=== PATIENT | male | born 1970 | race Caucasian/White ===

== ENCOUNTER 2016-09-09 16:53 | Emergency (ER) | payer MEDICARE, OTHER ==
[~2016-09-09] VITALS: Ht 162.6 cm; Wt 73.2 kg
[~2016-09-09 16:53] MED LIST: AMLO-147 PO; CIPR500T4 PO; CYCL-319 PO; GEMF600T PO; IBUP-1542 PO; INSU100C SC; MTF1000T PO; PANT40TA3 PO; ZOLP10TA PO
[2016-09-09 17:15] VITALS: Ht 162.6 cm; Wt 73.2 kg
[2016-09-09] MEDS ORDERED: SOD CHLORIDE 0.9% 500 ML IV STA (21:52)
[2016-09-09 22:17] LABS: ADD SCAN DIFF NO
[2016-09-09 22:25] LABS: ABNORMAL IP MESSAGE 1; HEMATOCRIT 32.9 % (42.0-52.0); HEMOGLOBIN 11.8 g/dl (14.0-18.0); MEAN CORPUSCULAR HEMOGLOBIN 35.1 pg (29.0-33.0); MEAN CORPUSCULAR HGB CONC 35.9 g/dl (32.0-37.0); MEAN CORPUSCULAR VOLUME 97.9 fl (82.0-101.0); MEAN PLATELET VOLUME 9.9 fl (7.4-10.4); PLATELET COUNT 88 10^3/UL (140-415); RED BLOOD COUNT 3.36 10^6/ul (4.70-6.10); RED CELL DISTRIBUTION WIDTH 13.8 % (11.5-14.5); RETICULOCYTE COUNT % 3.7 % (0.5-1.5)
[2016-09-09] MEDS ORDERED: IBUP800T25 PO (22:25)
[2016-09-09] MEDS ORDERED: INSU200I SQ (22:25)
[2016-09-09] MEDS ORDERED: GLYB5TAB3 PO (22:26)
[2016-09-09] MEDS ORDERED: MIRT30TA5 PO (22:29)
[2016-09-09] MEDS ORDERED: ONDANSETRON 4 MG INJ IV STA (22:33)
[2016-09-09] MEDS ORDERED: morphine 4 MG/ML VIAL IV STA (22:33)
[2016-09-09 22:47] LABS: ALBUMIN 4.4 g/dl (3.3-4.9); CHLORIDE 105 mmol/L (97-110)
[2016-09-09 22:48] LABS: POTASSIUM 3.8 mmol/L (3.5-5.1); SODIUM 143 mmol/L (135-144)
[2016-09-09 22:49] LABS: IRON 41 ug/dl (35-150)
[2016-09-09 22:50] LABS: ALBUMIN/GLOBULIN RATIO 1.33; ALKALINE PHOSPHATASE 146 IU/L (42-121); ANION GAP 17 (8-16); ASPARTATE AMINO TRANSFERASE 111 IU/L (15-46); BILIRUBIN,INDIRECT 0.9 mg/dl (0-1.1); BILIRUBIN,TOTAL 0.9 mg/dl (0.2-1.3); BLOOD UREA NITROGEN 14 mg/dl (7-20); CARBON DIOXIDE 25 mmol/L (21-31); CREATININE 0.74 mg/dl (0.61-1.24); TOTAL PROTEIN 7.7 g/dl (6.1-8.1)
[2016-09-09 22:51] LABS: ALANINE AMINOTRANSFERASE 93 IU/L (13-69); CALCIUM 9.3 mg/dl (8.4-10.2); GLUCOSE 199 mg/dl (70-220); LACTATE DEHYDROGENASE 738 IU/L (313-618)
[2016-09-09 22:58] LABS: TOTAL IRON BINDING CAPACITY 266 ug/dl (241-421)
[2016-09-09 23:06] LABS: TROPONIN-I < 0.012 ng/ml (0.00-0.12)
--- NOTE | 2016-09-09 23:14 | RADRPT ---
PROCEDURE: Left upper extremity venous ultrasound CLINICAL INDICATION: Left arm pain and swelling. Deep venous thrombosis. TECHNIQUE: Miller scale, color doppler, spectral doppler ultrasound imaging of the venous system of the left upper extremity. Augmentation maneuvers were utilized. COMPARISON: No prior studies are available for comparison. FINDINGS: LEFT: Internal jugular vein: Patent. Subclavian vein: Patent. Axillary vein: Patent. Brachial vein: Patent. Basilic vein: Patent. Cephalic vein: Patent. Radial vein: Patent. Ulnar vein: Patent. IMPRESSION: No evidence of a deep vein thrombosis involving the left upper extremity. RPTAT: AADD .Nick Ashby MD, MD Date Time Electronically viewed and signed by .Nick Ashby MD, MD on 09/09/2016 23:14 .B/
[2016-09-09 23:17] LABS: LYMPHOCYTES # 0.7 10^3/ul (0.8-2.9); MONOCYTE # 0.5 10^3/ul (0.3-0.9); NEUTROPHIL # 0.8 10^3/ul (1.6-7.5)
[2016-09-10] MEDS ORDERED: KETOROLAC 30 MG INJ IV ONE (00:04)
--- NOTE | 2016-09-10 01:05 | RADRPT ---
PROCEDURE: XR Shoulder. CLINICAL INDICATION: Left shoulder pain. TECHNIQUE: Two views of the left shoulder. COMPARISON: None available. FINDINGS: There is no fracture or dislocation. The coracoclavicular interval is normal. The joint spaces are preserved. There are no periarticular calcifications. The visualized lung is clear. IMPRESSION: 1. No osseous or articular abnormality of the left shoulder. RPTAT: HTAR .Dustin Chen MD, MD Date Time Electronically viewed and signed by .Dustin Chen MD, MD on 09/10/2016 01:05 .R/
[2016-09-10] MEDS ORDERED: morphine 4 MG/ML VIAL IV ONE (01:31)
--- NOTE | 2016-09-10 02:05 | ERD ---
ER Documentation Chief Complaint Date/Time DATE: 09/10/16 TIME: 02:00 Chief Complaint left arm pain ; low hgb level - pt has leukemia HPI This is a 45-year-old male comes in with complaints of left arm pain of 3 months duration. Patient has a history of leukemia and was told that it is "bone pain. Denies any fevers or chills. Denies any trauma. Denies any other current issues. ROS All systems reviewed and are negative except as per history of present illness. Medications Home Meds Active Scripts Amlodipine Besylate* (Amlodipine Besylate*) 10 Mg Tablet, 10 MG PO DAILY for 30 Days, TAB Prov:ARASH ARRIAGA 02/07/16 Reported Medications Mirtazapine* (Mirtazapine*) 30 Mg Tablet, 30 MG PO HS, TAB 09/09/16 Glyburide* (Glyburide*) 5 Mg Tablet, 5 MG PO BID, #60 TAB 09/09/16 Insulin Lispro (Humalog Kwikpen) 200 Unit/1 Ml Insuln.pen, 3 UNIT SQ TID, EA 09/09/16 Ibuprofen* (Ibuprofen*) 800 Mg Tab, 800 MG PO Q6H Y for PAIN, TAB 09/09/16 Gemfibrozil* (Lopid*) 600 Mg Tablet, 600 MG PO BID, TAB 02/02/16 Metformin* (Glucophage*) 1,000 Mg Tablet, 1000 MG PO BID, #60 TAB 02/02/16 Discontinued Reported Medications Zolpidem Tartrate* (Ambien*) 10 Mg Tablet, 10 MG PO QHS Y for INSOMNIA, TAB 02/02/16 Cyclobenzaprine Hcl* (Cyclobenzaprine Hcl*) 10 Mg Tablet, 10 MG PO Q8 Y for PAIN LEVEL 6-10, #60 TAB 02/02/16 Ibuprofen* (Motrin*) 600 Mg Tab, 600 MG PO Q6H Y for PAIN, TAB 02/02/16 Insulin Lispro (Humalog) 100 U/Ml Cartridge, 10 UNITS SC WITH MEALS BEDTIME, EA 02/02/16 Discontinued Scripts Pantoprazole* (Protonix*) 40 Mg Tablet.dr, 40 MG PO DAILY for 30 Days, TAB Prov:ARASH ARRIAGA 02/07/16 Ciprofloxacin Hcl* (Ciprofloxacin Hcl*) 500 Mg Tablet, 500 MG PO BID@,18 for 7 Days, TAB Prov:ARASH ARRIAGA 02/07/16 Allergies Allergies: Coded Allergies: No Known Allergy (Unverified , 09/09/16) PMhx/Soc History of Surgery: Yes (UMBILICAL HERNIA) Anesthesia Reaction: No Hx Neurological Disorder: No Hx Respiratory Disorders: No Hx Cardiac Disorders: Yes (HTN) Hx Psychiatric Problems: No Hx Miscellaneous Medical Probl: Yes (PANCYTOPENIA, MYELODYSPLASIA, leukemia , dm) Hx Alcohol Use: No Hx Substance Use: No Hx Tobacco Use: No Smoking Status: Never smoker Physical Exam Vitals Vital Signs Date Time Temp Pulse Resp B/P Pulse Ox O2 Delivery O2 Flow Rate FiO2 09/10/16 00:24 125 17 125/85 100 Room Air 09/09/16 22:19 119 17 153/97 100 Room Air 09/09/16 17:15 99.1 128 26 153/85 100 Physical Exam Const: [] Head: Atraumatic Eyes: Normal Conjunctiva ENT: Normal External Ears, Nose and Mouth. Neck: Full range of motion..~ No meningismus. Resp: Clear to auscultation bilaterally Cardio: Regular rate and rhythm, no murmurs Abd: Soft, non tender, non distended. Normal bowel sounds Skin: No petechiae or rashes Back: No midline or flank tenderness Ext: No cyanosis, or edema Neur: Awake and alert Psych: Normal Mood and Affect Result Diagram: 09/09/16220409/09/162204 Results 24 hrs Laboratory Tests Test 09/09/16 22:05 Absolute Reticulocyte Count 0.125X10^6 Alanine Aminotransferase (ALT/SGPT) 93IU/L Albumin 4.4g/dl Albumin/Globulin Ratio 1.33 Alkaline Phosphatase 146IU/L Anion Gap 17 Aspartate Amino Transf (AST/SGOT) 111IU/L Blood Urea Nitrogen 14mg/dl Calcium Level 9.3mg/dl Carbon Dioxide Level 25mmol/L Chloride Level 105mmol/L Creatinine 0.74mg/dl Direct Bilirubin 0.00mg/dl Eosinophils # 0.010^3/ul Eosinophils % 1.0% Ferritin Pending Globulin 3.30g/dl Glucose Level 199mg/dl Hematocrit 32.9% Hemoglobin 11.8g/dl Indirect Bilirubin 0.9mg/dl Iron Level 41ug/dl Lactate Dehydrogenase 738IU/L Lymphocytes # 0.710^3/ul Lymphocytes % 33.0% Mean Corpuscular Hemoglobin 35.1pg Mean Corpuscular Hemoglobin Concent 35.9g/dl Mean Corpuscular Volume 97.9fl Mean Platelet Volume 9.9fl Monocytes # 0.510^3/ul Monocytes % 24.0% Neutrophils # 0.810^3/ul Neutrophils % 42.0% Nucleated Red Blood Cells % 1.0/100WBC Percent Iron Saturation 15% SAT Percent Reticulocyte Count 3.7% Platelet Count 8810^3/UL Potassium Level 3.8mmol/L Red Blood Count 3.3610^6/ul Red Cell Distribution Width 13.8% Sodium Level 143mmol/L Total Bilirubin 0.9mg/dl Total Iron Binding Capacity 266ug/dl Total Protein 7.7g/dl Troponin I < 0.012ng/ml White Blood Count 2.010^3/ul Current Medications Medications (Trade) Dose Ordered Sig/[place] Route PRN Reason Start Time Stop Time Status Last Admin Dose Admin Sodium Chloride (NS) 500 ml @ 500 mls/hr Q1H STAT IV 09/09/16 21:52 09/09/16 22:51 DC 09/09/16 22:40 Morphine Sulfate (morphine) 4 mg ONCE STAT IV 09/09/16 22:33 09/09/16 22:35 DC 09/09/16 22:39 Ondansetron HCl (Zofran Inj) 4 mg ONCE STAT IV 09/09/16 22:33 09/09/16 22:35 DC 09/09/16 22:39 Ketorolac Tromethamine (Toradol) 30 mg ONCE ONCE IV 09/10/16 00:04 09/10/16 00:10 DC 09/10/16 00:23 Morphine Sulfate (morphine) 4 mg ONCE ONCE IV 09/10/16 01:31 09/10/16 01:32 DC 09/10/16 01:39 Procedures/MDM DVT study negative X-ray Shoulder 3V Interpreted by me: Bones: No fracture Joints: No dislocation Foreign body: None Medical decision-makin-year-old male has shoulder pain of uncertain etiology. He reports that shoulder sling. Patient will follow-up as an outpatient with orthopedics. Discharged home with pain medication. Departure Diagnosis: Primary Impression: Shoulder pain Laterality: left Chronicity: chronic Qualified Code: M25.512 - Chronic left shoulder pain Condition: Stable ELIEL CHEATHAM Sep 10, 2016 02:05
[2016-09-10] MEDS ORDERED: HYDR-902 PO (02:06)
[2016-09-10 02:51] VITALS: BP 127/86; PULSE 104; RESP 16; TEMP 97.9
== END 2016-09-10 02:52 | disposition home or self-care (01) ==
LOC: E/R 16:53
DX: M25.512 Pain in left shoulder (principal); I10 Essential (primary) hypertension; E11.9 Type 2 diabetes mellitus without complications; Z79.4 Long term (current) use of insulin; Z79.84 Long term (current) use of oral hypoglycemic drugs
CPT/HCPCS: 73030; 80053; 82728; 83540; 83615; 84484; 85025; 85045; 86850; 86870; 86900; 86901; 93005; 93971; 96361; 96374; 96375; 96376; 99285; J1885; J2270; J2405; J7040

== ENCOUNTER 2016-10-21 19:57 | Inpatient (IN) | payer MEDICARE, OTHER ==
[~2016-10-21] VITALS: Ht 157.5 cm; Wt 76.5 kg
[~2016-10-21 19:57] MED LIST changes: -CIPR500T4 PO; -CYCL-319 PO; +GLYB5TAB3 PO; +HYDR-902 PO; -IBUP-1542 PO; +IBUP800T25 PO; -INSU100C SC; +INSU200I SQ; +MIRT30TA5 PO; -PANT40TA3 PO; -ZOLP10TA PO
[2016-10-21 20:08] VITALS: Ht 157.5 cm; Wt 76.5 kg
[2016-10-21] MEDS ORDERED: CEFEPIME 2GM/50 ML (PMX) 50 ML IVPB STA (22:43)
[2016-10-21] MEDS ORDERED: ACETAMINOPHEN 325 MG TAB PO STA (22:43)
[2016-10-21] MEDS ORDERED: SODIUM CHLORIDE 0.9% 1L BAG IV* STA (22:43)
[2016-10-21] MEDS ORDERED: INSU200I SQ (22:58)
[2016-10-21] MEDS ORDERED: TRAM-40 PO (22:59)
[2016-10-21] MEDS ORDERED: METO10TA92 PO (22:59)
[2016-10-21] MEDS ORDERED: VANCOMYCIN 1 GM (PMX) 250 ML IVPB ONE (23:00)
[2016-10-21] MEDS ORDERED: HYDROmorphONE 1 MG/ML SYG IV STA (23:12)
[2016-10-21 23:14] LABS: ADD SCAN DIFF NO
[2016-10-21 23:16] LABS: ABNORMAL IP MESSAGE 1; HEMOGLOBIN 9.6 g/dl (14.0-18.0); MEAN CORPUSCULAR HEMOGLOBIN 32.3 pg (29.0-33.0); MEAN CORPUSCULAR HGB CONC 33.1 g/dl (32.0-37.0); MEAN CORPUSCULAR VOLUME 97.6 fl (82.0-101.0); MEAN PLATELET VOLUME 10.2 fl (7.4-10.4); PLATELET COUNT 101 10^3/UL (140-415); RED BLOOD COUNT 2.97 10^6/ul (4.70-6.10); RED CELL DISTRIBUTION WIDTH 15.9 % (11.5-14.5); WHITE BLOOD COUNT 2.1 10^3/ul (4.8-10.8)
[2016-10-21 23:32] LABS: INR 1.11; PROTIME 14.3 Sec (12.2-14.2); PT RATIO 1.1
[2016-10-21 23:33] LABS: PARTIAL THROMBOPLASTIN TIME 36.5 Sec (25.0-35.0)
[2016-10-21 23:39] LABS: ALANINE AMINOTRANSFERASE 161 IU/L (13-69); ALBUMIN 4.4 g/dl (3.3-4.9); ALBUMIN/GLOBULIN RATIO 1.46; ALKALINE PHOSPHATASE 153 IU/L (42-121); ANION GAP 14 (8-16); ASPARTATE AMINO TRANSFERASE 150 IU/L (15-46); BILIRUBIN,INDIRECT 1.2 mg/dl (0-1.1); BILIRUBIN,TOTAL 1.2 mg/dl (0.2-1.3); BLOOD UREA NITROGEN 17 mg/dl (7-20); CARBON DIOXIDE 24 mmol/L (21-31); CHLORIDE 101 mmol/L (97-110); CREATININE 0.84 mg/dl (0.61-1.24); GLUCOSE 242 mg/dl (70-220); POTASSIUM 4.1 mmol/L (3.5-5.1); SODIUM 135 mmol/L (135-144); TOTAL PROTEIN 7.4 g/dl (6.1-8.1)
[2016-10-21 23:51] LABS: TROPONIN-I < 0.012 ng/ml (0.00-0.12)
[2016-10-22 00:23] LABS: LYMPHOCYTES # 0.2 10^3/ul (0.8-2.9); MONOCYTE # 0.8 10^3/ul (0.3-0.9); NEUTROPHIL # 1.1 10^3/ul (1.6-7.5)
[2016-10-22 00:25] LABS: PLATELET ESTIMATE PLT APPEAR DECREASED
[2016-10-22] MEDS ORDERED: HYDROmorphONE 1 MG/ML SYG IV ONE ×4 (00:25→05:41)
--- NOTE | 2016-10-22 00:39 | RADRPT ---
PROCEDURE: XR Chest. CLINICAL INDICATION: Sepsis TECHNIQUE: Single AP portable chest COMPARISON: 02/02/2016 Chest x-ray FINDINGS: The cardiomediastinal silhouette is within normal limits of size. Blunting left costophrenic angle c ompatible small pleural effusion or pleuroparenchymal scarring unchanged compared to previous study. No pneumothorax. The osseous structures and soft tissues are unremarkable. IMPRESSION: 1. Left pleural parenchymal scarring versus small pleural effusion without interval change. No othe r acute intrathoracic abnormality. . RPTAT:AAJJ Josh Beavers Physician Date Time Electronically viewed and signed by Physician Rohini on 10/22/2016 00:38 AUBREY/
--- NOTE | 2016-10-22 00:54 | ERA ---
ER Documentation Chief Complaint Date/Time DATE: 10/22/16 TIME: 00:53 Chief Complaint sent by oncologist, hx-leukemia taking chemo. c/ o fever since yesterday HPI This is a 45-year-old male sent by oncologist secondary to have a fever since yesterday. Patient has a history of leukemia and is currently on chemotherapy. Denies any complaints other than fever. ROS All systems reviewed and are negative except as per history of present illness. Medications Home Meds Active Scripts Hydrocodone/Acetaminophen ([place] 10-325 Tablet) 1 Each Tablet, 1 TAB PO Q6H Y for PAIN, #20 TAB Prov:ELIEL CHEATHAM 09/10/16 Amlodipine Besylate* (Amlodipine Besylate*) 10 Mg Tablet, 10 MG PO DAILY for 30 Days, TAB Prov:ARASH ARRIAGA 02/07/16 Reported Medications Tramadol Hcl* (Ultram*) 50 Mg Tablet, 50 MG PO Q6H Y for PAIN, TAB 10/21/16 Metoclopramide* (Reglan*) 10 Mg Tablet, 10 MG PO AC MEALS, TAB 10/21/16 Insulin Lispro (Humalog Kwikpen) 200 Unit/1 Ml Insuln.pen, 5 UNIT SQ TID, EA 10/21/16 Mirtazapine* (Mirtazapine*) 30 Mg Tablet, 30 MG PO HS, TAB 09/09/16 Glyburide* (Glyburide*) 5 Mg Tablet, 5 MG PO BID, #60 TAB 09/09/16 Ibuprofen* (Ibuprofen*) 800 Mg Tab, 800 MG PO Q6H Y for PAIN, TAB 09/09/16 Gemfibrozil* (Lopid*) 600 Mg Tablet, 600 MG PO BID, TAB 02/02/16 Metformin* (Glucophage*) 1,000 Mg Tablet, 1000 MG PO BID, #60 TAB 02/02/16 Discontinued Reported Medications Insulin Lispro (Humalog Kwikpen) 200 Unit/1 Ml Insuln.pen, 3 UNIT SQ TID, EA 09/09/16 Allergies Allergies: Coded Allergies: No Known Allergy (Unverified , 09/09/16) PMhx/Soc History of Surgery: Yes (UMBILICAL HERNIA) Anesthesia Reaction: No Hx Neurological Disorder: No Hx Respiratory Disorders: No Hx Cardiac Disorders: Yes (HTN) Hx Psychiatric Problems: No Hx Miscellaneous Medical Probl: Yes (PANCYTOPENIA, MYELODYSPLASIA, leukemia , dm) Hx Alcohol Use: No Hx Substance Use: No Hx Tobacco Use: No Smoking Status: Never smoker Physical Exam Vitals Vital Signs Date Time Temp Pulse Resp B/P Pulse Ox O2 Delivery O2 Flow Rate FiO2 10/21/16 23:56 99.6 126 22 122/75 97 Room Air 10/21/16 20:08 101.2 147 20 170/78 97 Physical Exam Const: [] Head: Atraumatic Eyes: Normal Conjunctiva ENT: Normal External Ears, Nose and Mouth. Neck: Full range of motion..~ No meningismus. Resp: Clear to auscultation bilaterally Cardio: Regular rate and rhythm, no murmurs Abd: Soft, non tender, non distended. Normal bowel sounds Skin: No petechiae or rashes Back: No midline or flank tenderness Ext: No cyanosis, or edema Neur: Awake and alert Psych: Normal Mood and Affect Result Diagram: 10/21/16225410/21/162254 Results 24 hrs Laboratory Tests Test 10/21/16 22:55 White Blood Count 2.110^3/ul Red Blood Count 2.9710^6/ul Hemoglobin 9.6g/dl Hematocrit 29.0% Mean Corpuscular Volume 97.6fl Mean Corpuscular Hemoglobin 32.3pg Mean Corpuscular Hemoglobin Concent 33.1g/dl Red Cell Distribution Width 15.9% Platelet Count 41734^3/UL Mean Platelet Volume 10.2fl Neutrophils % 53.0% Lymphocytes % 11.0% Monocytes % 36.0% Nucleated Red Blood Cells % 3.0/100WBC Neutrophils # 1.110^3/ul Lymphocytes # 0.210^3/ul Monocytes # 0.810^3/ul Platelet Estimate PLT APPEAR DECREASED Prothrombin Time 14.3Sec Prothrombin Time Ratio 1.1 INR International Normalized Ratio 1.11 Activated Partial Thromboplast Time 36.5Sec Sodium Level 135mmol/L Potassium Level 4.1mmol/L Chloride Level 101mmol/L Carbon Dioxide Level 24mmol/L Anion Gap 14 Blood Urea Nitrogen 17mg/dl Creatinine 0.84mg/dl Glucose Level 242mg/dl Lactic Acid Level 1.0mmol/L Calcium Level 9.0mg/dl Total Bilirubin 1.2mg/dl Direct Bilirubin 0.00mg/dl Indirect Bilirubin 1.2mg/dl Aspartate Amino Transf (AST/SGOT) 150IU/L Alanine Aminotransferase (ALT/SGPT) 161IU/L Alkaline Phosphatase 153IU/L Troponin I < 0.012ng/ml Total Protein 7.4g/dl Albumin 4.4g/dl Globulin 3.00g/dl Albumin/Globulin Ratio 1.46 Current Medications Medications (Trade) Dose Ordered Sig/[place] Route PRN Reason Start Time Stop Time Status Last Admin Dose Admin Sodium Chloride (NS) 2,370 ml BOLUS OVER 2 HOURS STAT IV* 10/21/16 22:43 10/21/16 22:44 DC 10/21/16 23:07 Acetaminophen 650 mg 650 mg ONCE STAT PO 10/21/16 22:43 10/21/16 22:44 DC 10/21/16 23:09 Cefepime HCl 50 ml @ 100 mls/hr ONCE STAT IVPB 10/21/16 22:43 10/21/16 23:12 DC 10/21/16 23:07 Vancomycin HCl (Vancocin) 250 ml @ 125 mls/hr ONCE ONCE IVPB 10/21/16 23:00 10/22/16 00:59 10/21/16 23:54 Hydromorphone HCl (Dilaudid) 1 mg ONCE STAT IV 10/21/16 23:12 10/21/16 23:13 DC 10/21/16 23:33 Hydromorphone HCl (Dilaudid) 1 mg ONCE ONCE IV 10/22/16 00:25 10/22/16 00:26 DC 10/22/16 00:30 Procedures/MDM EKG: Rate/Rhythm: [Normal Sinus Rhythm] QRS, ST, T-waves: [No changes consistent w/ acute ischemia] Impression: [No evidence of ischemia or arrhythmia] Chest X-ray 1V Interpreted by me: Soft Tissue: No acute abnormalities Bones: No acute abnormalities Mediastinum/Cardiac Silhouette/Lungs: [No acute abnormalities] Medical decision-makin-year-old gentleman with chronic chemotherapy with fever. Started on broad-spectrum antibiotics post fernandez culture. Patient will be admitted to hospitalist. Departure Diagnosis: Primary Impression: Fever Qualified Code: R50.9 - Fever, unspecified fever cause Condition: Serious ELIEL CHEATHAM October 22, 2016 00:54
[2016-10-22 01:49] VITALS: BP 131/76; PULSE 111; RESP 20
[2016-10-22] MEDS ORDERED: SOD CHLORIDE 0.9% 100 ML ONE (03:30)
[2016-10-22] MEDS ORDERED: IOHEXOL 300MG/ML 150 ML BTL ONE (03:30)
[2016-10-22] MEDS ORDERED: DOCUSATE SODIUM 100 MG CAP PO PRN (04:00)
[2016-10-22] MEDS ORDERED: ONDANSETRON 4 MG INJ IV PRN (04:00)
[2016-10-22] MEDS ORDERED: BISACODYL (EC) 5 MG TAB PO PRN (04:00)
[2016-10-22] MEDS ORDERED: ZOLPIDEM 5 MG TAB PO PRN (04:00)
[2016-10-22 04:30] LABS: CREATINE KINASE 49 IU/L (23-200)
[2016-10-22] MEDS ORDERED: VANCOMYCIN IV PER PHARMACY XX SCH (04:30)
--- NOTE | 2016-10-22 04:40 | HP ---
Date/Time of Note Date/Time of Note DATE: 10/22/16 TIME: 04:06 Assessment/Plan VTE Prophylaxis VTE Prophylaxis Intervention: heparin Lines/Catheters IV C[facility]ter Type (from [facility]): Peripheral IV Urinary Cath still in place: No Assessment/Plan Chief Complaint/Hosp Course This is a 45-year-old male being admitted to telemetry for #1 fever: Infectious versus reactive versus unknown etiology at this time. Patient's white blood cell count is 2 in the setting of his current cancer treatment. Will order a CRP though this may be elevated as well secondary to cancer status. He did receive antibiotics in the ED. At this time we will continue him on antibiotics broad-spectrum .Proceed with fernandez-culturing the patient. Will add a urine culture to the already ordered blood cultures in the ED. Tylenol for fevers. Await culture results. Consider infectious disease consult. Lactic acid is within normal values. #2 Chest discomfort. Patient denies any sort of trauma. This chest discomfort is of concern as there appears to be no inciting cause of this as patient does not have a cough nor report any sort of trauma to the chest. In the setting of the patient having leukemia and a higher anticoagulative state I would like to order a CTA of the chest to evaluate for any PE versus other underlying chest abnormality. Also will trend troponins. Will order echocardiogram. #3 Hematuria: We will order urinalysis/urine culture, consider urology consult as indicated #4: Diabetes: Continue insulin sliding scale, hold oral home medications, check A1c #5 hypertension, stable continue to monitor and restart amlodipine #6 elevated LFTs: His previous LFTs elevated as well. We will get a right upper quadrant ultrasound to further evaluate this also may be secondary to the patient's cancer status. #7 DVT and GI prophylaxis: Heparin subq, H2 darcie Problems: HPI/ROS Admit Date/Time Admit Date/Time 10/21/2016 Hx of Present Illness This is a 45-year-old male with a history of leukemia coming into the ER for fever. Patient states that on Thursday he noticed that he had a temperature of 100 and his fever persisted with him taking Tylenol every 4-6 hours to help bring down the fever. Patient did go go to get chemotherapy for his leukemia. The next day after that he developed body aches. His white blood cell count has been decreased nonetheless he did still receive chemotherapy. Patient also states that for the past week or so he has been experiencing a tightness in his chest that is also pleuritic in nature at times. He states that the pain is relatively constant. He denies any recent prolonged travel or recent sick contacts. Denies a cough. Allergies: None Medications: See MAR ROS Const: Generalized body aches Eyes : No pain discharge or redness or change in visual acuity ENT: No pain, sore throat, congestion, congestion, dysphagia or discharge Respiratory: No shortness of breath, cough, sputum, wheezing, or pleuritic pain Cardiovascular: As stated above in the HPI otherwise negative GI : no change in appetite, abdominal pain, nausea, vomiting, diarrhea, constipation, or change in the color his stool Genitourinary: No dysuria, hematuria, flank pain , discharge or CVA tenderness Musculoskeletal: Generalized body aches Skin: No rash, bruising or hives Neuro: No headache, dizziness, syncope, seizure, focal weakness Endocrine: No polyuria, polydipsia, temperature intolerance Psych: No hallucination, depression, anxiety or suicidal ideation PMH/Family/Social Past Medical History Leukemia, abdominal hernia Past Surgical History Abdominal hernia repair Past Surgical Hx: other Family History Significant Family History: cancer (Brother: Stomach cancer) Social History Alcohol Use: none Smoking Status: Never smoker Drug Use: none Exam/Review of Systems Vital Signs Vitals Vital Signs Date Time Temp Pulse Resp B/P Pulse Ox O2 Delivery O2 Flow Rate FiO2 10/22/16 01:49 98.6 111 20 131/76 99 Room Air Intake and Output 10/21/16 10/21/16 10/22/16 15:00 23:00 07:00 Intake Total 2420 ml Balance 2420 ml Exam Exam General: The patient is well-developed, mild distress from pain diffuse body aches. The patient is alert oriented -3 HEENT: Atraumatic, normocephalic. The pupils are equal, round and reactive. Extraocular motor are intact Neck: Supple with full range of motion. No rigidity or meningismus Chest: Nontender Lungs: Clear to auscultation bilaterally no crackles rales or wheezing Heart: Sinus tachycardia, no murmurs appreciated Abdomen: Soft , nontender, nondistended , bowel sounds are present. No guarding no rebound tenderness , No masses or organomegaly. No costovertebral temporal angle mass Extremities: Normal to inspection, no edema no cyanosis Neurologic: Normal mental status, speech normal, cranial nerves II through XII are intact, motor and sensory are intact, no focal weakness Labs Result Diagram: 10/21/16 10/21/163 Medications Medications Current Medications Ondansetron HCl (Zofran Inj) 4 mg Q6H PRN IV NAUSEA AND/OR VOMITING; Start 10/22 at 04:00 Zolpidem Tartrate (Ambien) 5 mg QHS PRN PO INSOMNIA; Start 10/22/16 at 04:00 Docusate Sodium (Colace) 100 mg Q12H PRN PO CONSTIPATION; Start 10/22/16 at 04: 00; Status UNV Bisacodyl (Dulcolax) 5 mg DAILY PRN PO CONSTIPATION; Start 10/22/16 at 04:00; Status UNV Famotidine (Pepcid) 20 mg Q12 PO ; Start 10/22/16 at 09:00; Status UNV Heparin Sodium (Porcine) (Heparin (5000 Units/0.5 ml)) 5,000 unit Q8 SC ; Start 10/22/16 at 06:00; Status UNV DASIA CHAKRABORTY October 22, 2016 04:18
[2016-10-22 04:43] LABS: CK-MB 0.25 ng/ml (0.0-2.4)
[2016-10-22 04:44] LABS: TROPONIN-I < 0.012 ng/ml (0.00-0.12)
[2016-10-22 04:58] VITALS: BP 133/83; PULSE 96; RESP 22
[2016-10-22] MEDS ORDERED: GLUCAGON 1 MG INJ IM PRN (05:00)
[2016-10-22] MEDS ORDERED: GLUCOSE GEL 15 GRAM TUBE BUCCAL PRN (05:00)
[2016-10-22] MEDS ORDERED: DEXTROSE 50% 50 ML SYRINGE IV PRN ×2 (05:00)
[2016-10-22] MEDS ORDERED: GLUCOSE GEL 15 GRAM TUBE PO PRN ×2 (05:00)
--- NOTE | 2016-10-22 05:11 | RADRPT ---
PROCEDURE: CT angiogram of the chest with contrast. CLINICAL INDICATION: Chest pain. TECHNIQUE: CT angiogram of the chest was obtained using a multi-detector high-resolution CT. Con tiguous axial images were obtained during the dynamic injection of 100 cc of Omnipaque 300 intraveno us contrast. Coronal and sagittal reformatted images were obtained. 3-D reformatted images were al so obtained. Images were reviewed on a PACS workstation. One or more of the following dose reduction techniques were used: - Automated exposure control. - Adjustment of the mA and/or kV according to patient size. - Use of iterative reconstruction technique. Exam CTD/vol = 15.66 mGy. Total exam DLP = 588.75 mGy-cm. COMPARISON: None. FINDINGS: The main pulmonary artery followed to the segmental divisions are well opacified. There is no filli ng defect or evidence of pulmonary embolism. The heart is enlarged. There is no pericardial thicke maddy or effusion. The aorta is of normal course and caliber without evidence of aneurysm or dissect ion. There is no evidence of chest wall mass. The visualized thyroid is unremarkable. There are small a xillary lymph nodes bilaterally. There are small periaortic, prevascular and subcarinal lymph nodes with the largest in the subcarinal space measuring 1.5 x 1.0 cm. There are no enlarged hilar lymph nodes by CT criteria. There is mild right upper lobe atelectasis/scarring. There is mild left basi lar atelectasis/scarring. There is no parenchymal nodule or consolidation. There is no pleural eff usion. The central tracheobronchial tree is within normal limits. There is a moderate anterior wedge-shaped compression deformity of the T6 vertebral body with up to 80% loss in vertebral body height. There is no bony retropulsion. Limited evaluation of the upper abdomen demonstrates moderate splenomegaly. IMPRESSION: No evidence of pulmonary embolism or aortic dissection. Mild to moderate cardiomegaly. Mild scarring/atelectasis within the right upper lobe and left lung base. Shotty mediastinal and bilateral axillary lymph nodes. Moderate anterior wedge compression deformity of T6, likely old. Moderate splenomegaly. .Librado Bardales MD, MD Date Time Electronically viewed and signed by .Librado Bardales MD, MD on 10/22/2016 05:11 .T/
[2016-10-22 05:18] LABS: ADD UMIC YES; URINE BILIRUBIN (Dip) NEGATIVE (NEGATIVE); URINE BLOOD (Dip) NEGATIVE (NEGATIVE); URINE COLOR YELLOW (YELLOW); URINE KETONES (Dip) NEGATIVE (NEGATIVE); URINE LEUKOCYTE ESTERASE (Dip) NEGATIVE (NEGATIVE); URINE NITRITE (Dip) NEGATIVE (NEGATIVE); URINE TOTAL PROTEIN (Dip) TRACE (NEGATIVE); URINE UROBILINOGEN (Dip) 1.0 E.U./dL (0.1-1.0)
[2016-10-22] MEDS: HEPARIN 5,000 UNIT/0.5 ML VIAL SC SCH ×3 (05:35→21:50)
[2016-10-22 05:44] LABS: MUCUS,URINE FEW; URINE RBCS 0-2 /HPF (0)
[2016-10-22 05:55] LABS: ADD SCAN DIFF NO
[2016-10-22 06:04] LABS: ABNORMAL IP MESSAGE 1; HEMATOCRIT 26.4 % (42.0-52.0); HEMOGLOBIN 8.9 g/dl (14.0-18.0); MEAN CORPUSCULAR HEMOGLOBIN 33.3 pg (29.0-33.0); MEAN CORPUSCULAR HGB CONC 33.7 g/dl (32.0-37.0); MEAN CORPUSCULAR VOLUME 98.9 fl (82.0-101.0); MEAN PLATELET VOLUME 10.4 fl (7.4-10.4); PLATELET COUNT 83 10^3/UL (140-415); RED BLOOD COUNT 2.67 10^6/ul (4.70-6.10); WHITE BLOOD COUNT 1.5 10^3/ul (4.8-10.8)
[2016-10-22 06:16] LABS: ALBUMIN 3.8 g/dl (3.3-4.9)
[2016-10-22 06:17] LABS: POTASSIUM 4.1 mmol/L (3.5-5.1)
[2016-10-22 06:19] LABS: ALBUMIN/GLOBULIN RATIO 1.35; BILIRUBIN,INDIRECT 1.2 mg/dl (0-1.1); BILIRUBIN,TOTAL 1.2 mg/dl (0.2-1.3); CREATININE 0.7 mg/dl (0.61-1.24); TOTAL PROTEIN 6.6 g/dl (6.1-8.1)
[2016-10-22 06:20] LABS: CALCIUM 8.4 mg/dl (8.4-10.2)
[2016-10-22] MEDS: INSULIN ASPART [NOVOLOG] 3 ML PEN SC SCH ×4 (07:54→20:36)
--- NOTE | 2016-10-22 07:59 | RADRPT ---
PROCEDURE: US Abdomen complete. CLINICAL INDICATION: CVA tenderness TECHNIQUE: Multiple real-time longitudinal and transverse images were acquired of the patient's ab domen and retroperitoneum utilizing a curved array transducer. COMPARISON: None FINDINGS: The liver is normal in size and demonstrates increased echogenicity. No focal intrahepatic mass is identified. The gallbladder is normal in appearance. There is no pericholecystic fluid or gallblad asntana wall thickening. No intra or extrahepatic biliary dilatation is seen. The common bile duct measu res 4.6 mm in maximal dimension. The visualized portions of the pancreas are unremarkable with obsc uration of the tail of the pancreas. The spleen is mildly enlarged. No free fluid is identified. The right kidney measures 11.5 cm in length. The left kidney measures 12.2 cm in length. There is normal echogenicity within the kidneys. There are no perinephric fluid collections. No hydronephro sis, mass, or calculus is seen. The aorta and IVC are unremarkable. IMPRESSION: 1. Mild hepatosplenomegaly. 2. Hepatic steatosis. RPTAT: HH .Maite Delacruz MD, MD Date Time Electronically viewed and signed by .Maite Delacruz MD, on 10/22/2016 07:59 .G/
[2016-10-22] MEDS: HYDROmorphONE 1 MG/ML SYG IV PRN ×4 (08:44→20:37)
[2016-10-22] MEDS: AMLODIPINE 10 MG TAB PO SCH (08:49)
[2016-10-22] MEDS: FAMOTIDINE 20 MG TAB PO SCH ×2 (08:49→20:32)
[2016-10-22] MEDS: CEFEPIME 1GM/50 ML (PMX) 50 ML IVPB SCH ×2 (08:49→20:49)
[2016-10-22] MEDS: VANCOMYCIN 1.25 GM in SOD CHLORIDE 0.9% 250 ML IVPB SCH ×2 (10:08→21:47)
[2016-10-22 10:33] LABS: LYMPHOCYTES # 0.3 10^3/ul (0.8-2.9); MONOCYTE # 0.4 10^3/ul (0.3-0.9); NEUTROPHIL # 0.7 10^3/ul (1.6-7.5)
[2016-10-22 10:48] LABS: CREATINE KINASE 44 IU/L (23-200)
[2016-10-22 11:03] LABS: CK-MB 0.36 ng/ml (0.0-2.4); TROPONIN-I < 0.012 ng/ml (0.00-0.12)
--- NOTE | 2016-10-22 11:27 | CONS ---
DATE OF ADMISSION: 10/21/2016 DATE OF CONSULTATION: 10/22/2016 TYPE OF CONSULTATION: Infectious disease. REASON FOR CONSULTATION: Antibiotic management. HISTORY OF PRESENT ILLNESS: Ender Aparicio is a 45-year-old male with a history of leukemia who comes in with fever. He noted that on Thursday, 1 day prior to admission he had a temperature of 100 . His fever persisted with him taking Tylenol every 4 to 6 hours to help bring down the fever. The patient did not go to the chemotherapy for his leukemia. The next day after that, he developed bod y aches, his white blood cell count has been decreased nonetheless, he still received chemotherapy. For the past week or so he has been experiencing a tightness in his chest and is also pleuritic in n ature at times. The pain is relatively constant. He denies any recent prolonged travel or recent si ck contacts and he denies cough. On admission, his white count was 2.1, H and H of 9.6 and 29, plat elet count 101,000. BUN and creatinine is 17/0.84. His glucose was 242. He had 53% polys, so he i s not absolutely neutropenic. His influenza A and B are negative. He had a chest x-ray which showe d left pleural parenchymal scarring versus small pleural effusion without interval change. No other acute intrathoracic abnormality. He had a CT scan of the thorax and chest, no evidence of pulmonary emboli, mild scarring, atelectasi s, shotty mediastinal and bilateral axillary lymph nodes, moderate anterior wedge compression deform ity of T6, likely old and moderate splenomegaly. Abdominal ultrasound, mild hepatosplenomegaly, hepatic steatosis. PAST MEDICAL HISTORY: Operations as outlined. FAMILY HISTORY: Noncontributory. PAST SURGICAL HISTORY: He had abdominal hernia repair. FAMILY HISTORY: His brother had stomach cancer. SOCIAL HISTORY: Does not smoke, drink or abuse drugs. ALLERGIES: NONE TO PENICILLIN, SULFA OR FOODS. MEDICATIONS: Per chart. REVIEW OF SYSTEMS: As per HPI. PHYSICAL EXAMINATION: GENERAL: The patient is a well-developed, well-nourished male, alert, responsive, in no acute distr ess. VITAL SIGNS: Stable. He is afebrile. SKIN: Without generalized rash. HEENT: Within normal limits. NECK: Supple. LYMPH NODES: None palpable. LUNGS: Clear to P and A. HEART: Without murmur or gallop. ABDOMEN: Soft, nontender, without organosplenomegaly or masses. EXTREMITIES: Without cyanosis, clubbing, or edema. RECTAL AND GENITAL: Deferred. NEUROLOGIC: No focal neurological abnormalities. IMPRESSION AND PLAN: The patient comes in with a fever. His white count is 2000. A CRP was ordere d. He had urine and blood cultures done. He is on vancomycin and cefepime. We will continue him o n this regimen and await his culture reports. I want to thank the hospitalist for asking me to see this zulma gentleman in consultation. Dictated By: RODOLFO TEAGUE MD, JD/ISRRAEL Conf#: [id number] DID#: [id number]
--- NOTE | 2016-10-22 14:18 | EN ---
Date/Time of Note Date/Time of Note DATE: 10/22/16 TIME: 14:13 Event Note Medicine Medicine Event Note Patient remains stable in the emergency room no new events since seen by Primary hospitalist Continues intravenous antibiotics pending a bed for admission Vital signs stable GENERAL: Well-nourished well-developed gentleman comfortable at rest VITAL SIGNS: per chart NECK: Supple. No JVD or lymphadenopathy. CARDIAC EXAM: S1, S2. No added sounds or murmurs. CHEST: clear bilaterally, No added sounds, rales or wheezes ABDOMEN: Soft, nontender. No guarding or rebound. EXTREMITIES: No cyanosis, clubbing or edema. NEUROLOGIC: Generalized weakness. No focal deficits. CT pulmonary angiogram IMPRESSION: No evidence of pulmonary embolism or aortic dissection. Mild to moderate cardiomegaly. Mild scarring/atelectasis within the right upper lobe and left lung base. Shotty mediastinal and bilateral axillary lymph nodes. Moderate anterior wedge compression deformity of T6, likely old. Moderate splenomegaly. Ultrasound abdomen 1. Mild hepatosplenomegaly. 2. Hepatic steatosis. Impression 1. 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 2. History of diabetes 3. History of hypertension Plan 1. Continue antibiotics per infectious diseases 2. Check HbA1c and improved glycemic management 3. DVT GI prophylaxis TAMAR GAO MD, [facility] October 22, 2016 14:18
--- NOTE | 2016-10-22 14:52 | RADRPT ---
Echocardiogram Report Patient Name: CINDI JONES Gender: Male Date: 1970 Study Date: 22-Oct-2016 Senior Compensation Analyst: MEENA Location: [facility] Ref. Physician: DASIA CHAKRABORTY Quality: Good Procedures: Transthoracic echocardiogram with complete 2D, M-Mode, and doppler examination. Indications: Tachycardia. 2D/M Mode Doppler Measurement Value Normal Ranges Measurement Value Normal Ranges LVIDd 2D 4.5 3.5 - 5.6 cm NEENA Vmax 2.3 cm2 LVIDs 2D 2.9 2.1 - 4.1 cm AV Peak Luis 1.5 m/sec LVPWd 2D 1.0 0.6 - 1.1 cm AV Peak PG 10.0 mmHg IVSd 2D 1.0 0.6 - 1.1 cm LVOT Peak Luis 1.2 m/sec AoR Diam 2D 2.8 2.0 - 3.7 cm LVOT Peak PG 5.0 mmHg LA/Ao 2D 1 0 - 1 MV E Peak Luis 1.2 m/sec LA Dimen 2D 3.3 2.3 - 4.0 cm MV A Peak Luis 1.0 m/sec LVOT Diam 2.0 cm MV E/A 1.3 LVOT Area 3.1 cm2 MV Decel Time 106 msec MV E/A 1.3 TR Peak Luis 2.3 m/sec TR Peak PG 22.0 mmHg RVSP 25.0 mmHg Findings Left Ventricle: Normal left ventricular systolic function. Normal left ventricular cavity size. Normal left ventricular wall thickness. Ejection fraction is visually estimated at 65 %. Right Ventricle: Normal right ventricular size. Normal right ventricular systolic function. Left Atrium: The left atrium is normal in size. LA Dimension2.00 cm. Right Atrium: The right atrium is normal in size. Mitral Valve: Normal appearance of the mitral valve. Mild mitral annular calcification. Trace mitral regurgitation. Aortic Valve: Normal appearance of the aortic valve. No significant aortic stenosis or insufficiency. Tricuspid Valve: Tricuspid valve not well visualized. Estimated peak PA systolic pressure 25 mmHg. There is trace tricuspid regurgitation. Pulmonic Valve: Normal pulmonic valve appearance. Pericardium: Normal pericardium with no significant pericardial effusion. Aorta: Normal aortic root. IVC: Normal size and normal respiratory collapse consistent with normal right atrial pressure. Conclusions 1.Normal left ventricular systolic function. Normal left ventricular cavity size. Normal left ventricular wall thickness. Ejection fraction is visually estimated at 65 %. 2.Normal right ventricular size. Normal right ventricular systolic function. 3.The left atrium is normal in size. LA Dimension2.00 cm. 4.The right atrium is normal in size. 5.No significant valvular stenosis or regurgitation seen. 6.Normal pericardium with no significant pericardial effusion. Electronically Signed By: Robinson Godinez 22-Oct-2016 14:52:08 -0700 Patient Name: CINDI JONES Study Date: 22-Oct-2016 [id number]
[2016-10-22 15:02] VITALS: TEMP 97.8
[2016-10-22 15:26] VITALS: BP 130/77; PULSE 100; RESP 16
[2016-10-22 19:23] VITALS: BP 121/67; RESP 18
[2016-10-22] MEDS: MIRTAZAPINE 15 MG TAB PO SCH (20:32)
[2016-10-23] MEDS: HYDROmorphONE 1 MG/ML SYG IV PRN ×3 (00:46→09:56)
[2016-10-23] MEDS: ACCUCHECK AT 2AM (Patients on SS coverage) XX SCH (02:00)
[2016-10-23] MEDS: HEPARIN 5,000 UNIT/0.5 ML VIAL SC SCH ×3 (05:39→23:57)
[2016-10-23 05:45] LABS: ABNORMAL IP MESSAGE 1; HEMATOCRIT 24.7 % (42.0-52.0); HEMOGLOBIN 8.2 g/dl (14.0-18.0); MEAN CORPUSCULAR HEMOGLOBIN 32.4 pg (29.0-33.0); MEAN CORPUSCULAR HGB CONC 33.2 g/dl (32.0-37.0); MEAN CORPUSCULAR VOLUME 97.6 fl (82.0-101.0); MEAN PLATELET VOLUME 10.8 fl (7.4-10.4); PLATELET COUNT 75 10^3/UL (140-415); RED BLOOD COUNT 2.53 10^6/ul (4.70-6.10); RED CELL DISTRIBUTION WIDTH 15.9 % (11.5-14.5); WHITE BLOOD COUNT 0.8 10^3/ul (4.8-10.8)
[2016-10-23 06:07] LABS: CALCIUM 8.9 mg/dl (8.4-10.2); CREATININE 0.74 mg/dl (0.61-1.24); MAGNESIUM 2.3 mg/dl (1.7-2.5); PHOSPHORUS 3.7 mg/dl (2.5-4.9); POTASSIUM 4.5 mmol/L (3.5-5.1)
[2016-10-23 06:28] LABS: ADD SCAN DIFF YES
[2016-10-23 07:35] VITALS: BP 152/83; RESP 20
[2016-10-23] MEDS: INSULIN ASPART [NOVOLOG] 3 ML PEN SC SCH ×4 (08:25→20:46)
[2016-10-23] MEDS: CEFEPIME 1GM/50 ML (PMX) 50 ML IVPB SCH ×2 (08:32→20:46)
[2016-10-23] MEDS: FAMOTIDINE 20 MG TAB PO SCH ×2 (08:32→20:46)
[2016-10-23] MEDS: AMLODIPINE 10 MG TAB PO SCH (08:32)
[2016-10-23] MEDS: VANCOMYCIN 1.25 GM in SOD CHLORIDE 0.9% 250 ML IVPB SCH ×2 (11:09→23:23)
--- NOTE | 2016-10-23 12:21 | PN ---
DATE: 10/23/2016 SUBJECTIVE: No acute changes. The patient is awake, looks comfortable, complaining of body pain. He is in no distress and afebrile. WBC 0.8, H and H 8.2 and 24.7, platelets 75, BUN 11, creatinine 0.74. MICROBIOLOGY: All cultures are negative. DIAGNOSTICS: CT of the chest revealed no evidence of PE or aortic dissection. ANTIMICROBIALS: He is on: 1. IV vancomycin. 2. Cefepime. PHYSICAL EXAMINATION: GENERAL: Well-nourished, well-developed, middle-aged man who is alert , in no distress. HEENT: Head atraumatic, normocephalic. Sclerae anicteric. Buccal mucosa pink. NECK: Supple. CHEST: Rise symmetrical. Breath sounds clear. HEART: S1, S2. ABDOMEN: Soft, bowel tones present. EXTREMITIES: Without cyanosis. ASSESSMENT: 1. Neutropenic fevers. 2. History of leukemia, s/p chemotherapy==> details unknown. 3. Diabetes. 4. Hypertension. PLAN: The patient remains stable, pending oncology evaluation. Continue antibiotics for now. Neutropenic precautions. Dictated By: JOHN ROMAN CHIEF PETROLEUM ENGINEER for RODOLFO STEPHENS/ISRRAEL Conf#: [id number] DID#: [id number] MTDD
[2016-10-23 13:17] LABS: LYMPHOCYTES # 0.4 10^3/ul (0.8-2.9); MONOCYTE # 0.2 10^3/ul (0.3-0.9); NEUTROPHIL # 0.1 10^3/ul (1.6-7.5)
[2016-10-23 13:18] LABS: PLATELET ESTIMATE PLT APPEAR DECREASED
[2016-10-23] MEDS: HYDROmorphONE 2 MG/ML SYG IV PRN ×3 (13:45→22:08)
[2016-10-23] MEDS: INSULIN GLARGINE [LANtus] 3 ML PEN SC SCH (13:56)
--- NOTE | 2016-10-23 16:34 | CONS ---
Date/Time of Note Date/Time of Note DATE: 10/23/16 TIME: 16:31 Assessment/Plan Assessment/Plan Chief Complaint/Hosp Course The patient is a patient of Dr. Oneal with MDS and is on Vidaza, admitted for neutropenic fever and sepsis. - Cultures thus far negative, f/u cultures, patient on vancomycin and cefepime. CT chest showed no evidence of pulmonary embolism or aortic dissection, mild scarring/atelectasis within the right upper lobe and left lung base, shotty mediastinal and bilateral axillary lymph nodes, moderate splenomegaly. - In the setting of neutropenic fever and sepsis, will start neupogen given severe neutropenia with ANC 100 - Will give procrit given hemoglobin < 10, transfuse < 8 - Will discuss case with Dr. Lee Problems: Consultation Date/Type/Reason Admit Date/Time 10/21/2016 Date of Consultation: October 23, 2016 Type of Consultation: Hematology/Oncology Hx of Present Illness The patient is a patient of Dr. Oneal with MDS and is on Vidaza, admitted for neutropenic fever and sepsis. Cultures thus far negative, patient on vancomycin and cefepime. Per Dr. Lee's notes, patient has a diagnosis of MDS with 3-4% myeloblasts, no excess blasts, on Vidaza Cycle 8 Day 2 on 10/21/16, overall was doing better requiring fewer lood transfusions with plan for growth factor support for neutropenia after completion of this cycle. The patient states that he started feeling hot with muscle aches on Thursday. His last Vidaza was on Thursday. He states that he was supposed to receive Procrit next week but has not yet received. Past Medical History Diabetes, HTN, MDS as above Past Surgical History ventral hernia repair x 4 Past Surgical Hx: other Family History Significant Family History: cancer (brother with stomach cancer, grandmother with breast cancer) Social History Alcohol Use: none Smoking Status: Never smoker Drug Use: none Exam/Review of Systems Vital Signs Vitals Vital Signs Date Time Temp Pulse Resp B/P Pulse Ox O2 Delivery O2 Flow Rate FiO2 10/23/16 07:35 98.5 103 20 152/83 98 10/22/16 15:26 Room Air 10/22/16 05:43 21 Intake and Output 10/22/16 10/22/16 10/23/16 14:59 22:59 06:59 Intake Total 650 ml 930 ml Balance 650 ml 930 ml Exam Constitutional: alert, oriented Head: normocephalic Eyes: nl conjunctiva Neck: supple Respiratory: clear to auscultation Cardiovascular: other (tachycardic) Gastrointestinal: non-tender, soft Musculoskeletal: nl extremities to inspection Neurological: RADIO SPORTSCASTER II-XII intact Results Result Diagram: 10/23/16 0525 10/23/16 0525 Results 24 hrs Laboratory Tests Test 10/22/16 17:26 10/22/16 20:30 10/23/16 01:50 10/23/16 05:25 Bedside Glucose 209 232 H 182 White Blood Count 0.8 #L Red Blood Count 2.53 L Hemoglobin 8.2 L Hematocrit 24.7 L Mean Corpuscular Volume 97.6 Mean Corpuscular Hemoglobin 32.4 Mean Corpuscular Hemoglobin Concent 33.2 Red Cell Distribution Width 15.9 H Platelet Count 75 L Mean Platelet Volume 10.8 H Neutrophils % 10.0 L Band Neutrophils % 5.0 Lymphocytes % 56.0 H Reactive Lymphocytes % 2.0 Monocytes % Eosinophils % 3.0 Basophils % 3.0 H Nucleated Red Blood Cells % Neutrophils # 0.1 L Lymphocytes # 0.4 L Monocytes # 0.2 L Eosinophils # 0.0 Basophils # 0.0 Nucleated Red Blood Cells # Differential Comment MANUAL DIFF Platelet Estimate PLT APPEAR DECREASED Sodium Level 137 Potassium Level 4.5 Chloride Level 108 Carbon Dioxide Level 26 Anion Gap 8 Blood Urea Nitrogen 11 Creatinine 0.74 Glucose Level 178 Calcium Level 8.9 Phosphorus Level 3.7 Magnesium Level 2.3 Test 10/23/16 08:01 10/23/16 11:53 10/23/16 13:42 Bedside Glucose 182 244 H 242 H Medications Medications Current Medications Ondansetron HCl (Zofran Inj) 4 mg Q6H PRN IV NAUSEA AND/OR VOMITING; Start 10/22 at 04:00 Zolpidem Tartrate (Ambien) 5 mg QHS PRN PO INSOMNIA; Start 10/22/16 at 04:00 Docusate Sodium (Colace) 100 mg Q12H PRN PO CONSTIPATION; Start 10/22/16 at 04: 00 Bisacodyl (Dulcolax) 5 mg DAILY PRN PO CONSTIPATION; Start 10/22/16 at 04:00 Famotidine (Pepcid) 20 mg Q12 PO Last administered on 10/23/16 08:32; Admin Dose 20 MG; Start 10/22/16 at 09:00 Heparin Sodium (Porcine) (Heparin (5000 Units/0.5 ml)) 5,000 unit Q8 SC Last administered on 10/23/16 13:56; Admin Dose 5,000 UNIT; Start 10/22/16 at 06:00 Amlodipine Besylate (Norvasc) 10 mg DAILY PO Last administered on 10/23/16 08: 32; Admin Dose 10 MG; Start 10/22/16 at 09:00 Mirtazapine 30 mg 30 mg HS PO Last administered on 10/22/16 20:32; Admin Dose 30 MG; Start 10/22/16 at 21:00 Cefepime HCl 50 ml @ 100 mls/hr Q12 IVPB Last administered on 10/23/16 08:32; Admin Dose 100 MLS/HR; Start 10/22/16 at 09:00 Vancomycin HCl/ Sodium Chloride (Vancocin/NS) 250 ml @ 83.333 mls/ hr Q12H IVPB Last administered on 10/23/16 11:09; Admin Dose 83.333 MLS/HR; Start at 10:00 Diagnostic Test (Pha) (Accu-Chek) 1 ea 02 XX Last administered on 10/23/16 02: 00; Admin Dose 1 EA; Start 10/23/16 at 02:00 Miscellaneous Information 1 ea NOTE XX ; Start 10/22/16 at 05:00 Glucose (Glutose) 15 gm Q15M PRN PO DECREASED GLUCOSE; Start 10/22/16 at 05:00 Glucose (Glutose) 22.5 gm Q15M PRN PO DECREASED GLUCOSE; Start 10/22/16 at 05:00 Dextrose (D50w Syringe) 25 ml Q15M PRN IV DECREASED GLUCOSE; Start 10/22/16 at 05:00 Dextrose (D50w Syringe) 50 ml Q15M PRN IV DECREASED GLUCOSE; Start 10/22/16 at 05:00 Glucagon (Glucagen) 1 mg Q15M PRN IM DECREASED GLUCOSE; Start 10/22/16 at 05:00 Glucose (Glutose) 15 gm Q15M PRN BUCCAL DECREASED GLUCOSE; Start 10/22/16 at 05: 00 Miscellaneous Information (*Rx Drug Level Order Reminder*) VANCOMYCIN TROUGH 10/23 AT 2100 ONCE ONCE XX ; Start 10/23/16 at 21:00; Stop 10/23/16 at 21:01 Hydromorphone HCl (Dilaudid) 2 mg Q4H PRN IV PAIN Last administered on 13:45; Admin Dose 2 MG; Start 10/23/16 at 12:00 Insulin Glargine (Lantus) 10 unit DAILY SC Last administered on 10/23/16 13:56 ; Admin Dose 10 UNIT; Start 10/23/16 at 12:30 TOLINDSEY MD October 23, 2016 16:34
[2016-10-23] MEDS ORDERED: FILGRASTIM 480 MCG INJ SC SCH (17:00)
--- NOTE | 2016-10-23 18:05 | PN ---
Date/Time of Note Date/Time of Note DATE: 10/23/16 TIME: 18:03 Assessment/Plan VTE Prophylaxis VTE Prophylaxis Intervention: SCD's Lines/Catheters IV Catheter Type (from [facility], [place]): Saline Lock Urinary Cath still in place: No Assessment/Plan Assessment/Plan 1. Neutropenic fevers. 2. History of leukemia, details unknown. 3. Diabetes. 4. Hypertension. PLAN: IV abx Broad specturm , Cu;ltures pending, ID following S/p Hematology oncology consult BP stable afebrile SCD for DVT prophylaxis Subjective 24 Hr Interval Summary Free Text/Dictation no fever, but tachycardic, BP stable, On IV pain meds Exam/Review of Systems Vital Signs Vitals Vital Signs Date Time Temp Pulse Resp B/P Pulse Ox O2 Delivery O2 Flow Rate FiO2 10/23/16 07:35 98.5 103 20 152/83 98 10/22/16 15:26 Room Air 10/22/16 05:43 21 Intake and Output 10/22/16 10/22/16 10/23/16 15:00 23:00 07:00 Intake Total 650 ml 930 ml Balance 650 ml 930 ml Exam GENERAL: Well-nourished, well-developed, middle-aged man who is alert , in no distress. HEENT: Head atraumatic, normocephalic. Sclerae anicteric. Buccal mucosa pink. NECK: Supple. CHEST: Rise symmetrical. Breath sounds clear. HEART: S1, S2. ABDOMEN: Soft, bowel tones present. EXTREMITIES: Without cyanosis. Results Result Diagram: 10/23/16 0525 10/23/16 0525 Results 24 hrs Laboratory Tests Test 10/22/16 20:30 10/23/16 01:50 10/23/16 05:25 10/23/16 08:01 Bedside Glucose 232 H 182 182 White Blood Count 0.8 #L Red Blood Count 2.53 L Hemoglobin 8.2 L Hematocrit 24.7 L Mean Corpuscular Volume 97.6 Mean Corpuscular Hemoglobin 32.4 Mean Corpuscular Hemoglobin Concent 33.2 Red Cell Distribution Width 15.9 H Platelet Count 75 L Mean Platelet Volume 10.8 H Neutrophils % 10.0 L Band Neutrophils % 5.0 Lymphocytes % 56.0 H Reactive Lymphocytes % 2.0 Monocytes % Eosinophils % 3.0 Basophils % 3.0 H Nucleated Red Blood Cells % Neutrophils # 0.1 L Lymphocytes # 0.4 L Monocytes # 0.2 L Eosinophils # 0.0 Basophils # 0.0 Nucleated Red Blood Cells # Differential Comment MANUAL DIFF Platelet Estimate PLT APPEAR DECREASED Sodium Level 137 Potassium Level 4.5 Chloride Level 108 Carbon Dioxide Level 26 Anion Gap 8 Blood Urea Nitrogen 11 Creatinine 0.74 Glucose Level 178 Calcium Level 8.9 Phosphorus Level 3.7 Magnesium Level 2.3 Test 10/23/16 11:53 10/23/16 13:42 10/23/16 17:15 Bedside Glucose 244 H 242 H 205 Medications Medications Current Medications Ondansetron HCl (Zofran Inj) 4 mg Q6H PRN IV NAUSEA AND/OR VOMITING; Start 10/22 at 04:00 Zolpidem Tartrate (Ambien) 5 mg QHS PRN PO INSOMNIA; Start 10/22/16 at 04:00 Docusate Sodium (Colace) 100 mg Q12H PRN PO CONSTIPATION; Start 10/22/16 at 04: 00 Bisacodyl (Dulcolax) 5 mg DAILY PRN PO CONSTIPATION; Start 10/22/16 at 04:00 Famotidine (Pepcid) 20 mg Q12 PO Last administered on 10/23/16 08:32; Admin Dose 20 MG; Start 10/22/16 at 09:00 Heparin Sodium (Porcine) (Heparin (5000 Units/0.5 ml)) 5,000 unit Q8 SC Last administered on 10/23/16 13:56; Admin Dose 5,000 UNIT; Start 10/22/16 at 06:00 Amlodipine Besylate (Norvasc) 10 mg DAILY PO Last administered on 10/23/16 08: 32; Admin Dose 10 MG; Start 10/22/16 at 09:00 Mirtazapine 30 mg 30 mg HS PO Last administered on 10/22/16 20:32; Admin Dose 30 MG; Start 10/22/16 at 21:00 Cefepime HCl 50 ml @ 100 mls/hr Q12 IVPB Last administered on 10/23/16 08:32; Admin Dose 100 MLS/HR; Start 10/22/16 at 09:00 Vancomycin HCl/ Sodium Chloride (Vancocin/NS) 250 ml @ 83.333 mls/ hr Q12H IVPB Last administered on 10/23/16 11:09; Admin Dose 83.333 MLS/HR; Start at 10:00 Diagnostic Test (Pha) (Accu-Chek) 1 ea 02 XX Last administered on 10/23/16 02: 00; Admin Dose 1 EA; Start 10/23/16 at 02:00 Miscellaneous Information 1 ea NOTE XX ; Start 10/22/16 at 05:00 Glucose (Glutose) 15 gm Q15M PRN PO DECREASED GLUCOSE; Start 10/22/16 at 05:00 Glucose (Glutose) 22.5 gm Q15M PRN PO DECREASED GLUCOSE; Start 10/22/16 at 05:00 Dextrose (D50w Syringe) 25 ml Q15M PRN IV DECREASED GLUCOSE; Start 10/22/16 at 05:00 Dextrose (D50w Syringe) 50 ml Q15M PRN IV DECREASED GLUCOSE; Start 10/22/16 at 05:00 Glucagon (Glucagen) 1 mg Q15M PRN IM DECREASED GLUCOSE; Start 10/22/16 at 05:00 Glucose (Glutose) 15 gm Q15M PRN BUCCAL DECREASED GLUCOSE; Start 10/22/16 at 05: 00 Miscellaneous Information (*Rx Drug Level Order Reminder*) VANCOMYCIN TROUGH 10/23 AT 2100 ONCE ONCE XX ; Start 10/23/16 at 21:00; Stop 10/23/16 at 21:01 Hydromorphone HCl (Dilaudid) 2 mg Q4H PRN IV PAIN Last administered on 13:45; Admin Dose 2 MG; Start 10/23/16 at 12:00 Insulin Glargine (Lantus) 10 unit DAILY SC Last administered on 10/23/16 13:56 ; Admin Dose 10 UNIT; Start 10/23/16 at 12:30 Filgrastim (Neupogen) 480 mcg DAILY@17 SC Last administered on 10/23/16 17:32; Admin Dose 480 MCG; Start 10/23/16 at 17:00 JADEN TRACEY MD October 23, 2016 18:05
[2016-10-23 19:27] VITALS: BP 131/64; RESP 18
[2016-10-23] MEDS ORDERED: EPOETIN 10000 UNITS/ML VIAL (ONCOLOGY) SC ONE (20:30)
[2016-10-23] MEDS: MIRTAZAPINE 15 MG TAB PO SCH (20:46)
[2016-10-23] MEDS: ACETAMINOPHEN 325 MG TAB PO PRN (21:44)
[2016-10-24] MEDS: HYDROmorphONE 2 MG/ML SYG IV PRN ×6 (01:56→21:56)
[2016-10-24] MEDS: ACCUCHECK AT 2AM (Patients on SS coverage) XX SCH (02:03)
[2016-10-24 05:53] LABS: ADD SCAN DIFF NO
[2016-10-24] MEDS: HEPARIN 5,000 UNIT/0.5 ML VIAL SC SCH ×3 (06:05→22:02)
[2016-10-24 06:30] LABS: ABNORMAL IP MESSAGE 1; HEMATOCRIT 25.8 % (42.0-52.0); HEMOGLOBIN 8.7 g/dl (14.0-18.0); MEAN CORPUSCULAR HEMOGLOBIN 32.8 pg (29.0-33.0); MEAN CORPUSCULAR HGB CONC 33.7 g/dl (32.0-37.0); MEAN CORPUSCULAR VOLUME 97.4 fl (82.0-101.0); PLATELET COUNT 81 10^3/UL (140-415); RED BLOOD COUNT 2.65 10^6/ul (4.70-6.10); RED CELL DISTRIBUTION WIDTH 15.5 % (11.5-14.5); WHITE BLOOD COUNT 9.5 10^3/ul (4.8-10.8)
[2016-10-24 06:47] LABS: INR 1.04; PROTIME 13.6 Sec (12.2-14.2); PT RATIO 1.1
[2016-10-24 06:48] LABS: PARTIAL THROMBOPLASTIN TIME 36.8 Sec (25.0-35.0)
[2016-10-24 06:49] LABS: ALBUMIN 3.9 g/dl (3.3-4.9)
[2016-10-24 06:50] LABS: POTASSIUM 3.9 mmol/L (3.5-5.1)
[2016-10-24 06:52] LABS: ALBUMIN/GLOBULIN RATIO 1.25; BILIRUBIN,INDIRECT 0.9 mg/dl (0-1.1); BILIRUBIN,TOTAL 0.9 mg/dl (0.2-1.3); CREATININE 0.87 mg/dl (0.61-1.24)
[2016-10-24 07:35] VITALS: BP 154/84; RESP 22
[2016-10-24] MEDS: CEFEPIME 1GM/50 ML (PMX) 50 ML IVPB SCH ×2 (08:37→21:16)
[2016-10-24] MEDS: AMLODIPINE 10 MG TAB PO SCH (08:38)
[2016-10-24] MEDS: FAMOTIDINE 20 MG TAB PO SCH ×2 (08:38→21:17)
[2016-10-24] MEDS: INSULIN ASPART [NOVOLOG] 3 ML PEN SC SCH ×4 (08:41→21:24)
[2016-10-24] MEDS: INSULIN GLARGINE [LANtus] 3 ML PEN SC SCH (08:42)
[2016-10-24] MEDS: VANCOMYCIN 1.25 GM in SOD CHLORIDE 0.9% 250 ML IVPB SCH ×2 (10:14→21:58)
[2016-10-24 11:49] LABS: LYMPHOCYTES # 2.4 10^3/ul (0.8-2.9); MONOCYTE # 0.8 10^3/ul (0.3-0.9)
--- NOTE | 2016-10-24 13:46 | PN ---
DATE: 10/24/2016 SUBJECTIVE: No events overnight. The patient is awake, feels good, looks comfortable, no fevers. Vital signs stable. WBC today is 9.5. The patient is status post Neupogen. MICROBIOLOGY: Cultures negative. ANTIMICROBIALS: 1. Vancomycin. 2. Cefepime. PHYSICAL EXAMINATION: GENERAL: Well-developed, middle-aged man who is awake, in no distress. HEENT: Head atraumatic, normocephalic. Sclerae anicteric. Buccal mucosa pink. NECK: Supple. CHEST: Rise symmetrical. Breath sounds clear. HEART: S1, S2. ABDOMEN: Soft, bowel sounds present. EXTREMITIES: Without cyanosis. ASSESSMENT: 1. Status post neutropenic fevers. 2. MDS, status post chemotherapy. 3. Diabetes. 4. Hypertension. PLAN: The patient remains stable. He is being followed by oncology, received a dose of Neupogen. White blood cell count normalized. We will keep on antibiotics until tomorrow and if no fevers disc ontinue them. Dictated By: JOHN ROMAN BLOCK TRADER for RODOLFO STEPHENS/ISRRAEL Conf#: [id number] DID#: [id number]
--- NOTE | 2016-10-24 17:31 | PN ---
Date/Time of Note Date/Time of Note DATE: 10/24/16 TIME: 17:30 Assessment/Plan VTE Prophylaxis VTE Prophylaxis Intervention: SCD's Lines/Catheters IV [facility] Type (from [facility] Saline Lock Urinary Cath still in place: No Assessment/Plan Assessment/Plan 1. Neutropenic fevers. 2. History of leukemia, details unknown. 3. Diabetes. 4. Hypertension. PLAN: IV abx Broad specturm , Cu;ltures pending, ID following S/p Hematology oncology consult< WBC improved but Hb and platelets are still low BP stable afebrile SCD for DVT prophylaxis Subjective 24 Hr Interval Summary Free Text/Dictation WBC improved, Platelets and Hb still low,afebrile, BP stable Exam/Review of Systems Vital Signs Vitals Vital Signs Date Time Temp Pulse Resp B/P Pulse Ox O2 Delivery O2 Flow Rate FiO2 10/24/16 07:35 98.9 116 22 154/84 96 10/22/16 15:26 Room Air 10/22/16 05:43 21 Intake and Output 10/23/16 10/23/16 10/24/16 15:00 23:00 07:00 Intake Total 1070 ml 1050 ml Balance 1070 ml 1050 ml Exam GENERAL: Well-nourished, well-developed, middle-aged man who is alert , in no distress. HEENT: Head atraumatic, normocephalic. Sclerae anicteric. Buccal mucosa pink. NECK: Supple. CHEST: Rise symmetrical. Breath sounds clear. HEART: S1, S2. ABDOMEN: Soft, bowel tones present. EXTREMITIES: Without cyanosis. Results Result Diagram: 10/24/16 0527 10/24/16 0527 Results 24 hrs Laboratory Tests Test 10/23/16 20:45 10/23/16 21:38 10/24/16 01:58 10/24/16 05:27 Bedside Glucose 257 H 188 Vancomycin Level Trough 11.9 White Blood Count 9.5 # Red Blood Count 2.65 L Hemoglobin 8.7 L Hematocrit 25.8 L Mean Corpuscular Volume 97.4 Mean Corpuscular Hemoglobin 32.8 Mean Corpuscular Hemoglobin Concent 33.7 Red Cell Distribution Width 15.5 H Platelet Count 81 L Mean Platelet Volume 10.0 Neutrophils % 63.0 Band Neutrophils % 4.0 Lymphocytes % 25.0 Monocytes % 8.0 Eosinophils % Nucleated Red Blood Cells % 4.0 H Neutrophils # 6.0 Lymphocytes # 2.4 Monocytes # 0.8 Eosinophils # Prothrombin Time 13.6 Prothrombin Time Ratio 1.1 INR International Normalized Ratio 1.04 Activated Partial Thromboplast Time 36.8 H Sodium Level 138 Potassium Level 3.9 Chloride Level 102 Carbon Dioxide Level 26 Anion Gap 14 Blood Urea Nitrogen 14 Creatinine 0.87 Glucose Level 183 Calcium Level 9.0 Total Bilirubin 0.9 Direct Bilirubin 0.00 Indirect Bilirubin 0.9 Aspartate Amino Transf (AST/SGOT) 48 H Alanine Aminotransferase (ALT/SGPT) 127 H Alkaline Phosphatase 134 H Total Protein 7.0 Albumin 3.9 Globulin 3.10 Albumin/Globulin Ratio 1.25 Test 10/24/16 08:19 10/24/16 12:06 Bedside Glucose 203 275 H Medications Medications Current Medications Ondansetron HCl (Zofran Inj) 4 mg Q6H PRN IV NAUSEA AND/OR VOMITING; Start 10/22 at 04:00 Zolpidem Tartrate (Ambien) 5 mg QHS PRN PO INSOMNIA; Start 10/22/16 at 04:00 Docusate Sodium (Colace) 100 mg Q12H PRN PO CONSTIPATION; Start 10/22/16 at 04: 00 Bisacodyl (Dulcolax) 5 mg DAILY PRN PO CONSTIPATION; Start 10/22/16 at 04:00 Famotidine (Pepcid) 20 mg Q12 PO Last administered on 10/24/16 08:38; Admin Dose 20 MG; Start 10/22/16 at 09:00 Heparin Sodium (Porcine) (Heparin (5000 Units/0.5 ml)) 5,000 unit Q8 SC Last administered on 10/24/16 14:19; Admin Dose 5,000 UNIT; Start 10/22/16 at 06:00 Amlodipine Besylate (Norvasc) 10 mg DAILY PO Last administered on 10/24/16 08: 38; Admin Dose 10 MG; Start 10/22/16 at 09:00 Mirtazapine 30 mg 30 mg HS PO Last administered on 10/23/16 20:46; Admin Dose 30 MG; Start 10/22/16 at 21:00 Cefepime HCl 50 ml @ 100 mls/hr Q12 IVPB Last administered on 10/24/16 08:37; Admin Dose 100 MLS/HR; Start 10/22/16 at 09:00 Vancomycin HCl/ Sodium Chloride (Vancocin/NS) 250 ml @ 83.333 mls/ hr Q12H IVPB Last administered on 10/24/16 10:14; Admin Dose 83.333 MLS/HR; Start at 10:00 Diagnostic Test (Pha) (Accu-Chek) 1 ea 02 XX Last administered on 10/24/16 02: 03; Admin Dose 1 EA; Start 10/23/16 at 02:00 Miscellaneous Information 1 ea NOTE XX ; Start 10/22/16 at 05:00 Glucose (Glutose) 15 gm Q15M PRN PO DECREASED GLUCOSE; Start 10/22/16 at 05:00 Glucose (Glutose) 22.5 gm Q15M PRN PO DECREASED GLUCOSE; Start 10/22/16 at 05:00 Dextrose (D50w Syringe) 25 ml Q15M PRN IV DECREASED GLUCOSE; Start 10/22/16 at 05:00 Dextrose (D50w Syringe) 50 ml Q15M PRN IV DECREASED GLUCOSE; Start 10/22/16 at 05:00 Glucagon (Glucagen) 1 mg Q15M PRN IM DECREASED GLUCOSE; Start 10/22/16 at 05:00 Glucose (Glutose) 15 gm Q15M PRN BUCCAL DECREASED GLUCOSE; Start 10/22/16 at 05: 00 Hydromorphone HCl (Dilaudid) 2 mg Q4H PRN IV PAIN Last administered on 14:04; Admin Dose 2 MG; Start 10/23/16 at 12:00 Insulin Glargine (Lantus) 10 unit DAILY SC Last administered on 10/24/16 08:42 ; Admin Dose 10 UNIT; Start 10/23/16 at 12:30 Acetaminophen (Tylenol Tab) 650 mg Q4H PRN PO PAIN AND OR ELEVATED TEMP Last administered on 10/23/16 21:44; Admin Dose 650 MG; Start 10/23/16 at 21:30 JADEN TRACEY MD October 24, 2016 17:31
--- NOTE | 2016-10-24 17:48 | CONS ---
Date/Time of Note Date/Time of Note DATE: 10/24/16 TIME: 17:46 Assessment/Plan Assessment/Plan Chief Complaint/Hosp Course The patient is a patient of Dr. Lee's with MDS and is on Vidaza, admitted for neutropenic fever and sepsis. - Cultures thus far negative, f/u cultures, patient on vancomycin and cefepime. Appreciate ID recs. - CT chest showed no evidence of pulmonary embolism or aortic dissection, mild scarring/atelectasis within the right upper lobe and left lung base, shotty mediastinal and bilateral axillary lymph nodes, moderate splenomegaly. - In the setting of neutropenic fever and sepsis, patient was given one dose of neupogen given severe neutropenia with ANC 100, now ANC 6000 with WBC normalized - s/p epogen 10/23/16 given hemoglobin < 10; transfuse if Hgb < 8, Plt < 10 ( or < 20 if febrile, < 50 if bleeding) - Will discuss case with Dr. Lee, awaiting call from Dr. Lee, patient's primary oncologist Problems: Consultation Date/Type/Reason Admit Date/Time October 22, 2016 at 01:04 Initial Consult Date 10/23/16 Type of Consultation: Hematology/Oncology 24 HR Interval Summary Free Text/Dictation The patient stated that he felt hot last night, but currently felt improved. 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 Results Result Diagram: 10/24/16 0527 10/24/16 0527 Results 24 hrs Laboratory Tests Test 10/23/16 20:45 10/23/16 21:38 10/24/16 01:58 10/24/16 05:27 Bedside Glucose 257 H 188 Vancomycin Level Trough 11.9 White Blood Count 9.5 # Red Blood Count 2.65 L Hemoglobin 8.7 L Hematocrit 25.8 L Mean Corpuscular Volume 97.4 Mean Corpuscular Hemoglobin 32.8 Mean Corpuscular Hemoglobin Concent 33.7 Red Cell Distribution Width 15.5 H Platelet Count 81 L Mean Platelet Volume 10.0 Neutrophils % 63.0 Band Neutrophils % 4.0 Lymphocytes % 25.0 Monocytes % 8.0 Eosinophils % Nucleated Red Blood Cells % 4.0 H Neutrophils # 6.0 Lymphocytes # 2.4 Monocytes # 0.8 Eosinophils # Prothrombin Time 13.6 Prothrombin Time Ratio 1.1 INR International Normalized Ratio 1.04 Activated Partial Thromboplast Time 36.8 H Sodium Level 138 Potassium Level 3.9 Chloride Level 102 Carbon Dioxide Level 26 Anion Gap 14 Blood Urea Nitrogen 14 Creatinine 0.87 Glucose Level 183 Calcium Level 9.0 Total Bilirubin 0.9 Direct Bilirubin 0.00 Indirect Bilirubin 0.9 Aspartate Amino Transf (AST/SGOT) 48 H Alanine Aminotransferase (ALT/SGPT) 127 H Alkaline Phosphatase 134 H Total Protein 7.0 Albumin 3.9 Globulin 3.10 Albumin/Globulin Ratio 1.25 Test 10/24/16 08:19 10/24/16 12:06 Bedside Glucose 203 275 H Medications Medications Current Medications Ondansetron HCl (Zofran Inj) 4 mg Q6H PRN IV NAUSEA AND/OR VOMITING; Start 10/22 at 04:00 Zolpidem Tartrate (Ambien) 5 mg QHS PRN PO INSOMNIA; Start 10/22/16 at 04:00 Docusate Sodium (Colace) 100 mg Q12H PRN PO CONSTIPATION; Start 10/22/16 at 04: 00 Bisacodyl (Dulcolax) 5 mg DAILY PRN PO CONSTIPATION; Start 10/22/16 at 04:00 Famotidine (Pepcid) 20 mg Q12 PO Last administered on 10/24/16 08:38; Admin Dose 20 MG; Start 10/22/16 at 09:00 Heparin Sodium (Porcine) (Heparin (5000 Units/0.5 ml)) 5,000 unit Q8 SC Last administered on 10/24/16 14:19; Admin Dose 5,000 UNIT; Start 10/22/16 at 06:00 Amlodipine Besylate (Norvasc) 10 mg DAILY PO Last administered on 10/24/16 08: 38; Admin Dose 10 MG; Start 10/22/16 at 09:00 Mirtazapine 30 mg 30 mg HS PO Last administered on 10/23/16 20:46; Admin Dose 30 MG; Start 10/22/16 at 21:00 Cefepime HCl 50 ml @ 100 mls/hr Q12 IVPB Last administered on 10/24/16 08:37; Admin Dose 100 MLS/HR; Start 10/22/16 at 09:00 Vancomycin HCl/ Sodium Chloride (Vancocin/NS) 250 ml @ 83.333 mls/ hr Q12H IVPB Last administered on 10/24/16 10:14; Admin Dose 83.333 MLS/HR; Start at 10:00 Diagnostic Test (Pha) (Accu-Chek) 1 ea 02 XX Last administered on 10/24/16 02: 03; Admin Dose 1 EA; Start 10/23/16 at 02:00 Miscellaneous Information 1 ea NOTE XX ; Start 10/22/16 at 05:00 Glucose (Glutose) 15 gm Q15M PRN PO DECREASED GLUCOSE; Start 10/22/16 at 05:00 Glucose (Glutose) 22.5 gm Q15M PRN PO DECREASED GLUCOSE; Start 10/22/16 at 05:00 Dextrose (D50w Syringe) 25 ml Q15M PRN IV DECREASED GLUCOSE; Start 10/22/16 at 05:00 Dextrose (D50w Syringe) 50 ml Q15M PRN IV DECREASED GLUCOSE; Start 10/22/16 at 05:00 Glucagon (Glucagen) 1 mg Q15M PRN IM DECREASED GLUCOSE; Start 10/22/16 at 05:00 Glucose (Glutose) 15 gm Q15M PRN BUCCAL DECREASED GLUCOSE; Start 10/22/16 at 05: 00 Hydromorphone HCl (Dilaudid) 2 mg Q4H PRN IV PAIN Last administered on 14:04; Admin Dose 2 MG; Start 10/23/16 at 12:00 Insulin Glargine (Lantus) 10 unit DAILY SC Last administered on 10/24/16 08:42 ; Admin Dose 10 UNIT; Start 10/23/16 at 12:30 Acetaminophen (Tylenol Tab) 650 mg Q4H PRN PO PAIN AND OR ELEVATED TEMP Last administered on 10/23/16t 21:44; Admin Dose 650 MG; Start 10/23/16 at 21:30 TOLINDSEY MD October 24, 2016 17:48
[2016-10-24] MEDS: NACL 0.9% 3 ML SYG IV SCH (18:05)
[2016-10-24 19:31] VITALS: BP 130/77; RESP 18
[2016-10-24] MEDS: MIRTAZAPINE 15 MG TAB PO SCH (21:16)
[2016-10-25] MEDS: HYDROmorphONE 2 MG/ML SYG IV PRN ×6 (02:04→22:26)
[2016-10-25] MEDS: ACCUCHECK AT 2AM (Patients on SS coverage) XX SCH (02:08)
[2016-10-25 05:42] LABS: ADD SCAN DIFF NO
[2016-10-25 05:49] LABS: ABNORMAL IP MESSAGE 1; BASOPHILS % 0.4 % (0.0-2.0); EOSINOPHILS % 0.7 % (0.0-7.0); HEMATOCRIT 24.5 % (42.0-52.0); HEMOGLOBIN 8.3 g/dl (14.0-18.0); LYMPHOCYTES % 19.3 % (15.0-51.0); MEAN CORPUSCULAR HEMOGLOBIN 33.2 pg (29.0-33.0); MEAN CORPUSCULAR HGB CONC 33.9 g/dl (32.0-37.0); MEAN PLATELET VOLUME 11.9 fl (7.4-10.4); MONOCYTE # 0.6 10^3/ul (0.3-0.9); MONOCYTES % 11.1 % (0.0-11.0); NEUTROPHIL # 3.5 10^3/ul (1.6-7.5); NEUTROPHILS % 64.1 % (39.0-77.0); NUCLEATED RED BLOOD CELLS # 0.1 10^3/ul (0.0-0.0); NUCLEATED RED BLOOD CELLS% 2.6 /100WBC (0.0-0.0); PLATELET COUNT 99 10^3/UL (140-415); RED CELL DISTRIBUTION WIDTH 15.8 % (11.5-14.5); WHITE BLOOD COUNT 5.4 10^3/ul (4.8-10.8)
[2016-10-25 06:10] LABS: ALBUMIN 3.9 g/dl (3.3-4.9); ALBUMIN/GLOBULIN RATIO 1.3; BILIRUBIN,INDIRECT 0.8 mg/dl (0-1.1); BILIRUBIN,TOTAL 0.8 mg/dl (0.2-1.3); CREATININE 0.81 mg/dl (0.61-1.24); POTASSIUM 4.2 mmol/L (3.5-5.1); TOTAL PROTEIN 6.9 g/dl (6.1-8.1)
[2016-10-25] MEDS: HEPARIN 5,000 UNIT/0.5 ML VIAL SC SCH ×3 (06:12→22:32)
[2016-10-25 08:26] VITALS: BP 135/88; RESP 18
[2016-10-25] MEDS: FAMOTIDINE 20 MG TAB PO SCH ×2 (08:34→20:27)
[2016-10-25] MEDS: AMLODIPINE 10 MG TAB PO SCH (08:35)
[2016-10-25] MEDS: CEFEPIME 1GM/50 ML (PMX) 50 ML IVPB SCH (08:41)
[2016-10-25] MEDS: INSULIN ASPART [NOVOLOG] 3 ML PEN SC SCH ×4 (08:41→20:31)
[2016-10-25] MEDS: INSULIN GLARGINE [LANtus] 3 ML PEN SC SCH (10:57)
[2016-10-25] MEDS: VANCOMYCIN 1.25 GM in SOD CHLORIDE 0.9% 250 ML IVPB SCH (10:58)
--- NOTE | 2016-10-25 14:22 | PN ---
Date/Time of Note Date/Time of Note DATE: 10/25/16 TIME: 14:19 Assessment/Plan VTE Prophylaxis VTE Prophylaxis Intervention: SCD's Lines/Catheters [facility] Saline Lock Urinary Cath still in place: No Assessment/Plan Assessment/Plan 1. Neutropenic fever,work up negative so far, on IV abx, ID following 2. History of leukemia, details unknown. 3. Diabetes. 4. Hypertension. PLAN: IV abx Broad specturm , Cu;ltures negative so far, ID following S/p Hematology oncology consult< WBC improved with one dose of Neupogen but Hb and platelets are still low - Oncology following awaitign call from primary oncologist BP stable afebrile SCD for DVT prophylaxis Exam/Review of Systems Vital Signs Vitals Vital Signs Date Time Temp Pulse Resp B/P Pulse Ox O2 Delivery O2 Flow Rate FiO2 10/25/16 08:26 98.3 110 18 135/88 95 10/22/16 15:26 Room Air 10/22/16 05:43 21 Intake and Output 10/24/16 10/24/16 10/25/16 15:00 23:00 07:00 Intake Total 300 ml 1010 ml 650 ml Balance 300 ml 1010 ml 650 ml Exam GENERAL: Well-nourished, well-developed, middle-aged man who is alert , in no distress. HEENT: Head atraumatic, normocephalic. Sclerae anicteric. Buccal mucosa pink. NECK: Supple. CHEST: Rise symmetrical. Breath sounds clear. HEART: S1, S2. ABDOMEN: Soft, bowel tones present. EXTREMITIES: Without cyanosis. Results Result Diagram: 10/25/16 0504 10/25/16 0504 Results 24 hrs Laboratory Tests Test 10/24/16 17:01 10/24/16 21:15 10/25/16 02:07 10/25/16 05:04 Bedside Glucose 167 217 172 White Blood Count 5.4 # Red Blood Count 2.50 L Hemoglobin 8.3 L Hematocrit 24.5 L Mean Corpuscular Volume 98.0 Mean Corpuscular Hemoglobin 33.2 H Mean Corpuscular Hemoglobin Concent 33.9 Red Cell Distribution Width 15.8 H Platelet Count 99 #L Mean Platelet Volume 11.9 H Neutrophils % 64.1 Lymphocytes % 19.3 Monocytes % 11.1 H Eosinophils % 0.7 Basophils % 0.4 Nucleated Red Blood Cells % 2.6 H Neutrophils # 3.5 Lymphocytes # 1.0 Monocytes # 0.6 Eosinophils # 0.0 Basophils # 0.0 Nucleated Red Blood Cells # 0.1 H Sodium Level 136 Potassium Level 4.2 Chloride Level 103 Carbon Dioxide Level 26 Anion Gap 11 Blood Urea Nitrogen 13 Creatinine 0.81 Glucose Level 174 Calcium Level 9.0 Total Bilirubin 0.8 Direct Bilirubin 0.00 Indirect Bilirubin 0.8 Aspartate Amino Transf (AST/SGOT) 56 H Alanine Aminotransferase (ALT/SGPT) 127 H Alkaline Phosphatase 147 H Total Protein 6.9 Albumin 3.9 Globulin 3.00 Albumin/Globulin Ratio 1.30 Test 10/25/16 07:58 Bedside Glucose 189 Medications Medications Current Medications Ondansetron HCl (Zofran Inj) 4 mg Q6H PRN IV NAUSEA AND/OR VOMITING; Start 10/22 at 04:00 Zolpidem Tartrate (Ambien) 5 mg QHS PRN PO INSOMNIA; Start 10/22/16 at 04:00 Docusate Sodium (Colace) 100 mg Q12H PRN PO CONSTIPATION; Start 10/22/16 at 04: 00 Bisacodyl (Dulcolax) 5 mg DAILY PRN PO CONSTIPATION; Start 10/22/16 at 04:00 Famotidine (Pepcid) 20 mg Q12 PO Last administered on 10/25/16 08:34; Admin Dose 20 MG; Start 10/22/16 at 09:00 Heparin Sodium (Porcine) (Heparin (5000 Units/0.5 ml)) 5,000 unit Q8 SC Last administered on 10/25/16 14:00; Admin Dose 5,000 UNIT; Start 10/22/16 at 06:00 Amlodipine Besylate (Norvasc) 10 mg DAILY PO Last administered on 10/25/16 08: 35; Admin Dose 10 MG; Start 10/22/16 at 09:00 Mirtazapine 30 mg 30 mg HS PO Last administered on 10/24/16 21:16; Admin Dose 30 MG; Start 10/22/16 at 21:00 Cefepime HCl 50 ml @ 100 mls/hr Q12 IVPB Last administered on 10/25/16 08:41; Admin Dose 100 MLS/HR; Start 10/22/16 at 09:00 Vancomycin HCl/ Sodium Chloride (Vancocin/NS) 250 ml @ 83.333 mls/ hr Q12H IVPB Last administered on 10/25/16 10:58; Admin Dose 83.333 MLS/HR; Start at 10:00 Diagnostic Test (Pha) (Accu-Chek) 1 ea 02 XX Last administered on 10/25/16 02: 08; Admin Dose 1 EA; Start 10/23/16 at 02:00 Miscellaneous Information 1 ea NOTE XX ; Start 10/22/16 at 05:00 Glucose (Glutose) 15 gm Q15M PRN PO DECREASED GLUCOSE; Start 10/22/16 at 05:00 Glucose (Glutose) 22.5 gm Q15M PRN PO DECREASED GLUCOSE; Start 10/22/16 at 05:00 Dextrose (D50w Syringe) 25 ml Q15M PRN IV DECREASED GLUCOSE; Start 10/22/16 at 05:00 Dextrose (D50w Syringe) 50 ml Q15M PRN IV DECREASED GLUCOSE; Start 10/22/16 at 05:00 Glucagon (Glucagen) 1 mg Q15M PRN IM DECREASED GLUCOSE; Start 10/22/16 at 05:00 Glucose (Glutose) 15 gm Q15M PRN BUCCAL DECREASED GLUCOSE; Start 10/22/16 at 05: 00 Hydromorphone HCl (Dilaudid) 2 mg Q4H PRN IV PAIN Last administered on 14:01; Admin Dose 2 MG; Start 10/23/16 at 12:00 Insulin Glargine (Lantus) 10 unit DAILY SC Last administered on 10/25/16 10:57 ; Admin Dose 10 UNIT; Start 10/23/16 at 12:30 Acetaminophen (Tylenol Tab) 650 mg Q4H PRN PO PAIN AND OR ELEVATED TEMP Last administered on 10/23/16 21:44; Admin Dose 650 MG; Start 10/23/16 at 21:30 AJDEN TRACEY MD October 25, 2016 14:21
--- NOTE | 2016-10-25 16:17 | PN ---
DATE: 10/25/2016 SUBJECTIVE: Mr. Aparicio is a 46-year-old gentleman with a history of MDS in the past and has been on Vidaza. He was admitted for neutropenic fever and sepsis. He is on multiple antibiotics pl us Neupogen and also getting heparin q.8 hours. He is improving. PAST MEDICAL HISTORY AND REVIEW OF SYSTEMS: Please see the H and P. PHYSICAL EXAMINATION: GENERAL: Shows a slightly obese male in no distress. VITAL SIGNS: He is afebrile. ENT: Unremarkable. HEART: Unremarkable. LUNGS: Unremarkable. ABDOMEN: Soft. There is no hepatosplenomegaly. EXTERNAL GENITALIA: Normal. EXTREMITIES: Showed no edema, clubbing or cyanosis. CENTRAL NERVOUS SYSTEM: No focal deficits. LABORATORY DATA: CBC now shows WBC 5400 with ANC 2600, hemoglobin 8.3, and platelets 99,000. His C MP is unremarkable. IMPRESSION: 1. History of myelodysplastic syndrome with severe anemia. 2. Neutropenic fever, improving on antibiotics. PLAN: The patient's hemoglobin 8.3. If it goes below 8, he might need transfusion. His ANC is now 2600. We could stop the Neupogen. We should increase his ambulation, . Dictated By: TOMA PRABHAKAR MD [facility] Conf#: [id number] DID#: [id number]
[2016-10-25 19:24] VITALS: BP 134/80; RESP 20
--- NOTE | 2016-10-25 19:29 | CONS ---
Date/Time of Note Date/Time of Note DATE: 10/25/16 TIME: 19:28 Assessment/Plan Assessment/Plan Chief Complaint/Hosp Course SUBJECTIVE: No events overnight. The patient is awake, feels good, looks comfortable, no fevers. MICROBIOLOGY: Cultures negative. ANTIMICROBIALS: 1. Vancomycin. 2. Cefepime. PHYSICAL EXAMINATION: GENERAL: Well-developed, middle-aged man who is awake, in no distress. HEENT: Head atraumatic, normocephalic. Sclerae anicteric. Buccal mucosa pink. NECK: Supple. CHEST: Rise symmetrical. Breath sounds clear. HEART: S1, S2. ABDOMEN: Soft, bowel sounds present. EXTREMITIES: Without cyanosis. ASSESSMENT: 1. Status post neutropenic fevers. 2. MDS, status post chemotherapy. 3. Diabetes. 4. Hypertension. PLAN: The patient remains stable. No fevers, will dc abx and observe. DW staff Problems: Consultation Date/Type/Reason Admit Date/Time October 22, 2016 at 01:04 Initial Consult Date 10/23/16 Type of Consultation: ID Exam/Review of Systems Vital Signs Vitals Vital Signs Date Time Temp Pulse Resp B/P Pulse Ox O2 Delivery O2 Flow Rate FiO2 10/25/16 19:24 98.8 120 20 134/80 97 10/22/16 15:26 Room Air 10/22/16 05:43 21 Intake and Output 10/24/16 10/24/16 10/25/16 15:00 23:00 07:00 Intake Total 300 ml 1010 ml 650 ml Balance 300 ml 1010 ml 650 ml Results Result Diagram: 10/25/16 0504 10/25/16 0504 Results 24 hrs Laboratory Tests Test 10/24/16 21:15 10/25/16 02:07 10/25/16 05:04 10/25/16 07:58 Bedside Glucose 217 172 189 White Blood Count 5.4 # Red Blood Count 2.50 L Hemoglobin 8.3 L Hematocrit 24.5 L Mean Corpuscular Volume 98.0 Mean Corpuscular Hemoglobin 33.2 H Mean Corpuscular Hemoglobin Concent 33.9 Red Cell Distribution Width 15.8 H Platelet Count 99 #L Mean Platelet Volume 11.9 H Neutrophils % 64.1 Lymphocytes % 19.3 Monocytes % 11.1 H Eosinophils % 0.7 Basophils % 0.4 Nucleated Red Blood Cells % 2.6 H Neutrophils # 3.5 Lymphocytes # 1.0 Monocytes # 0.6 Eosinophils # 0.0 Basophils # 0.0 Nucleated Red Blood Cells # 0.1 H Sodium Level 136 Potassium Level 4.2 Chloride Level 103 Carbon Dioxide Level 26 Anion Gap 11 Blood Urea Nitrogen 13 Creatinine 0.81 Glucose Level 174 Calcium Level 9.0 Total Bilirubin 0.8 Direct Bilirubin 0.00 Indirect Bilirubin 0.8 Aspartate Amino Transf (AST/SGOT) 56 H Alanine Aminotransferase (ALT/SGPT) 127 H Alkaline Phosphatase 147 H Total Protein 6.9 Albumin 3.9 Globulin 3.00 Albumin/Globulin Ratio 1.30 Medications Medications Current Medications Ondansetron HCl (Zofran Inj) 4 mg Q6H PRN IV NAUSEA AND/OR VOMITING; Start 10/22 at 04:00 Zolpidem Tartrate (Ambien) 5 mg QHS PRN PO INSOMNIA; Start 10/22/16 at 04:00 Docusate Sodium (Colace) 100 mg Q12H PRN PO CONSTIPATION Last administered on 17:58; Admin Dose 100 MG; Start 10/22/16 at 04:00 Bisacodyl (Dulcolax) 5 mg DAILY PRN PO CONSTIPATION Last administered on 17:58; Admin Dose 5 MG; Start 10/22/16 at 04:00 Famotidine (Pepcid) 20 mg Q12 PO Last administered on 10/25/16 08:34; Admin Dose 20 MG; Start 10/22/16 at 09:00 Heparin Sodium (Porcine) (Heparin (5000 Units/0.5 ml)) 5,000 unit Q8 SC Last administered on 10/25/16 14:00; Admin Dose 5,000 UNIT; Start 10/22/16 at 06:00 Amlodipine Besylate (Norvasc) 10 mg DAILY PO Last administered on 10/25/16 08: 35; Admin Dose 10 MG; Start 10/22/16 at 09:00 Mirtazapine 30 mg 30 mg HS PO Last administered on 10/24/16 21:16; Admin Dose 30 MG; Start 10/22/16 at 21:00 Cefepime HCl 50 ml @ 100 mls/hr Q12 IVPB Last administered on 10/25/16 08:41; Admin Dose 100 MLS/HR; Start 10/22/16 at 09:00 Vancomycin HCl/ Sodium Chloride (Vancocin/NS) 250 ml @ 83.333 mls/ hr Q12H IVPB Last administered on 10/25/16 10:58; Admin Dose 83.333 MLS/HR; Start at 10:00 Diagnostic Test (Pha) (Accu-Chek) 1 ea 02 XX Last administered on 10/25/16 02: 08; Admin Dose 1 EA; Start 10/23/16 at 02:00 Miscellaneous Information 1 ea NOTE XX ; Start 10/22/16 at 05:00 Glucose (Glutose) 15 gm Q15M PRN PO DECREASED GLUCOSE; Start 10/22/16 at 05:00 Glucose (Glutose) 22.5 gm Q15M PRN PO DECREASED GLUCOSE; Start 10/22/16 at 05:00 Dextrose (D50w Syringe) 25 ml Q15M PRN IV DECREASED GLUCOSE; Start 10/22/16 at 05:00 Dextrose (D50w Syringe) 50 ml Q15M PRN IV DECREASED GLUCOSE; Start 10/22/16 at 05:00 Glucagon (Glucagen) 1 mg Q15M PRN IM DECREASED GLUCOSE; Start 10/22/16 at 05:00 Glucose (Glutose) 15 gm Q15M PRN BUCCAL DECREASED GLUCOSE; Start 10/22/16 at 05: 00 Hydromorphone HCl (Dilaudid) 2 mg Q4H PRN IV PAIN Last administered on 18:22; Admin Dose 2 MG; Start 10/23/16 at 12:00 Insulin Glargine (Lantus) 10 unit DAILY SC Last administered on 10/25/16 10:57 ; Admin Dose 10 UNIT; Start 10/23/16 at 12:30 Acetaminophen (Tylenol Tab) 650 mg Q4H PRN PO PAIN AND OR ELEVATED TEMP Last administered on 10/23/16 21:44; Admin Dose 650 MG; Start 10/23/16 at 21:30 JOHN ROMAN NP October 25, 2016 19:29
[2016-10-25] MEDS: MIRTAZAPINE 15 MG TAB PO SCH (20:27)
[2016-10-26] MEDS: HYDROmorphONE 2 MG/ML SYG IV PRN ×6 (02:16→21:56)
[2016-10-26] MEDS: ACCUCHECK AT 2AM (Patients on SS coverage) XX SCH (02:40)
[2016-10-26 06:11] LABS: ADD SCAN DIFF NO
[2016-10-26 06:15] LABS: BASOPHILS % 0.3 % (0.0-2.0); EOSINOPHILS % 0.9 % (0.0-7.0); HEMATOCRIT 25.4 % (42.0-52.0); HEMOGLOBIN 8.4 g/dl (14.0-18.0); LYMPHOCYTES # 1.1 10^3/ul (0.8-2.9); LYMPHOCYTES % 32.9 % (15.0-51.0); MEAN CORPUSCULAR HEMOGLOBIN 33.1 pg (29.0-33.0); MEAN CORPUSCULAR HGB CONC 33.1 g/dl (32.0-37.0); MEAN PLATELET VOLUME 11.5 fl (7.4-10.4); MONOCYTE # 0.6 10^3/ul (0.3-0.9); MONOCYTES % 18.2 % (0.0-11.0); NEUTROPHIL # 1.5 10^3/ul (1.6-7.5); NEUTROPHILS % 46.1 % (39.0-77.0); NUCLEATED RED BLOOD CELLS # 0.2 10^3/ul (0.0-0.0); PLATELET COUNT 100 10^3/UL (140-415); RED BLOOD COUNT 2.54 10^6/ul (4.70-6.10); RED CELL DISTRIBUTION WIDTH 15.9 % (11.5-14.5); WHITE BLOOD COUNT 3.2 10^3/ul (4.8-10.8)
[2016-10-26] MEDS: HEPARIN 5,000 UNIT/0.5 ML VIAL SC SCH ×2 (06:26→13:10)
[2016-10-26 07:39] VITALS: BP 124/77; RESP 18
[2016-10-26] MEDS: INSULIN ASPART [NOVOLOG] 3 ML PEN SC SCH ×4 (08:13→20:56)
[2016-10-26] MEDS: INSULIN GLARGINE [LANtus] 3 ML PEN SC SCH (08:35)
[2016-10-26] MEDS: AMLODIPINE 10 MG TAB PO SCH (08:37)
[2016-10-26] MEDS: FAMOTIDINE 20 MG TAB PO SCH ×2 (08:37→20:54)
--- NOTE | 2016-10-26 11:46 | PN ---
Date/Time of Note Date/Time of Note DATE: 10/26/16 TIME: 11:44 Assessment/Plan VTE Prophylaxis VTE Prophylaxis Intervention: SCD's Lines/Catheters IV C[facility]ter Type (from [facility]): Saline Lock Urinary Cath still in place: No Assessment/Plan Assessment/Plan 1. Neutropenic fever,work up negative so far, on IV abx, ID following 2. History of leukemia, details unknown. 3. Diabetes. 4. Hypertension. PLAN: IV abx Broad specturm , Cu;ltures negative so far, ID following- discussed with them yesterday,plan is to d/c all abx and observe S/p Hematology oncology consult< WBC improved with one dose of Neupogen but Hb and platelets are still low - Oncology following awaitingcall from primary oncologist to decide about further plan BP stable afebrile SCD for DVT prophylaxis Subjective 24 Hr Interval Summary Free Text/Dictation no acute events, afebrile, WBC 3.2. Exam/Review of Systems Vital Signs Vitals Vital Signs Date Time Temp Pulse Resp B/P Pulse Ox O2 Delivery O2 Flow Rate FiO2 10/26/16 07:39 98.2 110 18 124/77 95 10/22/16 15:26 Room Air Intake and Output 10/25/16 10/25/16 10/26/16 15:00 23:00 07:00 Intake Total 300 ml 1420 ml 920 ml Balance 300 ml 1420 ml 920 ml Exam GENERAL: Well-nourished, well-developed, middle-aged man who is alert , in no distress. HEENT: Head atraumatic, normocephalic. Sclerae anicteric. Buccal mucosa pink. NECK: Supple. CHEST: Rise symmetrical. Breath sounds clear. HEART: S1, S2. ABDOMEN: Soft, bowel tones present. EXTREMITIES: Without cyanosis. Results Result Diagram: 10/26/16 0542 10/25/16 0504 Results 24 hrs Laboratory Tests Test 10/25/16 20:26 10/26/16 02:21 10/26/16 05:42 10/26/16 08:09 Bedside Glucose 305 H 209 207 White Blood Count 3.2 #L Red Blood Count 2.54 L Hemoglobin 8.4 L Hematocrit 25.4 L Mean Corpuscular Volume 100.0 Mean Corpuscular Hemoglobin 33.1 H Mean Corpuscular Hemoglobin Concent 33.1 Red Cell Distribution Width 15.9 H Platelet Count 100 L Mean Platelet Volume 11.5 H Neutrophils % 46.1 Lymphocytes % 32.9 Monocytes % 18.2 H Eosinophils % 0.9 Basophils % 0.3 Nucleated Red Blood Cells % 5.0 H Neutrophils # 1.5 L Lymphocytes # 1.1 Monocytes # 0.6 Eosinophils # 0.0 Basophils # 0.0 Nucleated Red Blood Cells # 0.2 H Medications Medications Current Medications Ondansetron HCl (Zofran Inj) 4 mg Q6H PRN IV NAUSEA AND/OR VOMITING; Start 10/22 at 04:00 Zolpidem Tartrate (Ambien) 5 mg QHS PRN PO INSOMNIA; Start 10/22/16 at 04:00 Docusate Sodium (Colace) 100 mg Q12H PRN PO CONSTIPATION Last administered on 17:58; Admin Dose 100 MG; Start 10/22/16 at 04:00 Bisacodyl (Dulcolax) 5 mg DAILY PRN PO CONSTIPATION Last administered on 17:58; Admin Dose 5 MG; Start 10/22/16 at 04:00 Famotidine (Pepcid) 20 mg Q12 PO Last administered on 10/26/16 08:37; Admin Dose 20 MG; Start 10/22/16 at 09:00 Heparin Sodium (Porcine) (Heparin (5000 Units/0.5 ml)) 5,000 unit Q8 SC Last administered on 10/26/16 06:26; Admin Dose 5,000 UNIT; Start 10/22/16 at 06:00 Amlodipine Besylate (Norvasc) 10 mg DAILY PO Last administered on 10/26/16 08: 37; Admin Dose 10 MG; Start 10/22/16 at 09:00 Mirtazapine (Remeron) 30 mg HS PO Last administered on 10/25/16 20:27; Admin Dose 30 MG; Start 10/22/16 at 21:00 Diagnostic Test (Pha) (Accu-Chek) 1 ea 02 XX Last administered on 10/26/16 02: 40; Admin Dose 1 EA; Start 10/23/16 at 02:00 Miscellaneous Information 1 ea NOTE XX ; Start 10/22/16 at 05:00 Glucose (Glutose) 15 gm Q15M PRN PO DECREASED GLUCOSE; Start 10/22/16 at 05:00 Glucose (Glutose) 22.5 gm Q15M PRN PO DECREASED GLUCOSE; Start 10/22/16 at 05:00 Dextrose (D50w Syringe) 25 ml Q15M PRN IV DECREASED GLUCOSE; Start 10/22/16 at 05:00 Dextrose (D50w Syringe) 50 ml Q15M PRN IV DECREASED GLUCOSE; Start 10/22/16 at 05:00 Glucagon (Glucagen) 1 mg Q15M PRN IM DECREASED GLUCOSE; Start 10/22/16 at 05:00 Glucose (Glutose) 15 gm Q15M PRN BUCCAL DECREASED GLUCOSE; Start 10/22/16 at 05: 00 Hydromorphone HCl (Dilaudid) 2 mg Q4H PRN IV PAIN Last administered on 10:15; Admin Dose 2 MG; Start 10/23/16 at 12:00 Insulin Glargine (Lantus) 10 unit DAILY SC Last administered on 10/26/16 08:35 ; Admin Dose 10 UNIT; Start 10/23/16 at 12:30 Acetaminophen (Tylenol Tab) 650 mg Q4H PRN PO PAIN AND OR ELEVATED TEMP Last administered on 10/23/16 21:44; Admin Dose 650 MG; Start 10/23/16 at 21:30 JADEN TRACEY MD October 26, 2016 11:46
[2016-10-26] MEDS ORDERED: INSULIN GLARGINE [LANtus] 3 ML PEN SC ONE (12:00)
--- NOTE | 2016-10-26 15:25 | CONS ---
Date/Time of Note Date/Time of Note DATE: 10/26/16 TIME: 15:25 Assessment/Plan Assessment/Plan Chief Complaint/Hosp Course SUBJECTIVE: No events overnight. The patient is awake, feels good, looks comfortable, no fevers. MICROBIOLOGY: Cultures negative. PHYSICAL EXAMINATION: GENERAL: Well-developed, middle-aged man who is awake, in no distress. HEENT: Head atraumatic, normocephalic. Sclerae anicteric. Buccal mucosa pink. NECK: Supple. CHEST: Rise symmetrical. Breath sounds clear. HEART: S1, S2. ABDOMEN: Soft, bowel sounds present. EXTREMITIES: Without cyanosis. ASSESSMENT: 1. Status post neutropenic fevers. 2. MDS, status post chemotherapy. 3. Diabetes. 4. Hypertension. PLAN: The patient remains stable. No fevers, will observe off abx. DW staff Problems: Consultation Date/Type/Reason Admit Date/Time October 22, 2016 at 01:04 Initial Consult Date 10/23/16 Type of Consultation: ID Exam/Review of Systems Vital Signs Vitals Vital Signs Date Time Temp Pulse Resp B/P Pulse Ox O2 Delivery O2 Flow Rate FiO2 10/26/16 07:39 98.2 110 18 124/77 95 10/22/16 15:26 Room Air Intake and Output 10/25/16 10/25/16 10/26/16 15:00 23:00 07:00 Intake Total 300 ml 1420 ml 920 ml Balance 300 ml 1420 ml 920 ml Results Result Diagram: 10/26/16 0542 10/25/16 0504 Results 24 hrs Laboratory Tests Test 10/25/16 20:26 10/26/16 02:21 10/26/16 05:42 10/26/16 08:09 Bedside Glucose 305 H 209 207 White Blood Count 3.2 #L Red Blood Count 2.54 L Hemoglobin 8.4 L Hematocrit 25.4 L Mean Corpuscular Volume 100.0 Mean Corpuscular Hemoglobin 33.1 H Mean Corpuscular Hemoglobin Concent 33.1 Red Cell Distribution Width 15.9 H Platelet Count 100 L Mean Platelet Volume 11.5 H Neutrophils % 46.1 Lymphocytes % 32.9 Monocytes % 18.2 H Eosinophils % 0.9 Basophils % 0.3 Nucleated Red Blood Cells % 5.0 H Neutrophils # 1.5 L Lymphocytes # 1.1 Monocytes # 0.6 Eosinophils # 0.0 Basophils # 0.0 Nucleated Red Blood Cells # 0.2 H Test 10/26/16 12:24 Bedside Glucose 255 H Medications Medications Current Medications Ondansetron HCl (Zofran Inj) 4 mg Q6H PRN IV NAUSEA AND/OR VOMITING; Start 10/22 at 04:00 Zolpidem Tartrate (Ambien) 5 mg QHS PRN PO INSOMNIA; Start 10/22/16 at 04:00 Docusate Sodium (Colace) 100 mg Q12H PRN PO CONSTIPATION Last administered on 17:58; Admin Dose 100 MG; Start 10/22/16 at 04:00 Bisacodyl (Dulcolax) 5 mg DAILY PRN PO CONSTIPATION Last administered on 17:58; Admin Dose 5 MG; Start 10/22/16 at 04:00 Famotidine (Pepcid) 20 mg Q12 PO Last administered on 10/26/16 08:37; Admin Dose 20 MG; Start 10/22/16 at 09:00 Heparin Sodium (Porcine) (Heparin (5000 Units/0.5 ml)) 5,000 unit Q8 SC Last administered on 10/26/16 13:10; Admin Dose 5,000 UNIT; Start 10/22/16 at 06:00 Amlodipine Besylate (Norvasc) 10 mg DAILY PO Last administered on 10/26/16 08: 37; Admin Dose 10 MG; Start 10/22/16 at 09:00 Mirtazapine (Remeron) 30 mg HS PO Last administered on 10/25/16 20:27; Admin Dose 30 MG; Start 10/22/16 at 21:00 Diagnostic Test (Pha) (Accu-Chek) 1 ea 02 XX Last administered on 10/26/16 02: 40; Admin Dose 1 EA; Start 10/23/16 at 02:00 Miscellaneous Information 1 ea NOTE XX ; Start 10/22/16 at 05:00 Glucose (Glutose) 15 gm Q15M PRN PO DECREASED GLUCOSE; Start 10/22/16 at 05:00 Glucose (Glutose) 22.5 gm Q15M PRN PO DECREASED GLUCOSE; Start 10/22/16 at 05:00 Dextrose (D50w Syringe) 25 ml Q15M PRN IV DECREASED GLUCOSE; Start 10/22/16 at 05:00 Dextrose (D50w Syringe) 50 ml Q15M PRN IV DECREASED GLUCOSE; Start 10/22/16 at 05:00 Glucagon (Glucagen) 1 mg Q15M PRN IM DECREASED GLUCOSE; Start 10/22/16 at 05:00 Glucose (Glutose) 15 gm Q15M PRN BUCCAL DECREASED GLUCOSE; Start 10/22/16 at 05: 00 Hydromorphone HCl (Dilaudid) 2 mg Q4H PRN IV PAIN Last administered on 14:15; Admin Dose 2 MG; Start 10/23/16 at 12:00 Acetaminophen (Tylenol Tab) 650 mg Q4H PRN PO PAIN AND OR ELEVATED TEMP Last administered on 10/23/16 21:44; Admin Dose 650 MG; Start 10/23/16 at 21:30 Insulin Glargine (Lantus) 15 unit DAILY SC ; Start 10/27/16 at 09:00 JOHN ROMAN NP October 26, 2016 15:25
[2016-10-26] MEDS: NACL 0.9% 3 ML SYG IV SCH (18:20)
--- NOTE | 2016-10-26 19:22 | PN ---
DATE: HISTORY OF PRESENT ILLNESS: Mr. Aparicio is a 46-year-old gentleman with a history of MDS in the past a nd has been on Pradaxa. The patient was admitted for neutropenic fever and sepsis. He is on multip le antibiotics since 10/21/2016 and also on Neupogen. He still continues to be neutropenic. We nee d to continue his Neupogen since he is neutropenic. PAST HISTORY AND REVIEW OF SYSTEMS: Please see the H and P. LABORATORY DATA: His WBC is still 3200 with 46 46% neutrophils, hemoglobin 8.9 with MCV 100, his p latelet count is 100,000. IMPRESSION: 1. History of myelodysplastic syndrome with severe anemia. 2. History of neutropenia with fevers, on antibiotics, improving. It should be noted that his Neup ogen has been stopped. His absolute neutrophil count today is about 1500, down from 2600 yesterday. PLAN: We should repeat the CBC tomorrow and we may have to restart his Neupogen and sometimes this could be done as an outpatient. Thanks again very much. Dictated By: TOMA PRABHAKAR MD [facility] Conf#: [id number] DID#: [id number]
[2016-10-26 19:23] VITALS: BP 135/81; RESP 20
[2016-10-26] MEDS: MIRTAZAPINE 15 MG TAB PO SCH (20:54)
[2016-10-27] MEDS: HYDROmorphONE 2 MG/ML SYG IV PRN ×6 (01:57→22:31)
[2016-10-27] MEDS: ACCUCHECK AT 2AM (Patients on SS coverage) XX SCH (02:04)
[2016-10-27 05:29] LABS: ADD SCAN DIFF NO
[2016-10-27 05:59] LABS: ALBUMIN/GLOBULIN RATIO 1.25; BILIRUBIN,INDIRECT 0.8 mg/dl (0-1.1); BILIRUBIN,TOTAL 0.8 mg/dl (0.2-1.3); CALCIUM 9.1 mg/dl (8.4-10.2); CREATININE 0.84 mg/dl (0.61-1.24); POTASSIUM 4.6 mmol/L (3.5-5.1); TOTAL PROTEIN 7.2 g/dl (6.1-8.1)
[2016-10-27 06:04] LABS: ABNORMAL IP MESSAGE 1; HEMATOCRIT 26.8 % (42.0-52.0); HEMOGLOBIN 8.6 g/dl (14.0-18.0); MEAN CORPUSCULAR HEMOGLOBIN 32.2 pg (29.0-33.0); MEAN CORPUSCULAR HGB CONC 32.1 g/dl (32.0-37.0); MEAN CORPUSCULAR VOLUME 100.4 fl (82.0-101.0); MEAN PLATELET VOLUME 10.8 fl (7.4-10.4); PLATELET COUNT 111 10^3/UL (140-415); RED BLOOD COUNT 2.67 10^6/ul (4.70-6.10); RED CELL DISTRIBUTION WIDTH 15.9 % (11.5-14.5)
[2016-10-27 06:07] LABS: INR 1.03; PROTIME 13.5 Sec (12.2-14.2); PT RATIO 1.1
[2016-10-27 06:08] LABS: PARTIAL THROMBOPLASTIN TIME 36.9 Sec (25.0-35.0)
[2016-10-27 07:20] VITALS: BP 134/83; RESP 18
[2016-10-27] MEDS: FAMOTIDINE 20 MG TAB PO SCH ×2 (08:17→21:05)
[2016-10-27] MEDS: AMLODIPINE 10 MG TAB PO SCH (08:17)
[2016-10-27] MEDS: INSULIN ASPART [NOVOLOG] 3 ML PEN SC SCH ×4 (08:25→21:10)
[2016-10-27] MEDS ORDERED: INSULIN GLARGINE [LANtus] 3 ML PEN SC SCH (09:00)
[2016-10-27 09:52] LABS: MONOCYTE # 0.2 10^3/ul (0.3-0.9); NEUTROPHIL # 0.7 10^3/ul (1.6-7.5); POLYCHROMASIA 1+
[2016-10-27] MEDS ORDERED: FILGRASTIM 480 MCG INJ SC SCH (10:30)
--- NOTE | 2016-10-27 13:12 | CONS ---
Date/Time of Note Date/Time of Note DATE: 10/27/16 TIME: 13:11 Assessment/Plan Assessment/Plan Chief Complaint/Hosp Course SUBJECTIVE: No events overnight. The patient is awake, feels good, looks comfortable, no fevers. MICROBIOLOGY: Cultures negative. PHYSICAL EXAMINATION: GENERAL: Well-developed, middle-aged man who is awake, in no distress. HEENT: Head atraumatic, normocephalic. Sclerae anicteric. Buccal mucosa pink. NECK: Supple. CHEST: Rise symmetrical. Breath sounds clear. HEART: S1, S2. ABDOMEN: Soft, bowel sounds present. EXTREMITIES: Without cyanosis. ASSESSMENT: 1. Status post neutropenic fevers. 2. MDS, status post chemotherapy. 3. Diabetes. 4. Hypertension. PLAN: The patient remains stable. No fevers, observe off abx, f/u oncology rec -s DW staff Problems: Consultation Date/Type/Reason Admit Date/Time October 22, 2016 at 01:04 Initial Consult Date 10/23/16 Type of Consultation: ID Exam/Review of Systems Vital Signs Vitals Vital Signs Date Time Temp Pulse Resp B/P Pulse Ox O2 Delivery O2 Flow Rate FiO2 10/27/16 07:20 98.9 90 18 134/83 96 Intake and Output 10/26/16 10/26/16 10/27/16 15:00 23:00 07:00 Intake Total 1360 ml 920 ml Balance 1360 ml 920 ml Results Result Diagram: 10/27/16 0500 10/27/16 0500 Results 24 hrs Laboratory Tests Test 10/26/16 17:03 10/26/16 20:54 10/27/16 02:02 10/27/16 05:00 Bedside Glucose 284 H 243 H 215 White Blood Count 2.0 #L Red Blood Count 2.67 L Hemoglobin 8.6 L Hematocrit 26.8 L Mean Corpuscular Volume 100.4 Mean Corpuscular Hemoglobin 32.2 Mean Corpuscular Hemoglobin Concent 32.1 Red Cell Distribution Width 15.9 H Platelet Count 111 L Mean Platelet Volume 10.8 H Neutrophils % 36.0 L Lymphocytes % 50.0 Monocytes % 12.0 H Eosinophils % 2.0 Neutrophils # 0.7 L Lymphocytes # 1.0 Monocytes # 0.2 L Eosinophils # 0.0 Polychromasia 1+ Prothrombin Time 13.5 Prothrombin Time Ratio 1.1 INR International Normalized Ratio 1.03 Activated Partial Thromboplast Time 36.9 H Sodium Level 139 Potassium Level 4.6 Chloride Level 104 Carbon Dioxide Level 28 Anion Gap 12 Blood Urea Nitrogen 21 H Creatinine 0.84 Glucose Level 205 Calcium Level 9.1 Total Bilirubin 0.8 Direct Bilirubin 0.00 Indirect Bilirubin 0.8 Aspartate Amino Transf (AST/SGOT) 48 H Alanine Aminotransferase (ALT/SGPT) 114 H Alkaline Phosphatase 123 H Total Protein 7.2 Albumin 4.0 Globulin 3.20 Albumin/Globulin Ratio 1.25 Test 10/27/16 08:02 10/27/16 12:00 Bedside Glucose 208 266 H Medications Medications Current Medications Ondansetron HCl (Zofran Inj) 4 mg Q6H PRN IV NAUSEA AND/OR VOMITING; Start 10/22 at 04:00 Zolpidem Tartrate (Ambien) 5 mg QHS PRN PO INSOMNIA; Start 10/22/16 at 04:00 Docusate Sodium (Colace) 100 mg Q12H PRN PO CONSTIPATION Last administered on 17:58; Admin Dose 100 MG; Start 10/22/16 at 04:00 Bisacodyl (Dulcolax) 5 mg DAILY PRN PO CONSTIPATION Last administered on 17:58; Admin Dose 5 MG; Start 10/22/16 at 04:00 Famotidine (Pepcid) 20 mg Q12 PO Last administered on 10/27/16 08:17; Admin Dose 20 MG; Start 10/22/16 at 09:00 Heparin Sodium (Porcine) (Heparin (5000 Units/0.5 ml)) 5,000 unit Q8 SC Last administered on 10/26/16 13:10; Admin Dose 5,000 UNIT; Start 10/22/16 at 06:00; Status Future hold Amlodipine Besylate (Norvasc) 10 mg DAILY PO Last administered on 10/27/16 08: 17; Admin Dose 10 MG; Start 10/22/16 at 09:00 Mirtazapine (Remeron) 30 mg HS PO Last administered on 10/26/16 20:54; Admin Dose 30 MG; Start 10/22/16 at 21:00 Diagnostic Test (Pha) (Accu-Chek) 1 ea 02 XX Last administered on 10/27/16 02: 04; Admin Dose 1 EA; Start 10/23/16 at 02:00 Miscellaneous Information 1 ea NOTE XX ; Start 10/22/16 at 05:00 Glucose (Glutose) 15 gm Q15M PRN PO DECREASED GLUCOSE; Start 10/22/16 at 05:00 Glucose (Glutose) 22.5 gm Q15M PRN PO DECREASED GLUCOSE; Start 10/22/16 at 05:00 Dextrose (D50w Syringe) 25 ml Q15M PRN IV DECREASED GLUCOSE; Start 10/22/16 at 05:00 Dextrose (D50w Syringe) 50 ml Q15M PRN IV DECREASED GLUCOSE; Start 10/22/16 at 05:00 Glucagon (Glucagen) 1 mg Q15M PRN IM DECREASED GLUCOSE; Start 10/22/16 at 05:00 Glucose (Glutose) 15 gm Q15M PRN BUCCAL DECREASED GLUCOSE; Start 10/22/16 at 05: 00 Hydromorphone HCl (Dilaudid) 2 mg Q4H PRN IV PAIN Last administered on 10:31; Admin Dose 2 MG; Start 10/23/16 at 12:00 Acetaminophen (Tylenol Tab) 650 mg Q4H PRN PO PAIN AND OR ELEVATED TEMP Last administered on 10/23/16 21:44; Admin Dose 650 MG; Start 10/23/16 at 21:30 Insulin Glargine (Lantus) 15 unit DAILY SC Last administered on 10/27/16 08:25 ; Admin Dose 15 UNIT; Start 10/27/16 at 09:00 Filgrastim (Neupogen) 480 mcg ONCE SC Last administered on 10/27/16 12:17; Admin Dose 480 MCG; Start 10/27/16 at 10:30; Stop 10/27/16 at 23:00 JOHN ROMAN NP October 27, 2016 13:12
--- NOTE | 2016-10-27 13:16 | PN ---
Date/Time of Note Date/Time of Note DATE: 10/27/16 TIME: 13:14 Assessment/Plan VTE Prophylaxis VTE Prophylaxis Intervention: SCD's Lines/Catheters [facility] Type [facility] Saline Lock Urinary Cath still in place: No Assessment/Plan Chief Complaint/Hosp Course Assessment/Plan 1. 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 History of leukemia, oncology following 3. Diabetes. Continue Lantus, insulin sliding scale 4. Hypertension. Well-controlled on medical management PLAN: IV abx Broad specturm , Cultures negative so far, ID following- discussed with them yesterday,plan is to d/c all abx and observe S/p Hematology oncology consult< WBC improved with one dose of Neupogen but Hb and platelets are still low - Oncology following awaiting call from primary oncologist to decide about further plan BP stable afebrile SCD for DVT prophylaxis Plan to discharge home tomorrow if cleared by auto mechanic supervisor oncologist Problems: Subjective 24 Hr Interval Summary Free Text/Dictation Patient denies of any chest pain or shortness of breath Status post Neupogen today No nausea vomiting or diarrhea Ambulating without any discomfort Exam/Review of Systems Vital Signs Vitals Vital Signs Date Time Temp Pulse Resp B/P Pulse Ox O2 Delivery O2 Flow Rate FiO2 10/27/16 07:20 98.9 90 18 134/83 96 Intake and Output 10/26/16 10/26/16 10/27/16 15:00 23:00 07:00 Intake Total 1360 ml 920 ml Balance 1360 ml 920 ml Exam General: The patient is well-developed, Not in acute distress. HEENT: Atraumatic, normocephalic. The pupils are equal and round . Neck: Supple with full range of motion. Chest: Normal expansion of the thorax during inspiration Lungs: Clear to auscultation bilaterally Heart: Normal S1-S2, Regular rhythm and rate. Abdomen: Soft , nontender, nondistended , bowel sounds are present. Extremities: Normal to inspection, no edema no cyanosis Neurologic: Normal mental status,The patient is awake, alert and oriented . Results Result Diagram: 10/27/16 0500 10/27/16 0500 Results 24 hrs Laboratory Tests Test 10/26/16 17:03 10/26/16 20:54 10/27/16 02:02 10/27/16 05:00 Bedside Glucose 284 H 243 H 215 White Blood Count 2.0 #L Red Blood Count 2.67 L Hemoglobin 8.6 L Hematocrit 26.8 L Mean Corpuscular Volume 100.4 Mean Corpuscular Hemoglobin 32.2 Mean Corpuscular Hemoglobin Concent 32.1 Red Cell Distribution Width 15.9 H Platelet Count 111 L Mean Platelet Volume 10.8 H Neutrophils % 36.0 L Lymphocytes % 50.0 Monocytes % 12.0 H Eosinophils % 2.0 Neutrophils # 0.7 L Lymphocytes # 1.0 Monocytes # 0.2 L Eosinophils # 0.0 Polychromasia 1+ Prothrombin Time 13.5 Prothrombin Time Ratio 1.1 INR International Normalized Ratio 1.03 Activated Partial Thromboplast Time 36.9 H Sodium Level 139 Potassium Level 4.6 Chloride Level 104 Carbon Dioxide Level 28 Anion Gap 12 Blood Urea Nitrogen 21 H Creatinine 0.84 Glucose Level 205 Calcium Level 9.1 Total Bilirubin 0.8 Direct Bilirubin 0.00 Indirect Bilirubin 0.8 Aspartate Amino Transf (AST/SGOT) 48 H Alanine Aminotransferase (ALT/SGPT) 114 H Alkaline Phosphatase 123 H Total Protein 7.2 Albumin 4.0 Globulin 3.20 Albumin/Globulin Ratio 1.25 Test 10/27/16 08:02 10/27/16 12:00 Bedside Glucose 208 266 H Medications Medications Current Medications Ondansetron HCl (Zofran Inj) 4 mg Q6H PRN IV NAUSEA AND/OR VOMITING; Start 10/22 at 04:00 Zolpidem Tartrate (Ambien) 5 mg QHS PRN PO INSOMNIA; Start 10/22/16 at 04:00 Docusate Sodium (Colace) 100 mg Q12H PRN PO CONSTIPATION Last administered on 17:58; Admin Dose 100 MG; Start 10/22/16 at 04:00 Bisacodyl (Dulcolax) 5 mg DAILY PRN PO CONSTIPATION Last administered on 17:58; Admin Dose 5 MG; Start 10/22/16 at 04:00 Famotidine (Pepcid) 20 mg Q12 PO Last administered on 10/27/16 08:17; Admin Dose 20 MG; Start 10/22/16 at 09:00 Heparin Sodium (Porcine) (Heparin (5000 Units/0.5 ml)) 5,000 unit Q8 SC Last administered on 10/26/16 13:10; Admin Dose 5,000 UNIT; Start 10/22/16 at 06:00; Status Future hold Amlodipine Besylate (Norvasc) 10 mg DAILY PO Last administered on 10/27/16 08: 17; Admin Dose 10 MG; Start 10/22/16 at 09:00 Mirtazapine (Remeron) 30 mg HS PO Last administered on 10/26/16 20:54; Admin Dose 30 MG; Start 10/22/16 at 21:00 Diagnostic Test (Pha) (Accu-Chek) 1 ea 02 XX Last administered on 10/27/16 02: 04; Admin Dose 1 EA; Start 10/23/16 at 02:00 Miscellaneous Information 1 ea NOTE XX ; Start 10/22/16 at 05:00 Glucose (Glutose) 15 gm Q15M PRN PO DECREASED GLUCOSE; Start 10/22/16 at 05:00 Glucose (Glutose) 22.5 gm Q15M PRN PO DECREASED GLUCOSE; Start 10/22/16 at 05:00 Dextrose (D50w Syringe) 25 ml Q15M PRN IV DECREASED GLUCOSE; Start 10/22/16 at 05:00 Dextrose (D50w Syringe) 50 ml Q15M PRN IV DECREASED GLUCOSE; Start 10/22/16 at 05:00 Glucagon (Glucagen) 1 mg Q15M PRN IM DECREASED GLUCOSE; Start 10/22/16 at 05:00 Glucose (Glutose) 15 gm Q15M PRN BUCCAL DECREASED GLUCOSE; Start 10/22/16 at 05: 00 Hydromorphone HCl (Dilaudid) 2 mg Q4H PRN IV PAIN Last administered on 10:31; Admin Dose 2 MG; Start 10/23/16 at 12:00 Acetaminophen (Tylenol Tab) 650 mg Q4H PRN PO PAIN AND OR ELEVATED TEMP Last administered on 10/23/16 21:44; Admin Dose 650 MG; Start 10/23/16 at 21:30 Insulin Glargine (Lantus) 15 unit DAILY SC Last administered on 10/27/16 08:25 ; Admin Dose 15 UNIT; Start 10/27/16 at 09:00 Filgrastim (Neupogen) 480 mcg ONCE SC Last administered on 10/27/16t 12:17; Admin Dose 480 MCG; Start 10/27/16 at 10:30; Stop 10/27/16 at 23:00 KEVIN BARNHART MD October 27, 2016 13:16
[2016-10-27] MEDS: HEPARIN 5,000 UNIT/0.5 ML VIAL SC SCH ×2 (15:29→22:35)
--- NOTE | 2016-10-27 17:04 | CONS ---
Date/Time of Note Date/Time of Note DATE: 10/27/16 TIME: 17:01 Assessment/Plan Assessment/Plan Chief Complaint/Hosp Course The patient is a patient of Dr. Lee's with MDS and is on Vidaza, admitted for neutropenic fever and sepsis. - Cultures thus far negative, f/u cultures, observe off antibiotics per ID. Afebrile since 10/21/16. Appreciate ID recs. - CT chest showed no evidence of pulmonary embolism or aortic dissection, mild scarring/atelectasis within the right upper lobe and left lung base, shotty mediastinal and bilateral axillary lymph nodes, moderate splenomegaly. - In the setting of neutropenic fever and sepsis, patient was given one dose of neupogen 10/23/16 with normalized WBC, now ANC 0.7 with WBC 2.0, will give another dose of neupogen today. Discussed with patient's primary oncologist Dr. Lee, ok to give 1 dose of neupogen then discharge and follow-up with Dr. Lee. Discussed with primary team, plan to discharge tomorrow pending labs. - s/p epogen 10/23/16 given hemoglobin < 10; transfuse if Hgb < 8, Plt < 10 ( or < 20 if febrile, < 50 if bleeding) Problems: Consultation Date/Type/Reason Admit Date/Time October 22, 2016 at 01:04 Initial Consult Date 10/23/16 Type of Consultation: Hematology 24 HR Interval Summary Free Text/Dictation Patient doing well, no complaints, no fevers. Exam/Review of Systems Vital Signs Vitals Vital Signs Date Time Temp Pulse Resp B/P Pulse Ox O2 Delivery O2 Flow Rate FiO2 10/27/16 07:20 98.9 90 18 134/83 96 Intake and Output 10/26/16 10/26/16 10/27/16 15:00 23:00 07:00 Intake Total 1360 ml 920 ml Balance 1360 ml 920 ml Exam Constitutional: alert, oriented Head: normocephalic Eyes: nl conjunctiva Neck: supple Respiratory: clear to auscultation Cardiovascular: other (tachycardic) Gastrointestinal: non-tender, soft Musculoskeletal: nl extremities to inspection Neurological: TRANSPORTATION DIRECTOR II-XII intact Results Result Diagram: 10/27/16 0500 10/27/16 0500 Results 24 hrs Laboratory Tests Test 10/26/16 17:03 10/26/16 20:54 10/27/16 02:02 10/27/16 05:00 Bedside Glucose 284 H 243 H 215 White Blood Count 2.0 #L Red Blood Count 2.67 L Hemoglobin 8.6 L Hematocrit 26.8 L Mean Corpuscular Volume 100.4 Mean Corpuscular Hemoglobin 32.2 Mean Corpuscular Hemoglobin Concent 32.1 Red Cell Distribution Width 15.9 H Platelet Count 111 L Mean Platelet Volume 10.8 H Neutrophils % 36.0 L Lymphocytes % 50.0 Monocytes % 12.0 H Eosinophils % 2.0 Neutrophils # 0.7 L Lymphocytes # 1.0 Monocytes # 0.2 L Eosinophils # 0.0 Polychromasia 1+ Prothrombin Time 13.5 Prothrombin Time Ratio 1.1 INR International Normalized Ratio 1.03 Activated Partial Thromboplast Time 36.9 H Sodium Level 139 Potassium Level 4.6 Chloride Level 104 Carbon Dioxide Level 28 Anion Gap 12 Blood Urea Nitrogen 21 H Creatinine 0.84 Glucose Level 205 Calcium Level 9.1 Total Bilirubin 0.8 Direct Bilirubin 0.00 Indirect Bilirubin 0.8 Aspartate Amino Transf (AST/SGOT) 48 H Alanine Aminotransferase (ALT/SGPT) 114 H Alkaline Phosphatase 123 H Total Protein 7.2 Albumin 4.0 Globulin 3.20 Albumin/Globulin Ratio 1.25 Test 10/27/16 08:02 10/27/16 12:00 Bedside Glucose 208 266 H Medications Medications Current Medications Ondansetron HCl (Zofran Inj) 4 mg Q6H PRN IV NAUSEA AND/OR VOMITING; Start 10/22 at 04:00 Zolpidem Tartrate (Ambien) 5 mg QHS PRN PO INSOMNIA; Start 10/22/16 at 04:00 Docusate Sodium (Colace) 100 mg Q12H PRN PO CONSTIPATION Last administered on 17:58; Admin Dose 100 MG; Start 10/22/16 at 04:00 Bisacodyl (Dulcolax) 5 mg DAILY PRN PO CONSTIPATION Last administered on 17:58; Admin Dose 5 MG; Start 10/22/16 at 04:00 Famotidine (Pepcid) 20 mg Q12 PO Last administered on 10/27/16 08:17; Admin Dose 20 MG; Start 10/22/16 at 09:00 Heparin Sodium (Porcine) (Heparin (5000 Units/0.5 ml)) 5,000 unit Q8 SC Last administered on 10/27/16 15:29; Admin Dose 5,000 UNIT; Start 10/22/16 at 06:00; Status Future hold Amlodipine Besylate (Norvasc) 10 mg DAILY PO Last administered on 10/27/16 08: 17; Admin Dose 10 MG; Start 10/22/16 at 09:00 Mirtazapine (Remeron) 30 mg HS PO Last administered on 10/26/16 20:54; Admin Dose 30 MG; Start 10/22/16 at 21:00 Diagnostic Test (Pha) (Accu-Chek) 1 ea 02 XX Last administered on 10/27/16 02: 04; Admin Dose 1 EA; Start 10/23/16 at 02:00 Miscellaneous Information 1 ea NOTE XX ; Start 10/22/16 at 05:00 Glucose (Glutose) 15 gm Q15M PRN PO DECREASED GLUCOSE; Start 10/22/16 at 05:00 Glucose (Glutose) 22.5 gm Q15M PRN PO DECREASED GLUCOSE; Start 10/22/16 at 05:00 Dextrose (D50w Syringe) 25 ml Q15M PRN IV DECREASED GLUCOSE; Start 10/22/16 at 05:00 Dextrose (D50w Syringe) 50 ml Q15M PRN IV DECREASED GLUCOSE; Start 10/22/16 at 05:00 Glucagon (Glucagen) 1 mg Q15M PRN IM DECREASED GLUCOSE; Start 10/22/16 at 05:00 Glucose (Glutose) 15 gm Q15M PRN BUCCAL DECREASED GLUCOSE; Start 10/22/16 at 05: 00 Hydromorphone HCl (Dilaudid) 2 mg Q4H PRN IV PAIN Last administered on 14:59; Admin Dose 2 MG; Start 10/23/16 at 12:00 Acetaminophen (Tylenol Tab) 650 mg Q4H PRN PO PAIN AND OR ELEVATED TEMP Last administered on 10/23/16 21:44; Admin Dose 650 MG; Start 10/23/16 at 21:30 Filgrastim (Neupogen) 480 mcg ONCE SC Last administered on 10/27/16 12:17; Admin Dose 480 MCG; Start 10/27/16 at 10:30; Stop 10/27/16 at 23:00 Insulin Glargine (Lantus) 18 unit DAILY SC ; Start 10/28/16 at 09:00 LINDSEY LESLIE MD October 27, 2016 17:04
[2016-10-27 20:00] VITALS: BP 137/81; PULSE 107; RESP 18
[2016-10-27] MEDS: MIRTAZAPINE 15 MG TAB PO SCH (21:05)
[2016-10-27] MEDS: ACETAMINOPHEN 325 MG TAB PO PRN (21:05)
[2016-10-28] MEDS: HYDROmorphONE 2 MG/ML SYG IV PRN ×3 (02:17→10:17)
[2016-10-28] MEDS: ACCUCHECK AT 2AM (Patients on SS coverage) XX SCH (02:17)
[2016-10-28 05:36] LABS: ADD SCAN DIFF NO
[2016-10-28 06:04] LABS: ALBUMIN 4.2 g/dl (3.3-4.9)
[2016-10-28 06:05] LABS: POTASSIUM 4.4 mmol/L (3.5-5.1)
[2016-10-28 06:07] LABS: BILIRUBIN,INDIRECT 0.9 mg/dl (0-1.1); BILIRUBIN,TOTAL 0.9 mg/dl (0.2-1.3); CREATININE 0.87 mg/dl (0.61-1.24)
[2016-10-28 06:08] LABS: ALBUMIN/GLOBULIN RATIO 1.31; CALCIUM 9.4 mg/dl (8.4-10.2); TOTAL PROTEIN 7.4 g/dl (6.1-8.1)
[2016-10-28 06:09] LABS: MAGNESIUM 2.1 mg/dl (1.7-2.5)
[2016-10-28] MEDS: HEPARIN 5,000 UNIT/0.5 ML VIAL SC SCH (06:21)
[2016-10-28 06:23] LABS: ABNORMAL IP MESSAGE 1; HEMATOCRIT 25.7 % (42.0-52.0); HEMOGLOBIN 8.7 g/dl (14.0-18.0); MEAN CORPUSCULAR HEMOGLOBIN 33.7 pg (29.0-33.0); MEAN CORPUSCULAR HGB CONC 33.9 g/dl (32.0-37.0); MEAN CORPUSCULAR VOLUME 99.6 fl (82.0-101.0); MEAN PLATELET VOLUME 11.6 fl (7.4-10.4); PLATELET COUNT 128 10^3/UL (140-415); RED BLOOD COUNT 2.58 10^6/ul (4.70-6.10); RED CELL DISTRIBUTION WIDTH 15.7 % (11.5-14.5); WHITE BLOOD COUNT 9.4 10^3/ul (4.8-10.8)
[2016-10-28 07:52] VITALS: BP 173/93; RESP 16
[2016-10-28] MEDS: INSULIN ASPART [NOVOLOG] 3 ML PEN SC SCH ×2 (07:57→12:09)
[2016-10-28] MEDS: AMLODIPINE 10 MG TAB PO SCH (08:07)
[2016-10-28] MEDS: FAMOTIDINE 20 MG TAB PO SCH (08:08)
[2016-10-28] MEDS ORDERED: INSULIN GLARGINE [LANtus] 3 ML PEN SC SCH (09:00)
[2016-10-28] MEDS: NACL 0.9% 3 ML SYG IV SCH (10:17)
[2016-10-28 10:30] VITALS: BP 142/85; PULSE 107; RESP 18
[2016-10-28 11:04] LABS: LYMPHOCYTES # 2.2 10^3/ul (0.8-2.9); MONOCYTE # 1.4 10^3/ul (0.3-0.9); NEUTROPHIL # 5.5 10^3/ul (1.6-7.5)
[2016-10-28 11:05] LABS: POLYCHROMASIA 1+
[2016-10-28] MEDS ORDERED: IVERMECTIN 3 MG TAB PO ONE (12:30)
--- NOTE | 2016-10-28 12:31 | PDOCDIS ---
Discharge Instructions CONDITION Patient Condition: Fair HOME CARE INSTRUCTIONS: Special Diet: 1800cal ACTIVITY: Activity Restrictions: Slowly Increase Activity Rest between Activity Avoid heavy lifting Avoid Heavy Housework FOLLOW UP/APPOINTMENTS Appointments Follow up with Oncology as out-pt Follow up with PCP as out-pt KEVIN BARNHART MD October 28, 2016 12:31
[2016-10-28] MEDS ORDERED: DOCU-216 PO (12:33)
[2016-10-28] MEDS ORDERED: FAMO20TA18 PO (12:33)
--- NOTE | 2016-10-28 13:00 | CONS ---
Date/Time of Note Date/Time of Note DATE: 10/28/16 TIME: 12:58 Assessment/Plan Assessment/Plan Chief Complaint/Hosp Course The patient is a patient of Dr. Lee's with MDS and is on Vidaza, admitted for neutropenic fever and sepsis. - Cultures thus far negative, f/u cultures, observe off antibiotics per ID. Afebrile since 10/21/16. Appreciate ID recs. - CT chest showed no evidence of pulmonary embolism or aortic dissection, mild scarring/atelectasis within the right upper lobe and left lung base, shotty mediastinal and bilateral axillary lymph nodes, moderate splenomegaly. - In the setting of neutropenic fever and sepsis, patient was given one dose of neupogen 10/23/16 and 10/27/16, now with normalized WBC with ANC 5500. Case discussed with patient's primary oncologist Dr. Lee. Pt will follow-up with Dr. Lee. - s/p epogen 10/23/16 given hemoglobin < 10; transfuse if Hgb < 8, Plt < 10 ( or < 20 if febrile, < 50 if bleeding) Problems: Consultation Date/Type/Reason Admit Date/Time October 22, 2016 at 01:04 Initial Consult Date 10/23/16 Type of Consultation: Hematology 24 HR Interval Summary Free Text/Dictation Patient discharged today prior to my evaluation. Exam/Review of Systems Vital Signs Vitals Vital Signs Date Time Temp Pulse Resp B/P Pulse Ox O2 Delivery O2 Flow Rate FiO2 10/28/16 10:30 107 18 142/85 Room Air 10/28/16 07:52 97.6 94 Intake and Output 10/27/16 10/27/16 10/28/16 15:00 23:00 07:00 Intake Total 820 ml 720 ml Balance 820 ml 720 ml Results Result Diagram: 10/28/16 0518 10/28/16 0518 Results 24 hrs Laboratory Tests Test 10/27/16 17:26 10/27/16 21:00 10/28/16 02:17 10/28/16 05:18 Bedside Glucose 207 203 165 White Blood Count 9.4 # Red Blood Count 2.58 L Hemoglobin 8.7 L Hematocrit 25.7 L Mean Corpuscular Volume 99.6 Mean Corpuscular Hemoglobin 33.7 H Mean Corpuscular Hemoglobin Concent 33.9 Red Cell Distribution Width 15.7 H Platelet Count 128 L Mean Platelet Volume 11.6 H Neutrophils % 59.0 Lymphocytes % 23.0 Monocytes % 15.0 H Eosinophils % Metamyelocytes % 3.0 H Nucleated Red Blood Cells % 3.0 H Neutrophils # 5.5 Lymphocytes # 2.2 Monocytes # 1.4 H Eosinophils # Metamyelocytes # 0.3 Polychromasia 1+ Sodium Level 139 Potassium Level 4.4 Chloride Level 100 Carbon Dioxide Level 28 Anion Gap 15 Blood Urea Nitrogen 20 Creatinine 0.87 Glucose Level 179 Calcium Level 9.4 Magnesium Level 2.1 Total Bilirubin 0.9 Direct Bilirubin 0.00 Indirect Bilirubin 0.9 Aspartate Amino Transf (AST/SGOT) 44 Alanine Aminotransferase (ALT/SGPT) 106 H Alkaline Phosphatase 126 H Total Protein 7.4 Albumin 4.2 Globulin 3.20 Albumin/Globulin Ratio 1.31 Test 10/28/16 07:36 10/28/16 12:02 Bedside Glucose 218 269 H Medications Medications Current Medications Ondansetron HCl (Zofran Inj) 4 mg Q6H PRN IV NAUSEA AND/OR VOMITING; Start 10/22 at 04:00 Zolpidem Tartrate (Ambien) 5 mg QHS PRN PO INSOMNIA; Start 10/22/16 at 04:00 Docusate Sodium (Colace) 100 mg Q12H PRN PO CONSTIPATION Last administered on 17:58; Admin Dose 100 MG; Start 10/22/16 at 04:00 Bisacodyl (Dulcolax) 5 mg DAILY PRN PO CONSTIPATION Last administered on 17:58; Admin Dose 5 MG; Start 10/22/16 at 04:00 Famotidine (Pepcid) 20 mg Q12 PO Last administered on 10/28/16 08:08; Admin Dose 20 MG; Start 10/22/16 at 09:00 Heparin Sodium (Porcine) (Heparin (5000 Units/0.5 ml)) 5,000 unit Q8 SC Last administered on 10/28/16 06:21; Admin Dose 5,000 UNIT; Start 10/22/16 at 06:00; Status Future hold Amlodipine Besylate (Norvasc) 10 mg DAILY PO Last administered on 10/28/16 08: 07; Admin Dose 10 MG; Start 10/22/16 at 09:00 Mirtazapine (Remeron) 30 mg HS PO Last administered on 10/27/16 21:05; Admin Dose 30 MG; Start 10/22/16 at 21:00 Diagnostic Test (Pha) (Accu-Chek) 1 ea 02 XX Last administered on 10/28/16 02: 17; Admin Dose 1 EA; Start 10/23/16 at 02:00 Miscellaneous Information 1 ea NOTE XX ; Start 10/22/16 at 05:00 Glucose (Glutose) 15 gm Q15M PRN PO DECREASED GLUCOSE; Start 10/22/16 at 05:00 Glucose (Glutose) 22.5 gm Q15M PRN PO DECREASED GLUCOSE; Start 10/22/16 at 05:00 Dextrose (D50w Syringe) 25 ml Q15M PRN IV DECREASED GLUCOSE; Start 10/22/16 at 05:00 Dextrose (D50w Syringe) 50 ml Q15M PRN IV DECREASED GLUCOSE; Start 10/22/16 at 05:00 Glucagon (Glucagen) 1 mg Q15M PRN IM DECREASED GLUCOSE; Start 10/22/16 at 05:00 Glucose (Glutose) 15 gm Q15M PRN BUCCAL DECREASED GLUCOSE; Start 10/22/16 at 05: 00 Hydromorphone HCl (Dilaudid) 2 mg Q4H PRN IV PAIN Last administered on 10:17; Admin Dose 2 MG; Start 10/23/16 at 12:00 Acetaminophen (Tylenol Tab) 650 mg Q4H PRN PO PAIN AND OR ELEVATED TEMP Last administered on 10/27/16 21:05; Admin Dose 650 MG; Start 10/23/16 at 21:30 Insulin Glargine (Lantus) 18 unit DAILY SC Last administered on 10/28/16 07:57 ; Admin Dose 18 UNIT; Start 10/28/16 at 09:00 TOLINDSEY MD October 28, 2016 13:00 administered on 10/27/16 21:05; Admin Dose 650 MG; Start 10/23/16 at 21:30 Insulin Glargine (Lantus) 18 unit DAILY SC Last administered on 10/28/16 07:57 ; Admin Dose 18 UNIT; Start 10/28/16 at 09:00 TOLINDSEY MD October 28, 2016 13:00
--- NOTE | 2016-10-28 13:33 | CONS ---
Date/Time of Note Date/Time of Note DATE: 10/28/16 TIME: 13:33 Assessment/Plan Assessment/Plan Chief Complaint/Hosp Course SUBJECTIVE: No events overnight. The patient is awake, feels good, looks comfortable, no fevers. MICROBIOLOGY: Cultures negative. PHYSICAL EXAMINATION: GENERAL: Well-developed, middle-aged man who is awake, in no distress. HEENT: Head atraumatic, normocephalic. Sclerae anicteric. Buccal mucosa pink. NECK: Supple. CHEST: Rise symmetrical. Breath sounds clear. HEART: S1, S2. ABDOMEN: Soft, bowel sounds present. EXTREMITIES: Without cyanosis. ASSESSMENT: 1. Status post neutropenic fevers. 2. MDS, status post chemotherapy. 3. Diabetes. 4. Hypertension. PLAN: The patient remains stable. No fevers, observe off abx, f/u oncology rec -s [facility] staff Problems: Consultation Date/Type/Reason Admit Date/Time October 22, 2016 at 01:04 Initial Consult Date 10/23/16 Type of Consultation: id Exam/Review of Systems Vital Signs Vitals Vital Signs Date Time Temp Pulse Resp B/P Pulse Ox O2 Delivery O2 Flow Rate FiO2 10/28/16 10:30 107 18 142/85 Room Air 10/28/16 07:52 97.6 94 Intake and Output 10/27/16 10/27/16 10/28/16 14:59 22:59 06:59 Intake Total 820 ml 720 ml Balance 820 ml 720 ml Results Result Diagram: 10/28/16 0518 10/28/16 0518 Results 24 hrs Laboratory Tests Test 10/27/16 17:26 10/27/16 21:00 10/28/16 02:17 10/28/16 05:18 Bedside Glucose 207 203 165 White Blood Count 9.4 # Red Blood Count 2.58 L Hemoglobin 8.7 L Hematocrit 25.7 L Mean Corpuscular Volume 99.6 Mean Corpuscular Hemoglobin 33.7 H Mean Corpuscular Hemoglobin Concent 33.9 Red Cell Distribution Width 15.7 H Platelet Count 128 L Mean Platelet Volume 11.6 H Neutrophils % 59.0 Lymphocytes % 23.0 Monocytes % 15.0 H Eosinophils % Metamyelocytes % 3.0 H Nucleated Red Blood Cells % 3.0 H Neutrophils # 5.5 Lymphocytes # 2.2 Monocytes # 1.4 H Eosinophils # Metamyelocytes # 0.3 Polychromasia 1+ Sodium Level 139 Potassium Level 4.4 Chloride Level 100 Carbon Dioxide Level 28 Anion Gap 15 Blood Urea Nitrogen 20 Creatinine 0.87 Glucose Level 179 Calcium Level 9.4 Magnesium Level 2.1 Total Bilirubin 0.9 Direct Bilirubin 0.00 Indirect Bilirubin 0.9 Aspartate Amino Transf (AST/SGOT) 44 Alanine Aminotransferase (ALT/SGPT) 106 H Alkaline Phosphatase 126 H Total Protein 7.4 Albumin 4.2 Globulin 3.20 Albumin/Globulin Ratio 1.31 Test 10/28/16 07:36 10/28/16 12:02 Bedside Glucose 218 269 H Medications Medications Current Medications Ondansetron HCl (Zofran Inj) 4 mg Q6H PRN IV NAUSEA AND/OR VOMITING; Start 10/22 at 04:00 Zolpidem Tartrate (Ambien) 5 mg QHS PRN PO INSOMNIA; Start 10/22/16 at 04:00 Docusate Sodium (Colace) 100 mg Q12H PRN PO CONSTIPATION Last administered on 17:58; Admin Dose 100 MG; Start 10/22/16 at 04:00 Bisacodyl (Dulcolax) 5 mg DAILY PRN PO CONSTIPATION Last administered on 17:58; Admin Dose 5 MG; Start 10/22/16 at 04:00 Famotidine (Pepcid) 20 mg Q12 PO Last administered on 10/28/16 08:08; Admin Dose 20 MG; Start 10/22/16 at 09:00 Heparin Sodium (Porcine) (Heparin (5000 Units/0.5 ml)) 5,000 unit Q8 SC Last administered on 10/28/16 06:21; Admin Dose 5,000 UNIT; Start 10/22/16 at 06:00; Status Future hold Amlodipine Besylate (Norvasc) 10 mg DAILY PO Last administered on 10/28/16 08: 07; Admin Dose 10 MG; Start 10/22/16 at 09:00 Mirtazapine (Remeron) 30 mg HS PO Last administered on 10/27/16 21:05; Admin Dose 30 MG; Start 10/22/16 at 21:00 Diagnostic Test (Pha) (Accu-Chek) 1 ea 02 XX Last administered on 10/28/16 02: 17; Admin Dose 1 EA; Start 10/23/16 at 02:00 Miscellaneous Information 1 ea NOTE XX ; Start 10/22/16 at 05:00 Glucose (Glutose) 15 gm Q15M PRN PO DECREASED GLUCOSE; Start 10/22/16 at 05:00 Glucose (Glutose) 22.5 gm Q15M PRN PO DECREASED GLUCOSE; Start 10/22/16 at 05:00 Dextrose (D50w Syringe) 25 ml Q15M PRN IV DECREASED GLUCOSE; Start 10/22/16 at 05:00 Dextrose (D50w Syringe) 50 ml Q15M PRN IV DECREASED GLUCOSE; Start 10/22/16 at 05:00 Glucagon (Glucagen) 1 mg Q15M PRN IM DECREASED GLUCOSE; Start 10/22/16 at 05:00 Glucose (Glutose) 15 gm Q15M PRN BUCCAL DECREASED GLUCOSE; Start 10/22/16 at 05: 00 Hydromorphone HCl (Dilaudid) 2 mg Q4H PRN IV PAIN Last administered on 10:17; Admin Dose 2 MG; Start 10/23/16 at 12:00 Acetaminophen (Tylenol Tab) 650 mg Q4H PRN PO PAIN AND OR ELEVATED TEMP Last administered on 10/27/16 21:05; Admin Dose 650 MG; Start 10/23/16 at 21:30 Insulin Glargine (Lantus) 18 unit DAILY SC Last administered on 10/28/16 07:57 ; Admin Dose 18 UNIT; Start 10/28/16 at 09:00 JOHN ROMAN NP October 28, 2016 13:33
--- NOTE | 2016-10-28 14:46 | DS ---
DATE OF ADMISSION: 10/22/2016 DATE OF DISCHARGE: 10/28/2016 CONSULTANTS: 1. Dr. Romo To 2. Dr. Doyle Funez 3. Dr. Sean Hunt 4. Dr. Zack Yang DISCHARGE DIAGNOSES: 1. Neutropenic fever. 2. Diabetes mellitus. 3. Hypertension. 4. History of MDS. MEDICATIONS: 1. Colace. 2. Pepcid. 3. Amlodipine. 4. Gemfibrozil. 5. Glyburide. 6. [place]. 7. Insulin lispro. 8. Metformin. 9. Reglan. 10. Mirtazapine. 11. Tramadol. ALLERGIES: NO KNOWN DRUG ALLERGIES. LABORATORIES: WBC 9.4, hemoglobin 8.7, hematocrit 25.7, platelets 128. Sodium 139, potassium 4.4, chloride 100, bicarbonate 28, BUN 20, creatinine 0.87, glucose 179, calcium 9.4, AST 44, ALT 106, al kaline phosphatase 126. HOSPITAL COURSE: This is a 45-year-old gentleman with past medical history of leukemia/MDS, hyperte nsion, diabetes mellitus who presented to [facility] secondary to having fever. T he patient stated that several days he has noted that his temperature is above 100 and has been pers istent. He has been taking Tylenol every 4 to 6 hours, and it has not helped or improved the fever. He has got chemotherapy for his leukemia. His assistant county attorney/oncologist, Dr. Lee, was [place]. The patient was placed on Neupogen secondary he was found to have WBC of 2.1 and 1.5 and 0.8. Status post Neupogen, his WBC is starting to improve significantly. He has been afebrile since 08/2016. He has also been seen and evaluated by infectious disease doctor and was placed on vancomy camelia upon admission and with cefepime which was then discontinued by infectious disease doctor second tanmay to sepsis. There was no evidence of infection. His blood culture was found to be negative. In fluenza A and B were negative. Sputum culture was negative. Regarding his hypertension, his blood pressure has been well controlled on medical management. Regarding his diabetes mellitus, he was pl aced on insulin sliding scale, low carbohydrate diet, Lantus. His hemoglobin A1c was planned to be 6.6. At this time, patient will restart his home medication. At this time, the patient is medicall y stable to be discharged home. He has been cleared as per hematology/oncology recommendations. Pl an for discharge and he will follow with hematology/oncology as an outpatient. Dictated By: KEVIN HUYNH/NTS Conf#: [id number] DID#: [id number]
== END 2016-10-28 13:25 | disposition home or self-care (01) | DRG 809 ==
LOC: E/R 19:57 → MS2 10-22 01:04
PROVIDERS: ADMIT Family Medicine; ATTEND Family Medicine
DX: D70.1 Agranulocytosis secondary to cancer chemotherapy (principal); C95.90 Leukemia, unspecified not having achieved remission; R50.81 Fever presenting with conditions classified elsewhere; D46.9 Myelodysplastic syndrome, unspecified; E11.9 Type 2 diabetes mellitus without complications; I10 Essential (primary) hypertension; Z79.4 Long term (current) use of insulin
CPT/HCPCS: 36415; 71010; 71275; 76700; 80048; 80053; 80202; 81001; 81003; 82550; 82553; 82962; 83036; 83605; 83735; 84100; 84484; 85025; 85610; 85730; 86140; 87040; 87086; 87400; 93005; 93306; 96365; 96366; 96372; 96375; 96376; J0885; J0692; J1170; J1644; J1815; J3370; J7030; J7050; Q9967

== ENCOUNTER 2016-11-11 20:17 | Inpatient (IN) | payer MEDICARE, OTHER ==
[~2016-11-11] VITALS: Ht 162.6 cm; Wt 75.0 kg
[~2016-11-11 20:17] MED LIST changes: +DOCU-216 PO; +FAMO20TA18 PO; -IBUP800T25 PO; +METO10TA92 PO; +TRAM-40 PO
[2016-11-11] MEDS ORDERED: ONDANSETRON 4 MG INJ IV STA (22:05)
[2016-11-11] MEDS ORDERED: SODIUM CHLORIDE 0.9% 1L BAG IV* STA (22:05)
[2016-11-11 22:36] LABS: ADD SCAN DIFF NO
[2016-11-11 22:41] LABS: ABNORMAL IP MESSAGE 1; HEMATOCRIT 26.6 % (42.0-52.0); HEMOGLOBIN 8.9 g/dl (14.0-18.0); MEAN CORPUSCULAR HEMOGLOBIN 33.6 pg (29.0-33.0); MEAN CORPUSCULAR HGB CONC 33.5 g/dl (32.0-37.0); MEAN CORPUSCULAR VOLUME 100.4 fl (82.0-101.0); MEAN PLATELET VOLUME 12.7 fl (7.4-10.4); PLATELET COUNT 96 10^3/UL (140-415); RED BLOOD COUNT 2.65 10^6/ul (4.70-6.10); RED CELL DISTRIBUTION WIDTH 17.9 % (11.5-14.5); WHITE BLOOD COUNT 8.8 10^3/ul (4.8-10.8)
[2016-11-11 22:57] LABS: ALBUMIN 5.1 g/dl (3.3-4.9); CHLORIDE 102 mmol/L (97-110); SODIUM 141 mmol/L (135-144)
[2016-11-11 22:58] LABS: POTASSIUM 4.2 mmol/L (3.5-5.1)
[2016-11-11 23:00] LABS: ALANINE AMINOTRANSFERASE 50 IU/L (13-69); ALBUMIN/GLOBULIN RATIO 1.82; ALKALINE PHOSPHATASE 92 IU/L (42-121); ANION GAP 17 (8-16); ASPARTATE AMINO TRANSFERASE 31 IU/L (15-46); BILIRUBIN,INDIRECT 1.1 mg/dl (0-1.1); BILIRUBIN,TOTAL 1.1 mg/dl (0.2-1.3); BLOOD UREA NITROGEN 11 mg/dl (7-20); CARBON DIOXIDE 26 mmol/L (21-31); CREATININE 0.87 mg/dl (0.61-1.24); GLUCOSE 195 mg/dl (70-220); TOTAL PROTEIN 7.9 g/dl (6.1-8.1)
[2016-11-11 23:01] LABS: CALCIUM 9.8 mg/dl (8.4-10.2)
[2016-11-11 23:08] LABS: LYMPHOCYTES # 2.6 10^3/ul (0.8-2.9); MONOCYTE # 1.9 10^3/ul (0.3-0.9); NEUTROPHIL # 4.2 10^3/ul (1.6-7.5)
[2016-11-11 23:13] LABS: TROPONIN-I < 0.012 ng/ml (0.00-0.12)
[2016-11-11 23:22] LABS: INR 1.03; PROTIME 13.5 Sec (12.2-14.2); PT RATIO 1.1
[2016-11-11 23:27] LABS: PARTIAL THROMBOPLASTIN TIME 30.9 Sec (25.0-35.0)
--- NOTE | 2016-11-11 23:40 | RADRPT ---
PROCEDURE: XR Chest. CLINICAL INDICATION: Chest pain. TECHNIQUE: Portable AP upright view of the chest was obtained. COMPARISON: CT chest 10/22/2016 FINDINGS: The cardiomediastinal silhouette is within upper normal limits. Small linear area of scarring in th e right upper lobe is again noted with left basilar scarring stable. There is no evidence of acute infiltrate. Blunting of the left costophrenic angle is again seen consistent with chronic pleural pa renchymal reaction There is no evidence for pleural effusion, pneumothorax or pulmonary vascular con gestion. The osseous structures are intact with no evidence for acute abnormality. RPTAT:HJJR IMPRESSION: 1.No evidence for acute intrathoracic pathology. 2. Stable left basilar scarring with pleural parenchymal reaction blunting the left costophrenic ang le and small amount of right upper lobe scarring. 3. Allowing for the different modalities, there has been no interval change from the CT of 10/23/19 17. Physician Kaci Date Time Electronically viewed and signed by Physician Kaci on 11/11/2016 23:39 /
[2016-11-11] MEDS ORDERED: morphine 4 MG/ML VIAL IV STA (23:57)
[2016-11-12] VITALS (12 sets, daily range): BP systolic 128–161; BP diastolic 76–92; PULSE 93–106; RESP 18–20; TEMP 98.2; Ht 162.6 cm; Wt 75.0 kg
[2016-11-12 00:32] LABS: ADD UMIC NO; URINE BILIRUBIN (Dip) NEGATIVE (NEGATIVE); URINE BLOOD (Dip) NEGATIVE (NEGATIVE); URINE COLOR LT. YELLOW (YELLOW); URINE KETONES (Dip) NEGATIVE (NEGATIVE); URINE LEUKOCYTE ESTERASE (Dip) NEGATIVE (NEGATIVE); URINE NITRITE (Dip) NEGATIVE (NEGATIVE); URINE TOTAL PROTEIN (Dip) NEGATIVE (NEGATIVE); URINE UROBILINOGEN (Dip) 0.2 E.U./dL (0.1-1.0)
[2016-11-12] MEDS ORDERED: ERGO500037 PO (01:12)
[2016-11-12] MEDS ORDERED: TRAZ50TA18 PO (01:12)
[2016-11-12] MEDS ORDERED: ALPR0.5T6 PO (01:12)
[2016-11-12] MEDS ORDERED: IBUP-1542 PO (01:12)
[2016-11-12] MEDS ORDERED: FER325 PO (01:12)
--- NOTE | 2016-11-12 02:35 | ERA ---
ER Documentation Chief Complaint Date/Time DATE: 11/12/16 TIME: 02:34 Chief Complaint weakness and dizziness 2 hours ago, hx- leukemia had chemo therapy today HPI There is a 47 mL weakness dizziness going on or off for the past 2-4 hours. Patient has history of leukemia and chemotherapy today. Denies any nausea vomiting. Denies any focal neurologic complaints. Complains of generalized weakness. Denies any other current issues. ROS All systems reviewed and are negative except as per history of present illness. Medications Home Meds Active Scripts Docusate Sodium (Dok) 100 Mg Capsule, 100 MG PO Q12H Y for CONSTIPATION, #30 CAP Prov:KEVIN BARNHART MD 10/28/16 Famotidine* (Famotidine*) 20 Mg Tablet, 20 MG PO DAILY, #30 TAB Prov:KEVIN BARNHART MD 10/28/16 Amlodipine Besylate* (Amlodipine Besylate*) 10 Mg Tablet, 10 MG PO DAILY for 30 Days, TAB Prov:ARASH ARRIAGA 02/07/16 Reported Medications Ibuprofen* (Ibuprofen*) 600 Mg Tablet, 600 MG PO Q8, TAB TAKE 1 TABLET PO THREE TIMES EVERYDAY WITH FOOD 11/12/16 Ferrous Sulfate* (Ferrous Sulfate*) 325 Mg Tabec, 325 MG PO BID, TAB 11/12/16 Alprazolam* (Alprazolam*) 0.5 Mg Tablet, 0.5 MG PO DAILY Y for ANXIETY, TAB 11/12/16 Trazodone Hcl* (Trazodone Hcl*) 50 Mg Tablet, 25 MG PO QHS for INSOMNIA, #30 TAB 11/12/16 Ergocalciferol (Vitamin D2) (VITAMIN D2) 50,000 Unit Capsule, 10422 UNIT PO QWEEK, CAP 11/12/16 Tramadol Hcl* (Ultram*) 50 Mg Tablet, 50 MG PO Q6H Y for PAIN, TAB 10/21/16 Insulin Lispro (Humalog Kwikpen) 200 Unit/1 Ml Insuln.pen, 5 UNIT SQ TID, EA INJECT 5-10units BY SUBCUTANEOUS ROUTE 3 TIMES EVERYDAY NEEDED FOR BG>120 10/21/16 Mirtazapine* (Mirtazapine*) 30 Mg Tablet, 30 MG PO HS, TAB 09/09/16 Gemfibrozil* (Lopid*) 600 Mg Tablet, 600 MG PO BID, TAB 02/02/16 Metformin* (Glucophage*) 1,000 Mg Tablet, 1000 MG PO BID, #60 TAB 02/02/16 Discontinued Reported Medications Metoclopramide* (Reglan*) 10 Mg Tablet, 10 MG PO AC MEALS, TAB 10/21/16 Glyburide* (Glyburide*) 5 Mg Tablet, 5 MG PO BID, #60 TAB 09/09/16 Discontinued Scripts Hydrocodone/Acetaminophen ([place] 10-325 Tablet) 1 Each Tablet, 1 TAB PO Q6H Y for PAIN, #20 TAB Prov:ELIEL CHEATHAM 09/10/16 Allergies Allergies: Coded Allergies: No Known Allergy (Unverified , 11/12/16) PMhx/Soc History of Surgery: No Anesthesia Reaction: No Hx Neurological Disorder: No Hx Respiratory Disorders: No Hx Cardiac Disorders: Yes (HTN) Hx Psychiatric Problems: No Hx Miscellaneous Medical Probl: Yes (leukemia) Hx Alcohol Use: No Hx Substance Use: No Hx Tobacco Use: No Smoking Status: Never smoker Physical Exam Vitals Vital Signs Date Time Temp Pulse Resp B/P Pulse Ox O2 Delivery O2 Flow Rate FiO2 11/12/16 01:24 102 20 138/92 100 Room Air 11/11/16 23:57 97.9 104 22 150/89 100 Room Air 11/11/16 22:20 115 20 151/98 96 Room Air 11/11/16 20:21 99.7 135 20 169/87 98 Physical Exam Const: [] Head: Atraumatic Eyes: Normal Conjunctiva ENT: Normal External Ears, Nose and Mouth. Neck: Full range of motion..~ No meningismus. Resp: Clear to auscultation bilaterally Cardio: Regular rate and rhythm, no murmurs Abd: Soft, non tender, non distended. Normal bowel sounds Skin: No petechiae or rashes Back: No midline or flank tenderness Ext: No cyanosis, or edema Neur: Awake and alert Psych: Normal Mood and Affect Result Diagram: 11/11/16222011/11/162220 Results 24 hrs Laboratory Tests Test 11/11/16 22:21 11/11/16 23:53 11/12/16 00:30 White Blood Count 8.810^3/ul Red Blood Count 2.6510^6/ul Hemoglobin 8.9g/dl Hematocrit 26.6% Mean Corpuscular Volume 100.4fl Mean Corpuscular Hemoglobin 33.6pg Mean Corpuscular Hemoglobin Concent 33.5g/dl Red Cell Distribution Width 17.9% Platelet Count 9610^3/UL Mean Platelet Volume 12.7fl Neutrophils % 48.0% Band Neutrophils % 1.0% Lymphocytes % 29.0% Monocytes % 22.0% Eosinophils % % Nucleated Red Blood Cells % 4.0/100WBC Neutrophils # 4.210^3/ul Lymphocytes # 2.610^3/ul Monocytes # 1.910^3/ul Eosinophils # 10^3/ul Prothrombin Time 13.5Sec Prothrombin Time Ratio 1.1 INR International Normalized Ratio 1.03 Activated Partial Thromboplast Time 30.9Sec Sodium Level 141mmol/L Potassium Level 4.2mmol/L Chloride Level 102mmol/L Carbon Dioxide Level 26mmol/L Anion Gap 17 Blood Urea Nitrogen 11mg/dl Creatinine 0.87mg/dl Glucose Level 195mg/dl Lactic Acid Level 2.0mmol/L 1.4mmol/L Calcium Level 9.8mg/dl Total Bilirubin 1.1mg/dl Direct Bilirubin 0.00mg/dl Indirect Bilirubin 1.1mg/dl Aspartate Amino Transf (AST/SGOT) 31IU/L Alanine Aminotransferase (ALT/SGPT) 50IU/L Alkaline Phosphatase 92IU/L Troponin I < 0.012ng/ml Total Protein 7.9g/dl Albumin 5.1g/dl Globulin 2.80g/dl Albumin/Globulin Ratio 1.82 Urine Color LT. YELLOW Urine Clarity CLEAR Urine pH 6.0 Urine Specific [place] 1.010 Urine Ketones NEGATIVE Urine Nitrite NEGATIVE Urine Bilirubin NEGATIVE Urine Urobilinogen 0.2 E.U./dL Urine Leukocyte Esterase NEGATIVE Urine Hemoglobin NEGATIVE Urine Glucose 0.25%% Urine Total Protein NEGATIVE Current Medications Medications (Trade) Dose Ordered Sig/[place] Route PRN Reason Start Time Stop Time Status Last Admin Dose Admin Sodium Chloride (NS) 2,340 ml BOLUS OVER 2 HOURS STAT IV* 11/11/16 22:05 11/11/16 22:08 DC 11/11/16 22:45 Ondansetron HCl (Zofran Inj) 4 mg ONCE STAT IV 11/11/16 22:05 11/11/16 22:08 DC 11/11/16 22:46 Morphine Sulfate (morphine) 4 mg ONCE STAT IV 11/11/16 23:57 11/11/16 23:58 DC 11/12/16 00:01 Procedures/MDM EKG: Rate/Rhythm: [Normal Sinus Rhythm] QRS, ST, T-waves: [No changes consistent w/ acute ischemia] Impression: [No evidence of ischemia or arrhythmia] Chest X-ray 1V Interpreted by me: Soft Tissue: No acute abnormalities Bones: No acute abnormalities Mediastinum/Cardiac Silhouette/Lungs: [No acute abnormalities] Medical decision-makin mL generalized weakness. Patient is on chemotherapy. Given his continued generalized weakness despite aggressive fluid hydration, I feel the patient is to be admitted for the evaluation and management. Patient will be admitted to hospitalist. Departure Diagnosis: Primary Impression: Acute weakness Condition: Stable ELIEL CHEATHAM November 12, 2016 02:35
[2016-11-12] MEDS ORDERED: morphine 4 MG/ML VIAL IV STA (02:43)
[2016-11-12] MEDS ORDERED: ONDANSETRON 4 MG INJ IV STA (02:43)
[2016-11-12] MEDS ORDERED: ONDANSETRON 4 MG INJ IV PRN (06:30)
[2016-11-12] MEDS ORDERED: ACETAMINOPHEN 325 MG TAB PO PRN (06:30)
[2016-11-12] MEDS ORDERED: DOCUSATE SODIUM 100 MG CAP PO PRN (06:30)
[2016-11-12] MEDS ORDERED: GLUCOSE GEL 15 GRAM TUBE BUCCAL PRN (06:45)
[2016-11-12] MEDS ORDERED: GLUCAGON 1 MG INJ IM PRN (06:45)
[2016-11-12] MEDS ORDERED: DEXTROSE 50% 50 ML SYRINGE IV PRN ×2 (06:45)
[2016-11-12] MEDS ORDERED: GLUCOSE GEL 15 GRAM TUBE PO PRN ×2 (06:45)
[2016-11-12] MEDS: morphine 4 MG/ML VIAL IV PRN ×5 (06:49→21:57)
[2016-11-12] MEDS: GEMFIBROZIL 600 MG TAB PO SCH ×2 (08:41→20:37)
[2016-11-12] MEDS: FAMOTIDINE 20 MG TAB PO SCH (08:42)
[2016-11-12] MEDS: AMLODIPINE 10 MG TAB PO SCH (08:42)
[2016-11-12] MEDS: FERROUS SULFATE (EC) 325 MG TAB PO SCH ×2 (08:42→20:37)
[2016-11-12] MEDS: traMADol 50 MG TAB PO PRN ×2 (08:49→15:43)
[2016-11-12] MEDS: INSULIN ASPART [NOVOLOG] 3 ML PEN SC SCH ×4 (09:01→20:45)
[2016-11-12] MEDS: ACCU-CHEK XX SCH ×3 (10:10→20:36)
--- NOTE | 2016-11-12 11:44 | HP ---
DATE OF ADMISSION: 11/12/2016 CHIEF COMPLAINT: Back pain, generalized weakness and dizziness. The patient is a 46-year-old male with a history of hypertension, diabetes and leukemia/MDS on chemo , who presented to the emergency department with the above stated chief complaint. He said he has b een feeling weak and having pain, mostly back pain, for a while, but his symptoms have acutely worse lisa recently and as such, he decided to come here for evaluation. He denied any recent trauma. He was recently admitted here for fever and at that time, he was found to be anemic with hemoglobin of 6.6. The patient denied any chest pain, shortness of breath, nausea, vomiting, fever, or chills. When the patient presented to the ER this time, he was tachycardic with a heart rate as high as 115. His hemoglobin at this time was 8.9. REVIEW OF SYSTEMS: A ____ was performed, negative except as mentioned in HPI. PAST MEDICAL HISTORY: As per HPI. SOCIAL HISTORY: Denied a history of tobacco, alcohol or illicit drug use. ALLERGIES: NO KNOWN DRUG ALLERGIES. HOME MEDICATIONS: 1. Ferrous sulfate. 2. Amlodipine. 3. Gemfibrozil. 4. Xanax 5. Ibuprofen. 6. Mirtazapine. 7. Tramadol. 8. Trazodone. 9. Colace. 10. Pepcid. 11. Insulin. 12. Metformin. 13. Vitamin D2. PHYSICAL EXAMINATION: VITAL SIGNS: Blood pressure 140/85, heart rate 103, respiratory rate 20, temperature 98, oxygen sat uration 98% on room air. GENERAL: The patient was walking in his room when I walked in. He does not look like he is in any acute distress. Actually, he was talking on the phone initially also and he looked comfortable, ans wering questions appropriately and is alert and oriented x4. HEENT: No obvious head deformity. Pupils are reactive. Extraocular muscles intact. CARDIOVASCUL AR: Tachycardic with regular rhythm. LUNGS: Clear. ABDOMEN: Soft, nontender, nondistended. Positive bowel sounds. EXTREMITIES: No edema. NEUROLOGIC: No focal deficits. LABORATORY DATA: Hemoglobin 8.9, platelet count 96. Otherwise, CBC and CMP are within acceptable r stacia. IMAGING: Chest x-ray shows stable left basilar scarring with pleural parenchymal reaction, blunting of the left costophrenic angle and small amount of right upper lobe scarring, otherwise no evidence for acute intrathoracic pathology. IMPRESSION: 1. Generalized weakness, likely from the chemo and his leukemia. 2. Lower back pain, likely secondary to above. 3. Leukemia/myelodysplastic syndrome, currently on chemotherapy. 4. Diabetes. 5. Hypertension. 6. Dyslipidemia. 7. Anxiety. 8. Anemia, likely chemotherapy induced from his myelodysplastic syndrome. 2. Thrombocytopenia, again, secondary to above. PLAN: The patient's generalized weakness and his presentation seems to be from his leukemia as well as chemo-induced and from anemia. On initial assessment, the patient actually looked very comforta ble to me. I will provide pain medication as needed. We will monitor his hemoglobin and platelets closely and transfuse as needed. The patient will have a physical therapy evaluation. Will continu e his home medications and adjust as needed. The patient as far as low back pain is concerned, he d enied any trauma and there were absolutely no alarming signs. We will obtain x-ray of his lower capo k. We will notify his oncologist ____. After x-ray of the back was done just now, ____and after ph ysical therapy evaluation, he probably can be discharged later on today. ____ Dictated By: ELIEL SANCHEZ/ISRRAEL Conf#: [id number] DID#: [id number]
[2016-11-12 11:55] LABS: ADD SCAN DIFF NO
[2016-11-12 12:03] LABS: ABNORMAL IP MESSAGE 1; BASOPHILS % 0.2 % (0.0-2.0); EOSINOPHILS % 0.2 % (0.0-7.0); HEMATOCRIT 24.4 % (42.0-52.0); LYMPHOCYTES # 1.2 10^3/ul (0.8-2.9); LYMPHOCYTES % 23.7 % (15.0-51.0); MEAN CORPUSCULAR HEMOGLOBIN 33.5 pg (29.0-33.0); MEAN CORPUSCULAR HGB CONC 32.8 g/dl (32.0-37.0); MEAN CORPUSCULAR VOLUME 102.1 fl (82.0-101.0); MEAN PLATELET VOLUME 10.8 fl (7.4-10.4); MONOCYTE # 1.1 10^3/ul (0.3-0.9); NEUTROPHIL # 2.5 10^3/ul (1.6-7.5); NEUTROPHILS % 50.2 % (39.0-77.0); NUCLEATED RED BLOOD CELLS # 0.3 10^3/ul (0.0-0.0); NUCLEATED RED BLOOD CELLS% 5.1 /100WBC (0.0-0.0); PLATELET COUNT 88 10^3/UL (140-415); RED BLOOD COUNT 2.39 10^6/ul (4.70-6.10); RED CELL DISTRIBUTION WIDTH 17.7 % (11.5-14.5); WHITE BLOOD COUNT 5.1 10^3/ul (4.8-10.8)
[2016-11-12 12:07] LABS: MONOCYTES % 22.5 % (0.0-11.0)
[2016-11-12 12:26] LABS: ALBUMIN 3.8 g/dl (3.3-4.9); ALBUMIN/GLOBULIN RATIO 1.46; CALCIUM 8.8 mg/dl (8.4-10.2); CREATININE 0.78 mg/dl (0.61-1.24); POTASSIUM 4.3 mmol/L (3.5-5.1); TOTAL PROTEIN 6.4 g/dl (6.1-8.1)
[2016-11-12] MEDS: traZODone 50 MG TAB PO SCH (20:39)
[2016-11-12] MEDS: MIRTAZAPINE 15 MG TAB PO SCH (20:40)
[2016-11-12] MEDS: INSULIN GLARGINE [LANtus] 3 ML PEN SC SCH (20:44)
[2016-11-13] VITALS (12 sets, daily range): BP systolic 124–140; BP diastolic 76–85; PULSE 86–103; RESP 16–20
[2016-11-13] MEDS: ACCU-CHEK XX SCH ×5 (01:37→23:26)
[2016-11-13] MEDS: morphine 4 MG/ML VIAL IV PRN ×2 (01:53→05:44)
[2016-11-13] MEDS ORDERED: ACCU-CHEK XX SCH (02:00)
--- NOTE | 2016-11-13 08:46 | CONS ---
DATE OF ADMISSION: 11/12/2016 DATE OF CONSULTATION: 11/13/2016 HISTORY OF PRESENT ILLNESS: This is a 46-year-old gentleman who has a history of MDS leukemia, who according to medical records last chemotherapy taken was approximately 2 weeks ago, who presented to [facility] with increasing weakness and dizziness. I am asked to evaluate the wisam milan for new onset of low back pain which he states began approximately 2 weeks ago, but accelerati ng in intensity approximately 2 weeks prior to this hospitalization. The patient describes the pain as excruciating, with radiations down his left lower extremity. He states that he has not had naus ea, vomiting, chest pain, shortness breath or pruritus. There are no warning signs. Denies pelvic anesthesia, incontinence of urine or feces. Denies any loss of sensation to the bilateral lower ext remities or any recent trauma. Denies falling. There are no other warning signs. The patient takes just 2 Vicodin twice a day as necessary at home. He states he does not get alleviation of his disc omfort when he takes those. He has been evaluated by his physicians and each one, both the oncologi st and the primary care physician, states they would like evaluation done more thoroughly, which is pending at this time. The patient has been told he has cancer in his spine, according to the adrian william, but he does not recall the name of his primary care physician or oncologist. There is no prior h istory of substance abuse. The patient, once again, is a very poor historian and there are no new m edical records available in his hospital charts. His physical function is impaired secondary to the pain. Family relationship, social relationships are not impaired. Mood is not impaired. Sleeping pattern is not impaired. Denies constipation, pruritus, mental cloudiness, weight loss. I do not t he impression there is drug-seeking type of behavior, nor is he requesting escalating doses of his c urrent medications, but states that the morphine he is taking only lasts for a couple of hours while here. He is not negotiating for a higher dose of pain medication. He does not abuse alcohol and rae rausch is a nonsmoker. Overall severity of his disease he describes as severe. We have no workup availa ble at this time and there were no back x-rays done upon admission. MEDICATIONS: Please refer to the reconciliation. ALLERGIES: NO KNOWN DRUG ALLERGIES. MAJOR MEDICAL PROBLEMS IN THE PAST: Entirely as per history of present illness. In looking over his medical records the patient is on antihypertensive medications, SSRIs, benzodiazepines, insulin and metformin. SOCIAL HISTORY: Nonsmoker, nondrinker. No history of illicit drug use. FAMILY HISTORY: Noncontributory towards this hospitalization. REVIEW OF SYSTEMS: A 12-point review of systems was otherwise unremarkable, except per history of p resent illness. PHYSICAL EXAMINATION: GENERAL: Shows a moderately obese male, who is in no major acute distress, sitting up, not moaning, groaning or grimacing. VITAL SIGNS: Blood pressure 140/85, pulse of 95 and regular, respirations of 18, temperature of 98. 9 degrees, 99% saturation on room air. HEENT: He is normocephalic and atraumatic. Anicteric, acyanotic. CHEST: On examination chest is clear. COR: S1, S2, without S3, S4, murmur, gallop, rub. Normal rate, normal rhythm. ABDOMEN: On examination abdomen is grossly benign. EXTREMITIES: Range of motion of bilateral lower extremities are grossly within normal limits. Lisa r and sensory findings are within normal limits. Negative straight leg sign on examination. Extens or hallucis tendons bilaterally are full and intact. Plantar flexion is intact completely. His ext remities bilaterally are warm to touch, with good capillary refill. LABORATORIES: [facility] for this evaluation, serum sodium 143, potassium 4.3, chloride 106, bicarbonat e of 25, BUN of 8, creatinine 0.78, blood sugar of 223. ASSESSMENT AND PLAN: I had an extensive conversation with the patient. It is unclear whether or not he has metastatic disease to the lumbosacral spine, so I will begin only with doing LS spine x-rays . I will withhold CT scan pending speaking to primary care oncologist and try and avoid any further radiation. Will discontinue his morphine. I explained to the patient that he did come to the [facility] with symptoms of fatigue and not acceleration of his pain, other than a couple of weeks, which i s being addressed by his primary care physicians I am reluctant. Will not increase escalating dose of IV pain control medications. I cannot find any clinical examination that he is in extremis . I have explained to him we will do a workup here and the rest of the evaluation and treatment opt ions will be explained to him by his primary care doctor as an outpatient. In the meantime I will d iscontinue tramadol and morphine and start him off on a very low dose of OxyIR and follow his course here. Dictated By: INDERJIT RANKIN MD, LP/ISRRAEL Conf#: [id number] DID#: [id number]
[2016-11-13] MEDS: INSULIN ASPART [NOVOLOG] 3 ML PEN SC SCH ×4 (09:27→21:00)
[2016-11-13] MEDS: oxyCODONE 5 MG TAB PO PRN ×3 (09:36→21:37)
[2016-11-13] MEDS: FAMOTIDINE 20 MG TAB PO SCH (09:36)
[2016-11-13] MEDS: AMLODIPINE 10 MG TAB PO SCH (09:36)
[2016-11-13] MEDS: GEMFIBROZIL 600 MG TAB PO SCH ×2 (09:36→20:51)
[2016-11-13] MEDS: ALPRAZOLAM 0.5 MG TAB PO PRN (09:36)
[2016-11-13] MEDS: FERROUS SULFATE (EC) 325 MG TAB PO SCH ×2 (09:36→20:51)
--- NOTE | 2016-11-13 10:39 | PN ---
Date/Time of Note Date/Time of Note DATE: 11/13/16 TIME: 10:32 Assessment/Plan VTE Prophylaxis VTE Prophylaxis Intervention: SCD's VTE Contraindication Reason: thrombocytopenia Lines/Catheters IV Catheter Type (from Nrsg): Saline Lock Urinary Cath still in place: No Assessment/Plan Assessment/Plan 1. Generalized weakness, likely from the chemo and his leukemia. * Patient reports lack of improvement, he continues to complain of dizziness. His hemoglobin did drop from 8.9-8.0. I will transfuse and see if this helps him. 2. Lower back pain, likely secondary to above. * Lumbar spine x-ray ordered to rule out bony metastases, follow-up findings. Pain management managing pain medications, I spoke with Dr. Stoner. 3. Leukemia/myelodysplastic syndrome, currently on chemotherapy. 4. Diabetes type II: Poor control so far /will get A1c, and resume home metformin as well 5. Hypertension: Patient has tachycardia and mildly elevated blood pressures. We will start low dose beta blockers 6. Dyslipidemia: Continue home meds 7. Anxiety: Continue as needed Xanax 8. Anemia, likely chemotherapy induced from his myelodysplastic syndrome: Transfusion today 9. Thrombocytopenia, again, secondary to above: Monitor, avoid anticoagulation. Subjective 24 Hr Interval Summary Free Text/Dictation Patient complaining of continued dizziness and lower back pain. I got a little bit more history from the patient. Patient has been on chemotherapy for the last 1 year. He also gets Neupogen shots twice a week. He had his last shots on Thursday and Thursday, and is due to return to his own oncologist on Thursday for another shot. He gets 5 days of chemo every 4 weeks. His last chemo session was about 3 weeks ago. He continues to complain of lower back pain, and at home he is given Bowden which she says does not control said pain. As far as he knows does not have metastasis to bone to liver or to lungs. He states that he is scheduled for a repeat bone marrow biopsy soon but he is not sure when. Exam/Review of Systems Vital Signs Vitals Vital Signs Date Time Temp Pulse Resp B/P Pulse Ox O2 Delivery O2 Flow Rate FiO2 11/13/16 08:00 103 11/13/16 07:47 98.1 19 131/83 97 11/12/16 03:34 Room Air Intake and Output 11/12/16 11/12/16 11/13/16 15:00 23:00 07:00 Intake Total 500 ml Balance 500 ml Exam Constitutional: alert, oriented, No distress Psych: nl mood/affect Head: atraumatic, normocephalic Eyes: PERRL ENMT: mucosa pink and moist Neck: non-tender, supple Respiratory: clear to auscultation Cardiovascular: other (Mildly tachycardic on telemetry), regular rate and rhythm Gastrointestinal: bowel sounds, non-tender, soft Musculoskeletal: other (Patient's pain is nonfocal) Neurological: lethargic, nl mental status, nl speech Skin: No rash or lesions Results Result Diagram: 11/12/16 1120 11/12/16 1120 Results 24 hrs Laboratory Tests Test 11/12/16 11:20 11/12/16 12:04 11/12/16 14:08 11/12/16 17:34 White Blood Count 5.1 # Red Blood Count 2.39 L Hemoglobin 8.0 L Hematocrit 24.4 L Mean Corpuscular Volume 102.1 H Mean Corpuscular Hemoglobin 33.5 H Mean Corpuscular Hemoglobin Concent 32.8 Red Cell Distribution Width 17.7 H Platelet Count 88 L Mean Platelet Volume 10.8 H Neutrophils % 50.2 Lymphocytes % 23.7 Monocytes % 22.5 H Eosinophils % 0.2 Basophils % 0.2 Nucleated Red Blood Cells % 5.1 H Neutrophils # 2.5 Lymphocytes # 1.2 Monocytes # 1.1 H Eosinophils # 0.0 Basophils # 0.0 Nucleated Red Blood Cells # 0.3 H Sodium Level 137 Potassium Level 4.3 Chloride Level 106 Carbon Dioxide Level 25 Anion Gap 10 # Blood Urea Nitrogen 8 Creatinine 0.78 Glucose Level 223 H Calcium Level 8.8 Phosphorus Level 4.0 Magnesium Level 2.0 Total Bilirubin 1.0 Direct Bilirubin 0.00 Indirect Bilirubin 1.0 Aspartate Amino Transf (AST/SGOT) 22 Alanine Aminotransferase (ALT/SGPT) 48 Alkaline Phosphatase 69 Total Protein 6.4 # Albumin 3.8 # Globulin 2.60 Albumin/Globulin Ratio 1.46 Bedside Glucose 247 H 200 171 Test 11/12/16 20:11 11/13/16 07:26 Bedside Glucose 166 200 Medications Medications Current Medications Alprazolam (Xanax) 0.5 mg DAILY PRN PO ANXIETY Last administered on 11/13/16 09:36; Admin Dose 0.5 MG; Start 11/12/16 at 06:30 Amlodipine Besylate (Norvasc) 10 mg DAILY PO Last administered on 11/13/16 09: 36; Admin Dose 10 MG; Start 11/12/16 at 09:00 Docusate Sodium (Colace) 100 mg Q12H PRN PO CONSTIPATION; Start 11/12/16 at 06: 30 Famotidine (Pepcid) 20 mg DAILY PO Last administered on 11/13/16 09:36; Admin Dose 20 MG; Start 11/12/16 at 09:00 Ferrous Sulfate (Ferrous Sulfate (Ec)) 325 mg BID PO Last administered on 09:36; Admin Dose 325 MG; Start 11/12/16 at 09:00 Gemfibrozil (Lopid) 600 mg BID PO Last administered on 11/13/16 09:36; Admin Dose 600 MG; Start 11/12/16 at 09:00 Mirtazapine (Remeron) 30 mg HS PO Last administered on 11/12/16 20:40; Admin Dose 30 MG; Start 11/12/16 at 21:00 Trazodone HCl (Desyrel) 25 mg QHS PO Last administered on 11/12/16 20:39; Admin Dose 25 MG; Start 11/12/16 at 21:00 Ondansetron HCl (Zofran Inj) 4 mg Q6H PRN IV NAUSEA AND/OR VOMITING; Start at 06:30 Acetaminophen (Tylenol Tab) 650 mg Q6H PRN PO PAIN AND OR ELEVATED TEMP; Start 11/12/16 at 06:30 Insulin Glargine (Lantus) 10 unit HS SC Last administered on 11/12/16 20:44; Admin Dose 10 UNIT; Start 11/12/16 at 21:00 Diagnostic Test (Pha) (Accu-Chek) 1 ea 02 XX ; Start 11/13/16 at 02:00 Miscellaneous Information 1 ea NOTE XX ; Start 11/12/16 at 06:45 Glucose (Glutose) 15 gm Q15M PRN PO DECREASED GLUCOSE; Start 11/12/16 at 06:45 Glucose (Glutose) 22.5 gm Q15M PRN PO DECREASED GLUCOSE; Start 11/12/16 at 06: 45 Dextrose (D50w Syringe) 25 ml Q15M PRN IV DECREASED GLUCOSE; Start 11/12/16 at 06:45 Dextrose (D50w Syringe) 50 ml Q15M PRN IV DECREASED GLUCOSE; Start 11/12/16 at 06:45 Glucagon (Glucagen) 1 mg Q15M PRN IM DECREASED GLUCOSE; Start 11/12/16 at 06:45 Glucose (Glutose) 15 gm Q15M PRN BUCCAL DECREASED GLUCOSE; Start 11/12/16 at 06 :45 Oxycodone HCl (Roxicodone) 10 mg Q6H PRN PO PAIN Last administered on t 09:36; Admin Dose 10 MG; Start 11/13/16 at 07:30 BILLY HOLBROOK November 13, 2016 10:38
--- NOTE | 2016-11-13 11:21 | RADRPT ---
PROCEDURE: XR Lumbar Spine. CLINICAL INDICATION: Pain. TECHNIQUE: Lumbar spine x-rays, 3 views. COMPARISON: CT abdomen/pelvis 02/02/2016. FINDINGS: Bone density appears normal. Vertebral body height and alignment are normal. Scattered few tiny ost eophytes project anteriorly from the lumbar spine. Intervertebral disk heights are within normal li mits. The posterior elements are well-aligned. Paravertebral soft tissues are unremarkable. IMPRESSION: Unremarkable lumbar spine x-rays. RPTAT: HLST .Angle Galeas MD, MD Date Time Electronically viewed and signed by .Angle Galeas MD, on 11/13/2016 11:20 .T/
--- NOTE | 2016-11-13 19:19 | RADRPT ---
PROCEDURE: XR Lumbar Spine. CLINICAL INDICATION: Low back pain. TECHNIQUE: Bilateral oblique views of the lumbar spine were obtained, two-view sent to the PACS. COMPARISON: 11/12/2016 FINDINGS: Mineralization is within normal limits. The facet joints and foramina appear within normal limits o f bilaterally. There is no evidence of lytic or blastic lesion. Minimal anterior spondylosis from L2-L4 is noted. Postoperative clips within the upper abdomen are noted RPTAT:HJJR IMPRESSION: Mild anterior spondylosis, otherwise unremarkable limited oblique views of the lumbar spine. Physician Kaci Date Time Electronically viewed and signed by Physician Kaci on 11/13/2016 19:19 JR/
[2016-11-13] MEDS: MIRTAZAPINE 15 MG TAB PO SCH (20:51)
[2016-11-13] MEDS: traZODone 50 MG TAB PO SCH (20:51)
[2016-11-13] MEDS: INSULIN GLARGINE [LANtus] 3 ML PEN SC SCH (21:02)
[2016-11-14] VITALS (10 sets, daily range): BP systolic 123–140; BP diastolic 71–84; PULSE 90–104; RESP 16–20
[2016-11-14] MEDS: oxyCODONE 5 MG TAB PO PRN ×3 (03:30→15:12)
[2016-11-14 06:36] LABS: ADD SCAN DIFF NO
[2016-11-14 06:40] LABS: ABNORMAL IP MESSAGE 1; HEMATOCRIT 27.5 % (42.0-52.0); HEMOGLOBIN 8.6 g/dl (14.0-18.0); MEAN CORPUSCULAR HEMOGLOBIN 31.2 pg (29.0-33.0); MEAN CORPUSCULAR HGB CONC 31.3 g/dl (32.0-37.0); MEAN CORPUSCULAR VOLUME 99.6 fl (82.0-101.0); MEAN PLATELET VOLUME 10.4 fl (7.4-10.4); PLATELET COUNT 83 10^3/UL (140-415); RED BLOOD COUNT 2.76 10^6/ul (4.70-6.10); RED CELL DISTRIBUTION WIDTH 19.2 % (11.5-14.5); WHITE BLOOD COUNT 1.7 10^3/ul (4.8-10.8)
[2016-11-14 07:03] LABS: CREATININE 0.85 mg/dl (0.61-1.24); MAGNESIUM 2.2 mg/dl (1.7-2.5); POTASSIUM 4.3 mmol/L (3.5-5.1)
[2016-11-14] MEDS: ACCU-CHEK XX SCH ×4 (08:25→20:05)
[2016-11-14] MEDS: INSULIN ASPART [NOVOLOG] 3 ML PEN SC SCH ×4 (08:25→20:06)
[2016-11-14 08:31] LABS: LYMPHOCYTES # 1.3 10^3/ul (0.8-2.9); MONOCYTE # 0.1 10^3/ul (0.3-0.9); NEUTROPHIL # 0.2 10^3/ul (1.6-7.5); PLATELET ESTIMATE PLT APPEAR DECREASED
[2016-11-14] MEDS: FAMOTIDINE 20 MG TAB PO SCH (09:53)
[2016-11-14] MEDS: FERROUS SULFATE (EC) 325 MG TAB PO SCH ×2 (09:53→20:07)
[2016-11-14] MEDS: GEMFIBROZIL 600 MG TAB PO SCH ×2 (09:53→20:09)
[2016-11-14] MEDS: AMLODIPINE 10 MG TAB PO SCH (09:54)
--- NOTE | 2016-11-14 12:50 | PN ---
Date/Time of Note Date/Time of Note DATE: 11/14/16 TIME: 12:48 Assessment/Plan VTE Prophylaxis VTE Prophylaxis Intervention: SCD's Lines/Catheters IV Catheter Type (from Nrsg): Saline Lock Urinary Cath still in place: No Assessment/Plan Assessment/Plan 1. Generalized weakness, likely from the chemo and his leukemia. 2. Lower back pain, likely secondary to above 3. Leukemia/myelodysplastic syndrome, currently on chemotherapy. 4. Diabetes type II: Poor control so far /will get A1c, and resume home metformin as well 5. Hypertension: Patient has tachycardia and mildly elevated blood pressures. We will start low dose beta blockers 6. Dyslipidemia: Continue home meds 7. Anxiety: Continue as needed Xanax 8. Anemia, likely chemotherapy induced from his myelodysplastic syndrome: Transfusion today 9. Thrombocytopenia, again, secondary to above: Monitor, avoid anticoagulation. WBC Dropped to1.7 today- need to have more stable wbc before d/c HR stable downgrade to telemetry floor pain management for lower back pain, has been following Subjective 24 Hr Interval Summary Free Text/Dictation doing ok, BP stable, c/o pain, wbc dropped to 1.7 Exam/Review of Systems Vital Signs Vitals Vital Signs Date Time Temp Pulse Resp B/P Pulse Ox O2 Delivery O2 Flow Rate FiO2 11/14/16 12:08 104 11/14/16 11:49 98.0 18 131/79 98 11/13/16 15:34 Room Air Intake and Output 11/13/16 11/13/16 11/14/16 15:00 23:00 07:00 Intake Total 1250 ml 360 ml Balance 1250 ml 360 ml Exam GENERAL: alert awake, no acute distress HEENT: No obvious head deformity. Pupils are reactive. Extraocular muscles intact. CARDIOVASCULAR: S1 S2 RRR no mumur LUNGS: Clear. ABDOMEN: Soft, nontender, nondistended. Positive bowel sounds. EXTREMITIES: No edema. NEUROLOGIC: No focal deficits. Results Result Diagram: 11/14/16 0555 11/14/16 0555 Results 24 hrs Laboratory Tests Test 11/13/16 17:17 11/13/16 20:50 11/14/16 05:55 11/14/16 08:20 Bedside Glucose 211 150 147 White Blood Count 1.7 #L Red Blood Count 2.76 L Hemoglobin 8.6 L Hematocrit 27.5 L Mean Corpuscular Volume 99.6 Mean Corpuscular Hemoglobin 31.2 Mean Corpuscular Hemoglobin Concent 31.3 L Red Cell Distribution Width 19.2 H Platelet Count 83 L Mean Platelet Volume 10.4 Neutrophils % 14.0 L Band Neutrophils % 3.0 Lymphocytes % 75.0 H Monocytes % 8.0 Nucleated Red Blood Cells % 27.0 H Neutrophils # 0.2 L Lymphocytes # 1.3 Monocytes # 0.1 L Platelet Estimate PLT APPEAR DECREASED Sodium Level 138 Potassium Level 4.3 Chloride Level 105 Carbon Dioxide Level 25 Anion Gap 12 Blood Urea Nitrogen 17 # Creatinine 0.85 Glucose Level 134 # Calcium Level 9.0 Magnesium Level 2.2 Test 11/14/16 12:11 Bedside Glucose 290 H Medications Medications Current Medications Alprazolam (Xanax) 0.5 mg DAILY PRN PO ANXIETY Last administered on 11/13/16 09:36; Admin Dose 0.5 MG; Start 11/12/16 at 06:30 Amlodipine Besylate (Norvasc) 10 mg DAILY PO Last administered on 11/14/16 09: 54; Admin Dose 10 MG; Start 11/12/16 at 09:00 Docusate Sodium (Colace) 100 mg Q12H PRN PO CONSTIPATION; Start 11/12/16 at 06: 30 Famotidine (Pepcid) 20 mg DAILY PO Last administered on 11/14/16 09:53; Admin Dose 20 MG; Start 11/12/16 at 09:00 Ferrous Sulfate (Ferrous Sulfate (Ec)) 325 mg BID PO Last administered on 09:53; Admin Dose 325 MG; Start 11/12/16 at 09:00 Gemfibrozil (Lopid) 600 mg BID PO Last administered on 11/14/16 09:53; Admin Dose 600 MG; Start 11/12/16 at 09:00 Mirtazapine (Remeron) 30 mg HS PO Last administered on 11/13/16 20:51; Admin Dose 30 MG; Start 11/12/16 at 21:00 Trazodone HCl (Desyrel) 25 mg QHS PO Last administered on 11/13/16 20:51; Admin Dose 25 MG; Start 11/12/16 at 21:00 Ondansetron HCl (Zofran Inj) 4 mg Q6H PRN IV NAUSEA AND/OR VOMITING; Start at 06:30 Acetaminophen (Tylenol Tab) 650 mg Q6H PRN PO PAIN AND OR ELEVATED TEMP; Start 11/12/16 at 06:30 Insulin Glargine (Lantus) 10 unit HS SC Last administered on 11/13/16 21:02; Admin Dose 10 UNIT; Start 11/12/16 at 21:00 Diagnostic Test (Pha) (Accu-Chek) 1 ea 02 XX ; Start 11/13/16 at 02:00 Miscellaneous Information 1 ea NOTE XX ; Start 11/12/16 at 06:45 Glucose (Glutose) 15 gm Q15M PRN PO DECREASED GLUCOSE; Start 11/12/16 at 06:45 Glucose (Glutose) 22.5 gm Q15M PRN PO DECREASED GLUCOSE; Start 11/12/16 at 06: 45 Dextrose (D50w Syringe) 25 ml Q15M PRN IV DECREASED GLUCOSE; Start 11/12/16 at 06:45 Dextrose (D50w Syringe) 50 ml Q15M PRN IV DECREASED GLUCOSE; Start 11/12/16 at 06:45 Glucagon (Glucagen) 1 mg Q15M PRN IM DECREASED GLUCOSE; Start 11/12/16 at 06:45 Glucose (Glutose) 15 gm Q15M PRN BUCCAL DECREASED GLUCOSE; Start 11/12/16 at 06 :45 Oxycodone HCl (Roxicodone) 10 mg Q6H PRN PO PAIN Last administered on 09:53; Admin Dose 10 MG; Start 11/13/16 at 07:30 JADEN TRACEY MD November 14, 2016 12:50
[2016-11-14] MEDS: MIRTAZAPINE 15 MG TAB PO SCH (20:07)
[2016-11-14] MEDS: traZODone 50 MG TAB PO SCH (20:07)
[2016-11-14] MEDS: INSULIN GLARGINE [LANtus] 3 ML PEN SC SCH (20:41)
[2016-11-14] MEDS: morphine 2 MG INJ IV PRN (21:31)
[2016-11-14] MEDS: ALPRAZOLAM 0.5 MG TAB PO PRN (22:24)
[2016-11-15] MEDS: ACCU-CHEK XX SCH ×4 (02:00→20:05)
[2016-11-15] MEDS: morphine 2 MG INJ IV PRN ×2 (05:56→14:01)
[2016-11-15 06:02] LABS: ADD SCAN DIFF NO
[2016-11-15 06:14] LABS: ABNORMAL IP MESSAGE 1; HEMATOCRIT 28.1 % (42.0-52.0); HEMOGLOBIN 9.2 g/dl (14.0-18.0); MEAN CORPUSCULAR HEMOGLOBIN 31.9 pg (29.0-33.0); MEAN CORPUSCULAR HGB CONC 32.7 g/dl (32.0-37.0); MEAN CORPUSCULAR VOLUME 97.6 fl (82.0-101.0); MEAN PLATELET VOLUME 11.6 fl (7.4-10.4); PLATELET COUNT 99 10^3/UL (140-415); RED BLOOD COUNT 2.88 10^6/ul (4.70-6.10); RED CELL DISTRIBUTION WIDTH 18.7 % (11.5-14.5); WHITE BLOOD COUNT 1.3 10^3/ul (4.8-10.8)
[2016-11-15 06:39] LABS: POTASSIUM 4.3 mmol/L (3.5-5.1)
[2016-11-15 06:41] LABS: CREATININE 0.84 mg/dl (0.61-1.24)
[2016-11-15 06:42] LABS: CALCIUM 9.2 mg/dl (8.4-10.2)
[2016-11-15 08:30] VITALS: BP 131/80; PULSE 96; RESP 16
[2016-11-15] MEDS: FERROUS SULFATE (EC) 325 MG TAB PO SCH ×2 (08:37→21:07)
[2016-11-15] MEDS: AMLODIPINE 10 MG TAB PO SCH (08:38)
[2016-11-15] MEDS: FAMOTIDINE 20 MG TAB PO SCH (08:38)
[2016-11-15] MEDS: GEMFIBROZIL 600 MG TAB PO SCH ×2 (08:38→21:07)
[2016-11-15] MEDS: INSULIN ASPART [NOVOLOG] 3 ML PEN SC SCH ×4 (08:51→21:00)
[2016-11-15 10:54] LABS: LYMPHOCYTES # 0.9 10^3/ul (0.8-2.9); MONOCYTE # 0.2 10^3/ul (0.3-0.9); NEUTROPHIL # 0.2 10^3/ul (1.6-7.5)
--- NOTE | 2016-11-15 15:54 | PN ---
Date/Time of Note Date/Time of Note DATE: 11/15/16 TIME: 15:51 Assessment/Plan VTE Prophylaxis VTE Prophylaxis Intervention: SCD's Lines/Catheters IV Catheter Type (from Nrsg): Saline Lock Urinary Cath still in place: No Assessment/Plan Chief Complaint/Hosp Course Assessment/Plan: 46 M with: 1. Generalized weakness, likely from the chemo and his leukemia. - continue to monitor 2. Lower back pain, likely secondary to above - pain mngt per pain physician (roxicodone prn) 3. Leukemia/myelodysplastic syndrome, currently on chemotherapy. - monitor, consider Heme/Onc consult 4. Diabetes type II: Poor control so far; last A1c = 6.6 (10/22/16) - increase lantus, ISS 5. Hypertension - improved - continue CCB 6. Dyslipidemia: Continue home meds 7. Anxiety: Continue as needed Xanax 8. Anemia, likely chemotherapy induced from his myelodysplastic syndrome - monitor. For low WBC, monitor as well. 9. Thrombocytopenia, again, secondary to above: Monitor, avoid anticoagulation. WBC Dropped to1.4 today- need to have more stable wbc before d/c HR stable downgrade to telemetry floor pain management for lower back pain, has been following Problems: Subjective 24 Hr Interval Summary Free Text/Dictation No acute events overnight. Exam/Review of Systems Vital Signs Vitals Vital Signs Date Time Temp Pulse Resp B/P Pulse Ox O2 Delivery O2 Flow Rate FiO2 11/15/16 08:30 98.0 96 16 131/80 100 Room Air Intake and Output 11/14/16 11/14/16 11/15/16 15:00 23:00 07:00 Intake Total 900 ml 240 ml Balance 900 ml 240 ml Exam GENERAL: alert awake, no acute distress HEENT: No obvious head deformity. Pupils are reactive. Extraocular muscles intact. CARDIOVASCULAR: S1 S2 RRR no mumur LUNGS: Clear. ABDOMEN: Soft, nontender, nondistended. Positive bowel sounds. EXTREMITIES: No edema. NEUROLOGIC: No focal deficits. Results Result Diagram: 11/15/16 0540 11/15/16 0540 Results 24 hrs Laboratory Tests Test 11/14/16 16:51 11/14/16 20:05 11/15/16 05:40 11/15/16 08:29 Bedside Glucose 164 153 157 White Blood Count 1.3 #L Red Blood Count 2.88 L Hemoglobin 9.2 L Hematocrit 28.1 L Mean Corpuscular Volume 97.6 Mean Corpuscular Hemoglobin 31.9 Mean Corpuscular Hemoglobin Concent 32.7 Red Cell Distribution Width 18.7 H Platelet Count 99 L Mean Platelet Volume 11.6 H Neutrophils % 16.0 L Lymphocytes % 70.0 H Monocytes % 12.0 H Eosinophils % 1.0 Promyelocytes % 1.0 H Nucleated Red Blood Cells % 8.0 H Neutrophils # 0.2 L Lymphocytes # 0.9 Monocytes # 0.2 L Eosinophils # 0.0 Promyelocytes # 0.0 Differential Comment MANUAL DIFF Sodium Level 140 Potassium Level 4.3 Chloride Level 101 Carbon Dioxide Level 27 Anion Gap 16 Blood Urea Nitrogen 15 Creatinine 0.84 Glucose Level 154 Calcium Level 9.2 Test 11/15/16 10:15 11/15/16 11:59 11/15/16 14:00 Bedside Glucose 316 H 326 H 245 H Medications Medications Current Medications Alprazolam (Xanax) 0.5 mg DAILY PRN PO ANXIETY Last administered on 11/14/16 22:24; Admin Dose 0.5 MG; Start 11/12/16 at 06:30 Amlodipine Besylate (Norvasc) 10 mg DAILY PO Last administered on 11/15/16 08: 38; Admin Dose 10 MG; Start 11/12/16 at 09:00 Docusate Sodium (Colace) 100 mg Q12H PRN PO CONSTIPATION; Start 11/12/16 at 06: 30 Famotidine (Pepcid) 20 mg DAILY PO Last administered on 11/15/16 08:38; Admin Dose 20 MG; Start 11/12/16 at 09:00 Ferrous Sulfate (Ferrous Sulfate (Ec)) 325 mg BID PO Last administered on 08:37; Admin Dose 325 MG; Start 11/12/16 at 09:00 Gemfibrozil (Lopid) 600 mg BID PO Last administered on 11/15/16 08:38; Admin Dose 600 MG; Start 11/12/16 at 09:00 Mirtazapine (Remeron) 30 mg HS PO Last administered on 11/14/16 20:07; Admin Dose 30 MG; Start 11/12/16 at 21:00 Trazodone HCl (Desyrel) 25 mg QHS PO Last administered on 11/14/16 20:07; Admin Dose 25 MG; Start 11/12/16 at 21:00 Ondansetron HCl (Zofran Inj) 4 mg Q6H PRN IV NAUSEA AND/OR VOMITING; Start at 06:30 Acetaminophen (Tylenol Tab) 650 mg Q6H PRN PO PAIN AND OR ELEVATED TEMP; Start 11/12/16 at 06:30 Diagnostic Test (Pha) (Accu-Chek) 1 ea 02 XX ; Start 11/13/16 at 02:00 Miscellaneous Information 1 ea NOTE XX ; Start 11/12/16 at 06:45 Glucose (Glutose) 15 gm Q15M PRN PO DECREASED GLUCOSE; Start 11/12/16 at 06:45 Glucose (Glutose) 22.5 gm Q15M PRN PO DECREASED GLUCOSE; Start 11/12/16 at 06: 45 Dextrose (D50w Syringe) 25 ml Q15M PRN IV DECREASED GLUCOSE; Start 11/12/16 at 06:45 Dextrose (D50w Syringe) 50 ml Q15M PRN IV DECREASED GLUCOSE; Start 11/12/16 at 06:45 Glucagon (Glucagen) 1 mg Q15M PRN IM DECREASED GLUCOSE; Start 11/12/16 at 06:45 Glucose (Glutose) 15 gm Q15M PRN BUCCAL DECREASED GLUCOSE; Start 11/12/16 at 06 :45 Oxycodone HCl (Roxicodone) 10 mg Q6H PRN PO PAIN Last administered on 15:12; Admin Dose 10 MG; Start 11/13/16 at 07:30 Morphine Sulfate (morphine) 2 mg Q4H PRN IV PAIN LEVEL 6-10 Last administered on 11/15/16 14:01; Admin Dose 2 MG; Start 11/14/16 at 21:00 Insulin Glargine (Lantus) 15 unit HS SC ; Start 11/15/16 at 21:00; Status LEORA WICK November 15, 2016 15:54
[2016-11-15] MEDS: oxyCODONE 5 MG TAB PO PRN ×2 (17:15→23:26)
[2016-11-15] MEDS: INSULIN GLARGINE [LANtus] 3 ML PEN SC SCH (21:07)
[2016-11-15] MEDS: traZODone 50 MG TAB PO SCH (21:08)
[2016-11-15] MEDS: MIRTAZAPINE 15 MG TAB PO SCH (21:08)
[2016-11-16] MEDS: ACCU-CHEK XX SCH ×4 (02:00→20:05)
[2016-11-16] MEDS: oxyCODONE 5 MG TAB PO PRN ×2 (05:33→12:53)
[2016-11-16 06:23] LABS: ADD SCAN DIFF NO
[2016-11-16 06:43] LABS: ABNORMAL IP MESSAGE 1; HEMATOCRIT 27.5 % (42.0-52.0); LYMPHOCYTES # 1.1 10^3/ul (0.8-2.9); LYMPHOCYTES % 78.7 % (15.0-51.0); MEAN CORPUSCULAR HEMOGLOBIN 31.7 pg (29.0-33.0); MEAN CORPUSCULAR HGB CONC 32.7 g/dl (32.0-37.0); MEAN CORPUSCULAR VOLUME 96.8 fl (82.0-101.0); MEAN PLATELET VOLUME 12.1 fl (7.4-10.4); MONOCYTE # 0.1 10^3/ul (0.3-0.9); MONOCYTES % 9.9 % (0.0-11.0); NEUTROPHIL # 0.2 10^3/ul (1.6-7.5); NEUTROPHILS % 10.7 % (39.0-77.0); NUCLEATED RED BLOOD CELLS # 0.1 10^3/ul (0.0-0.0); NUCLEATED RED BLOOD CELLS% 7.1 /100WBC (0.0-0.0); PLATELET COUNT 125 10^3/UL (140-415); RED BLOOD COUNT 2.84 10^6/ul (4.70-6.10); RED CELL DISTRIBUTION WIDTH 17.7 % (11.5-14.5); WHITE BLOOD COUNT 1.4 10^3/ul (4.8-10.8)
[2016-11-16 06:51] LABS: POTASSIUM 4.4 mmol/L (3.5-5.1)
[2016-11-16 06:55] LABS: CALCIUM 9.2 mg/dl (8.4-10.2)
[2016-11-16 07:48] VITALS: BP 117/72; RESP 18
[2016-11-16] MEDS: FAMOTIDINE 20 MG TAB PO SCH (08:51)
[2016-11-16] MEDS: FERROUS SULFATE (EC) 325 MG TAB PO SCH ×2 (08:51→20:29)
[2016-11-16] MEDS: GEMFIBROZIL 600 MG TAB PO SCH ×2 (08:51→20:28)
[2016-11-16] MEDS: AMLODIPINE 10 MG TAB PO SCH (08:52)
[2016-11-16] MEDS: INSULIN ASPART [NOVOLOG] 3 ML PEN SC SCH ×4 (08:55→20:29)
--- NOTE | 2016-11-16 12:44 | PN ---
Date/Time of Note Date/Time of Note DATE: 11/16/16 TIME: 12:42 Assessment/Plan VTE Prophylaxis VTE Prophylaxis Intervention: SCD's Lines/Catheters IV Catheter Type (from Nrsg): Saline Lock Urinary Cath still in place: No Assessment/Plan Chief Complaint/Hosp Course Assessment/Plan: 46 M with: 1. Generalized weakness, likely from the chemo and his leukemia. - continue to monitor 2. Lower back pain, likely secondary to above - pain mngt per pain physician (roxicodone prn) 3. Leukemia/myelodysplastic syndrome, currently on chemotherapy. - monitor, consider Heme/Onc consult if WBC doesn't improve 4. Diabetes type II: Poor control so far; last A1c = 6.6 (10/22/16) - increase lantus, ISS 5. Hypertension - improved - continue CCB 6. Dyslipidemia: Continue home meds 7. Anxiety: Continue as needed Xanax 8. Anemia, likely chemotherapy induced from his myelodysplastic syndrome - monitor. For low WBC, monitor as well. 9. Thrombocytopenia, again, secondary to above: Monitor, avoid anticoagulation. WBC still low today (1.3) - need to have more stable wbc before d/c pain management for lower back pain, has been following Problems: Subjective 24 Hr Interval Summary Free Text/Dictation Pt has some LBP. No acute events overnight. Exam/Review of Systems Vital Signs Vitals Vital Signs Date Time Temp Pulse Resp B/P Pulse Ox O2 Delivery O2 Flow Rate FiO2 11/16/16 07:48 98.0 94 18 117/72 97 11/15/16 08:30 Room Air Intake and Output 11/15/16 11/15/16 11/16/16 15:00 23:00 07:00 Intake Total 840 ml 460 ml Balance 840 ml 460 ml Exam GENERAL: alert awake HEENT: No obvious head deformity. Pupils are reactive. Extraocular muscles intact. CARDIOVASCULAR: S1 S2 RRR no mumur LUNGS: Clear. ABDOMEN: Soft, nontender, nondistended. Positive bowel sounds. EXTREMITIES: No edema. NEUROLOGIC: No focal deficits. Results Result Diagram: 11/16/16 0551 11/16/16 0551 Results 24 hrs Laboratory Tests Test 11/15/16 14:00 11/15/16 17:09 11/15/16 21:01 11/16/16 05:51 Bedside Glucose 245 H 197 163 White Blood Count 1.4 L Red Blood Count 2.84 L Hemoglobin 9.0 L Hematocrit 27.5 L Mean Corpuscular Volume 96.8 Mean Corpuscular Hemoglobin 31.7 Mean Corpuscular Hemoglobin Concent 32.7 Red Cell Distribution Width 17.7 H Platelet Count 125 #L Mean Platelet Volume 12.1 H Neutrophils % 10.7 L Lymphocytes % 78.7 H Monocytes % 9.9 Eosinophils % 0.0 Basophils % 0.0 Nucleated Red Blood Cells % 7.1 H Neutrophils # 0.2 L Lymphocytes # 1.1 Monocytes # 0.1 L Eosinophils # 0.0 Basophils # 0.0 Nucleated Red Blood Cells # 0.1 H Sodium Level 139 Potassium Level 4.4 Chloride Level 109 Carbon Dioxide Level 26 Anion Gap 8 # Blood Urea Nitrogen 20 Creatinine 1.00 Glucose Level 171 Calcium Level 9.2 Test 11/16/16 08:23 11/16/16 10:44 Bedside Glucose 169 223 H Medications Medications Current Medications Alprazolam (Xanax) 0.5 mg DAILY PRN PO ANXIETY Last administered on 11/14/16 22:24; Admin Dose 0.5 MG; Start 11/12/16 at 06:30 Amlodipine Besylate (Norvasc) 10 mg DAILY PO Last administered on 11/16/16 08: 52; Admin Dose 10 MG; Start 11/12/16 at 09:00 Docusate Sodium (Colace) 100 mg Q12H PRN PO CONSTIPATION; Start 11/12/16 at 06: 30 Famotidine (Pepcid) 20 mg DAILY PO Last administered on 11/16/16 08:51; Admin Dose 20 MG; Start 11/12/16 at 09:00 Ferrous Sulfate (Ferrous Sulfate (Ec)) 325 mg BID PO Last administered on 08:51; Admin Dose 325 MG; Start 11/12/16 at 09:00 Gemfibrozil (Lopid) 600 mg BID PO Last administered on 11/16/16 08:51; Admin Dose 600 MG; Start 11/12/16 at 09:00 Mirtazapine (Remeron) 30 mg HS PO Last administered on 11/15/16 21:08; Admin Dose 30 MG; Start 11/12/16 at 21:00 Trazodone HCl (Desyrel) 25 mg QHS PO Last administered on 11/15/16 21:08; Admin Dose 25 MG; Start 11/12/16 at 21:00 Ondansetron HCl (Zofran Inj) 4 mg Q6H PRN IV NAUSEA AND/OR VOMITING; Start at 06:30 Acetaminophen (Tylenol Tab) 650 mg Q6H PRN PO PAIN AND OR ELEVATED TEMP; Start 11/12/16 at 06:30 Diagnostic Test (Pha) (Accu-Chek) 1 ea 02 XX ; Start 11/13/16 at 02:00 Miscellaneous Information 1 ea NOTE XX ; Start 11/12/16 at 06:45 Glucose (Glutose) 15 gm Q15M PRN PO DECREASED GLUCOSE; Start 11/12/16 at 06:45 Glucose (Glutose) 22.5 gm Q15M PRN PO DECREASED GLUCOSE; Start 11/12/16 at 06: 45 Dextrose (D50w Syringe) 25 ml Q15M PRN IV DECREASED GLUCOSE; Start 11/12/16 at 06:45 Dextrose (D50w Syringe) 50 ml Q15M PRN IV DECREASED GLUCOSE; Start 11/12/16 at 06:45 Glucagon (Glucagen) 1 mg Q15M PRN IM DECREASED GLUCOSE; Start 11/12/16 at 06:45 Glucose (Glutose) 15 gm Q15M PRN BUCCAL DECREASED GLUCOSE; Start 11/12/16 at 06 :45 Oxycodone HCl (Roxicodone) 10 mg Q6H PRN PO PAIN Last administered on 05:33; Admin Dose 10 MG; Start 11/13/16 at 07:30 Insulin Glargine (Lantus) 15 unit HS SC Last administered on 11/15/16 21:07; Admin Dose 15 UNIT; Start 11/15/16 at 21:00 LEORA SALVADOR November 16, 2016 12:44
[2016-11-16 20:06] VITALS: BP 133/84; RESP 17
[2016-11-16] MEDS: MIRTAZAPINE 15 MG TAB PO SCH (20:27)
[2016-11-16] MEDS: traZODone 50 MG TAB PO SCH (20:28)
[2016-11-16] MEDS: INSULIN GLARGINE [LANtus] 3 ML PEN SC SCH (20:31)
[2016-11-16] MEDS: ALPRAZOLAM 0.5 MG TAB PO PRN (21:05)
[2016-11-17] MEDS: ACCU-CHEK XX SCH ×4 (02:00→20:05)
[2016-11-17 07:31] VITALS: BP 112/62; RESP 16
[2016-11-17] MEDS: GEMFIBROZIL 600 MG TAB PO SCH ×2 (08:08→20:31)
[2016-11-17] MEDS: AMLODIPINE 10 MG TAB PO SCH (08:08)
[2016-11-17] MEDS: FERROUS SULFATE (EC) 325 MG TAB PO SCH ×2 (08:09→20:31)
[2016-11-17] MEDS: FAMOTIDINE 20 MG TAB PO SCH (08:09)
[2016-11-17] MEDS: INSULIN ASPART [NOVOLOG] 3 ML PEN SC SCH ×4 (08:11→20:34)
[2016-11-17] MEDS: oxyCODONE 5 MG TAB PO PRN (15:58)
--- NOTE | 2016-11-17 17:27 | PN ---
Date/Time of Note Date/Time of Note DATE: 11/17/16 TIME: 17:07 Assessment/Plan VTE Prophylaxis VTE Prophylaxis Intervention: SCD's Lines/Catheters IV Catheter Type (from Nrs): Saline Lock Urinary Cath still in place: No Assessment/Plan Assessment/Plan 1. Pancytopenia, from leukemia/MDS adn chemotherapy, neupogen twice a week, follow up with CBC 2. Leukemia/myelodysplastic syndrome, currently on chemotherapy.follow up with oncology 3. Diabetes type II: increase lantus, may need premeal insulin 4. Hypertension, controlled 5. Dyslipidemia: on lopid 6. Anxiety: Continue as needed Xanax 7. Low back pain radiates to lower extremities, MRI of L-spine Subjective 24 Hr Interval Summary Free Text/Dictation afebrile. stronger lower back pain radiates to both legs Exam/Review of Systems Vital Signs Vitals Vital Signs Date Time Temp Pulse Resp B/P Pulse Ox O2 Delivery O2 Flow Rate FiO2 11/17/16 07:31 98.8 93 16 112/62 99 11/15/16 08:30 Room Air Intake and Output 11/16/16 11/16/16 11/17/16 15:00 23:00 07:00 Intake Total 1300 ml 240 ml Balance 1300 ml 240 ml Exam Constitutional: alert, oriented, well developed Head: atraumatic, normocephalic Eyes: EOMI, PERRL, nl conjunctiva, nl lids ENMT: nl external ears & nose, nl lips & teeth, nl nasal mucosa & septum Neck: non-tender, supple Respiratory: clear to auscultation, normal air movement, No congested cough, No crackles/rales, No diminished breath sounds, No intercostal retraction, No labored breathing, No other, No respirations, No tactile fremitus, No wheezing Cardiovascular: nl pulses, regular rate and rhythm, No S3, No S4, No bruits, No diastolic murmur, No edema, No gallop, No irregular rhythm, No jugular venous distention (JVD), No murmurs/extra sounds, No other, No rub, No systolic murmur Gastrointestinal: nl liver, spleen, non-tender, soft, No ascites, No bowel sounds, No distended, No firm, No hepatomegaly, No mass , No other, No rebound or guarding, No splenomegaly, No surgical scars, No tender Musculoskeletal: nl extremities to inspection Extremities: normal pulses, No calf tenderness, No clubbing, No cyanosis, No edema, No other, No palpable cord, No pitting pedal edema, No tenderness Neurological: ACIDIZER II-XII intact, nl mental status, nl speech, nl strength Skin: nl turgor Lymph: nl lymph nodes Results Result Diagram: 11/16/16 0551 11/16/16 0551 Results 24 hrs Laboratory Tests Test 11/16/16 17:22 11/16/16 20:26 11/17/16 08:04 11/17/16 10:22 Bedside Glucose 193 163 175 306 H Test 11/17/16 12:07 11/17/16 14:21 Bedside Glucose 288 H 162 Medications Medications Current Medications Alprazolam (Xanax) 0.5 mg DAILY PRN PO ANXIETY Last administered on 11/16/16 21:05; Admin Dose 0.5 MG; Start 11/12/16 at 06:30 Amlodipine Besylate (Norvasc) 10 mg DAILY PO Last administered on 11/17/16 08: 08; Admin Dose 10 MG; Start 11/12/16 at 09:00 Docusate Sodium (Colace) 100 mg Q12H PRN PO CONSTIPATION; Start 11/12/16 at 06: 30 Famotidine (Pepcid) 20 mg DAILY PO Last administered on 11/17/16 08:09; Admin Dose 20 MG; Start 11/12/16 at 09:00 Ferrous Sulfate (Ferrous Sulfate (Ec)) 325 mg BID PO Last administered on 08:09; Admin Dose 325 MG; Start 11/12/16 at 09:00 Gemfibrozil (Lopid) 600 mg BID PO Last administered on 11/17/16 08:08; Admin Dose 600 MG; Start 11/12/16 at 09:00 Mirtazapine (Remeron) 30 mg HS PO Last administered on 11/16/16 20:27; Admin Dose 30 MG; Start 11/12/16 at 21:00 Trazodone HCl (Desyrel) 25 mg QHS PO Last administered on 11/16/16 20:28; Admin Dose 25 MG; Start 11/12/16 at 21:00 Ondansetron HCl (Zofran Inj) 4 mg Q6H PRN IV NAUSEA AND/OR VOMITING; Start at 06:30 Acetaminophen (Tylenol Tab) 650 mg Q6H PRN PO PAIN AND OR ELEVATED TEMP; Start 11/12/16 at 06:30 Diagnostic Test (Pha) (Accu-Chek) 1 ea 02 XX ; Start 11/13/16 at 02:00 Miscellaneous Information 1 ea NOTE XX ; Start 11/12/16 at 06:45 Glucose (Glutose) 15 gm Q15M PRN PO DECREASED GLUCOSE; Start 11/12/16 at 06:45 Glucose (Glutose) 22.5 gm Q15M PRN PO DECREASED GLUCOSE; Start 11/12/16 at 06: 45 Dextrose (D50w Syringe) 25 ml Q15M PRN IV DECREASED GLUCOSE; Start 11/12/16 at 06:45 Dextrose (D50w Syringe) 50 ml Q15M PRN IV DECREASED GLUCOSE; Start 11/12/16 at 06:45 Glucagon (Glucagen) 1 mg Q15M PRN IM DECREASED GLUCOSE; Start 11/12/16 at 06:45 Glucose (Glutose) 15 gm Q15M PRN BUCCAL DECREASED GLUCOSE; Start 11/12/16 at 06 :45 Oxycodone HCl (Roxicodone) 10 mg Q6H PRN PO PAIN Last administered on 15:58; Admin Dose 10 MG; Start 11/13/16 at 07:30 Insulin Glargine (Lantus) 15 unit HS SC Last administered on 11/16/16 20:31; Admin Dose 15 UNIT; Start 11/15/16 at 21:00 MAX LOPEZ MD November 17, 2016 17:18
[2016-11-17] MEDS ORDERED: FILGRASTIM 300 MCG INJ SC ONE (18:30)
[2016-11-17 20:17] VITALS: BP 118/77; RESP 19
[2016-11-17] MEDS: morphine 2 MG INJ IV PRN (20:31)
[2016-11-17] MEDS: MIRTAZAPINE 15 MG TAB PO SCH (20:31)
[2016-11-17] MEDS: traZODone 50 MG TAB PO SCH (20:32)
[2016-11-17] MEDS: INSULIN GLARGINE [LANtus] 3 ML PEN SC SCH (20:33)
[2016-11-17] MEDS: ALPRAZOLAM 0.5 MG TAB PO PRN (22:02)
[2016-11-18] MEDS: morphine 2 MG INJ IV PRN ×7 (00:40→22:15)
[2016-11-18] MEDS: ACCU-CHEK XX SCH ×4 (02:00→20:05)
[2016-11-18 06:09] LABS: ADD SCAN DIFF NO
[2016-11-18 06:24] LABS: ABNORMAL IP MESSAGE 1; BASOPHILS % 0.2 % (0.0-2.0); EOSINOPHILS % 0.2 % (0.0-7.0); HEMATOCRIT 27.6 % (42.0-52.0); HEMOGLOBIN 9.1 g/dl (14.0-18.0); LYMPHOCYTES # 1.4 10^3/ul (0.8-2.9); LYMPHOCYTES % 20.4 % (15.0-51.0); MEAN CORPUSCULAR VOLUME 97.2 fl (82.0-101.0); MEAN PLATELET VOLUME 10.3 fl (7.4-10.4); MONOCYTE # 2.5 10^3/ul (0.3-0.9); NEUTROPHIL # 2.5 10^3/ul (1.6-7.5); NEUTROPHILS % 38.3 % (39.0-77.0); NUCLEATED RED BLOOD CELLS # 0.2 10^3/ul (0.0-0.0); PLATELET COUNT 109 10^3/UL (140-415); RED BLOOD COUNT 2.84 10^6/ul (4.70-6.10); RED CELL DISTRIBUTION WIDTH 17.5 % (11.5-14.5); WHITE BLOOD COUNT 6.6 10^3/ul (4.8-10.8)
[2016-11-18 06:37] LABS: POTASSIUM 4.1 mmol/L (3.5-5.1)
[2016-11-18 06:40] LABS: CREATININE 0.87 mg/dl (0.61-1.24)
[2016-11-18 06:41] LABS: CALCIUM 9.4 mg/dl (8.4-10.2)
[2016-11-18 08:05] VITALS: BP 108/61; RESP 18
[2016-11-18] MEDS: FERROUS SULFATE (EC) 325 MG TAB PO SCH ×2 (08:26→20:16)
[2016-11-18] MEDS: GEMFIBROZIL 600 MG TAB PO SCH ×2 (08:26→20:16)
[2016-11-18] MEDS: FAMOTIDINE 20 MG TAB PO SCH (08:26)
[2016-11-18] MEDS: AMLODIPINE 10 MG TAB PO SCH (08:27)
[2016-11-18] MEDS: INSULIN ASPART [NOVOLOG] 3 ML PEN SC SCH ×5 (08:29→20:19)
--- NOTE | 2016-11-18 15:32 | PN ---
Date/Time of Note Date/Time of Note DATE: 11/18/16 TIME: 15:28 Assessment/Plan VTE Prophylaxis VTE Prophylaxis Intervention: SCD's Lines/Catheters IV Catheter Type (from Nrs): Saline Lock Urinary Cath still in place: No Assessment/Plan Assessment/Plan 1. Pancytopenia, from leukemia/MDS and chemotherapy, neupogen twice a week, s/ p Neupogen yesterday, 2. Leukemia/myelodysplastic syndrome, currently on chemotherapy.follow up with oncology 3. Diabetes type II: increase lantus, may need premeal insulin 4. Hypertension, controlled 5. Dyslipidemia: on lopid 6. Anxiety: Continue as needed Xanax 7. Low back pain radiates to lower extremities WBC improving, MRI LS spine today add novolog 5 units TID with each meal Metformin 500mg pO BID SCD for DVT prophylaxis Subjective 24 Hr Interval Summary Free Text/Dictation doing ok, BP stable,afebrile, WBC improving, C/o low back pain Exam/Review of Systems Vital Signs Vitals Vital Signs Date Time Temp Pulse Resp B/P Pulse Ox O2 Delivery O2 Flow Rate FiO2 11/18/16 08:05 98.5 100 18 108/61 96 11/15/16 08:30 Room Air Intake and Output 11/17/16 11/17/16 11/18/16 15:00 23:00 07:00 Intake Total 640 ml 400 ml Balance 640 ml 400 ml Exam GENERAL: alert awake, no acute distress HEENT: No obvious head deformity. Pupils are reactive. Extraocular muscles intact. CARDIOVASCULAR: S1 S2 RRR no mumur LUNGS: Clear. ABDOMEN: Soft, nontender, nondistended. Positive bowel sounds. EXTREMITIES: No edema. NEUROLOGIC: No focal deficits. Results Result Diagram: 11/18/16 0535 11/18/16 0535 Results 24 hrs Laboratory Tests Test 11/17/16 17:37 11/17/16 20:06 11/18/16 02:12 11/18/16 05:35 Bedside Glucose 177 202 185 White Blood Count 6.6 # Red Blood Count 2.84 L Hemoglobin 9.1 L Hematocrit 27.6 L Mean Corpuscular Volume 97.2 Mean Corpuscular Hemoglobin 32.0 Mean Corpuscular Hemoglobin Concent 33.0 Red Cell Distribution Width 17.5 H Platelet Count 109 L Mean Platelet Volume 10.3 Neutrophils % 38.3 L Lymphocytes % 20.4 Monocytes % 38.0 H Eosinophils % 0.2 Basophils % 0.2 Nucleated Red Blood Cells % 3.0 H Neutrophils # 2.5 Lymphocytes # 1.4 Monocytes # 2.5 H Eosinophils # 0.0 Basophils # 0.0 Nucleated Red Blood Cells # 0.2 H Sodium Level 141 Potassium Level 4.1 Chloride Level 110 Carbon Dioxide Level 25 Anion Gap 10 Blood Urea Nitrogen 20 Creatinine 0.87 Glucose Level 157 Calcium Level 9.4 Test 11/18/16 06:18 11/18/16 08:07 11/18/16 10:11 11/18/16 12:16 Lab Scanned Report BLOOD TRANSFUSION Bedside Glucose 160 259 H 208 Test 11/18/16 14:03 Bedside Glucose 272 H Medications Medications Current Medications Alprazolam (Xanax) 0.5 mg DAILY PRN PO ANXIETY Last administered on 11/17/16 22:02; Admin Dose 0.5 MG; Start 11/12/16 at 06:30 Amlodipine Besylate (Norvasc) 10 mg DAILY PO Last administered on 11/18/16 08: 27; Admin Dose 10 MG; Start 11/12/16 at 09:00 Docusate Sodium (Colace) 100 mg Q12H PRN PO CONSTIPATION; Start 11/12/16 at 06: 30 Famotidine (Pepcid) 20 mg DAILY PO Last administered on 11/18/16 08:26; Admin Dose 20 MG; Start 11/12/16 at 09:00 Ferrous Sulfate (Ferrous Sulfate (Ec)) 325 mg BID PO Last administered on 08:26; Admin Dose 325 MG; Start 11/12/16 at 09:00 Gemfibrozil (Lopid) 600 mg BID PO Last administered on 11/18/16 08:26; Admin Dose 600 MG; Start 11/12/16 at 09:00 Mirtazapine (Remeron) 30 mg HS PO Last administered on 11/17/16 20:31; Admin Dose 30 MG; Start 11/12/16 at 21:00 Trazodone HCl (Desyrel) 25 mg QHS PO Last administered on 11/17/16 20:32; Admin Dose 25 MG; Start 11/12/16 at 21:00 Ondansetron HCl (Zofran Inj) 4 mg Q6H PRN IV NAUSEA AND/OR VOMITING; Start at 06:30 Acetaminophen (Tylenol Tab) 650 mg Q6H PRN PO PAIN AND OR ELEVATED TEMP; Start 11/12/16 at 06:30 Diagnostic Test (Pha) (Accu-Chek) 1 ea 02 XX ; Start 11/13/16 at 02:00 Miscellaneous Information 1 ea NOTE XX ; Start 11/12/16 at 06:45 Glucose (Glutose) 15 gm Q15M PRN PO DECREASED GLUCOSE; Start 11/12/16 at 06:45 Glucose (Glutose) 22.5 gm Q15M PRN PO DECREASED GLUCOSE; Start 11/12/16 at 06: 45 Dextrose (D50w Syringe) 25 ml Q15M PRN IV DECREASED GLUCOSE; Start 11/12/16 at 06:45 Dextrose (D50w Syringe) 50 ml Q15M PRN IV DECREASED GLUCOSE; Start 11/12/16 at 06:45 Glucagon (Glucagen) 1 mg Q15M PRN IM DECREASED GLUCOSE; Start 11/12/16 at 06:45 Glucose (Glutose) 15 gm Q15M PRN BUCCAL DECREASED GLUCOSE; Start 11/12/16 at 06 :45 Oxycodone HCl (Roxicodone) 10 mg Q6H PRN PO PAIN Last administered on 15:58; Admin Dose 10 MG; Start 11/13/16 at 07:30 Insulin Glargine (Lantus) 17 unit HS SC Last administered on 11/17/16 20:33; Admin Dose 17 UNIT; Start 11/17/16 at 21:00 Morphine Sulfate (morphine) 2 mg Q4H PRN IV PAIN Last administered on 13:27; Admin Dose 2 MG; Start 11/17/16 at 20:30 JADEN TRACEY MD November 18, 2016 15:32
--- NOTE | 2016-11-18 17:47 | RADRPT ---
PROCEDURE: MRI lumbar spine without contrast CLINICAL INDICATION: Back pain TECHNIQUE: An high-resolution MRI of the lumbar spine was performed utilizing the following sequen kenn: Sagittal and axial T1 weighted, sagittal and axial T2 weighted, and sagittal STIR. COMPARISON: None FINDINGS: No acute vertebral compression fracture. Diffuse T1 hypointense marrow signal. The conus medullaris terminates at L1. T12 - L1: The disk is preserved in height. There is no significant disk protrusion, spinal canal or foraminal stenosis. L1 - L2: The disk is preserved in height. There is no significant disk protrusion, spinal canal or foraminal stenosis. L2 - L3: The disk is preserved in height. There is no significant disk protrusion, spinal canal or foraminal stenosis. L3 - L4: Disk height loss and disk desiccation. There is no significant disk protrusion, spinal ca nal or foraminal stenosis. L4 - L5: Disk desiccation. There is no significant disk protrusion, spinal canal or foraminal kayla nosis. L5 - S1: The disk is preserved in height. There is no significant disk protrusion, spinal canal or foraminal stenosis. Partially imaged marked T2 hypointense signal the spleen. IMPRESSION: Diffuse T1 hypointense marrow signal suspicious for a marrow proliferative or marrow replacement pro cess. 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 Recommend correlation with patient history. Mild discogenic disease L3-4 and L4-5. No acute compression fracture or spinal canal stenosis. RPTAT: AA .Evan Ledesma MD, Date Time Electronically viewed and signed by .Evan Ledesma MD, on 11/18/2016 17:47 .T/
[2016-11-18] MEDS: metFORMIN 500 MG TAB PO SCH (18:11)
[2016-11-18 20:00] VITALS: BP 130/74; RESP 18
[2016-11-18] MEDS: traZODone 50 MG TAB PO SCH (20:15)
[2016-11-18] MEDS: MIRTAZAPINE 15 MG TAB PO SCH (20:16)
[2016-11-18] MEDS: INSULIN GLARGINE [LANtus] 3 ML PEN SC SCH (20:18)
[2016-11-19] MEDS: ACCU-CHEK XX SCH ×5 (02:03→20:21)
[2016-11-19] MEDS: morphine 2 MG INJ IV PRN ×6 (02:04→21:53)
[2016-11-19 04:51] LABS: ADD SCAN DIFF NO
[2016-11-19 04:55] LABS: BASOPHILS % 0.3 % (0.0-2.0); EOSINOPHILS % 0.3 % (0.0-7.0); HEMATOCRIT 26.8 % (42.0-52.0); HEMOGLOBIN 8.9 g/dl (14.0-18.0); LYMPHOCYTES # 1.5 10^3/ul (0.8-2.9); LYMPHOCYTES % 44.6 % (15.0-51.0); MEAN CORPUSCULAR HEMOGLOBIN 31.9 pg (29.0-33.0); MEAN CORPUSCULAR HGB CONC 33.2 g/dl (32.0-37.0); MEAN CORPUSCULAR VOLUME 96.1 fl (82.0-101.0); MEAN PLATELET VOLUME 11.4 fl (7.4-10.4); MONOCYTE # 0.6 10^3/ul (0.3-0.9); NEUTROPHIL # 1.1 10^3/ul (1.6-7.5); NEUTROPHILS % 34.1 % (39.0-77.0); NUCLEATED RED BLOOD CELLS # 0.2 10^3/ul (0.0-0.0); NUCLEATED RED BLOOD CELLS% 6.3 /100WBC (0.0-0.0); PLATELET COUNT 123 10^3/UL (140-415); RED BLOOD COUNT 2.79 10^6/ul (4.70-6.10); RED CELL DISTRIBUTION WIDTH 17.9 % (11.5-14.5); WHITE BLOOD COUNT 3.3 10^3/ul (4.8-10.8)
[2016-11-19 05:17] LABS: MONOCYTES % 19.2 % (0.0-11.0)
[2016-11-19 07:43] VITALS: BP 104/64; RESP 16
[2016-11-19] MEDS: INSULIN ASPART [NOVOLOG] 3 ML PEN SC SCH ×7 (07:58→20:15)
[2016-11-19] MEDS: AMLODIPINE 10 MG TAB PO SCH (07:59)
[2016-11-19] MEDS: metFORMIN 500 MG TAB PO SCH ×2 (07:59→17:38)
[2016-11-19] MEDS: FAMOTIDINE 20 MG TAB PO SCH (08:00)
[2016-11-19] MEDS: FERROUS SULFATE (EC) 325 MG TAB PO SCH ×2 (08:00→20:16)
[2016-11-19] MEDS: GEMFIBROZIL 600 MG TAB PO SCH ×2 (08:00→20:16)
--- NOTE | 2016-11-19 13:09 | PN ---
Date/Time of Note Date/Time of Note DATE: 11/19/16 TIME: 13:06 Assessment/Plan VTE Prophylaxis VTE Prophylaxis Intervention: SCD's Lines/Catheters IV [facility]from [facility] Saline Lock Urinary Cath still in place: No Assessment/Plan Assessment/Plan 1. Pancytopenia, from leukemia/MDS and chemotherapy, neupogen twice a week, s/ p Neupogen yesterday, 2. Leukemia/myelodysplastic syndrome, currently on chemotherapy.follow up with oncology 3. Diabetes type II: increase lantus, may need premeal insulin 4. Hypertension, controlled 5. Dyslipidemia: on lopid 6. Anxiety: Continue as needed Xanax 7. Low back pain radiates to lower extremities WBC dropped to 3.3, MRI LS Spine showed severe DJD, no acute findings we will wait for WBC count to be more stable before d/c add novolog 5 units TID with each meal Metformin 500mg pO BID SCD for DVT prophylaxis D/c plan tomorrow if WBC stable Exam/Review of Systems Vital Signs Vitals Vital Signs Date Time Temp Pulse Resp B/P Pulse Ox O2 Delivery O2 Flow Rate FiO2 11/19/16 07:43 98.5 91 16 104/64 97 11/15/16 08:30 Room Air Intake and Output 11/18/16 11/18/16 11/19/16 15:00 23:00 07:00 Intake Total 1120 ml 500 ml Balance 1120 ml 500 ml Exam GENERAL: alert awake, no acute distress HEENT: No obvious head deformity. Pupils are reactive. Extraocular muscles intact. CARDIOVASCULAR: S1 S2 RRR no mumur LUNGS: Clear. ABDOMEN: Soft, nontender, nondistended. Positive bowel sounds. EXTREMITIES: No edema. NEUROLOGIC: No focal deficits. Results Result Diagram: 11/19/16 0440 11/18/16 0535 Results 24 hrs Laboratory Tests Test 11/18/16 14:03 11/18/16 17:46 11/18/16 20:13 11/19/16 02:03 Bedside Glucose 272 H 155 246 H 190 Test 11/19/16 04:40 11/19/16 07:56 11/19/16 09:58 11/19/16 11:51 White Blood Count 3.3 #L Red Blood Count 2.79 L Hemoglobin 8.9 L Hematocrit 26.8 L Mean Corpuscular Volume 96.1 Mean Corpuscular Hemoglobin 31.9 Mean Corpuscular Hemoglobin Concent 33.2 Red Cell Distribution Width 17.9 H Platelet Count 123 L Mean Platelet Volume 11.4 H Neutrophils % 34.1 L Lymphocytes % 44.6 Monocytes % 19.2 H Eosinophils % 0.3 Basophils % 0.3 Nucleated Red Blood Cells % 6.3 H Neutrophils # 1.1 L Lymphocytes # 1.5 Monocytes # 0.6 Eosinophils # 0.0 Basophils # 0.0 Nucleated Red Blood Cells # 0.2 H Bedside Glucose 159 222 H 159 Medications Medications Current Medications Alprazolam (Xanax) 0.5 mg DAILY PRN PO ANXIETY Last administered on 11/17/16 22:02; Admin Dose 0.5 MG; Start 11/12/16 at 06:30 Amlodipine Besylate (Norvasc) 10 mg DAILY PO Last administered on 11/18/16 08: 27; Admin Dose 10 MG; Start 11/12/16 at 09:00 Docusate Sodium (Colace) 100 mg Q12H PRN PO CONSTIPATION; Start 11/12/16 at 06: 30 Famotidine (Pepcid) 20 mg DAILY PO Last administered on 11/19/16 08:00; Admin Dose 20 MG; Start 11/12/16 at 09:00 Ferrous Sulfate (Ferrous Sulfate (Ec)) 325 mg BID PO Last administered on 08:00; Admin Dose 325 MG; Start 11/12/16 at 09:00 Gemfibrozil (Lopid) 600 mg BID PO Last administered on 11/19/16 08:00; Admin Dose 600 MG; Start 11/12/16 at 09:00 Mirtazapine (Remeron) 30 mg HS PO Last administered on 11/18/16 20:16; Admin Dose 30 MG; Start 11/12/16 at 21:00 Trazodone HCl (Desyrel) 25 mg QHS PO Last administered on 11/18/16 20:15; Admin Dose 25 MG; Start 11/12/16 at 21:00 Ondansetron HCl (Zofran Inj) 4 mg Q6H PRN IV NAUSEA AND/OR VOMITING; Start at 06:30 Acetaminophen (Tylenol Tab) 650 mg Q6H PRN PO PAIN AND OR ELEVATED TEMP; Start 11/12/16 at 06:30 Diagnostic Test (Pha) (Accu-Chek) 1 ea 02 XX Last administered on 11/19/16 02: 03; Admin Dose 1 EA; Start 11/13/16 at 02:00 Miscellaneous Information 1 ea NOTE XX ; Start 11/12/16 at 06:45 Glucose (Glutose) 15 gm Q15M PRN PO DECREASED GLUCOSE; Start 11/12/16 at 06:45 Glucose (Glutose) 22.5 gm Q15M PRN PO DECREASED GLUCOSE; Start 11/12/16 at 06: 45 Dextrose (D50w Syringe) 25 ml Q15M PRN IV DECREASED GLUCOSE; Start 11/12/16 at 06:45 Dextrose (D50w Syringe) 50 ml Q15M PRN IV DECREASED GLUCOSE; Start 11/12/16 at 06:45 Glucagon (Glucagen) 1 mg Q15M PRN IM DECREASED GLUCOSE; Start 11/12/16 at 06:45 Glucose (Glutose) 15 gm Q15M PRN BUCCAL DECREASED GLUCOSE; Start 11/12/16 at 06 :45 Oxycodone HCl (Roxicodone) 10 mg Q6H PRN PO PAIN Last administered on 15:58; Admin Dose 10 MG; Start 11/13/16 at 07:30 Insulin Glargine (Lantus) 17 unit HS SC Last administered on 11/18/16 20:18; Admin Dose 17 UNIT; Start 11/17/16 at 21:00 Morphine Sulfate (morphine) 2 mg Q4H PRN IV PAIN Last administered on 10:00; Admin Dose 2 MG; Start 11/17/16 at 20:30 JADEN TRACEY MD November 19, 2016 13:09
[2016-11-19 20:15] VITALS: BP 142/88; RESP 18
[2016-11-19] MEDS: traZODone 50 MG TAB PO SCH (20:16)
[2016-11-19] MEDS: MIRTAZAPINE 15 MG TAB PO SCH (20:16)
[2016-11-19] MEDS: INSULIN GLARGINE [LANtus] 3 ML PEN SC SCH (20:18)
[2016-11-19 21:00] VITALS: PULSE 100
[2016-11-20] MEDS: morphine 2 MG INJ IV PRN ×3 (02:12→20:44)
[2016-11-20 06:21] LABS: ADD SCAN DIFF NO
[2016-11-20 06:22] LABS: ABNORMAL IP MESSAGE 1; HEMATOCRIT 26.2 % (42.0-52.0); HEMOGLOBIN 8.5 g/dl (14.0-18.0); MEAN CORPUSCULAR HEMOGLOBIN 31.5 pg (29.0-33.0); MEAN CORPUSCULAR HGB CONC 32.4 g/dl (32.0-37.0); MEAN PLATELET VOLUME 10.8 fl (7.4-10.4); PLATELET COUNT 123 10^3/UL (140-415); RED CELL DISTRIBUTION WIDTH 17.8 % (11.5-14.5); WHITE BLOOD COUNT 1.8 10^3/ul (4.8-10.8)
[2016-11-20 07:53] VITALS: BP 116/70; RESP 18
[2016-11-20 07:55] VITALS: BP 116/70; RESP 18
[2016-11-20] MEDS: metFORMIN 500 MG TAB PO SCH ×2 (08:00→17:33)
[2016-11-20] MEDS: FERROUS SULFATE (EC) 325 MG TAB PO SCH ×2 (08:00→20:08)
[2016-11-20] MEDS: FAMOTIDINE 20 MG TAB PO SCH (08:00)
[2016-11-20] MEDS: GEMFIBROZIL 600 MG TAB PO SCH ×2 (08:00→20:08)
[2016-11-20] MEDS: AMLODIPINE 10 MG TAB PO SCH (08:00)
[2016-11-20] MEDS: INSULIN ASPART [NOVOLOG] 3 ML PEN SC SCH ×7 (08:01→20:07)
[2016-11-20 08:03] LABS: LYMPHOCYTES # 1.1 10^3/ul (0.8-2.9); MONOCYTE # 0.2 10^3/ul (0.3-0.9); NEUTROPHIL # 0.5 10^3/ul (1.6-7.5); PLATELET ESTIMATE PLT APPEAR DECREASED
[2016-11-20] MEDS: ACCU-CHEK XX SCH ×3 (10:00→20:05)
[2016-11-20] MEDS ORDERED: FILGRASTIM 300 MCG INJ SC ONE (12:00)
[2016-11-20] MEDS: oxyCODONE 5 MG TAB PO PRN (12:03)
--- NOTE | 2016-11-20 16:37 | PN ---
Date/Time of Note Date/Time of Note DATE: 11/20/16 TIME: 16:35 Assessment/Plan VTE Prophylaxis VTE Prophylaxis Intervention: SCD's Lines/Catheters [facility] Saline [facility] Urinary Cath still in place: No Assessment/Plan Assessment/Plan 1. Pancytopenia, from leukemia/MDS and chemotherapy, neupogen twice a week,, plan for neupogen today 2. Leukemia/myelodysplastic syndrome, currently on chemotherapy.follow up with oncology 3. Diabetes type II: increase lantus, may need premeal insulin 4. Hypertension, controlled 5. Dyslipidemia: on lopid 6. Anxiety: Continue as needed Xanax 7. Low back pain radiates to lower extremities WBC dropped to 1.8, MRI LS Spine showed severe DJD, no acute findings add novolog 5 units TID with each meal Metformin 500mg pO BID SCD for DVT prophylaxis WBC dropped to 1.8- will give neupogen one dose today and monitor CBC in AM we will wait for WBC count to be more stable before d/c Subjective 24 Hr Interval Summary Free Text/Dictation WBC dropped to 1.8, BP stable, afebrile, no fever, no chills Exam/Review of Systems Vital Signs Vitals Vital Signs Date Time Temp Pulse Resp B/P Pulse Ox O2 Delivery O2 Flow Rate FiO2 11/20/16 07:55 98.1 96 18 116/70 98 Intake and Output 11/19/16 11/19/16 11/20/16 15:00 23:00 07:00 Intake Total 1500 ml 550 ml Balance 1500 ml 550 ml Exam GENERAL: alert awake, no acute distress HEENT: No obvious head deformity. Pupils are reactive. Extraocular muscles intact. CARDIOVASCULAR: S1 S2 RRR no mumur LUNGS: Clear. ABDOMEN: Soft, nontender, nondistended. Positive bowel sounds. EXTREMITIES: No edema. NEUROLOGIC: No focal deficits. Results Result Diagram: 11/20/16 0519 11/18/16 0535 Results 24 hrs Laboratory Tests Test 11/19/16 17:27 11/19/16 20:14 11/20/16 05:19 11/20/16 07:58 Bedside Glucose 165 171 182 White Blood Count 1.8 #L Red Blood Count 2.70 L Hemoglobin 8.5 L Hematocrit 26.2 L Mean Corpuscular Volume 97.0 Mean Corpuscular Hemoglobin 31.5 Mean Corpuscular Hemoglobin Concent 32.4 Red Cell Distribution Width 17.8 H Platelet Count 123 L Mean Platelet Volume 10.8 H Neutrophils % 27.0 L Lymphocytes % 63.0 H Monocytes % 9.0 Eosinophils % 1.0 Neutrophils # 0.5 L Lymphocytes # 1.1 Monocytes # 0.2 L Eosinophils # 0.0 Platelet Estimate PLT APPEAR DECREASED Test 11/20/16 10:22 11/20/16 11:57 11/20/16 14:16 Bedside Glucose 208 238 H 172 Medications Medications Current Medications Alprazolam (Xanax) 0.5 mg DAILY PRN PO ANXIETY Last administered on 11/17/16 22:02; Admin Dose 0.5 MG; Start 11/12/16 at 06:30 Amlodipine Besylate (Norvasc) 10 mg DAILY PO Last administered on 11/20/16 08: 00; Admin Dose 10 MG; Start 11/12/16 at 09:00 Docusate Sodium (Colace) 100 mg Q12H PRN PO CONSTIPATION; Start 11/12/16 at 06: 30 Famotidine (Pepcid) 20 mg DAILY PO Last administered on 11/20/16 08:00; Admin Dose 20 MG; Start 11/12/16 at 09:00 Ferrous Sulfate (Ferrous Sulfate (Ec)) 325 mg BID PO Last administered on 08:00; Admin Dose 325 MG; Start 11/12/16 at 09:00 Gemfibrozil (Lopid) 600 mg BID PO Last administered on 11/20/16 08:00; Admin Dose 600 MG; Start 11/12/16 at 09:00 Mirtazapine (Remeron) 30 mg HS PO Last administered on 11/19/16 20:16; Admin Dose 30 MG; Start 11/12/16 at 21:00 Trazodone HCl (Desyrel) 25 mg QHS PO Last administered on 11/19/16 20:16; Admin Dose 25 MG; Start 11/12/16 at 21:00 Ondansetron HCl (Zofran Inj) 4 mg Q6H PRN IV NAUSEA AND/OR VOMITING; Start at 06:30 Acetaminophen (Tylenol Tab) 650 mg Q6H PRN PO PAIN AND OR ELEVATED TEMP; Start 11/12/16 at 06:30 Diagnostic Test (Pha) (Accu-Chek) 1 ea 02 XX Last administered on 11/19/16 02: 03; Admin Dose 1 EA; Start 11/13/16 at 02:00 Miscellaneous Information 1 ea NOTE XX ; Start 11/12/16 at 06:45 Glucose (Glutose) 15 gm Q15M PRN PO DECREASED GLUCOSE; Start 11/12/16 at 06:45 Glucose (Glutose) 22.5 gm Q15M PRN PO DECREASED GLUCOSE; Start 11/12/16 at 06: 45 Dextrose (D50w Syringe) 25 ml Q15M PRN IV DECREASED GLUCOSE; Start 11/12/16 at 06:45 Dextrose (D50w Syringe) 50 ml Q15M PRN IV DECREASED GLUCOSE; Start 11/12/16 at 06:45 Glucagon (Glucagen) 1 mg Q15M PRN IM DECREASED GLUCOSE; Start 11/12/16 at 06:45 Glucose (Glutose) 15 gm Q15M PRN BUCCAL DECREASED GLUCOSE; Start 11/12/16 at 06 :45 Oxycodone HCl (Roxicodone) 10 mg Q6H PRN PO PAIN Last administered on 11/20/16 12:03; Admin Dose 10 MG; Start 11/13/16 at 07:30 Insulin Glargine (Lantus) 17 unit HS SC Last administered on 11/19/16 20:18; Admin Dose 17 UNIT; Start 11/17/16 at 21:00 Morphine Sulfate (morphine) 2 mg Q4H PRN IV PAIN Last administered on 11/20/16 06:09; Admin Dose 2 MG; Start 11/17/16 at 20:30 JADEN TRACEY MD Nov 20, 2016 16:37
[2016-11-20] MEDS: INSULIN GLARGINE [LANtus] 3 ML PEN SC SCH (20:06)
[2016-11-20] MEDS: MIRTAZAPINE 15 MG TAB PO SCH (20:08)
[2016-11-20] MEDS: traZODone 50 MG TAB PO SCH (20:08)
[2016-11-20 20:19] VITALS: BP 150/81; RESP 20
[2016-11-20 22:00] VITALS: PULSE 105
[2016-11-21] MEDS: ACCU-CHEK XX SCH ×2 (02:00→10:00)
[2016-11-21] MEDS: morphine 2 MG INJ IV PRN (04:58)
[2016-11-21 05:37] LABS: ADD SCAN DIFF NO
[2016-11-21 05:55] LABS: ABNORMAL IP MESSAGE 1; HEMATOCRIT 26.4 % (42.0-52.0); HEMOGLOBIN 8.5 g/dl (14.0-18.0); MEAN CORPUSCULAR HEMOGLOBIN 31.4 pg (29.0-33.0); MEAN CORPUSCULAR HGB CONC 32.2 g/dl (32.0-37.0); MEAN CORPUSCULAR VOLUME 97.4 fl (82.0-101.0); PLATELET COUNT 103 10^3/UL (140-415); RED BLOOD COUNT 2.71 10^6/ul (4.70-6.10); RED CELL DISTRIBUTION WIDTH 18.5 % (11.5-14.5); WHITE BLOOD COUNT 10.1 10^3/ul (4.8-10.8)
[2016-11-21 07:15] VITALS: BP 96/55; RESP 16
[2016-11-21] MEDS: FAMOTIDINE 20 MG TAB PO SCH (08:51)
[2016-11-21] MEDS: GEMFIBROZIL 600 MG TAB PO SCH (08:51)
[2016-11-21] MEDS: FERROUS SULFATE (EC) 325 MG TAB PO SCH (08:51)
[2016-11-21] MEDS: metFORMIN 500 MG TAB PO SCH (08:51)
[2016-11-21] MEDS: INSULIN ASPART [NOVOLOG] 3 ML PEN SC SCH ×4 (08:53→11:40)
[2016-11-21] MEDS: AMLODIPINE 10 MG TAB PO SCH (08:55)
[2016-11-21 08:56] VITALS: BP 148/66; PULSE 112
[2016-11-21 10:04] LABS: EOSINOPHILS # 0.2 10^3/ul (0.0-0.5); NEUTROPHIL # 4.7 10^3/ul (1.6-7.5)
--- NOTE | 2016-11-21 11:45 | PDOCDIS ---
Discharge Instructions CONDITION Patient Condition: Good HOME CARE INSTRUCTIONS: Special Diet: low fat low cholesterol ACTIVITY: Activity Restrictions: Slowly Increase Activity Rest between Activity Avoid heavy lifting Avoid Heavy Housework FOLLOW UP/APPOINTMENTS Appointments follow up with his own PMD through HMO insurance in 1-2 week after discharge. JADEN TRACEY MD Nov 21, 2016 11:45
[2016-11-21] MEDS ORDERED: CEPH500C PO (11:46)
--- NOTE | 2016-11-23 23:40 | DS ---
DATE OF ADMISSION: 11/12/2016 DATE OF DISCHARGE: 11/21/2016 FINAL DISCHARGE DIAGNOSES: 1. Pancytopenia secondary to leukemia/myelodysplastic syndrome, chemotherapy, and Neupogen twice we ekly. 2. History of leukemia myelodysplastic syndrome. Follows with oncology. 3. Type 2 diabetes mellitus. 4. Hypertension. 5. Dyslipidemia. 6. Anxiety. 7. Acute on chronic low back pain secondary to severe degenerative joint disease. CONSULTATIONS DONE DURING THIS HOSPITALIZATION: Palliative care consult, Dr. Kemi Garcia. HOSPITAL COURSE: This is a 46-year-old male with a past medical history of hypertension, diabetes m ellitus, history of anxiety, depression, history of leukemia/myelodysplastic syndrome diagnosed who follows with oncologist. The patient presented with a complaint of shortness of breath, back pain, and also concerned about low WBC count. He was admitted for neutropenia and pancytopenia. The justice ent was kept on isolation for neutropenia. He slowly gradually improved. He was given Neupogen dur ing this hospitalization, which improved his WBC count. The patient was complaining of acute on chr onic back pain for which he had an MRI of his lumbar spine done, which revealed severe degenerative joint disease. His pain was controlled with Tylenol, [place], IV morphine. He slowly had physical th erapy evaluations and he was able to ambulate without having any difficulty. After getting stable p ain control and stable WBC count, he is being discharged home. DISPOSITION: To home. DISCHARGE CONDITION: Stable and improved compared to admission. DISCHARGE ACTIVITIES: As tolerated, slowly resume to the normal baseline activity. DISCHARGE DIET: Low fat, low sodium diet. DISCHARGE MEDICATIONS: As per medical reconciliation. He is given new prescriptions of Keflex 500 mg p.o. b.i.d. upon discharge. DISCHARGE FOLLOWUP AND INSTRUCTIONS: The patient is to follow up with his own primary care doctor t [facility] his O insurance and his own oncologist as outpatient in 1 to 2 weeks after discharge. He h as been explained about the discharge plan and followup instructions. He understood and verbalized understanding. Total time spent in this patient's discharge plan, communicating with the patient and the nursing st aff took more than 60 minutes. Dictated By: JADEN TRACEY MD, KP/ISRRAEL Conf#: [id number] DID#: [id number] CC: ELIEL ROMANO MD;*[facility]*
== END 2016-11-21 12:41 | disposition home or self-care (01) | DRG 840 ==
LOC: E/R 20:17 → TEL 11-12 02:28 → PP2 11-14 19:45
PROVIDERS: ADMIT Internal Medicine; ATTEND Internal Medicine
DX: C95.90 Leukemia, unspecified not having achieved remission (principal); D61.810 Antineoplastic chemotherapy induced pancytopenia; D61.818 Other pancytopenia; E11.8 Type 2 diabetes mellitus with unspecified complications; I10 Essential (primary) hypertension; E11.9 Type 2 diabetes mellitus without complications; E78.5 Hyperlipidemia, unspecified; F41.9 Anxiety disorder, unspecified; M47.9 Spondylosis, unspecified
CPT/HCPCS: 36415; 36430; 71010; 72100; 72148; 80048; 80053; 81003; 82962; 83605; 83735; 84100; 84484; 85025; 85610; 85730; 86644; 86850; 86870; 86900; 86901; 86920; 86945; 87040; 87086; 93005; 96374; 96375; 96376; 97162; A4310; J1815; J2270; J2405; J7030; P9016

== ENCOUNTER 2017-01-19 15:13 | Inpatient (IN) | payer MEDICARE, OTHER ==
[~2017-01-19] VITALS: Ht 162.6 cm; Wt 75.8 kg
[~2017-01-19 15:13] MED LIST changes: +ALPR0.5T6 PO; +CEPH500C PO; +ERGO500037 PO; +FER325 PO; -GLYB5TAB3 PO; -HYDR-902 PO; +IBUP-1542 PO; -METO10TA92 PO; +TRAZ50TA18 PO
[2017-01-19] MEDS ORDERED: SODIUM CHLORIDE 0.9% 1L BAG IV* STA (20:02)
[2017-01-19] MEDS ORDERED: morphine 4 MG/ML VIAL IV STA (20:43)
[2017-01-19] MEDS ORDERED: ONDANSETRON 4 MG INJ IV STA ×2 (20:43→23:12)
[2017-01-19 20:54] LABS: HEMATOCRIT 25.2 % (42.0-52.0); HEMOGLOBIN 8.4 g/dl (14.0-18.0); MEAN CORPUSCULAR HEMOGLOBIN 33.1 pg (29.0-33.0); MEAN CORPUSCULAR HGB CONC 33.3 g/dl (32.0-37.0); MEAN CORPUSCULAR VOLUME 99.2 fl (82.0-101.0); MEAN PLATELET VOLUME 10.2 fl (7.4-10.4); NUCLEATED RED BLOOD CELLS% 6.3 /100WBC (0.0-0.0); PLATELET COUNT 110 10^3/UL (140-415); RED BLOOD COUNT 2.54 10^6/ul (4.70-6.10); RED CELL DISTRIBUTION WIDTH 20.5 % (11.5-14.5); WHITE BLOOD COUNT 3.5 10^3/ul (4.8-10.8)
[2017-01-19] MEDS ORDERED: GLYB5TAB3 PO (21:31)
[2017-01-19 21:32] LABS: ALANINE AMINOTRANSFERASE 42 IU/L (13-69); ALBUMIN 4.9 g/dl (3.3-4.9); ALBUMIN/GLOBULIN RATIO 1.58; ALKALINE PHOSPHATASE 80 IU/L (42-121); AMYLASE 68 U/L (11-123); ANION GAP 21 (8-16); ASPARTATE AMINO TRANSFERASE 26 IU/L (15-46); BLOOD UREA NITROGEN 13 mg/dl (7-20); CALCIUM 9.5 mg/dl (8.4-10.2); CARBON DIOXIDE 24 mmol/L (21-31); CHLORIDE 102 mmol/L (97-110); GLUCOSE 180 mg/dl (70-220); POTASSIUM 3.9 mmol/L (3.5-5.1); SODIUM 143 mmol/L (135-144)
--- NOTE | 2017-01-19 21:42 | RADRPT ---
PROCEDURE: XR Chest AP portable CLINICAL INDICATION: Possible sepsis TECHNIQUE: An AP portable radiograph of the chest was submitted. COMPARISON: 02/02/2016 FINDINGS: Support Hardware: None Cardiovascular: The heart remains upper normal in size with the pulmonary vasculature unremarkable. Lung [place]: There is again blunting of the left costophrenic angle which likely represents pleural parenchymal scarring and again particular scarring is seen within the right upper lobe. No alveolar infiltrate is evident. Pleural Spaces: No pneumothorax or pleural effusion is identified. Osseous Structures: The osseous structures appear intact. Soft Tissues: The soft tissues appear generous. The left hemidiaphragm is no longer significantly el evated. IMPRESSION: 1. Persistent pleural parenchymal scarring at the left lung base resulting in blunting of the left costophrenic angle and persistent reticular scarring seen within the right upper lobe with no alveol ar infiltrate identified. 2. The heart remains upper normal in size with the pulmonary vasculature unremarkable. 3. The left hemidiaphragm is no longer significantly elevated. Physician Jasvir Date Time Electronically viewed and signed by Physician Jasvir on 01/19/2017 21:42 /
[2017-01-19] MEDS ORDERED: IOHEXOL 100 ML ONE (21:45)
[2017-01-19] MEDS ORDERED: SOD CHLORIDE 0.9% 100 ML ONE (21:45)
[2017-01-19 21:46] LABS: TROPONIN-I < 0.012 ng/ml (0.00-0.12)
[2017-01-19 22:01] LABS: ERYTHROBLAST% (NRBC) (M) 12 % (0-0); LYMPHOCYTES # 0.9 10^3/ul (0.8-2.9); NEUTROPHIL # 1.6 10^3/ul (1.6-7.5)
[2017-01-19 22:02] LABS: POLYCHROMASIA FEW (0-0)
[2017-01-19 23:12] LABS: URINE BLOOD (Dip) POC Negative (NEGATIVE)
[2017-01-19] MEDS ORDERED: HYDROmorphONE 1 MG/ML SYG IV STA (23:12)
[2017-01-19] MEDS ORDERED: ONDANSETRON 4 MG INJ IV PRN (23:30)
[2017-01-19] MEDS ORDERED: ACETAMINOPHEN 325 MG TAB PO PRN (23:30)
[2017-01-19 23:32] LABS: ADD UMIC NO; UR ASCORBIC ACID NEGATIVE (NEGATIVE); UR BILIRUBIN (Dip) NEGATIVE (NEGATIVE); UR BLOOD (Dip) NEGATIVE (NEGATIVE); UR CLARITY CLEAR (CLEAR); UR COLOR YELLOW (YELLOW); UR GLUCOSE (Dip) 1+ mg/dL (NEGATIVE); UR KETONES (Dip) NEGATIVE (NEGATIVE); UR LEUKOCYTE ESTERASE (Dip) NEGATIVE Leu/ul (NEGATIVE); UR NITRITE (Dip) NEGATIVE (NEGATIVE); UR TOTAL PROTEIN (Dip) NEGATIVE (NEGATIVE); UR UROBILINOGEN (Dip) NEGATIVE (NEGATIVE)
--- NOTE | 2017-01-19 23:34 | RADRPT ---
PROCEDURE: CTA Chest. CLINICAL INDICATION: Shortness of breath, rule out pulmonary embolism. TECHNIQUE: Direct spiral axial sections were obtained from the thoracic inlet to the upper abdomen with the use of 100 cc of Isovue 370 nonionic intravenous contrast material. Axial MIP, coronal, an d sagittal reformations were obtained. The images were reviewed on a PACS workstation. CTDIvol: 16.9 4 mGy. DLP: 647.59 mGy-cm. One or more of the following dose reduction techniques were used: - Automated exposure control. - Adjustment of the mA and/or kV according to patient size. - Use of iterative reconstruction technique. COMPARISON: 10/22/2016 FINDINGS: No central pulmonary embolism is identified. Evaluation for lobar, segmental, and subsegmental embol i is limited by poor contrast opacification of the pulmonary arteries and respiratory motion. The ma in pulmonary artery is normal in caliber. There is no aortic aneurysm. The heart is mildly enlarged . There is no pericardial effusion. There is mild scarring in the right upper lobe. No pulmonary edema or consolidation is identified. No pleural effusion or pneumothorax is identified. No suspicious thyroid lesion is seen. There is no thoracic lymphadenopathy. The trachea and mainste m bronchi are patent. There are surgical clips adjacent to the stomach, nonspecific. The spleen is enlarged (17.2 cm). No suspicious osseous lesion is identified. There is a moderate chronic-appearing T6 compression fra cture. IMPRESSION: 1. No central pulmonary embolism is identified. Evaluation for lobar, segmental, and subsegmental e mboli is limited by poor contrast opacification of the pulmonary arteries and respiratory motion. 2. No pulmonary edema or consolidation. 3. Mildly enlarged cardiac silhouette. 4. Splenomegaly. 5. Moderate chronic-appearing T6 compression fracture. RPTAT: HTAR .Dustin Chen MD, Date Time Electronically viewed and signed by .Dustin Chen MD, on 01/19/2017 23:34 .R/
[2017-01-20] VITALS (13 sets, daily range): BP systolic 105–121; BP diastolic 59–76; PULSE 107–140; RESP 18; TEMP 98.7; Ht 162.6 cm; Wt 75.8 kg
--- NOTE | 2017-01-20 00:09 | ERA ---
ER Documentation Chief Complaint Date/Time DATE: 01/19/17 TIME: 23:58 Chief Complaint PT with Dizziness, blood in urine . Hx of Leukemia. HPI This is a very pleasant 46-year-old male with a known history of leukemia diagnosed in August 2015. The patient had received chemotherapy today. He stated his blood work indicated that his white blood cell count was 4 and his hemoglobin was 8.6. He states that over the past 24 hours he has felt very lightheaded and dizzy. He also indicates that just prior to arrival he noticed that there was blood in his urine. He denied any frequency urgency or dysuria. He stated he had phoned his oncologist, Dr. Nolan Lee, who indicated he needed to come to the emergency department to be further evaluated. The patient also indicates that he had been in [place] a week ago. He indicates since that time he has been having intermittent shortness of breath at rest. He denies a productive or nonproductive cough. He has had no fevers or shaking or chills. He denies any swelling of his lower extremities. He denies any chest pain or pressure that radiates to the neck arm back or jaw. He denies any hemoptysis hematemesis or melanotic stools. He does also state he is having diffuse myalgias which she is experiencing multiple times before due to his leukemia. ROS All systems reviewed and are negative except as per history of present illness. Medications Home Meds Active Scripts Amlodipine Besylate* (Amlodipine Besylate*) 10 Mg Tablet, 10 MG PO DAILY for 30 Days, TAB Prov:ARASH ARRIAGA 02/07/16 Reported Medications Glyburide* (Glyburide*) 5 Mg Tablet, 5 MG PO WITH BREAKFAST DINNE, #60 TAB 01/19/17 Trazodone Hcl* (Trazodone Hcl*) 50 Mg Tablet, 25 MG PO QHS for INSOMNIA, #30 TAB 11/12/16 Insulin Lispro (Humalog Kwikpen) 200 Unit/1 Ml Insuln.pen, 3 UNIT SQ TID, EA INJECT 3units BY SUBCUTANEOUS ROUTE 3 TIMES EVERYDAY NEEDED FOR BG>120 10/21/16 Mirtazapine* (Mirtazapine*) 30 Mg Tablet, 30 MG PO HS, TAB 09/09/16 Metformin* (Glucophage*) 1,000 Mg Tablet, 1000 MG PO BID, #60 TAB 8/13/16 Discontinued Reported Medications Ibuprofen* (Ibuprofen*) 600 Mg Tablet, 600 MG PO Q8, TAB TAKE 1 TABLET PO THREE TIMES EVERYDAY WITH FOOD 11/12/16 Ferrous Sulfate* (Ferrous Sulfate*) 325 Mg Tabec, 325 MG PO BID, TAB 11/12/16 Alprazolam* (Alprazolam*) 0.5 Mg Tablet, 0.5 MG PO DAILY Y for ANXIETY, TAB 11/12/16 Ergocalciferol (Vitamin D2) (VITAMIN D2) 50,000 Unit Capsule, 60489 UNIT PO QWEEK, CAP 11/12/16 Tramadol Hcl* (Ultram*) 50 Mg Tablet, 50 MG PO Q6H Y for PAIN, TAB 10/21/16 Gemfibrozil* (Lopid*) 600 Mg Tablet, 600 MG PO BID, TAB 02/02/16 Discontinued Scripts Cephalexin* (Cephalexin*) 500 Mg Capsule, 500 MG PO TID, #15 CAP Prov:JADEN TRACEY MD 11/21/16 Docusate Sodium (Dok) 100 Mg Capsule, 100 MG PO Q12H Y for CONSTIPATION, #30 CAP Prov:KEVIN BARNHART MD 10/28/16 Famotidine* (Famotidine*) 20 Mg Tablet, 20 MG PO DAILY, #30 TAB Prov:KEVIN BARNHART MD 10/28/16 Allergies Allergies: Coded Allergies: No Known Allergy (Unverified , 01/19/17) PMhx/Soc History of Surgery: Yes (abdhernia repair x4 last 2001) Anesthesia Reaction: Yes (surgery complication first hernia repair ) Hx Neurological Disorder: No Hx Respiratory Disorders: Yes (asthma) Hx Cardiac Disorders: No (HTN) Hx Psychiatric Problems: Yes (anxiety, depression) Hx Miscellaneous Medical Probl: Yes (DM, leukemia on chemo) Hx Alcohol Use: No Hx Substance Use: No Hx Tobacco Use: No Smoking Status: Never smoker Physical Exam Vitals Vital Signs Date Time Temp Pulse Resp B/P Pulse Ox O2 Delivery O2 Flow Rate FiO2 01/19/17 21:32 98.0 120 20 136/77 98 Room Air 01/19/17 19:43 106 20 143/90 99 Room Air 01/19/17 15:19 98.6 126 20 183/96 100 Physical Exam Constitutional:Well-developed. Well-nourished. HEENT:Normocephalic. Atraumatic.Pupils were equal round reactive to light. Moist mucous membranes.No tonsillar exudates. No conjunctival pallor Neck: No nuchal rigidity. No lymphadenopathy. No posterior cervical spine tenderness or step-offs. Respiratory: Not using accessory muscles of respiration.Lungs were clear to auscultation bilaterally. No rhonchi. No rales. No wheezing. Cardiovascular: Regular rate regular rhythm.No murmurs. No rubs were appreciated.S1, S2 normal. Distal pulses are palpable 2+ bilaterally. GI: Abdomen was soft. Nontender. Non Distended. No pulsatile abdominal masses or bruits. No rebound. No guarding. Bowel sounds were present and normal. Muscle skeletal: Full range of motion of both the upper and lower extremities bilaterally.Normal muscle tone.No assymetrical calf tenderness or swelling. Skin: No petechia, no purpura. No lesions on the palms or the soles of the feet. No maculopapular rash. NEURO: Patient was alert, awake, orientated x3.No facial droop. Gait observed and normal with no ataxia.Speech had regular rate and rhythm. No focal neurological deficits. Result Diagram: 01/19/17203401/19/172034 Results 24 hrs Laboratory Tests Test 01/19/17 20:35 01/19/17 23:10 01/19/17 23:17 White Blood Count 3.510^3/ul Red Blood Count 2.5410^6/ul Hemoglobin 8.4g/dl Hematocrit 25.2% Mean Corpuscular Volume 99.2fl Mean Corpuscular Hemoglobin 33.1pg Mean Corpuscular Hemoglobin Concent 33.3g/dl Red Cell Distribution Width 20.5% Platelet Count 04890^3/UL Mean Platelet Volume 10.2fl Neutrophils % 46.0% Lymphocytes % 26.0% Monocytes % 28.0% Nucleated Red Blood Cells % 12% Neutrophils # 1.610^3/ul Lymphocytes # 0.910^3/ul Monocytes # 1.010^3/ul Polychromasia FEW Macrocytosis 1+ Sodium Level 143mmol/L Potassium Level 3.9mmol/L Chloride Level 102mmol/L Carbon Dioxide Level 24mmol/L Anion Gap 21 Blood Urea Nitrogen 13mg/dl Creatinine 0.80mg/dl Glucose Level 180mg/dl Lactic Acid Level 1.7mmol/L Calcium Level 9.5mg/dl Total Bilirubin 1.0mg/dl Direct Bilirubin 0.00mg/dl Indirect Bilirubin 1.0mg/dl Aspartate Amino Transf (AST/SGOT) 26IU/L Alanine Aminotransferase (ALT/SGPT) 42IU/L Alkaline Phosphatase 80IU/L Troponin I < 0.012ng/ml Total Protein 8.0g/dl Albumin 4.9g/dl Globulin 3.10g/dl Albumin/Globulin Ratio 1.58 Amylase Level 68U/L Lipase 285U/L Urine Color YELLOW Urine Clarity CLEAR Urine pH 5.0 Urine Specific [place] 1.030 Urine Ketones NEGATIVEmg/dL Urine Nitrite NEGATIVEmg/dL Urine Bilirubin NEGATIVEmg/dL Urine Urobilinogen NEGATIVEmg/dL Urine Leukocyte Esterase NEGATIVELeu/ul Urine Hemoglobin NEGATIVEmg/dL Urine Glucose 1+mg/dL Urine Total Protein NEGATIVEmg/dl Bedside Urine pH (LAB) 5.5 Bedside Urine Protein (LAB) Trace Bedside Urine Glucose (UA) 0.1% Bedside Urine Ketones (LAB) Negative Bedside Urine Blood Negative Bedside Urine Nitrite (LAB) Negative Bedside Urine Leukocyte Esterase (L Negative Current Medications Medications (Trade) Dose Ordered Sig/[place] Route PRN Reason Start Time Stop Time Status Last Admin Dose Admin Sodium Chloride (NS) 2,280 ml BOLUS OVER 2 HOURS STAT IV* 01/19/17 20:02 01/19/17 20:04 DC 01/19/17 20:43 Morphine Sulfate (morphine) 4 mg ONCE STAT IV 01/19/17 20:43 01/19/17 20:44 DC 01/19/17 20:50 Ondansetron HCl (Zofran Inj) 4 mg ONCE STAT IV 01/19/17 20:43 01/19/17 20:44 DC 01/19/17 20:50 IV Flush 10 ml 10 ml STK-MED ONCE .ROUTE 01/19/17 21:45 01/19/17 21:46 DC 01/19/17 21:45 Sodium Chloride 100 ml @ ud STK-MED ONCE .ROUTE 01/19/17 21:45 01/19/17 21:46 DC 01/19/17 21:45 Iohexol (Omnipaque) 100 ml @ ud STK-MED ONCE .ROUTE 01/19/17 21:45 01/19/17 21:46 DC 01/19/17 21:45 Hydromorphone HCl (Dilaudid) 1 mg ONCE STAT IV 01/19/17 23:12 01/19/17 23:13 DC 01/19/17 23:23 Ondansetron HCl (Zofran Inj) 4 mg ONCE STAT IV 01/19/17 23:12 01/19/17 23:13 DC 01/19/17 23:23 Ondansetron HCl (Zofran Inj) 4 mg BRIDGE ORDER PRN IV NAUSEA AND/OR VOMITING 01/19/17 23:30 01/20/17 01:00 Acetaminophen (Tylenol Tab) 650 mg ER BRIDGE PRN PO MILD PAIN/FEVER 01/19/17 23:30 01/20/17 01:00 Procedures/MDM The patient presented to the emergency department with shortness of breath. My differential diagnosis included but was not limited to upper airway obstruction , CHF, pulmonary embolism, cardiac ischemia, pneumonia, pneumothorax, anemia, drug overdose, pulmonary edema, COPD or asthma. The patient IV access was established by nursing. The patient was requesting analgesic medication and was given intravenous morphine and Zofran. However he stated he was still experiencing pain and received further doses of analgesic medication. He did state this was pain, to his leukemia. I did feel is necessary to obtain a CT scan of the chest to rule out a pulmonary embolism as the patient had a high pretest probability according to the well's criteria for PE. This is reviewed by myself and the radiologist and indicated the followin. No central pulmonary embolism is identified. Evaluation for lobar, segmental , and subsegmental emboli is limited by poor contrast opacification of the pulmonary arteries and respiratory motion. 2. No pulmonary edema or consolidation. 3. Mildly enlarged cardiac silhouette. 4. Splenomegaly. 5. Moderate chronic-appearing T6 compression fracture. 12 Lead EKG tracing ordered and reviewed by myself showed: Sinus tachycardia 107 bpm and no arrhythmia. AL interval normal. QRS duration normal. No ST segment elevation No ST segment depression. No changes consistent with acute ischemia. The patient will be admitted to the hospitalist for pain control and IV fluids to the medical floor in serious condition. Blood cultures and urine cultures have been obtained but the patient did not receive antibiotics at this time as he was afebrile but given that he is immunocompromised will be continued to be monitored in the blood cultures will be followed up on. Departure Diagnosis: Primary Impression: Intractable pain Additional Impression: Anemia Qualified Code: D64.9 - Anemia, unspecified type Condition: Serious OLESYA DIEGO Jan 20, 2017 00:09
[2017-01-20] MEDS ORDERED: HYDROmorphONE 1 MG/ML SYG IV STA (01:13)
[2017-01-20] MEDS ORDERED: DEXTROSE 50% 50 ML SYRINGE IV PRN ×2 (04:30)
[2017-01-20] MEDS ORDERED: GLUCOSE GEL 15 GRAM TUBE BUCCAL PRN (04:30)
[2017-01-20] MEDS ORDERED: GLUCAGON 1 MG INJ IM PRN (04:30)
[2017-01-20] MEDS ORDERED: ONDANSETRON 4 MG INJ IV PRN (04:30)
[2017-01-20] MEDS ORDERED: GLUCOSE GEL 15 GRAM TUBE PO PRN ×2 (04:30)
[2017-01-20] MEDS: morphine 4 MG/ML VIAL IV PRN ×3 (04:38→17:54)
[2017-01-20] MEDS: ACETAMINOPHEN 325 MG TAB PO PRN ×2 (04:38→17:05)
--- NOTE | 2017-01-20 05:59 | HP ---
Date/Time of Note Date/Time of Note DATE: 01/20/17 TIME: 05:33 Assessment/Plan VTE Prophylaxis VTE Prophylaxis Intervention: SCD's Lines/Catheters IV Catheter Type (from [facility]): [place] [facility] Urinary Cath still in place: No Assessment/Plan Assessment/Plan IMPRESSION: 1. Generalized weakness and pain - The patient's generalized weakness and his presentation seems to be from his leukemia as well as chemo-induced and from anemia. We will monitor for now. He will have a physical therapy evaluation. -Pain medications as needed 2. Reported Gross hematuria: -Urinalysis actually shows no blood. - Monitor for now. Platelet count is above 100. We will monitor closely and transfuse as needed 3. Leukemia/myelodysplastic syndrome, currently on chemotherapy. -We will notify his oncologist 4. Diabetes. - Insulin while in-house 5. Hypertensive urgency: Blood pressure better controlled -Adjust antihypertensives as needed 6. Dyslipidemia: Continue meds 7. Shortness of breath -Chest x-ray showed persistent pleural parenchymal scarring at the left lung base resulting in blunting of the left costophrenic angle and persistent reticular scarring seen within the right upper lobe with no alveolar infiltrate. CTPA was negative for PE. -Results of the x-ray is probably chemo-induced and probably explains his intermittent symptoms -We will provide breathing treatments and oxygen as needed. -Note that the patient was never hypoxic and in fact when presented presented to ER oxygen saturation was 100% on room air 8. Pancytopenia: chemotherapy induced - monitor and transfuse hemoglobin and platelet as needed. Neupogen as needed. 9. chronic low back pain -Recent lumbar x-ray and MRI without alarming findings -Pain medications as needed HPI/ROS Admit Date/Time Admit Date/Time Jan 19, 2017 at 23:18 Hx of Present Illness This is a 46-year-old male with a history of Leukemia/myelodysplastic syndrome, hypertension, diabetes, dyslipidemia, anxiety, chronic back pain secondary to degenerative disease who presented to the emergency department complaining of generalized weakness, dizziness/lightheadedness. He said he had his chemo today and afterwords he felt more weaker than usual and was experiencing dizziness. He said he was in [place] about a week ago and ever since he came back he has been experiencing intermittent shortness of breath. He denied fever /chills, cough, chest pain. Patient was admitted by myself about a couple months ago after he initially presented with a generalized weakness and acute on chronic back pain. At that time, he was pancytopenic and Lumbar MRI Mild discogenic disease L3-4 and L4-5 with no no fracture or stenosis. When he presented to the ER this time his WBC is 3.5, hemoglobin 8.4 and a platelet count 110. Blood pressure 183/96 with a heart rate of 126, oxygen saturation 100% on room air. Urinalysis shows no blood. Chest x-ray showed Persistent pleural parenchymal scarring at the left lung base resulting in blunting of the left costophrenic angle and persistent reticular scarring seen within the right upper lobe with no alveolar infiltrate identified. The heart remains upper normal in size with the pulmonary vasculature unremarkable. CT pulmonary angiogram showed Mildly enlarged cardiac silhouette, Splenomegaly and Moderate chronic-appearing T6 compression fracture. . PMH/Family/Social Past Medical History Medical History: diabetes, high cholesterol, hypertension, other (Leukemia) Past Surgical History Past Surgical Hx: other Social History Alcohol Use: none Smoking Status: Never smoker Drug Use: none Exam/Review of Systems Vital Signs Vitals Vital Signs Date Time Temp Pulse Resp B/P Pulse Ox O2 Delivery O2 Flow Rate FiO2 01/20/17 04:11 98.8 127 18 115/74 97 01/20/17 02:03 Room Air Exam Exam GENERAL: No acute distress. Answering questions appropriately and is alert and oriented x4. HEENT: No obvious head deformity. Pupils are reactive. Extraocular muscles intact. CARDIOVASCULAR: Tachycardic with regular rhythm. LUNGS: Clear. ABDOMEN: Soft, nontender, nondistended. Positive bowel sounds. EXTREMITIES: No edema. NEUROLOGIC: No focal deficits. Labs Result Diagram: 01/19/17203401/19/172034 Medications Medications Current Medications Amlodipine Besylate (Norvasc) 10 mg DAILY PO ; Start 01/20/17 at 09:00 Mirtazapine (Remeron) 30 mg HS PO ; Start 01/20/17 at 21:00 Trazodone HCl (Desyrel) 25 mg QHS PO ; Start 01/20/17 at 21:00 Insulin Glargine (Lantus) 10 unit DAILY@08 SC ; Start 01/20/17 at 08:00 Diagnostic Test (Pha) (Accu-Chek) 1 XX ; Start 01/21/17 at 02:00 Diagnostic Test (Pha) (Accu-Chek) 1 ea 02 XX ; Start 01/21/17 at 02:00 Morphine Sulfate (morphine) 4 mg Q4H PRN IV SEVERE PAIN Last administered on 04:38; Admin Dose 4 MG; Start 01/20/17 at 03:30 Acetaminophen/ Hydrocodone Bitart ([place] (5/325)) 1 tab Q4H PRN PO moderate pain; Start 01/20/17 at 04:30 Ondansetron HCl (Zofran Inj) 4 mg Q6H PRN IV NAUSEA AND/OR VOMITING; Start 01/20 at 04:30 Acetaminophen (Tylenol Tab) 650 mg Q6H PRN PO PAIN AND OR ELEVATED TEMP Last administered on 01/20/17 04:38; Admin Dose 650 MG; Start 01/20/17 at 04:30 Miscellaneous Information 1 ea NOTE XX ; Start 01/20/17 at 04:30 Glucose (Glutose) 15 gm Q15M PRN PO DECREASED GLUCOSE; Start 01/20/17 at 04:30 Glucose (Glutose) 22.5 gm Q15M PRN PO DECREASED GLUCOSE; Start 01/20/17 at 04:30 Dextrose (D50w Syringe) 25 ml Q15M PRN IV DECREASED GLUCOSE; Start 01/20/17 at 04:30 Dextrose (D50w Syringe) 50 ml Q15M PRN IV DECREASED GLUCOSE; Start 01/20/17 at 04:30 Glucagon (Glucagen) 1 mg Q15M PRN IM DECREASED GLUCOSE; Start 01/20/17 at 04:30 Glucose (Glutose) 15 gm Q15M PRN BUCCAL DECREASED GLUCOSE; Start 01/20/17 at 04: 30 ELIEL ROMANO MD Jan 20, 2017 05:45
[2017-01-20] MEDS ORDERED: hydrALAzine 20 MG INJ IV PRN (06:30)
[2017-01-20 07:41] LABS: ABNORMAL IP MESSAGE 1; HEMATOCRIT 21.3 % (42.0-52.0); LYMPHOCYTES # 0.4 10^3/ul (0.8-2.9); LYMPHOCYTES % 10.4 % (15.0-51.0); MEAN CORPUSCULAR HEMOGLOBIN 32.7 pg (29.0-33.0); MEAN CORPUSCULAR HGB CONC 32.9 g/dl (32.0-37.0); MEAN CORPUSCULAR VOLUME 99.5 fl (82.0-101.0); MEAN PLATELET VOLUME 10.8 fl (7.4-10.4); MONOCYTE # 1.2 10^3/ul (0.3-0.9); MONOCYTES % 32.4 % (0.0-11.0); NEUTROPHIL # 1.9 10^3/ul (1.6-7.5); NEUTROPHILS % 54.7 % (39.0-77.0); NUCLEATED RED BLOOD CELLS # 0.1 10^3/ul (0.0-0.0); NUCLEATED RED BLOOD CELLS% 3.7 /100WBC (0.0-0.0); PLATELET COUNT 82 10^3/UL (140-415); POSITIVE DIFF @See below; RED BLOOD COUNT 2.14 10^6/ul (4.70-6.10); RED CELL DISTRIBUTION WIDTH 20.2 % (11.5-14.5); WHITE BLOOD COUNT 3.6 10^3/ul (4.8-10.8)
[2017-01-20 08:03] LABS: CALCIUM 8.6 mg/dl (8.4-10.2); CREATININE 0.78 mg/dl (0.61-1.24); MAGNESIUM 1.6 mg/dl (1.7-2.5); PHOSPHORUS 3.6 mg/dl (2.5-4.9); POTASSIUM 3.9 mmol/L (3.5-5.1)
[2017-01-20] MEDS: INSULIN ASPART [NOVOLOG] 3 ML PEN SC SCH ×4 (08:41→20:43)
[2017-01-20] MEDS: INSULIN GLARGINE [LANtus] 3 ML PEN SC SCH (08:55)
[2017-01-20] MEDS: HYDROCODONE/APAP (5/325) TAB PO PRN (08:55)
[2017-01-20] MEDS: AMLODIPINE 10 MG TAB PO SCH (08:55)
[2017-01-20] MEDS: ALBUTEROL/IPRATROPIUM (NEB) 3 ML AMP HHN SCH ×6 (09:14→20:28)
[2017-01-20] MEDS ORDERED: SOD CHLORIDE 0.9% 250 ML IV* ONE (09:19)
--- NOTE | 2017-01-20 10:11 | PDOCDIS ---
Discharge Instructions CONDITION Patient Condition: Stable HOME CARE INSTRUCTIONS: Your diet recommendation is: Carbohydrate controlled, 2 g sodium diet FOLLOW UP/APPOINTMENTS Follow-up Plan 1. Follow-up with oncology/chemotherapy tomorrow. 2.Follow up with primary care physician in 1 week If you don't have one please let someone know, we can give you resources that may help you pick one. You may also call your insurance company to assign one to you. Review your medication list with your nurse before leaving and if you need new prescriptions please let your nurse know. I may have made changes to your home medications or given you new prescriptions, please let your primary doctor know as well. Stay compliant with your medications and report any side effects to your PCP or pharmacist. Return to the ER if you have any concerns and cannot reach your doctors or call your insurance company, they usually have a nurse that can help you. JEROME BASHIR NP Jan 20, 2017 10:10
--- NOTE | 2017-01-20 10:24 | DS ---
Date/Time of Note Date/Time of Note DATE: 01/20/17 TIME: 10:20 Discharge Summary Admission/Discharge Info Admit Date/Time Jan 19, 2017 at 23:18 Discharge Date/Time Discharge Diagnosis 1. Neutropenic fever. Resolved. 2. Leukemia/myelodysplastic syndrome, currently on chemotherapy. 3. Type II diabetes. 4. Hypertensive urgency, likely anxiety induced. Resolved 5. Dyslipidemia 6. Chemo induced pancytopenia. Stable 7. chronic low back pain 8. Otitis externa. On treatment Patient Condition: Stable Consults ,heme/onco ,ID Procedures 01/19/2070. CT angiography. Negative for pulmonary embolism. Hx of Present Illness Hospital Course This is a 46-year-old male with a past medical history of leukemia/ myelodysplastic syndrome, hypertension, dyslipidemia, type 2 diabetes, chronic back pain with degenerative disc disease, anxiety, who essentially got admitted to [facility] for evaluation of worsening generalized weakness with lightheadedness and dizziness which started after his chemo session. Patient did not have any other constitutional symptoms including fever , chills, cough, chest pain or other discomfort. Initial workup showed WBC 3500 , hemoglobin 8.4, and platelet 110. Patient also had elevated blood pressure 183/96. Chest x-ray and CT was negative. Patient's blood pressure was monitored closely and remained stable and was likely secondary to anxiety induced. He was resumed on his home medication for underlying other comorbidities. Patient was noted with persistent anemia requiring multiple units of blood. He was also noted to have neutropenic fever. Patient's presenting symptoms were most likely secondary to chemo induced pancytopenia with neutropenic fever. Patient was evaluated by oncology and ID specialist. Patient was continued on appropriate antibiotic regimen, neutropenic precaution and blood products and Neupogen administration. His blood counts remain stable after 1 dose of Neupogen and 3 units PRBC. He did not have any further weakness. Patient was evaluated by physical therapy and was able to participate in ADL. However, during the course of hospitalization, patient was noted to have uncomplicated otitis externa and was managed by ID team with antibiotics and ointment. He did have any further fever. Cultures negative for any acute infection. Patient was feeling back to his baseline. Patient did not require any antihypertensives. He was cleared for outpatient follow-up by ID and oncology eval. Disposition: Patient will be discharged home with outpatient oncology follow- up. Patient was given prescription for antibiotics and he verbalized discharge instructions. Condition at time of discharge is stable. Approximately 60 minutes was spent in coordinating the discharge on this patient. Case discussed with Isabella Meds Active Scripts Fluconazole* (Fluconazole*) 100 Mg Tablet, 100 MG PO DAILY for 7 Days, #7 TAB Prov:BASHIR,JEROME V. [employer] SOFTWARE DEVELOPER 01/23/17 Ciprofloxacin Hcl* (Ciprofloxacin Hcl*) 500 Mg Tablet, 500 MG PO BID for 7 Days , #14 TAB Prov:BASHIR,JEROME V. [employer] SOFTWARE DEVELOPER 01/23/17 Sulfamethoxazole/Trimethoprim* (Bactrim Ds* Tablet) 1 Each Tablet, 1 TAB PO BID for 7 Days, #14 TAB Prov:BASHIR,JEROME V. [employer] SOFTWARE DEVELOPER 01/23/17 Neomy Sulf/Polymyx B Sulf/Hc (Antibiotic Ear Suspension) 10 Ml Drops.susp, 4 DROP LEFT EAR TID for 7 Days, #1 Prov:BASHIR,JEROME V. [employer] SOFTWARE DEVELOPER 01/23/17 Amlodipine Besylate* (Amlodipine Besylate*) 10 Mg Tablet, 10 MG PO DAILY for 30 Days, TAB Prov:ARASH ARRIAGA 02/07/16 Reported Medications Glyburide* (Glyburide*) 5 Mg Tablet, 5 MG PO WITH BREAKFAST DINNE, #60 TAB 01/19/17 Trazodone Hcl* (Trazodone Hcl*) 50 Mg Tablet, 25 MG PO QHS for INSOMNIA, #30 TAB 11/12/16 Insulin Lispro (Humalog Kwikpen) 200 Unit/1 Ml Insuln.pen, 3 UNIT SQ TID, EA INJECT 3units BY SUBCUTANEOUS ROUTE 3 TIMES EVERYDAY NEEDED FOR BG>120 10/21/16 Mirtazapine* (Mirtazapine*) 30 Mg Tablet, 30 MG PO HS, TAB 09/09/16 Metformin* (Glucophage*) 1,000 Mg Tablet, 1000 MG PO BID, #60 TAB 02/02/16 Discontinued Reported Medications Ibuprofen* (Ibuprofen*) 600 Mg Tablet, 600 MG PO Q8, TAB TAKE 1 TABLET PO THREE TIMES EVERYDAY WITH FOOD 11/12/16 Ferrous Sulfate* (Ferrous Sulfate*) 325 Mg Tabec, 325 MG PO BID, TAB 11/12/16 Alprazolam* (Alprazolam*) 0.5 Mg Tablet, 0.5 MG PO DAILY Y for ANXIETY, TAB 11/12/16 Ergocalciferol (Vitamin D2) (VITAMIN D2) 50,000 Unit Capsule, 28591 UNIT PO QWEEK, CAP 11/12/16 Tramadol Hcl* (Ultram*) 50 Mg Tablet, 50 MG PO Q6H Y for PAIN, TAB 10/21/16 Gemfibrozil* (Lopid*) 600 Mg Tablet, 600 MG PO BID, TAB 02/02/16 Discontinued Scripts Cephalexin* (Cephalexin*) 500 Mg Capsule, 500 MG PO TID, #15 CAP Prov:JADEN TRACEY MD 11/21/16 Docusate Sodium (Dok) 100 Mg Capsule, 100 MG PO Q12H Y for CONSTIPATION, #30 CAP Prov:KEVIN BARNHART MD 10/28/16 Famotidine* (Famotidine*) 20 Mg Tablet, 20 MG PO DAILY, #30 TAB Prov:KEVIN BARNHART MD 10/28/16 Follow-up Plan Patient Condition: Stable HOME CARE INSTRUCTIONS: Your diet recommendation is: Carbohydrate controlled, 2 g sodium diet FOLLOW UP/APPOINTMENTS Follow-up Plan 1. Follow-up with oncology/chemotherapy tomorrow. 2.Follow up with primary care physician in 1 week If you don't have one please let someone know, we can give you resources that may help you pick one. You may also call your insurance company to assign one to you. Review your medication list with your nurse before leaving and if you need new prescriptions please let your nurse know. I may have made changes to your home medications or given you new prescriptions, please let your primary doctor know as well. Stay compliant with your medications and report any side effects to your PCP or pharmacist. Return to the ER if you have any concerns and cannot reach your doctors or call your insurance company, they usually have a nurse that can help you. 3. Call 911 or go to the nearest emergency room if experiencing loss of consciousness, dizziness, chest pain, shortness of breath, vomiting/abdominal pain, speech difficulties, motor weakness or any unusual symptoms. Primary Care Provider Justina Mendiola Pending Labs Laboratory Tests Test 01/19/17 20:35 01/19/17 23:10 01/19/17 23:17 01/20/17 06:55 White Blood Count 3.510^3/ul (4.8-10.8) 3.610^3/ul (4.8-10.8) Red Blood Count 2.5410^6/ul (4.70-6.10) 2.1410^6/ul (4.70-6.10) Hemoglobin 8.4g/dl (14.0-18.0) 7.0g/dl (14.0-18.0) Hematocrit 25.2% (42.0-52.0) 21.3% (42.0-52.0) Mean Corpuscular Volume 99.2fl (82.0-101.0) 99.5fl (82.0-101.0) Mean Corpuscular Hemoglobin 33.1pg (29.0-33.0) 32.7pg (29.0-33.0) Mean Corpuscular Hemoglobin Concent 33.3g/dl (32.0-37.0) 32.9g/dl (32.0-37.0) Red Cell Distribution Width 20.5% (11.5-14.5) 20.2% (11.5-14.5) Platelet Count 07254^3/UL (140-415) 8210^3/UL (140-415) Mean Platelet Volume 10.2fl (7.4-10.4) 10.8fl (7.4-10.4) Neutrophils % 46.0% (39.0-77.0) 54.7% (39.0-77.0) Lymphocytes % 26.0% (15.0-51.0) 10.4% (15.0-51.0) Monocytes % 28.0% (0.0-11.0) 32.4% (0.0-11.0) Nucleated Red Blood Cells % 12% (0-0) 3.7/100WBC (0.0-0.0) Neutrophils # 1.610^3/ul (1.6-7.5) 1.910^3/ul (1.6-7.5) Lymphocytes # 0.910^3/ul (0.8-2.9) 0.410^3/ul (0.8-2.9) Monocytes # 1.010^3/ul (0.3-0.9) 1.210^3/ul (0.3-0.9) Polychromasia FEW (0-0) Macrocytosis 1+ (0-0) Sodium Level 143mmol/L (135-144) 140mmol/L (135-144) Potassium Level 3.9mmol/L (3.5-5.1) 3.9mmol/L (3.5-5.1) Chloride Level 102mmol/L (97-110) 103mmol/L (97-110) Carbon Dioxide Level 24mmol/L (21-31) 24mmol/L (21-31) Anion Gap 21 (8-16) 17 (8-16) Blood Urea Nitrogen 13mg/dl (7-20) 11mg/dl (7-20) Creatinine 0.80mg/dl (0.61-1.24) 0.78mg/dl (0.61-1.24) Glucose Level 180mg/dl (70-220) 195mg/dl (70-220) Lactic Acid Level 1.7mmol/L (0.5-2.0) Calcium Level 9.5mg/dl (8.4-10.2) 8.6mg/dl (8.4-10.2) Total Bilirubin 1.0mg/dl (0.2-1.3) Direct Bilirubin 0.00mg/dl (0.00-0.20) Indirect Bilirubin 1.0mg/dl (0-1.1) Aspartate Amino Transf (AST/SGOT) 26IU/L (15-46) Alanine Aminotransferase (ALT/SGPT) 42IU/L (13-69) Alkaline Phosphatase 80IU/L (42-121) Troponin I < 0.012ng/ml (0.00-0.12) Total Protein 8.0g/dl (6.1-8.1) Albumin 4.9g/dl (3.3-4.9) Globulin 3.10g/dl (1.3-3.2) Albumin/Globulin Ratio 1.58 Amylase Level 68U/L (11-123) Lipase 285U/L (23-300) Urine Color YELLOW (YELLOW) Urine Clarity CLEAR (CLEAR) Urine pH 5.0 (5.0-9.0) Urine Specific [place] 1.030 (1.003-1.030) Urine Ketones NEGATIVEmg/dL (NEGATIVE) Urine Nitrite NEGATIVEmg/dL (NEGATIVE) Urine Bilirubin NEGATIVEmg/dL (NEGATIVE) Urine Urobilinogen NEGATIVEmg/dL (NEGATIVE) Urine Leukocyte Esterase NEGATIVELeu/ul (NEGATIVE) Urine Hemoglobin NEGATIVEmg/dL (NEGATIVE) Urine Glucose 1+mg/dL (NEGATIVE) Urine Total Protein NEGATIVEmg/dl (NEGATIVE) Bedside Urine pH (LAB) 5.5 (5.0-8.5) Bedside Urine Protein (LAB) Trace (NEGATIVE) Bedside Urine Glucose (UA) 0.1% (NEGATIVE) Bedside Urine Ketones (LAB) Negative (NEGATIVE) Bedside Urine Blood Negative (NEGATIVE) Bedside Urine Nitrite (LAB) Negative (NEGATIVE) Bedside Urine Leukocyte Esterase (L Negative (NEGATIVE) Eosinophils % 0.0% (0.0-7.0) Basophils % 0.0% (0.0-2.0) Eosinophils # 0.010^3/ul (0.0-0.5) Basophils # 0.010^3/ul (0.0-0.1) Nucleated Red Blood Cells # 0.110^3/ul (0.0-0.0) Hemoglobin A1c 6.0% (0-5.9) Phosphorus Level 3.6mg/dl (2.5-4.9) Magnesium Level 1.6mg/dl (1.7-2.5) Test 01/20/17 08:39 Bedside Glucose 199mg/dL (70-220) JEROME BASHIR NP Jan 20, 2017 10:24
[2017-01-20] MEDS ORDERED: MAGNESIUM SULFATE 1 GM/D5W 100 ML IVPB ONE (10:30)
--- NOTE | 2017-01-20 15:44 | QN ---
Documentation Comment Call received from nurse indicating that patient has sustained fever 102.8 despite antipyretics and cooling measures. He is also feeling weaker now. Blood transfusion is pending. Rule out neutropenic fever. Keep patient in house for oncology and infectious disease consult for further recommendations.At this time cultures are pending. We will also give cefepime and vancomycin and will have IV recommended on antibiotic. Case discussed with . JEROME BASHIR NP Jan 20, 2017 15:44
[2017-01-20] MEDS ORDERED: VANCOMYCIN 1 GM (PMX) 250 ML IVPB ONE (16:00)
--- NOTE | 2017-01-20 16:01 | CONS ---
Date/Time of Note Date/Time of Note DATE: 01/20/17 TIME: 15:57 Consultation Date/Type/Reason Admit Date/Time Jan 19, 2017 at 23:18 Date of Consultation: Jan 20, 2017 Type of Consultation: ID Reason for Consultation Antibiotic management.Pt. is febrile,s/p chemotherapy for leukemia. Started on Vanco and Cefepime. Await cultures. Past Medical History Medical History: diabetes, high cholesterol, hypertension, other (Leukemia) Past Surgical History Past Surgical Hx: other Social History Alcohol Use: none Smoking Status: Never smoker Drug Use: none Exam/Review of Systems Vital Signs Vitals Vital Signs Date Time Temp Pulse Resp B/P Pulse Ox O2 Delivery O2 Flow Rate FiO2 01/20/17 15:29 102.8 128 18 116/59 98 01/20/17 09:14 21 01/20/17 02:03 Room Air Intake and Output 01/19/17 01/19/17 01/20/17 15:00 23:00 07:00 Intake Total 400 ml Output Total 350 ml Balance 50 ml Results Result Diagram: 01/20/17 0655 01/20/17 0655 Results 24 hrs Laboratory Tests Test 01/19/17 20:35 01/19/17 23:10 01/19/17 23:17 01/20/17 06:55 White Blood Count 3.5 #L 3.6 L Red Blood Count 2.54 L 2.14 L Hemoglobin 8.4 L 7.0 L Hematocrit 25.2 L 21.3 L Mean Corpuscular Volume 99.2 99.5 Mean Corpuscular Hemoglobin 33.1 H 32.7 Mean Corpuscular Hemoglobin Concent 33.3 32.9 Red Cell Distribution Width 20.5 H 20.2 H Platelet Count 110 L 82 #L Mean Platelet Volume 10.2 10.8 H Neutrophils % 46.0 54.7 Lymphocytes % 26.0 10.4 L Monocytes % 28.0 H 32.4 H Nucleated Red Blood Cells % 12 H 3.7 H Neutrophils # 1.6 1.9 Lymphocytes # 0.9 0.4 L Monocytes # 1.0 H 1.2 H Polychromasia FEW Macrocytosis 1+ Sodium Level 143 140 Potassium Level 3.9 3.9 Chloride Level 102 103 Carbon Dioxide Level 24 24 Anion Gap 21 H 17 H Blood Urea Nitrogen 13 11 Creatinine 0.80 0.78 Glucose Level 180 195 Lactic Acid Level 1.7 Calcium Level 9.5 8.6 Total Bilirubin 1.0 Direct Bilirubin 0.00 Indirect Bilirubin 1.0 Aspartate Amino Transf (AST/SGOT) 26 Alanine Aminotransferase (ALT/SGPT) 42 Alkaline Phosphatase 80 Troponin I < 0.012 Total Protein 8.0 Albumin 4.9 Globulin 3.10 Albumin/Globulin Ratio 1.58 Amylase Level 68 Lipase 285 Urine Color YELLOW Urine Clarity CLEAR Urine pH 5.0 Urine Specific [place] 1.030 Urine Ketones NEGATIVE Urine Nitrite NEGATIVE Urine Bilirubin NEGATIVE Urine Urobilinogen NEGATIVE Urine Leukocyte Esterase NEGATIVE Urine Hemoglobin NEGATIVE Urine Glucose 1+ H Urine Total Protein NEGATIVE Bedside Urine pH (LAB) 5.5 Bedside Urine Protein (LAB) Trace H Bedside Urine Glucose (UA) 0.1% H Bedside Urine Ketones (LAB) Negative Bedside Urine Blood Negative Bedside Urine Nitrite (LAB) Negative Bedside Urine Leukocyte Esterase (L Negative Eosinophils % 0.0 Basophils % 0.0 Eosinophils # 0.0 Basophils # 0.0 Nucleated Red Blood Cells # 0.1 H Hemoglobin A1c 6.0 H Phosphorus Level 3.6 Magnesium Level 1.6 L Test 01/20/17 08:39 01/20/17 11:49 Bedside Glucose 199 236 H Medications Medications Current Medications Amlodipine Besylate (Norvasc) 10 mg DAILY PO Last administered on 01/20/17 08: 55; Admin Dose 10 MG; Start 01/20/17 at 09:00 Mirtazapine (Remeron) 30 mg HS PO ; Start 01/20/17 at 21:00 Trazodone HCl (Desyrel) 25 mg QHS PO ; Start 01/20/17 at 21:00 Insulin Glargine (Lantus) 10 unit DAILY@08 SC Last administered on 01/20/17 08: 55; Admin Dose 10 UNIT; Start 01/20/17 at 08:00 Diagnostic Test (Pha) (Accu-Chek) 1 ea 02 XX ; Start 01/21/17 at 02:00 Diagnostic Test (Pha) (Accu-Chek) ea 02 XX ; Start 01/21/17 at 02:00 Morphine Sulfate (morphine) 4 mg Q4H PRN IV SEVERE PAIN Last administered on 11:44; Admin Dose 4 MG; Start 01/20/17 at 03:30 Acetaminophen/ Hydrocodone Bitart ([place] (5/325)) 1 tab Q4H PRN PO moderate pain Last administered on 01/20/17 08:55; Admin Dose 1 TAB; Start 01/20/17 at 04: 30 Ondansetron HCl (Zofran Inj) 4 mg Q6H PRN IV NAUSEA AND/OR VOMITING; Start 01/20 at 04:30 Acetaminophen (Tylenol Tab) 650 mg Q6H PRN PO PAIN AND OR ELEVATED TEMP Last administered on 01/20/17 04:38; Admin Dose 650 MG; Start 01/20/17 at 04:30 Miscellaneous Information 1 ea NOTE XX ; Start 01/20/17 at 04:30 Glucose (Glutose) 15 gm Q15M PRN PO DECREASED GLUCOSE; Start 01/20/17 at 04:30 Glucose (Glutose) 22.5 gm Q15M PRN PO DECREASED GLUCOSE; Start 01/20/17 at 04:30 Dextrose (D50w Syringe) 25 ml Q15M PRN IV DECREASED GLUCOSE; Start 01/20/17 at 04:30 Dextrose (D50w Syringe) 50 ml Q15M PRN IV DECREASED GLUCOSE; Start 01/20/17 at 04:30 Glucagon (Glucagen) 1 mg Q15M PRN IM DECREASED GLUCOSE; Start 01/20/17 at 04:30 Glucose (Glutose) 15 gm Q15M PRN BUCCAL DECREASED GLUCOSE; Start 01/20/17 at 04: 30 Hydralazine HCl 10 mg 10 mg Q4H PRN IV SBP > 160; Start 01/20/17 at 06:30 Vancomycin HCl 250 ml @ 125 mls/hr ONCE ONCE IVPB ; Start 01/20/17 at 16:00; Stop 01/20/17 at 17:59 Cefepime HCl (Maxipime 1gm/50 ml (Pmx)) 50 ml @ 100 mls/hr Q12H IVPB ; Start at 18:00 RODOLFO TEAGUE MD Jan 20, 2017 16:01
[2017-01-20] MEDS ORDERED: VANCOMYCIN IV PER PHARMACY XX SCH (18:00)
[2017-01-20] MEDS: CEFEPIME 1GM/50 ML (PMX) 50 ML IVPB SCH (18:57)
[2017-01-20] MEDS ORDERED: VANCOMYCIN 500MG/NS (PMX) 100 ML IVPB SCH (20:00)
[2017-01-20] MEDS: MIRTAZAPINE 15 MG TAB PO SCH (20:37)
[2017-01-20] MEDS: traZODone 50 MG TAB PO SCH (20:38)
--- NOTE | 2017-01-20 21:14 | CONS ---
Date/Time of Note Date/Time of Note DATE: 01/20/17 TIME: 21:14 Assessment/Plan Assessment/Plan Chief Complaint/Hosp Course Leukemia/myelodysplastic syndrome, currently on chemotherapy. -We will notify his oncologist, Dr. Lee obtain and review old record Pancytopenia: chemotherapy induced , ? mds contribution monitor and transfuse PRBC and platelet as needed. Neupogen as needed. Generalized weakness and pain from his leukemia as well as chemo-induced and from anemia. We will monitor for now. He will have a physical therapy evaluation. Pain medications as needed Reported Gross hematuria: Urinalysis actually shows no blood. Monitor for now. We will monitor closely and transfuse as needed Diabetes. Insulin while in-house Hypertensive urgency: Blood pressure better controlled Adjust antihypertensives as needed Dyslipidemia: Continue meds 7. SOB M B PARTIALLY TO ANEMIA Chest x-ray showed persistent pleural parenchymal scarring at the left lung base resulting in blunting of the left costophrenic angle and persistent reticular scarring seen within the right upper lobe with no alveolar infiltrate. CTPA was negative for PE. breathing treatments and oxygen as needed. Note that the patient was never hypoxic and in fact when presented presented to ER oxygen saturation was 100% on room air chronic low back pain Recent lumbar x-ray and MRI without alarming findings Pain medications as needed Problems: Consultation Date/Type/Reason Admit Date/Time Jan 19, 2017 at 23:18 Date of Consultation: Jan 20, 2017 Type of Consultation: [facility] Reason for Consultation LEUKEMIA Referring Provider: JEROME BASHIR NP Hx of Present Illness This is a 46-year-old male with a history of Leukemia/myelodysplastic syndrome, hypertension, diabetes, dyslipidemia, anxiety, chronic back pain secondary to degenerative disease who presented to the emergency department complaining of generalized weakness, dizziness/lightheadedness. He said he had his chemo today and afterwords he felt more weaker than usual and was experiencing dizziness. He said he was in [place] about a week ago and ever since he came back he has been experiencing intermittent shortness of breath. He denied fever /chills, cough, chest pain. Patient was admitted to [facility] about a couple months ago after he initially presented with a generalized weakness and acute on chronic back pain. At that time, he was pancytopenic and Lumbar MRI Mild discogenic disease L3-4 and L4-5 with no no fracture or stenosis. When he presented to the ER this time his WBC is 3.5, hemoglobin 8.4 and a platelet count 110. Blood pressure 183/96 with a heart rate of 126, oxygen saturation 100% on room air. Urinalysis shows no blood. Chest x-ray showed Persistent pleural parenchymal scarring at the left lung base resulting in blunting of the left costophrenic angle and persistent reticular scarring seen within the right upper lobe with no alveolar infiltrate identified. The heart remains upper normal in size with the pulmonary vasculature unremarkable. CT pulmonary angiogram showed Mildly enlarged cardiac silhouette, Splenomegaly and Moderate chronic-appearing T6 compression fracture. PT'S MEDICAL W-UP AND TREATMENT ARE IN PROGRESS I WAS ASKED TO PROVIDE [facility] CONSULT PT DOESN'T REMEMBER THE NAME OF HIS ONCOLOGIST PER PREVIOUS MR- The patient is a patient of Dr. Lee's with MDS and is on Vidaza, recently admitted for neutropenic fever and sepsis. Per Dr. Lee's notes, patient has a diagnosis of MDS with 3-4% myeloblasts, no excess blasts, on Vidaza x multiple cycles PMH/Family/Social Past Medical History Medical History: diabetes, high cholesterol, hypertension, other (Leukemia) Past Surgical History Past Surgical Hx: other Social History Alcohol Use: none Smoking Status: Never smoker Drug Use: none Past Medical History Medical History: diabetes, high cholesterol, hypertension, other (Leukemia) Past Surgical History Past Surgical Hx: other Social History Alcohol Use: none Smoking Status: Never smoker Drug Use: none Exam/Review of Systems Vital Signs Vitals Vital Signs Date Time Temp Pulse Resp B/P Pulse Ox O2 Delivery O2 Flow Rate FiO2 01/20/17 20:46 114 01/20/17 20:28 20 98 21 01/20/17 20:00 99.8 110/62 01/20/17 02:03 Room Air Intake and Output 01/19/17 01/19/17 01/20/17 15:00 23:00 07:00 Intake Total 400 ml Output Total 350 ml Balance 50 ml Exam GENERAL: No acute distress. Answering questions appropriately and is alert and oriented x4. HEENT: No obvious head deformity. Pupils are reactive. Extraocular muscles intact. CARDIOVASCULAR: Tachycardic with regular rhythm. LUNGS: Clear. ABDOMEN: Soft, nontender, nondistended. Positive bowel sounds. EXTREMITIES: No edema. NEUROLOGIC: No focal deficits. Results Result Diagram: 01/20/17 0655 01/20/17 0655 Results 24 hrs Laboratory Tests Test 01/19/17 23:10 01/19/17 23:17 01/20/17 06:55 01/20/17 08:39 Urine Color YELLOW Urine Clarity CLEAR Urine pH 5.0 Urine Specific [place] 1.030 Urine Ketones NEGATIVE Urine Nitrite NEGATIVE Urine Bilirubin NEGATIVE Urine Urobilinogen NEGATIVE Urine Leukocyte Esterase NEGATIVE Urine Hemoglobin NEGATIVE Urine Glucose 1+ H Urine Total Protein NEGATIVE Bedside Urine pH (LAB) 5.5 Bedside Urine Protein (LAB) Trace H Bedside Urine Glucose (UA) 0.1% H Bedside Urine Ketones (LAB) Negative Bedside Urine Blood Negative Bedside Urine Nitrite (LAB) Negative Bedside Urine Leukocyte Esterase (L Negative White Blood Count 3.6 L Red Blood Count 2.14 L Hemoglobin 7.0 L Hematocrit 21.3 L Mean Corpuscular Volume 99.5 Mean Corpuscular Hemoglobin 32.7 Mean Corpuscular Hemoglobin Concent 32.9 Red Cell Distribution Width 20.2 H Platelet Count 82 #L Mean Platelet Volume 10.8 H Neutrophils % 54.7 Lymphocytes % 10.4 L Monocytes % 32.4 H Eosinophils % 0.0 Basophils % 0.0 Nucleated Red Blood Cells % 3.7 H Neutrophils # 1.9 Lymphocytes # 0.4 L Monocytes # 1.2 H Eosinophils # 0.0 Basophils # 0.0 Nucleated Red Blood Cells # 0.1 H Sodium Level 140 Potassium Level 3.9 Chloride Level 103 Carbon Dioxide Level 24 Anion Gap 17 H Blood Urea Nitrogen 11 Creatinine 0.78 Glucose Level 195 Hemoglobin A1c 6.0 H Calcium Level 8.6 Phosphorus Level 3.6 Magnesium Level 1.6 L Bedside Glucose 199 Test 01/20/17 11:49 01/20/17 17:07 01/20/17 20:29 Bedside Glucose 236 H 161 188 Medications Medications Current Medications Amlodipine Besylate (Norvasc) 10 mg DAILY PO Last administered on 01/20/17 08: 55; Admin Dose 10 MG; Start 01/20/17 at 09:00 Mirtazapine (Remeron) 30 mg HS PO Last administered on 01/20/17 20:37; Admin Dose 30 MG; Start 01/20/17 at 21:00 Trazodone HCl (Desyrel) 25 mg QHS PO Last administered on 01/20/17 20:38; Admin Dose 25 MG; Start 01/20/17 at 21:00 Insulin Glargine (Lantus) 10 unit DAILY@08 SC Last administered on 01/20/17 08: 55; Admin Dose 10 UNIT; Start 01/20/17 at 08:00 Diagnostic Test (Pha) (Accu-Chek) 1 ea 02 XX ; Start 01/21/17 at 02:00 Diagnostic Test (Pha) (Accu-Chek) 1 ea 02 XX ; Start 01/21/17 at 02:00 Morphine Sulfate (morphine) 4 mg Q4H PRN IV SEVERE PAIN Last administered on 17:54; Admin Dose 4 MG; Start 01/20/17 at 03:30 Acetaminophen/ Hydrocodone Bitart ([place] (5/325)) 1 tab Q4H PRN PO moderate pain Last administered on 01/20/17 08:55; Admin Dose 1 TAB; Start 01/20/17 at 04: 30 Ondansetron HCl (Zofran Inj) 4 mg Q6H PRN IV NAUSEA AND/OR VOMITING; Start 01/20 at 04:30 Acetaminophen (Tylenol Tab) 650 mg Q6H PRN PO PAIN AND OR ELEVATED TEMP Last administered on 01/20/17 17:05; Admin Dose 650 MG; Start 01/20/17 at 04:30 Miscellaneous Information 1 ea NOTE XX ; Start 01/20/17 at 04:30 Glucose (Glutose) 15 gm Q15M PRN PO DECREASED GLUCOSE; Start 01/20/17 at 04:30 Glucose (Glutose) 22.5 gm Q15M PRN PO DECREASED GLUCOSE; Start 01/20/17 at 04:30 Dextrose (D50w Syringe) 25 ml Q15M PRN IV DECREASED GLUCOSE; Start 01/20/17 at 04:30 Dextrose (D50w Syringe) 50 ml Q15M PRN IV DECREASED GLUCOSE; Start 01/20/17 at 04:30 Glucagon (Glucagen) 1 mg Q15M PRN IM DECREASED GLUCOSE; Start 01/20/17 at 04:30 Glucose (Glutose) 15 gm Q15M PRN BUCCAL DECREASED GLUCOSE; Start 01/20/17 at 04: 30 Hydralazine HCl 10 mg 10 mg Q4H PRN IV SBP > 160; Start 01/20/17 at 06:30 Cefepime HCl (Maxipime 1gm/50 ml (Pmx)) 50 ml @ 100 mls/hr Q12H IVPB Last administered on 01/20/17 18:57; Admin Dose 100 MLS/HR; Start 01/20/17 at 18:00 Vancomycin HCl PER PHARMACY DOSING NOTE XX ; Start 01/20/17 at 18:00 Vancomycin HCl 100 ml @ 100 mls/hr ONCE IVPB Last administered on 01/20/17 20: 37; Admin Dose 100 MLS/HR; Start 01/20/17 at 20:00; Stop 01/20/17 at 23:59 Vancomycin HCl/ Sodium Chloride (Vancocin/NS) 250 ml @ 83.333 mls/ hr Q12H IVPB ; Start 01/21/17 at 08:00 ILA CHEN MD Jan 20, 2017 21:14
[2017-01-21] VITALS (10 sets, daily range): BP systolic 112–141; BP diastolic 59–74; PULSE 92–128; RESP 18–20
[2017-01-21] MEDS: ACETAMINOPHEN 325 MG TAB PO PRN ×3 (00:37→22:14)
[2017-01-21] MEDS: ALBUTEROL/IPRATROPIUM (NEB) 3 ML AMP HHN SCH ×6 (00:45→20:47)
[2017-01-21] MEDS ORDERED: DIPHENHYDRAMINE 25 MG CAP PO ONE ×2 (01:00→22:30)
[2017-01-21] MEDS ORDERED: IBUPROFEN 200 MG TAB PO ONE (01:00)
[2017-01-21] MEDS: ACCU-CHEK XX SCH ×2 (02:45)
[2017-01-21] MEDS: CEFEPIME 1GM/50 ML (PMX) 50 ML IVPB SCH ×2 (06:00→18:22)
--- NOTE | 2017-01-21 06:08 | CONS ---
DATE OF ADMISSION: 01/19/2017 DATE OF CONSULTATION: 01/20/2017 REASON FOR CONSULTATION: Antibiotic management. The patient is a pleasant 46-year-old, male, with a chief diagnosis of leukemia/lymphoma/myelodysplastic syndrome. He comes in following chemotherapy with generalized weakness and pain and is being seen for antibiotic management. PAST PROBLEMS: 1. Leukemia/myelodysplastic syndrome. 2. Hypertension. 3. Adult-onset diabetes mellitus. 4. Dyslipidemia. 5. Anxiety. 6. Chronic back pain secondary to degenerative joint disease. HISTORY OF PRESENT ILLNESS: The patient comes in complaining of generalized weakness, dizziness and lightheadedness. He had chemotherapy recently and felt weaker than usual. He was in [place] about a week ago and since he has come back he has experienced increasing shortness of breath. He denied fever and chills on admission, but currently has a temperature of up to 102.8. DIAGNOSTIC DATA: Chest x-ray showed persistent pleural- parenchymal scarring at the left lung base resulting in blunting of left costophrenic angle and persistent reticular scarring seen within the right upper lobe with no alveolar infiltrate identified. Heart remains in the upper normal in size with pulmonary vasculature unremarkable. A CT pulmonary angiogram showed mildly enlarged cardiac silhouette, splenomegaly and moderate chronic appearing T6 compression fracture. LABORATORY: This, in the emergency room on admission, his white count was 3.5, H and H of 8.4 and 25.2, and platelet count of 110,000. Today's white count is 3.6, BUN and creatinine is 11/0.78. Urine is negative for leukocyte esterase, 1 plus glucose. Microbiology, urine is negative. He had blood cultures drawn, so far they are negative. The patient was just begun on vancomycin and cefepime. PAST MEDICAL HISTORY: Operations none. Diabetes, hypercholesterolemia and hypertension. ALLERGIES: NONE TO PENICILLIN, SULFA, OR FOODS. MEDICATION: Per chart. REVIEW OF SYSTEMS: As per HPI. PHYSICAL EXAMINATION: GENERAL APPEARANCE: The patient is a pleasant, obese male, who is alert, responsive, no acute distress. VITAL SIGNS: Stable. He is afebrile. SKIN: Without generalized rash. HEENT: Within normal limits. NECK: Supple. Lymph nodes nonpalpable. CHEST: Decreased breath sounds at the bases. HEART: Without murmur or gallop. ABDOMEN: Soft, nontender, nondistended, without organosplenomegaly or masses. EXTREMITIES: Without cyanosis, clubbing, or edema. RECTAL: Deferred. NEUROLOGICAL: No focal neurological abnormalities. IMPRESSION: The patient is not currently pancytopenic, but he is febrile. Source is most likely his lungs. Certainly the urine is possible, but with the negative urinalysis I doubt it. It could be related to just febrile neutropenia, although as I mentioned, he is not classically or absolutely neutropenic. His white count is 3.6, with 55 percent neutrophils, he is not absolutely neutropenic. We will look for source of sepsis. I will dictate my findings to the hospitalist. Dictated By: Zack Yang MD JD/lj/amalia /Document#: [id number]
--- NOTE | 2017-01-21 07:49 | CONS ---
Date/Time of Note Date/Time of Note DATE: 01/21/17 TIME: 07:46 Assessment/Plan Assessment/Plan Additional Assessment/Plan Will discontinue Dayton continue with as needed doses of morphine intravenously. Switch to oral Dilaudid for moderate pain, institute bowel regimen, hold on Relistor. Consultation Date/Type/Reason Admit Date/Time Jan 19, 2017 at 23:18 Date of Consultation: Jan 21, 2017 Hx of Present Illness 46-year-old man with a history of leukemia or myelodysplastic disorder multiple comorbid medical problems including hypertension last chemotherapy was on the day of admission. Presents presents with increasing asthenia nausea shortness of breath is patient states that his pain began to accelerate in "all bones "associated with other symptoms as noted above. Describes his pain is generalized, achy rated 10/10 with pain control medication since admit he feels better. He has used Dayton since hospitalization but states that he has been experiencing nausea and states the Dayton is only minimally effective. At home he uses only Motrin. Pain affects his physical function and overall found. Currently denies pruritus mental cloudiness drowsiness. Other issues related to past alcohol drug abuse are not indicated in this gentleman who has a diagnosed malignant, there is no past medical history of excessive opioid ingestion. Past Medical History Medical History: diabetes, high cholesterol, hypertension, other (Leukemia) Past Surgical History Past Surgical Hx: other Social History Alcohol Use: none Smoking Status: Never smoker Drug Use: none Exam/Review of Systems Vital Signs Vitals Vital Signs Date Time Temp Pulse Resp B/P Pulse Ox O2 Delivery O2 Flow Rate FiO2 01/21/17 07:23 98.6 91 19 112/59 99 01/20/17 20:28 21 01/20/17 02:03 Room Air Intake and Output 01/20/17 01/20/17 01/21/17 15:00 23:00 07:00 Intake Total 400 ml 400 ml Output Total 650 ml 850 ml Balance -250 ml -450 ml Exam Constitutional: alert, oriented, well developed Head: atraumatic, normocephalic ENMT: nl external ears & nose, nl lips & teeth, nl nasal mucosa & septum Neck: non-tender, supple Respiratory: clear to auscultation, normal air movement Cardiovascular: nl pulses, regular rate and rhythm Gastrointestinal: nl liver, spleen, non-tender, soft Musculoskeletal: nl extremities to inspection, nl gait and stance Results Result Diagram: 01/20/17 0655 01/20/17 0655 Results 24 hrs Laboratory Tests Test 01/20/17 08:39 01/20/17 11:49 01/20/17 17:07 01/20/17 20:29 Bedside Glucose 199 236 H 161 188 Test 01/21/17 01:48 Bedside Glucose 207 Medications Medications Current Medications Amlodipine Besylate (Norvasc) 10 mg DAILY PO Last administered on 01/20/17 08: 55; Admin Dose 10 MG; Start 01/20/17 at 09:00 Mirtazapine (Remeron) 30 mg HS PO Last administered on 01/20/17 20:37; Admin Dose 30 MG; Start 01/20/17 at 21:00 Trazodone HCl (Desyrel) 25 mg QHS PO Last administered on 01/20/17 20:38; Admin Dose 25 MG; Start 01/20/17 at 21:00 Insulin Glargine (Lantus) 10 unit DAILY@08 SC Last administered on 01/20/17 08: 55; Admin Dose 10 UNIT; Start 01/20/17 at 08:00 Diagnostic Test (Pha) (Accu-Chek) 1 ea 02 XX Last administered on 01/21/17 02: 45; Admin Dose 1 EA; Start 01/21/17 at 02:00 Diagnostic Test (Pha) (Accu-Chek) 1 ea 02 XX Last administered on 01/21/17 02: 45; Admin Dose 1 EA; Start 01/21/17 at 02:00 Morphine Sulfate (morphine) 4 mg Q4H PRN IV SEVERE PAIN Last administered on 17:54; Admin Dose 4 MG; Start 01/20/17 at 03:30 Acetaminophen/ Hydrocodone Bitart ([place] (5/325)) 1 tab Q4H PRN PO moderate pain Last administered on 01/20/17 08:55; Admin Dose 1 TAB; Start 01/20/17 at 04: 30 Ondansetron HCl (Zofran Inj) 4 mg Q6H PRN IV NAUSEA AND/OR VOMITING; Start 01/20 at 04:30 Acetaminophen (Tylenol Tab) 650 mg Q6H PRN PO PAIN AND OR ELEVATED TEMP Last administered on 01/21/17 00:37; Admin Dose 650 MG; Start 01/20/17 at 04:30 Miscellaneous Information 1 ea NOTE XX ; Start 01/20/17 at 04:30 Glucose (Glutose) 15 gm Q15M PRN PO DECREASED GLUCOSE; Start 01/20/17 at 04:30 Glucose (Glutose) 22.5 gm Q15M PRN PO DECREASED GLUCOSE; Start 01/20/17 at 04:30 Dextrose (D50w Syringe) 25 ml Q15M PRN IV DECREASED GLUCOSE; Start 01/20/17 at 04:30 Dextrose (D50w Syringe) 50 ml Q15M PRN IV DECREASED GLUCOSE; Start 01/20/17 at 04:30 Glucagon (Glucagen) 1 mg Q15M PRN IM DECREASED GLUCOSE; Start 01/20/17 at 04:30 Glucose (Glutose) 15 gm Q15M PRN BUCCAL DECREASED GLUCOSE; Start 01/20/17 at 04: 30 Hydralazine HCl 10 mg 10 mg Q4H PRN IV SBP > 160; Start 01/20/17 at 06:30 Cefepime HCl (Maxipime 1gm/50 ml (Pmx)) 50 ml @ 100 mls/hr Q12H IVPB Last administered on 01/20/17 18:57; Admin Dose 100 MLS/HR; Start 01/20/17 at 18:00 Vancomycin HCl PER PHARMACY DOSING NOTE XX ; Start 01/20/17 at 18:00 Vancomycin HCl/ Sodium Chloride (Vancocin/NS) 250 ml @ 83.333 mls/ hr Q12H IVPB ; Start 01/21/17 at 08:00 INDERJIT RANKIN Jan 21, 2017 07:49
[2017-01-21] MEDS: VANCOMYCIN 1.25 GM in SOD CHLORIDE 0.9% 250 ML IVPB SCH ×2 (09:28→21:57)
[2017-01-21] MEDS: POLYETHYLENE GLYCOL 17 GM PACKET PO SCH (09:29)
[2017-01-21] MEDS: AMLODIPINE 10 MG TAB PO SCH (09:29)
[2017-01-21] MEDS: INSULIN GLARGINE [LANtus] 3 ML PEN SC SCH (09:37)
[2017-01-21] MEDS: INSULIN ASPART [NOVOLOG] 3 ML PEN SC SCH ×4 (09:38→21:28)
--- NOTE | 2017-01-21 10:06 | CONS ---
Date/Time of Note Date/Time of Note DATE: 01/21/17 TIME: 10:03 Assessment/Plan Assessment/Plan Chief Complaint/Hosp Course Myelodysplastic syndrome, currently on chemotherapy., ON VIDAZA D/W PT'S oncologist, Dr. Lee old record- P VIDAZA- ON HOLD Pancytopenia: chemotherapy induced WITH mds contribution monitor and transfuse PRBC and platelet as needed. Neupogen as needed POST 1 U PRBC HX GIB - PER DR Lee CHECK STOOL OB GI EVAL IF NEEDED Generalized weakness and pain from his leukemia as well as chemo-induced and from anemia. We will monitor for now. He will have a physical therapy evaluation. Pain medications as needed Reported Gross hematuria: Urinalysis actually shows no blood. Monitor for now. We will monitor closely and transfuse as needed Diabetes. Insulin while in-house Hypertensive urgency: Blood pressure better controlled Adjust antihypertensives as needed Dyslipidemia: Continue meds SOB M B PARTIALLY TO ANEMIA Chest x-ray showed persistent pleural parenchymal scarring at the left lung base resulting in blunting of the left costophrenic angle and persistent reticular scarring seen within the right upper lobe with no alveolar infiltrate. CTPA was negative for PE. breathing treatments and oxygen as needed. Note that the patient was never hypoxic and in fact when presented presented to ER oxygen saturation was 100% on room air chronic low back pain Recent lumbar x-ray and MRI without alarming findings Pain medications as needed Problems: Consultation Date/Type/Reason Admit Date/Time Jan 19, 2017 at 23:18 Initial Consult Date 01/21/17 Type of Consultation: [facility] Referring Provider: JEROME BASHIR NP 24 HR Interval Summary Free Text/Dictation ALL NOTED D/W DR PAZ- PT HAS MDS, NOT LEUKEMIA Exam/Review of Systems Vital Signs Vitals Vital Signs Date Time Temp Pulse Resp B/P Pulse Ox O2 Delivery O2 Flow Rate FiO2 01/21/17 09:06 92 01/21/17 07:23 98.6 19 112/59 99 01/20/17 20:28 21 01/20/17 02:03 Room Air Intake and Output 01/20/17 01/20/17 01/21/17 15:00 23:00 07:00 Intake Total 400 ml 400 ml Output Total 650 ml 850 ml Balance -250 ml -450 ml Exam GENERAL: No acute distress. Answering questions appropriately and is alert and oriented x4. HEENT: No obvious head deformity. Pupils are reactive. Extraocular muscles intact. CARDIOVASCULAR: Tachycardic with regular rhythm. LUNGS: Clear. ABDOMEN: Soft, nontender, nondistended. Positive bowel sounds. EXTREMITIES: No edema. NEUROLOGIC: No focal deficits. Results Result Diagram: 01/20/17 0655 01/20/17 0655 Results 24 hrs Laboratory Tests Test 01/20/17 11:49 01/20/17 17:07 01/20/17 20:29 01/21/17 01:48 Bedside Glucose 236 H 161 188 207 Test 01/21/17 08:37 Bedside Glucose 194 Medications Medications Current Medications Amlodipine Besylate (Norvasc) 10 mg DAILY PO Last administered on 01/21/17 09: 29; Admin Dose 10 MG; Start 01/20/17 at 09:00 Mirtazapine (Remeron) 30 mg HS PO Last administered on 01/20/17 20:37; Admin Dose 30 MG; Start 01/20/17 at 21:00 Trazodone HCl (Desyrel) 25 mg QHS PO Last administered on 01/20/17 20:38; Admin Dose 25 MG; Start 01/20/17 at 21:00 Insulin Glargine (Lantus) 10 unit DAILY@08 SC Last administered on 01/21/17 09: 37; Admin Dose 10 UNIT; Start 01/20/17 at 08:00 Diagnostic Test (Pha) (Accu-Chek) 1 ea 02 XX Last administered on 01/21/17 02: 45; Admin Dose 1 EA; Start 01/21/17 at 02:00 Diagnostic Test (Pha) (Accu-Chek) 1 ea 02 XX Last administered on 01/21/17 02: 45; Admin Dose 1 EA; Start 01/21/17 at 02:00 Morphine Sulfate (morphine) 4 mg Q4H PRN IV SEVERE PAIN Last administered on 17:54; Admin Dose 4 MG; Start 01/20/17 at 03:30 Acetaminophen/ Hydrocodone Bitart ([place] (5/325)) 1 tab Q4H PRN PO moderate pain Last administered on 01/20/17 08:55; Admin Dose 1 TAB; Start 8/1/17 at 04: 30 Ondansetron HCl (Zofran Inj) 4 mg Q6H PRN IV NAUSEA AND/OR VOMITING; Start 01/20 at 04:30 Acetaminophen (Tylenol Tab) 650 mg Q6H PRN PO PAIN AND OR ELEVATED TEMP Last administered on 01/21/17 00:37; Admin Dose 650 MG; Start 01/20/17 at 04:30 Miscellaneous Information 1 ea NOTE XX ; Start 01/20/17 at 04:30 Glucose (Glutose) 15 gm Q15M PRN PO DECREASED GLUCOSE; Start 01/20/17 at 04:30 Glucose (Glutose) 22.5 gm Q15M PRN PO DECREASED GLUCOSE; Start 01/20/17 at 04:30 Dextrose (D50w Syringe) 25 ml Q15M PRN IV DECREASED GLUCOSE; Start 01/20/17 at 04:30 Dextrose (D50w Syringe) 50 ml Q15M PRN IV DECREASED GLUCOSE; Start 01/20/17 at 04:30 Glucagon (Glucagen) 1 mg Q15M PRN IM DECREASED GLUCOSE; Start 01/20/17 at 04:30 Glucose (Glutose) 15 gm Q15M PRN BUCCAL DECREASED GLUCOSE; Start 01/20/17 at 04: 30 Hydralazine HCl 10 mg 10 mg Q4H PRN IV SBP > 160; Start 01/20/17 at 06:30 Cefepime HCl (Maxipime 1gm/50 ml (Pmx)) 50 ml @ 100 mls/hr Q12H IVPB Last administered on 01/20/17 18:57; Admin Dose 100 MLS/HR; Start 01/20/17 at 18:00 Vancomycin HCl PER PHARMACY DOSING NOTE XX ; Start 01/20/17 at 18:00 Vancomycin HCl/ Sodium Chloride (Vancocin/NS) 250 ml @ 83.333 mls/ hr Q12H IVPB Last administered on 01/21/17 09:28; Admin Dose 83.333 MLS/HR; Start at 08:00 Polyethylene Glycol (Miralax) 17 gm DAILY PO Last administered on 01/21/17 09: 29; Admin Dose 17 GM; Start 01/21/17 at 09:00 ILA CHEN MD Jan 21, 2017 10:06
[2017-01-21] MEDS: morphine 4 MG/ML VIAL IV PRN (11:07)
[2017-01-21 11:40] LABS: ABNORMAL IP MESSAGE 1; HEMATOCRIT 22.5 % (42.0-52.0); HEMOGLOBIN 7.3 g/dl (14.0-18.0); MEAN CORPUSCULAR HGB CONC 32.4 g/dl (32.0-37.0); MEAN CORPUSCULAR VOLUME 98.7 fl (82.0-101.0); MEAN PLATELET VOLUME 12.2 fl (7.4-10.4); NUCLEATED RED BLOOD CELLS% 3.3 /100WBC (0.0-0.0); PLATELET COUNT 72 10^3/UL (140-415); POSITIVE DIFF @See below; RED BLOOD COUNT 2.28 10^6/ul (4.70-6.10); RED CELL DISTRIBUTION WIDTH 19.8 % (11.5-14.5); WHITE BLOOD COUNT 2.1 10^3/ul (4.8-10.8)
[2017-01-21 12:57] LABS: ERYTHROBLAST% (NRBC) (M) 1 % (0-0); MONOCYTE # 0.8 10^3/ul (0.3-0.9); NEUTROPHIL # 0.3 10^3/ul (1.6-7.5)
[2017-01-21 12:59] LABS: POLYCHROMASIA 1+ (0-0)
[2017-01-21 13:00] LABS: OVALOCYTES 1+ (0-0)
--- NOTE | 2017-01-21 14:00 | PN ---
Date/Time of Note Date/Time of Note DATE: 01/21/17 TIME: 13:52 Assessment/Plan VTE Prophylaxis VTE Prophylaxis Intervention: ambulation, SCD's Lines/Catheters IV Catheter Type (from Nrs): Saline Lock Urinary Cath still in place: No Assessment/Plan Chief Complaint/Hosp Course 1.Myelodysplastic syndrome. on chemotherapy. -Hematology/oncology on board and we will follow recommendation. 2. Chemotherapy-induced pancytopenia -Status post 2 units PRBC. We will follow recommendation from hematology regarding transfusion and Neupogen 3. Fever, likely neutropenic. Improved. -Continue antibiotics. Follow-up with cultures rule out other infectious process. Follow-up with ID recommendation 4. Debility/chronic pain secondary to #1. -Continue pain control, physical therapy. Of note, pain management seeing patient. 5. DMII. A1c 6.0 -Continue Accu-Cheks and insulin while in-house 6. Essential hypertension. No stable -Continue current regimen and we will adjust as indicated. 7. Dyslipidemia: On statin. 8. chronic low back pain -Continue pain medications as needed. DVT prophylaxis: On flexion/SCDs Continue with physical therapy and diet. Follow-up with consultants recommendation. We will transfer patient to medical surgical floor. Case discussed with . Problems: Subjective 24 Hr Interval Summary Free Text/Dictation Currently no fevers. With improved weakness status. Exam/Review of Systems Vital Signs Vitals Vital Signs Date Time Temp Pulse Resp B/P Pulse Ox O2 Delivery O2 Flow Rate FiO2 01/21/17 13:03 118 20 98 21 01/21/17 11:08 99.2 132/73 01/20/17 02:03 Room Air Intake and Output 01/20/17 01/20/17 01/21/17 15:00 23:00 07:00 Intake Total 400 ml 400 ml Output Total 650 ml 850 ml Balance -250 ml -450 ml Exam General: Well developed,adequately built, not in any acute distress . HEENT: Normocephalic, Atraumatic, No laceration or hematoma; Eyes: PEERL, Conjunctiva clear, Anicteric sclera Neck: Supple without any lymphadenopathy, nontender, no JVD, no carotid bruits, trachea midline, no thyromegaly Cardiac: S1, S2 auscultated, regular rhythm and rate, no mumurs or gallop Pulmonary: Normal respiratory effort. Chest clear to auscultation bilaterally, no adventitious breath sounds GI: Abdomen normal to inspection. Soft, non tender, non- distended, no masses, no rebound tenderness or guarding. Bowel sounds active on all four quadrants Genitourinary: Deferred Extremities: No cyanosis, clubbing, or edema. Pulses [2+] bilaterally. Full ROM on all four extremities. No focal weakness appreciated. Neurologic: Alert to person, place, time, and situation. Affect appropriate, intact sensation. Skin: Clean,dry, and intact. No ecchymosis, no rashes, or lesions Results Result Diagram: 01/21/17 1051 01/20/17 0655 Results 24 hrs Laboratory Tests Test 01/20/17 17:07 01/20/17 20:29 01/21/17 01:48 01/21/17 08:37 Bedside Glucose 161 188 207 194 Test 01/21/17 10:51 01/21/17 12:29 White Blood Count 2.1 #L Red Blood Count 2.28 L Hemoglobin 7.3 L Hematocrit 22.5 L Mean Corpuscular Volume 98.7 Mean Corpuscular Hemoglobin 32.0 Mean Corpuscular Hemoglobin Concent 32.4 Red Cell Distribution Width 19.8 H Platelet Count 72 L Mean Platelet Volume 12.2 H Neutrophils % 12.0 L Lymphocytes % 48.0 Monocytes % 40.0 H Eosinophils % Basophils % Nucleated Red Blood Cells % 1 H Neutrophils # 0.3 L Lymphocytes # 1.0 Monocytes # 0.8 Eosinophils # Basophils # Nucleated Red Blood Cells # Polychromasia 1+ Ovalocytes 1+ Bedside Glucose 231 H Medications Medications Current Medications Amlodipine Besylate (Norvasc) 10 mg DAILY PO Last administered on 01/21/17 09: 29; Admin Dose 10 MG; Start 01/20/17 at 09:00 Mirtazapine (Remeron) 30 mg HS PO Last administered on 01/20/17 20:37; Admin Dose 30 MG; Start 01/20/17 at 21:00 Trazodone HCl (Desyrel) 25 mg QHS PO Last administered on 01/20/17 20:38; Admin Dose 25 MG; Start 01/20/17 at 21:00 Insulin Glargine (Lantus) 10 unit DAILY@08 SC Last administered on 01/21/17 09: 37; Admin Dose 10 UNIT; Start 01/20/17 at 08:00 Diagnostic Test (Pha) (Accu-Chek) 1 ea 02 XX Last administered on 01/21/17 02: 45; Admin Dose 1 EA; Start 01/21/17 at 02:00 Diagnostic Test (Pha) (Accu-Chek) 1 ea 02 XX Last administered on 01/21/17 02: 45; Admin Dose 1 EA; Start 01/21/17 at 02:00 Morphine Sulfate (morphine) 4 mg Q4H PRN IV SEVERE PAIN Last administered on 11:07; Admin Dose 4 MG; Start 01/20/17 at 03:30 Acetaminophen/ Hydrocodone Bitart ([place] (5/325)) 1 tab Q4H PRN PO moderate pain Last administered on 01/20/17 08:55; Admin Dose 1 TAB; Start 01/20/17 at 04: 30 Ondansetron HCl (Zofran Inj) 4 mg Q6H PRN IV NAUSEA AND/OR VOMITING; Start 01/20 at 04:30 Acetaminophen (Tylenol Tab) 650 mg Q6H PRN PO PAIN AND OR ELEVATED TEMP Last administered on 01/21/17 00:37; Admin Dose 650 MG; Start 01/20/17 at 04:30 Miscellaneous Information 1 ea NOTE XX ; Start 01/20/17 at 04:30 Glucose (Glutose) 15 gm Q15M PRN PO DECREASED GLUCOSE; Start 01/20/17 at 04:30 Glucose (Glutose) 22.5 gm Q15M PRN PO DECREASED GLUCOSE; Start 01/20/17 at 04:30 Dextrose (D50w Syringe) 25 ml Q15M PRN IV DECREASED GLUCOSE; Start 01/20/17 at 04:30 Dextrose (D50w Syringe) 50 ml Q15M PRN IV DECREASED GLUCOSE; Start 01/20/17 at 04:30 Glucagon (Glucagen) 1 mg Q15M PRN IM DECREASED GLUCOSE; Start 01/20/17 at 04:30 Glucose (Glutose) 15 gm Q15M PRN BUCCAL DECREASED GLUCOSE; Start 01/20/17 at 04: 30 Hydralazine HCl 10 mg 10 mg Q4H PRN IV SBP > 160; Start 01/20/17 at 06:30 Cefepime HCl (Maxipime 1gm/50 ml (Pmx)) 50 ml @ 100 mls/hr Q12H IVPB Last administered on 01/20/17 18:57; Admin Dose 100 MLS/HR; Start 01/20/17 at 18:00 Vancomycin HCl PER PHARMACY DOSING NOTE XX ; Start 01/20/17 at 18:00 Vancomycin HCl/ Sodium Chloride (Vancocin/NS) 250 ml @ 83.333 mls/ hr Q12H IVPB Last administered on 01/21/17 09:28; Admin Dose 83.333 MLS/HR; Start at 08:00 Polyethylene Glycol (Miralax) 17 gm DAILY PO Last administered on 01/21/17 09: 29; Admin Dose 17 GM; Start 01/21/17 at 09:00 Miscellaneous Information (*Rx Drug Level Order Reminder*) VANCOMYCIN TROUGH 01/22 AT 0700 ONCE ONCE XX ; Start 01/22/17 at 07:00; Stop 01/22/17 at 07:01 JEROME BASHIR NP Jan 21, 2017 13:59
[2017-01-21] MEDS: HYDROCODONE/APAP (5/325) TAB PO PRN (14:01)
[2017-01-21] MEDS: HYDROmorphONE 1 MG/ML SYG IV PRN ×3 (14:31→20:37)
[2017-01-21] MEDS ORDERED: FILGRASTIM 300 MCG INJ SC SCH (17:00)
--- NOTE | 2017-01-21 20:19 | CONS ---
Date/Time of Note Date/Time of Note DATE: 01/21/17 TIME: 20:07 Assessment/Plan Assessment/Plan Chief Complaint/Hosp Course ID PROGRESS NOTE CURRENT ABX=> Vanco IV #2 + Cefepime #2 24H INTERVAL SUMMARY * Neutropenic fever >102.8 -> started on ABX -> Tmax 100.8 today -- feels weak, better, denies hx of HSV lip lesions * 01/19 Urine (-); 01/19 Blood Cx (-) * 01/19 CXR (-)PNA; 01/19/CT: (-)PNA, (-)PE EXAM GENERAL: 46 yo M, VSS HEENT: Unremarkable NECK: Supple, trachea midline. CHEST: Rise symmetrical, without dyspnea on observation HEART: Pulse RRR ABDOMEN: soft EXTREMITIES: Warm, ID ASSESSMENT 46 yo M admit with: 1. Neutropenic fever 2. Leukemia/myelodysplastic syndrome, currently on chemotherapy. 3. Type II diabetes. 4. s/p Hypertensive urgency, likely anxiety induced. Resolved 5. Dyslipidemia 6. Chemo induced pancytopenia 7. Generalized weakness and pain, most likely chemo induced. 8. Chronic low back pain: CT Moderate chronic-appearing T6 compression fracture. ( )MRSA Nares -> Will order screening INVASIVES: => CURRENT ABX=> Vanco IV #2 + Cefepime #2 ID RECOMMENDATIONS 1. Check MRSA nares 2. Continue current ABX . . Problems: Consultation Date/Type/Reason Admit Date/Time Jan 21, 2017 at 13:44 Initial Consult Date 01/21/17 Type of Consultation: ID Referring Provider: JEROME BASHIR V. TRANSVERSE ABDOMINAL MUSCLE NURSE Exam/Review of Systems Vital Signs Vitals Vital Signs Date Time Temp Pulse Resp B/P Pulse Ox O2 Delivery O2 Flow Rate FiO2 01/21/17 16:46 101 20 97 21 01/21/17 15:00 100.2 116/68 01/20/17 02:03 Room Air Intake and Output 01/20/17 01/20/17 01/21/17 15:00 23:00 07:00 Intake Total 400 ml 400 ml Output Total 650 ml 850 ml Balance -250 ml -450 ml Results Result Diagram: 01/21/17 1051 01/20/17 0655 Results 24 hrs Laboratory Tests Test 01/20/17 20:29 01/21/17 01:48 01/21/17 08:37 01/21/17 10:51 Bedside Glucose 188 207 194 White Blood Count 2.1 #L Red Blood Count 2.28 L Hemoglobin 7.3 L Hematocrit 22.5 L Mean Corpuscular Volume 98.7 Mean Corpuscular Hemoglobin 32.0 Mean Corpuscular Hemoglobin Concent 32.4 Red Cell Distribution Width 19.8 H Platelet Count 72 L Mean Platelet Volume 12.2 H Neutrophils % 12.0 L Lymphocytes % 48.0 Monocytes % 40.0 H Eosinophils % Basophils % Nucleated Red Blood Cells % 1 H Neutrophils # 0.3 L Lymphocytes # 1.0 Monocytes # 0.8 Eosinophils # Basophils # Nucleated Red Blood Cells # Polychromasia 1+ Ovalocytes 1+ Test 01/21/17 12:29 01/21/17 17:50 Bedside Glucose 231 H 155 Medications Medications Current Medications Amlodipine Besylate (Norvasc) 10 mg DAILY PO Last administered on 01/21/17 09: 29; Admin Dose 10 MG; Start 01/20/17 at 09:00 Mirtazapine (Remeron) 30 mg HS PO Last administered on 01/20/17 20:37; Admin Dose 30 MG; Start 01/20/17 at 21:00 Trazodone HCl (Desyrel) 25 mg QHS PO Last administered on 01/20/17 20:38; Admin Dose 25 MG; Start 01/20/17 at 21:00 Insulin Glargine (Lantus) 10 unit DAILY@08 SC Last administered on 01/21/17 09: 37; Admin Dose 10 UNIT; Start 01/20/17 at 08:00 Diagnostic Test (Pha) (Accu-Chek) 1 ea 02 XX Last administered on 01/21/17 02: 45; Admin Dose 1 EA; Start 01/21/17 at 02:00 Diagnostic Test (Pha) (Accu-Chek) 1 ea 02 XX Last administered on 01/21/17 02: 45; Admin Dose 1 EA; Start 01/21/17 at 02:00 Ondansetron HCl (Zofran Inj) 4 mg Q6H PRN IV NAUSEA AND/OR VOMITING; Start 01/20 at 04:30 Acetaminophen (Tylenol Tab) 650 mg Q6H PRN PO PAIN AND OR ELEVATED TEMP Last administered on 01/21/17 15:10; Admin Dose 650 MG; Start 01/20/17 at 04:30 Miscellaneous Information 1 ea NOTE XX ; Start 01/20/17 at 04:30 Glucose (Glutose) 15 gm Q15M PRN PO DECREASED GLUCOSE; Start 01/20/17 at 04:30 Glucose (Glutose) 22.5 gm Q15M PRN PO DECREASED GLUCOSE; Start 01/20/17 at 04:30 Dextrose (D50w Syringe) 25 ml Q15M PRN IV DECREASED GLUCOSE; Start 01/20/17 at 04:30 Dextrose (D50w Syringe) 50 ml Q15M PRN IV DECREASED GLUCOSE; Start 01/20/17 at 04:30 Glucagon (Glucagen) 1 mg Q15M PRN IM DECREASED GLUCOSE; Start 01/20/17 at 04:30 Glucose (Glutose) 15 gm Q15M PRN BUCCAL DECREASED GLUCOSE; Start 01/20/17 at 04: 30 Hydralazine HCl 10 mg 10 mg Q4H PRN IV SBP > 160; Start 01/20/17 at 06:30 Cefepime HCl (Maxipime 1gm/50 ml (Pmx)) 50 ml @ 100 mls/hr Q12H IVPB Last administered on 01/21/17 18:22; Admin Dose 100 MLS/HR; Start 01/20/17 at 18:00 Vancomycin HCl PER PHARMACY DOSING NOTE XX ; Start 01/20/17 at 18:00 Vancomycin HCl/ Sodium Chloride (Vancocin/NS) 250 ml @ 83.333 mls/ hr Q12H IVPB Last administered on 01/21/17 09:28; Admin Dose 83.333 MLS/HR; Start at 08:00 Polyethylene Glycol (Miralax) 17 gm DAILY PO Last administered on 01/21/17 09: 29; Admin Dose 17 GM; Start 01/21/17 at 09:00 Miscellaneous Information (*Rx Drug Level Order Reminder*) VANCOMYCIN TROUGH 01/22 AT 0700 ONCE ONCE XX ; Start 01/22/17 at 07:00; Stop 01/22/17 at 07:01 Hydromorphone HCl (Dilaudid) 1 mg Q3 PRN IV PAIN Last administered on 01/21/17 17:34; Admin Dose 1 MG; Start 01/21/17 at 14:30 Filgrastim (Neupogen) 300 mcg DAILY@17 SC Last administered on 01/21/17t 17:34; Admin Dose 300 MCG; Start 01/21/17 at 17:00 CARLOS DEL VALLE NP Jan 21, 2017 20:17
[2017-01-21] MEDS: MIRTAZAPINE 15 MG TAB PO SCH (21:00)
[2017-01-21] MEDS: traZODone 50 MG TAB PO SCH (21:01)
[2017-01-22] MEDS: HYDROmorphONE 1 MG/ML SYG IV PRN ×7 (00:20→21:49)
[2017-01-22] MEDS: ALBUTEROL/IPRATROPIUM (NEB) 3 ML AMP HHN SCH ×6 (00:53→21:02)
[2017-01-22] MEDS: ACCU-CHEK XX SCH ×2 (02:08)
[2017-01-22 03:07] VITALS: BP 120/64; RESP 18
[2017-01-22] MEDS: CEFEPIME 1GM/50 ML (PMX) 50 ML IVPB SCH ×2 (06:26→17:57)
[2017-01-22 07:43] LABS: ABNORMAL IP MESSAGE 1; BASOPHILS % 0.2 % (0.0-2.0); EOSINOPHILS # 0.1 10^3/ul (0.0-0.5); EOSINOPHILS % 0.4 % (0.0-7.0); HEMATOCRIT 26.5 % (42.0-52.0); HEMOGLOBIN 8.6 g/dl (14.0-18.0); LYMPHOCYTES # 1.1 10^3/ul (0.8-2.9); LYMPHOCYTES % 9.6 % (15.0-51.0); MEAN CORPUSCULAR HEMOGLOBIN 30.8 pg (29.0-33.0); MEAN CORPUSCULAR HGB CONC 32.5 g/dl (32.0-37.0); MEAN PLATELET VOLUME 11.6 fl (7.4-10.4); MONOCYTE # 3.3 10^3/ul (0.3-0.9); NEUTROPHIL # 6.9 10^3/ul (1.6-7.5); NEUTROPHILS % 58.7 % (39.0-77.0); NUCLEATED RED BLOOD CELLS # 0.2 10^3/ul (0.0-0.0); NUCLEATED RED BLOOD CELLS% 1.5 /100WBC (0.0-0.0); PLATELET COUNT 77 10^3/UL (140-415); POSITIVE DIFF @See below; RED BLOOD COUNT 2.79 10^6/ul (4.70-6.10); RED CELL DISTRIBUTION WIDTH 19.9 % (11.5-14.5); WHITE BLOOD COUNT 11.8 10^3/ul (4.8-10.8)
[2017-01-22 07:48] LABS: MONOCYTES % 27.5 % (0.0-11.0)
[2017-01-22] MEDS: INSULIN ASPART [NOVOLOG] 3 ML PEN SC SCH ×5 (07:50→20:28)
[2017-01-22] MEDS: VANCOMYCIN 1.25 GM in SOD CHLORIDE 0.9% 250 ML IVPB SCH ×2 (08:00→11:28)
[2017-01-22] MEDS: INSULIN GLARGINE [LANtus] 3 ML PEN SC SCH (08:00)
[2017-01-22 08:16] LABS: CREATININE 0.94 mg/dl (0.61-1.24)
[2017-01-22 08:31] VITALS: BP 137/81; RESP 20
[2017-01-22] MEDS: POLYETHYLENE GLYCOL 17 GM PACKET PO SCH (09:00)
[2017-01-22] MEDS: AMLODIPINE 10 MG TAB PO SCH (09:00)
--- NOTE | 2017-01-22 12:13 | PN ---
Date/Time of Note Date/Time of Note DATE: 01/22/17 TIME: 12:08 Assessment/Plan VTE Prophylaxis VTE Prophylaxis Intervention: ambulation, SCD's Lines/Catheters IV Catheter Type (from Nrs): D/Cd Urinary Cath still in place: No Assessment/Plan Chief Complaint/Hosp Course 1.Myelodysplastic syndrome. on chemotherapy. -Hematology/oncology on board and we will follow recommendation. 2. Chemotherapy induced pancytopenia -Status post multiple PRBC and Neupogen 1 dose. -Continue to monitor. 3. Neutropenic fever. Improved. -Status post Neupogen. -Continue prophylactic antibiotics. Follow-up with final cultures and ID recommendation 4. Debility/chronic pain secondary to #1. Improved. -Continue pain control, physical therapy. Of note, pain management seeing patient. 5. Hyperglycemia with DMII. A1c 6.0 -Start pre-meal aspart and continue Accu-Cheks /mild ISS/Lantus while in-house 6. Essential hypertension. stable -Continue current regimen and we will adjust as indicated. 7. Dyslipidemia: On statin. 8. chronic low back pain -Continue pain medications as needed. DVT prophylaxis: Ambulation/SCDs Continue with physical therapy and diet. Follow-up with consultants recommendation. Discharge planning once cleared from consultants. Case discussed with . Problems: Subjective 24 Hr Interval Summary Free Text/Dictation Overall patient feels improvement in symptoms. No further weakness or fever. Exam/Review of Systems Vital Signs Vitals Vital Signs Date Time Temp Pulse Resp B/P Pulse Ox O2 Delivery O2 Flow Rate FiO2 01/22/17 08:31 99.7 122 20 137/81 97 01/22/17 08:04 21 01/20/17 02:03 Room Air Intake and Output 01/21/17 01/21/17 01/22/17 15:00 23:00 07:00 Intake Total 50 ml 730 ml Balance 50 ml 730 ml Exam General: Well developed,adequately built, not in any acute distress . HEENT: Normocephalic, Atraumatic, No laceration or hematoma; Eyes: PEERL, Conjunctiva clear, Anicteric sclera Neck: Supple without any lymphadenopathy, nontender, no JVD, no carotid bruits, trachea midline, no thyromegaly Cardiac: S1, S2 auscultated, regular rhythm and rate, no mumurs or gallop Pulmonary: Normal respiratory effort. Chest clear to auscultation bilaterally, no adventitious breath sounds GI: Abdomen normal to inspection. Soft, non tender, non- distended, no masses, no rebound tenderness or guarding. Bowel sounds active on all four quadrants Genitourinary: Deferred Extremities: No cyanosis, clubbing, or edema. Pulses [2+] bilaterally. Full ROM on all four extremities. No focal weakness appreciated. Neurologic: Alert to person, place, time, and situation. Affect appropriate, intact sensation. Skin: Clean,dry, and intact. No ecchymosis, no rashes, or lesions Results Result Diagram: 01/22/17 0701/22/17 07 Results 24 hrs Laboratory Tests Test 01/21/17 12:29 01/21/17 17:50 01/21/17 20:59 01/22/17 01:59 Bedside Glucose 231 H 155 230 H 328 H Test 01/22/17 07:05 White Blood Count 11.8 #H Red Blood Count 2.79 #L Hemoglobin 8.6 L Hematocrit 26.5 L Mean Corpuscular Volume 95.0 Mean Corpuscular Hemoglobin 30.8 Mean Corpuscular Hemoglobin Concent 32.5 Red Cell Distribution Width 19.9 H Platelet Count 77 L Mean Platelet Volume 11.6 H Neutrophils % 58.7 Lymphocytes % 9.6 L Monocytes % 27.5 H Eosinophils % 0.4 Basophils % 0.2 Nucleated Red Blood Cells % 1.5 H Neutrophils # 6.9 Lymphocytes # 1.1 Monocytes # 3.3 H Eosinophils # 0.1 Basophils # 0.0 Nucleated Red Blood Cells # 0.2 H Blood Urea Nitrogen 13 Creatinine 0.94 Vancomycin Level Trough 15.4 Medications Medications Current Medications Amlodipine Besylate (Norvasc) 10 mg DAILY PO Last administered on 01/21/17 09: 29; Admin Dose 10 MG; Start 01/20/17 at 09:00 Mirtazapine (Remeron) 30 mg HS PO Last administered on 01/21/17 21:00; Admin Dose 30 MG; Start 01/20/17 at 21:00 Trazodone HCl (Desyrel) 25 mg QHS PO Last administered on 01/21/17 21:01; Admin Dose 25 MG; Start 01/20/17 at 21:00 Insulin Glargine (Lantus) 10 unit DAILY@08 SC Last administered on 01/21/17 09: 37; Admin Dose 10 UNIT; Start 01/20/17 at 08:00 Diagnostic Test (Pha) (Accu-Chek) 1 ea 02 XX Last administered on 01/22/17 02: 08; Admin Dose 1 EA; Start 01/21/17 at 02:00 Diagnostic Test (Pha) (Accu-Chek) 1 ea 02 XX Last administered on 01/22/17 02: 08; Admin Dose 1 EA; Start 01/21/17 at 02:00 Ondansetron HCl (Zofran Inj) 4 mg Q6H PRN IV NAUSEA AND/OR VOMITING; Start 01/20 at 04:30 Acetaminophen (Tylenol Tab) 650 mg Q6H PRN PO PAIN AND OR ELEVATED TEMP Last administered on 01/21/17 22:14; Admin Dose 650 MG; Start 01/20/17 at 04:30 Miscellaneous Information 1 ea NOTE XX ; Start 01/20/17 at 04:30 Glucose (Glutose) 15 gm Q15M PRN PO DECREASED GLUCOSE; Start 01/20/17 at 04:30 Glucose (Glutose) 22.5 gm Q15M PRN PO DECREASED GLUCOSE; Start 01/20/17 at 04:30 Dextrose (D50w Syringe) 25 ml Q15M PRN IV DECREASED GLUCOSE; Start 01/20/17 at 04:30 Dextrose (D50w Syringe) 50 ml Q15M PRN IV DECREASED GLUCOSE; Start 01/20/17 at 04:30 Glucagon (Glucagen) 1 mg Q15M PRN IM DECREASED GLUCOSE; Start 01/20/17 at 04:30 Glucose (Glutose) 15 gm Q15M PRN BUCCAL DECREASED GLUCOSE; Start 01/20/17 at 04: 30 Hydralazine HCl 10 mg 10 mg Q4H PRN IV SBP > 160; Start 01/20/17 at 06:30 Cefepime HCl (Maxipime 1gm/50 ml (Pmx)) 50 ml @ 100 mls/hr Q12H IVPB Last administered on 01/22/17 06:26; Admin Dose 100 MLS/HR; Start 01/20/17 at 18:00 Vancomycin HCl PER PHARMACY DOSING NOTE XX ; Start 01/20/17 at 18:00 Vancomycin HCl/ Sodium Chloride (Vancocin/NS) 250 ml @ 83.333 mls/ hr Q12H IVPB Last administered on 01/22/17 11:28; Admin Dose 83.333 MLS/HR; Start at 08:00; Stop 01/22/17 at 17:00 Polyethylene Glycol (Miralax) 17 gm DAILY PO Last administered on 01/21/17 09: 29; Admin Dose 17 GM; Start 01/21/17 at 09:00 Hydromorphone HCl (Dilaudid) 1 mg Q3 PRN IV PAIN Last administered on 01/22/17 09:57; Admin Dose 1 MG; Start 01/21/17 at 14:30 Filgrastim 300 mcg 300 mcg DAILY@17 SC Last administered on 01/21/17 17:34; Admin Dose 300 MCG; Start 01/21/17 at 17:00 Vancomycin HCl (Vancocin) 250 ml @ 125 mls/hr Q12H IVPB ; Start 01/22/17 at 23: 00 JEROME BASHIR NP Jan 22, 2017 12:13
[2017-01-22 15:41] VITALS: BP 126/76; RESP 18
[2017-01-22] MEDS: metFORMIN 500 MG TAB PO SCH (17:50)
[2017-01-22 19:30] VITALS: BP 125/74; RESP 18
[2017-01-22] MEDS: traZODone 50 MG TAB PO SCH (20:27)
[2017-01-22] MEDS: MIRTAZAPINE 15 MG TAB PO SCH (20:27)
--- NOTE | 2017-01-22 21:19 | CONS ---
Date/Time of Note Date/Time of Note DATE: 01/22/17 TIME: 21:16 Assessment/Plan Assessment/Plan Chief Complaint/Hosp Course ID PROGRESS NOTE CURRENT ABX=> Vanco IV #3 + Cefepime #3 24H INTERVAL SUMMARY * Neutropenic fever >102.8 -> started on ABX -> Tmax 100.8 01/21 -> TMax 99.7 01/22 * A/A/O -- resting, no new issues, no complaints offered. * Started on steroids for leukopenia -- WBC now elevated 11.8 * 01/19 Urine (-); 01/19 Blood Cx (-) * 01/19 CXR (-)PNA; 01/19/CT: (-)PNA, (-)PE EXAM GENERAL: 46 yo M, VSS HEENT: Unremarkable NECK: Supple, trachea midline. CHEST: Rise symmetrical, without dyspnea on observation HEART: Pulse RRR ABDOMEN: soft EXTREMITIES: Warm, ID ASSESSMENT 46 yo M admit with: 1. Neutropenic fever 2. Leukemia/myelodysplastic syndrome, currently on chemotherapy. 3. Type II diabetes. 4. s/p Hypertensive urgency, likely anxiety induced. Resolved 5. Dyslipidemia 6. Chemo induced pancytopenia 7. Generalized weakness and pain, most likely chemo induced. 8. Chronic low back pain: CT Moderate chronic-appearing T6 compression fracture. ( )MRSA Nares -> Win process INVASIVES: PIV CURRENT ABX=> Vanco IV #3 + Cefepime #3 ID RECOMMENDATIONS 1. Check MRSA nares 2. Continue current ABX 3. Still with low grade temps -- await afebrile status . . . Problems: Consultation Date/Type/Reason Admit Date/Time Jan 21, 2017 at 13:44 Initial Consult Date 01/21/17 Type of Consultation: ID Referring Provider: JEROME BASHIR V. TUNGSTEN TENDER Exam/Review of Systems Vital Signs Vitals Vital Signs Date Time Temp Pulse Resp B/P Pulse Ox O2 Delivery O2 Flow Rate FiO2 01/22/17 21:03 104 20 98 21 01/22/17 19:30 99.1 125/74 01/20/17 02:03 Room Air Intake and Output 01/21/17 01/21/17 01/22/17 15:00 23:00 07:00 Intake Total 50 ml 730 ml Balance 50 ml 730 ml Results Result Diagram: 01/22/17 0705 01/22/17 0705 Results 24 hrs Laboratory Tests Test 01/22/17 01:59 01/22/17 07:05 01/22/17 12:51 01/22/17 17:48 Bedside Glucose 328 H 200 179 White Blood Count 11.8 #H Red Blood Count 2.79 #L Hemoglobin 8.6 L Hematocrit 26.5 L Mean Corpuscular Volume 95.0 Mean Corpuscular Hemoglobin 30.8 Mean Corpuscular Hemoglobin Concent 32.5 Red Cell Distribution Width 19.9 H Platelet Count 77 L Mean Platelet Volume 11.6 H Neutrophils % 58.7 Lymphocytes % 9.6 L Monocytes % 27.5 H Eosinophils % 0.4 Basophils % 0.2 Nucleated Red Blood Cells % 1.5 H Neutrophils # 6.9 Lymphocytes # 1.1 Monocytes # 3.3 H Eosinophils # 0.1 Basophils # 0.0 Nucleated Red Blood Cells # 0.2 H Blood Urea Nitrogen 13 Creatinine 0.94 Vancomycin Level Trough 15.4 Test 01/22/17 20:25 Bedside Glucose 170 Medications Medications Current Medications Amlodipine Besylate (Norvasc) 10 mg DAILY PO Last administered on 01/21/17 09: 29; Admin Dose 10 MG; Start 01/20/17 at 09:00 Mirtazapine (Remeron) 30 mg HS PO Last administered on 01/22/17 20:27; Admin Dose 30 MG; Start 01/20/17 at 21:00 Trazodone HCl (Desyrel) 25 mg QHS PO Last administered on 01/22/17 20:27; Admin Dose 25 MG; Start 01/20/17 at 21:00 Insulin Glargine (Lantus) 10 unit DAILY@08 SC Last administered on 01/21/17 09: 37; Admin Dose 10 UNIT; Start 01/20/17 at 08:00 Diagnostic Test (Pha) (Accu-Chek) 1 ea 02 XX Last administered on 01/22/17 02: 08; Admin Dose 1 EA; Start 01/21/17 at 02:00 Ondansetron HCl (Zofran Inj) 4 mg Q6H PRN IV NAUSEA AND/OR VOMITING; Start 01/20 at 04:30 Acetaminophen (Tylenol Tab) 650 mg Q6H PRN PO PAIN AND OR ELEVATED TEMP Last administered on 01/21/17 22:14; Admin Dose 650 MG; Start 01/20/17 at 04:30 Miscellaneous Information 1 ea NOTE XX ; Start 01/20/17 at 04:30 Glucose (Glutose) 15 gm Q15M PRN PO DECREASED GLUCOSE; Start 01/20/17 at 04:30 Glucose (Glutose) 22.5 gm Q15M PRN PO DECREASED GLUCOSE; Start 01/20/17 at 04:30 Dextrose (D50w Syringe) 25 ml Q15M PRN IV DECREASED GLUCOSE; Start 01/20/17 at 04:30 Dextrose (D50w Syringe) 50 ml Q15M PRN IV DECREASED GLUCOSE; Start 01/20/17 at 04:30 Glucagon (Glucagen) 1 mg Q15M PRN IM DECREASED GLUCOSE; Start 01/20/17 at 04:30 Glucose (Glutose) 15 gm Q15M PRN BUCCAL DECREASED GLUCOSE; Start 01/20/17 at 04: 30 Hydralazine HCl 10 mg 10 mg Q4H PRN IV SBP > 160; Start 01/20/17 at 06:30 Cefepime HCl (Maxipime 1gm/50 ml (Pmx)) 50 ml @ 100 mls/hr Q12H IVPB Last administered on 01/22/17 06:26; Admin Dose 100 MLS/HR; Start 01/20/17 at 18:00 Vancomycin HCl (Vanco Iv Per Pharmacy) PER PHARMACY DOSING NOTE XX ; Start at 18:00 Polyethylene Glycol (Miralax) 17 gm DAILY PO Last administered on 01/21/17 09: 29; Admin Dose 17 GM; Start 01/21/17 at 09:00 Hydromorphone HCl (Dilaudid) 1 mg Q3 PRN IV PAIN Last administered on 01/22/17 15:48; Admin Dose 1 MG; Start 01/21/17 at 14:30 Filgrastim 300 mcg 300 mcg DAILY@17 SC Last administered on 01/21/17 17:34; Admin Dose 300 MCG; Start 01/21/17 at 17:00; Status Future Hold Vancomycin HCl (Vancocin) 250 ml @ 125 mls/hr Q12H IVPB ; Start 01/22/17 at 23: 00 CARLOS DEL VALLE NP Jan 22, 2017 21:19
[2017-01-22] MEDS ORDERED: VANCOMYCIN 1 GM in NS 250 ML IVPB SCH (23:00)
[2017-01-22] MEDS: VANCOMYCIN 1 GM in NS 250 ML IVPB SCH (23:01)
--- NOTE | 2017-01-22 23:07 | CONS ---
Date/Time of Note Date/Time of Note DATE: 01/22/17 TIME: 23:07 Assessment/Plan Assessment/Plan Chief Complaint/Hosp Course Myelodysplastic syndrome, currently on chemotherapy., ON VIDAZA D/W PT'S oncologist, Dr. Lee old record- P VIDAZA- ON HOLD NEUTROPENIC FEVER ID, ON ATB, MONITOR CULTURES POST NEUPOGEN RESTART NEUPOGEN NEEDED IS WBC DROPS Pancytopenia: chemotherapy induced WITH mds contribution monitor and transfuse PRBC and platelet as needed. Neupogen as needed POST 1 U PRBC HX GIB - PER DR Lee STOOL OB- P GI EVAL IF NEEDED Generalized weakness and pain from his leukemia as well as chemo-induced and from anemia. We will monitor for now. He will have a physical therapy evaluation. Pain medications as needed Reported Gross hematuria: Urinalysis actually shows no blood. Monitor for now. We will monitor closely and transfuse as needed Diabetes. Insulin while in-house Hypertensive urgency: Blood pressure better controlled Adjust antihypertensives as needed Dyslipidemia: Continue meds SOB M B PARTIALLY TO ANEMIA Chest x-ray showed persistent pleural parenchymal scarring at the left lung base resulting in blunting of the left costophrenic angle and persistent reticular scarring seen within the right upper lobe with no alveolar infiltrate. CTPA was negative for PE. breathing treatments and oxygen as needed. Note that the patient was never hypoxic and in fact when presented presented to ER oxygen saturation was 100% on room air chronic low back pain Recent lumbar x-ray and MRI without alarming findings Pain medications as needed Problems: Consultation Date/Type/Reason Admit Date/Time Jan 21, 2017 at 13:44 Initial Consult Date 01/21/17 Type of Consultation: [facility] Referring Provider: JEROME BASHIR NP 24 HR Interval Summary Free Text/Dictation ALL NOTED WBC IMPROVED ON NEUPOGEN FEVER DOWN Exam/Review of Systems Vital Signs Vitals Vital Signs Date Time Temp Pulse Resp B/P Pulse Ox O2 Delivery O2 Flow Rate FiO2 01/22/17 21:03 104 20 98 21 01/22/17 19:30 99.1 125/74 01/20/17 02:03 Room Air Intake and Output 01/21/17 01/21/17 01/22/17 15:00 23:00 07:00 Intake Total 50 ml 730 ml Balance 50 ml 730 ml Exam GENERAL: No acute distress. Answering questions appropriately and is alert and oriented x4. HEENT: No obvious head deformity. Pupils are reactive. Extraocular muscles intact. CARDIOVASCULAR: Tachycardic with regular rhythm. LUNGS: Clear. ABDOMEN: Soft, nontender, nondistended. Positive bowel sounds. EXTREMITIES: No edema. NEUROLOGIC: No focal deficits. Results Result Diagram: 01/22/17 0705 01/22/17 0705 Results 24 hrs Laboratory Tests Test 01/22/17 01:59 01/22/17 07:05 01/22/17 12:51 01/22/17 17:48 Bedside Glucose 328 H 200 179 White Blood Count 11.8 #H Red Blood Count 2.79 #L Hemoglobin 8.6 L Hematocrit 26.5 L Mean Corpuscular Volume 95.0 Mean Corpuscular Hemoglobin 30.8 Mean Corpuscular Hemoglobin Concent 32.5 Red Cell Distribution Width 19.9 H Platelet Count 77 L Mean Platelet Volume 11.6 H Neutrophils % 58.7 Lymphocytes % 9.6 L Monocytes % 27.5 H Eosinophils % 0.4 Basophils % 0.2 Nucleated Red Blood Cells % 1.5 H Neutrophils # 6.9 Lymphocytes # 1.1 Monocytes # 3.3 H Eosinophils # 0.1 Basophils # 0.0 Nucleated Red Blood Cells # 0.2 H Blood Urea Nitrogen 13 Creatinine 0.94 Vancomycin Level Trough 15.4 Test 01/22/17 20:25 Bedside Glucose 170 Medications Medications Current Medications Amlodipine Besylate (Norvasc) 10 mg DAILY PO Last administered on 01/21/17 09: 29; Admin Dose 10 MG; Start 01/20/17 at 09:00 Mirtazapine (Remeron) 30 mg HS PO Last administered on 01/22/17 20:27; Admin Dose 30 MG; Start 01/20/17 at 21:00 Trazodone HCl (Desyrel) 25 mg QHS PO Last administered on 01/22/17 20:27; Admin Dose 25 MG; Start 01/20/17 at 21:00 Insulin Glargine (Lantus) 10 unit DAILY@08 SC Last administered on 01/21/17 09: 37; Admin Dose 10 UNIT; Start 01/20/17 at 08:00 Diagnostic Test (Pha) (Accu-Chek) 1 ea 02 XX Last administered on 01/22/17 02: 08; Admin Dose 1 EA; Start 01/21/17 at 02:00 Ondansetron HCl (Zofran Inj) 4 mg Q6H PRN IV NAUSEA AND/OR VOMITING; Start 01/20 at 04:30 Acetaminophen (Tylenol Tab) 650 mg Q6H PRN PO PAIN AND OR ELEVATED TEMP Last administered on 01/21/17 22:14; Admin Dose 650 MG; Start 01/20/17 at 04:30 Miscellaneous Information 1 ea NOTE XX ; Start 01/20/17 at 04:30 Glucose (Glutose) 15 gm Q15M PRN PO DECREASED GLUCOSE; Start 01/20/17 at 04:30 Glucose (Glutose) 22.5 gm Q15M PRN PO DECREASED GLUCOSE; Start 01/20/17 at 04:30 Dextrose (D50w Syringe) 25 ml Q15M PRN IV DECREASED GLUCOSE; Start 01/20/17 at 04:30 Dextrose (D50w Syringe) 50 ml Q15M PRN IV DECREASED GLUCOSE; Start 01/20/17 at 04:30 Glucagon (Glucagen) 1 mg Q15M PRN IM DECREASED GLUCOSE; Start 01/20/17 at 04:30 Glucose (Glutose) 15 gm Q15M PRN BUCCAL DECREASED GLUCOSE; Start 01/20/17 at 04: 30 Hydralazine HCl 10 mg 10 mg Q4H PRN IV SBP > 160; Start 01/20/17 at 06:30 Cefepime HCl (Maxipime 1gm/50 ml (Pmx)) 50 ml @ 100 mls/hr Q12H IVPB Last administered on 01/22/17 06:26; Admin Dose 100 MLS/HR; Start 01/20/17 at 18:00 Vancomycin HCl (Vanco Iv Per Pharmacy) PER PHARMACY DOSING NOTE XX ; Start at 18:00 Polyethylene Glycol (Miralax) 17 gm DAILY PO Last administered on 01/21/17 09: 29; Admin Dose 17 GM; Start 01/21/17 at 09:00 Hydromorphone HCl (Dilaudid) 1 mg Q3 PRN IV PAIN Last administered on 01/22/17 21:49; Admin Dose 1 MG; Start 01/21/17 at 14:30 Filgrastim 300 mcg 300 mcg DAILY@17 SC Last administered on 01/21/17 17:34; Admin Dose 300 MCG; Start 01/21/17 at 17:00; Status Future Hold Vancomycin HCl (Vancocin) 250 ml @ 125 mls/hr Q12H IVPB Last administered on 23:01; Admin Dose 125 MLS/HR; Start 01/22/17 at 23:00 ILA CHEN MD Jan 22, 2017 23:07
[2017-01-23] MEDS: ACCU-CHEK XX SCH (01:29)
[2017-01-23] MEDS: ALBUTEROL/IPRATROPIUM (NEB) 3 ML AMP HHN SCH ×4 (02:05→12:46)
[2017-01-23 02:20] VITALS: BP 146/77; RESP 18
[2017-01-23] MEDS: HYDROmorphONE 1 MG/ML SYG IV PRN ×4 (02:21→12:59)
[2017-01-23 05:11] LABS: ABNORMAL IP MESSAGE 1; EOSINOPHILS # 0.1 10^3/ul (0.0-0.5); EOSINOPHILS % 1.1 % (0.0-7.0); HEMATOCRIT 26.9 % (42.0-52.0); HEMOGLOBIN 8.8 g/dl (14.0-18.0); LYMPHOCYTES # 1.1 10^3/ul (0.8-2.9); MEAN CORPUSCULAR HEMOGLOBIN 30.4 pg (29.0-33.0); MEAN CORPUSCULAR HGB CONC 32.7 g/dl (32.0-37.0); MEAN CORPUSCULAR VOLUME 93.1 fl (82.0-101.0); MEAN PLATELET VOLUME 10.5 fl (7.4-10.4); MONOCYTE # 0.9 10^3/ul (0.3-0.9); MONOCYTES % 16.8 % (0.0-11.0); NEUTROPHIL # 3.2 10^3/ul (1.6-7.5); NEUTROPHILS % 60.4 % (39.0-77.0); NUCLEATED RED BLOOD CELLS # 0.1 10^3/ul (0.0-0.0); NUCLEATED RED BLOOD CELLS% 2.1 /100WBC (0.0-0.0); PLATELET COUNT 70 10^3/UL (140-415); POSITIVE DIFF @See below; RED BLOOD COUNT 2.89 10^6/ul (4.70-6.10); RED CELL DISTRIBUTION WIDTH 21.8 % (11.5-14.5); WHITE BLOOD COUNT 5.4 10^3/ul (4.8-10.8)
[2017-01-23 05:17] LABS: CALCIUM 8.9 mg/dl (8.4-10.2); CREATININE 0.84 mg/dl (0.61-1.24); POTASSIUM 4.1 mmol/L (3.5-5.1)
[2017-01-23] MEDS: CEFEPIME 1GM/50 ML (PMX) 50 ML IVPB SCH ×2 (05:20→06:28)
[2017-01-23 08:04] VITALS: BP 134/88; RESP 20
[2017-01-23] MEDS: metFORMIN 500 MG TAB PO SCH (08:48)
[2017-01-23] MEDS: AMLODIPINE 10 MG TAB PO SCH (08:49)
[2017-01-23] MEDS: POLYETHYLENE GLYCOL 17 GM PACKET PO SCH (08:53)
[2017-01-23] MEDS ORDERED: FLUCONAZOLE 100 MG/NS (PMX) 50 ML IVPB SCH ×2 (09:00→10:00)
[2017-01-23] MEDS: INSULIN ASPART [NOVOLOG] 3 ML PEN SC SCH ×4 (09:14→12:58)
[2017-01-23] MEDS: INSULIN GLARGINE [LANtus] 3 ML PEN SC SCH (09:31)
[2017-01-23] MEDS: NEOMYC/POLYMYX/HC 10 ML OTIC SUSP LEFT EAR SCH ×2 (09:53→13:36)
[2017-01-23] MEDS ORDERED: CIPR500T4 PO (11:08)
[2017-01-23] MEDS ORDERED: NPH10OT LEFT EAR (11:08)
[2017-01-23] MEDS ORDERED: SULF1TAB31 PO (11:08)
[2017-01-23] MEDS ORDERED: FLUC100T39 PO (11:08)
--- NOTE | 2017-01-23 11:19 | CONS ---
Date/Time of Note Date/Time of Note DATE: 01/23/17 TIME: 11:10 Assessment/Plan Assessment/Plan Chief Complaint/Hosp Course ssessment/Plan Chief Complaint/Hosp Course ID PROGRESS NOTE CURRENT ABX=> Vanco IV #3 + Cefepime #3 24H INTERVAL SUMMARY 1. Alert. Awake. Complains of Left Ear pain. * 01/19 Urine (-); 01/19 Blood Cx (-) * 01/19 CXR (-)PNA; 01/19/CT: (-)PNA, (-)PE EXAM GENERAL: 46 yo M, VSS HEENT: Left Ear Canal Redness noted. No Discharge noted. NECK: Supple, trachea midline. CHEST: Rise symmetrical, without dyspnea on observation HEART: Pulse RRR ABDOMEN: soft EXTREMITIES: Warm, ID ASSESSMENT 46 yo M admit with: 1. Neutropenic fever 2. Leukemia/myelodysplastic syndrome, currently on chemotherapy. 3. Type II diabetes. 4. s/p Hypertensive urgency, likely anxiety induced. Resolved 5. Dyslipidemia 6. Chemo induced pancytopenia 7. Generalized weakness and pain, most likely chemo induced. 8. Chronic low back pain: CT Moderate chronic-appearing T6 compression fracture. 9. Left Ear Canal Redness. 10. Left Ear Infection. ( )MRSA Nares -> Win process INVASIVES: PIV CURRENT ABX=> Vanco IV #3 + Cefepime #3 ID RECOMMENDATIONS 1. Start Antibiotics for Left Ear Infection. 2. Begin Diflucan 100 mg IV QDaily. D/W Infectious Disease Team. 3. Monitor Labs. Problems: Consultation Date/Type/Reason Admit Date/Time Jan 21, 2017 at 13:44 Initial Consult Date 01/21/17 Type of Consultation: ID Referring Provider: JEROME BASHIR NP Exam/Review of Systems Vital Signs Vitals Vital Signs Date Time Temp Pulse Resp B/P Pulse Ox O2 Delivery O2 Flow Rate FiO2 01/23/17 09:21 101 24 97 21 01/23/17 08:04 98.5 134/88 01/20/17 02:03 Room Air Intake and Output 01/22/17 01/22/17 01/23/17 15:00 23:00 07:00 Intake Total 300 ml 2190 ml 950 ml Balance 300 ml 2190 ml 950 ml Results Result Diagram: 01/23/17 0425 01/23/17 0426 Results 24 hrs Laboratory Tests Test 01/22/17 12:51 01/22/17 17:48 01/22/17 20:25 01/23/17 04:25 Bedside Glucose 200 179 170 White Blood Count 5.4 # Red Blood Count 2.89 L Hemoglobin 8.8 L Hematocrit 26.9 L Mean Corpuscular Volume 93.1 Mean Corpuscular Hemoglobin 30.4 Mean Corpuscular Hemoglobin Concent 32.7 Red Cell Distribution Width 21.8 H Platelet Count 70 L Mean Platelet Volume 10.5 H Neutrophils % 60.4 Lymphocytes % 20.0 Monocytes % 16.8 H Eosinophils % 1.1 Basophils % 0.0 Nucleated Red Blood Cells % 2.1 H Neutrophils # 3.2 Lymphocytes # 1.1 Monocytes # 0.9 Eosinophils # 0.1 Basophils # 0.0 Nucleated Red Blood Cells # 0.1 H Test 01/23/17 04:26 01/23/17 08:00 01/23/17 08:46 Sodium Level 143 Potassium Level 4.1 Chloride Level 103 Carbon Dioxide Level 26 Anion Gap 18 H Blood Urea Nitrogen 14 Creatinine 0.84 Glucose Level 183 Calcium Level 8.9 Lab Scanned Report BLOOD TRANSFUSION Bedside Glucose 177 Medications Medications Current Medications Amlodipine Besylate (Norvasc) 10 mg DAILY PO Last administered on 01/23/17 08: 49; Admin Dose 10 MG; Start 01/20/17 at 09:00 Mirtazapine (Remeron) 30 mg HS PO Last administered on 01/22/17 20:27; Admin Dose 30 MG; Start 01/20/17 at 21:00 Trazodone HCl (Desyrel) 25 mg QHS PO Last administered on 01/22/17 20:27; Admin Dose 25 MG; Start 01/20/17 at 21:00 Insulin Glargine (Lantus) 10 unit DAILY@08 SC Last administered on 01/23/17 09: 31; Admin Dose 10 UNIT; Start 01/20/17 at 08:00 Diagnostic Test (Pha) (Accu-Chek) 1 ea 02 XX Last administered on 01/22/17 02: 08; Admin Dose 1 EA; Start 01/21/17 at 02:00 Ondansetron HCl (Zofran Inj) 4 mg Q6H PRN IV NAUSEA AND/OR VOMITING; Start 01/20 at 04:30 Acetaminophen (Tylenol Tab) 650 mg Q6H PRN PO PAIN AND OR ELEVATED TEMP Last administered on 01/21/17 22:14; Admin Dose 650 MG; Start 01/20/17 at 04:30 Miscellaneous Information 1 ea NOTE XX ; Start 01/20/17 at 04:30 Glucose (Glutose) 15 gm Q15M PRN PO DECREASED GLUCOSE; Start 01/20/17 at 04:30 Glucose (Glutose) 22.5 gm Q15M PRN PO DECREASED GLUCOSE; Start 01/20/17 at 04:30 Dextrose (D50w Syringe) 25 ml Q15M PRN IV DECREASED GLUCOSE; Start 01/20/17 at 04:30 Dextrose (D50w Syringe) 50 ml Q15M PRN IV DECREASED GLUCOSE; Start 01/20/17 at 04:30 Glucagon (Glucagen) 1 mg Q15M PRN IM DECREASED GLUCOSE; Start 01/20/17 at 04:30 Glucose (Glutose) 15 gm Q15M PRN BUCCAL DECREASED GLUCOSE; Start 01/20/17 at 04: 30 Hydralazine HCl 10 mg 10 mg Q4H PRN IV SBP > 160; Start 01/20/17 at 06:30 Cefepime HCl (Maxipime 1gm/50 ml (Pmx)) 50 ml @ 100 mls/hr Q12H IVPB Last administered on 01/23/17 06:28; Admin Dose 100 MLS/HR; Start 01/20/17 at 18:00 Vancomycin HCl (Vanco Iv Per Pharmacy) PER PHARMACY DOSING NOTE XX ; Start at 18:00 Polyethylene Glycol (Miralax) 17 gm DAILY PO Last administered on 01/21/17 09: 29; Admin Dose 17 GM; Start 01/21/17 at 09:00 Hydromorphone HCl (Dilaudid) 1 mg Q3 PRN IV PAIN Last administered on 01/23/17 09:31; Admin Dose 1 MG; Start 01/21/17 at 14:30 Filgrastim 300 mcg 300 mcg DAILY@17 SC Last administered on 01/21/17 17:34; Admin Dose 300 MCG; Start 01/21/17 at 17:00; Status Future Hold Vancomycin HCl (Vancocin) 250 ml @ 125 mls/hr Q12H IVPB Last administered on 23:01; Admin Dose 125 MLS/HR; Start 01/22/17 at 23:00 Neomycin/ Polymyxin/ Hydrocortisone 4 drop 4 drop TID LEFT EAR Last administered on 01/23/17 09:53; Admin Dose 4 DROP; Start 01/23/17 at 10:00 Fluconazole/ Sodium Chloride (Diflucan 100 Mg/ NS (Pmx)) 50 ml @ 50 mls/hr Q24H IVPB Last administered on 01/23/17 10:08; Admin Dose 50 MLS/HR; Start 01/23/17 at 10:00 KERRY GARCIA NP Jan 23, 2017 11:19
[2017-01-23] MEDS ORDERED: SENNA/DOCUSATE NA (8.6MG/50MG) TAB PO SCH (11:30)
[2017-01-23] MEDS: VANCOMYCIN 1 GM in NS 250 ML IVPB SCH (11:37)
--- NOTE | 2017-01-23 14:25 | DS ---
Date/Time of Note Date/Time of Note DATE: 01/23/17 TIME: 14:24 Discharge Summary Admission/Discharge Info Admit Date/Time Jan 21, 2017 at 13:44 Discharge Date/Time Discharge Diagnosis 1. Neutropenic fever. Resolved. 2. Leukemia/myelodysplastic syndrome, currently on chemotherapy. 3. Type II diabetes. 4. Hypertensive urgency, likely anxiety induced. Resolved 5. Dyslipidemia 6. Chemo induced pancytopenia. Stable 7. chronic low back pain 8. Otitis externa. On treatment Patient Condition: Stable Consults ,heme/onco ,ID Procedures 01/19/2070. CT angiography. Negative for pulmonary embolism. Hx of Present Illness Hospital Course This is a 46-year-old male with a past medical history of leukemia/ myelodysplastic syndrome, hypertension, dyslipidemia, type 2 diabetes, chronic back pain with degenerative disc disease, anxiety, who essentially got admitted to [facility] for evaluation of worsening generalized weakness with lightheadedness and dizziness which started after his chemo session. Patient did not have any other constitutional symptoms including fever , chills, cough, chest pain or other discomfort. Initial workup showed WBC 3500 , hemoglobin 8.4, and platelet 110. Patient also had elevated blood pressure 183/96. Chest x-ray and CT was negative. Patient's blood pressure was monitored closely and remained stable and was likely secondary to anxiety induced. He was resumed on his home medication for underlying other comorbidities. Patient was noted with persistent anemia requiring multiple units of blood. He was also noted to have neutropenic fever. Patient's presenting symptoms were most likely secondary to chemo induced pancytopenia with neutropenic fever. Patient was evaluated by oncology and ID specialist. Patient was continued on appropriate antibiotic regimen, neutropenic precaution and blood products and Neupogen administration. His blood counts remain stable after 1 dose of Neupogen and 3 units PRBC. He did not have any further weakness. Patient was evaluated by physical therapy and was able to participate in ADL. However, during the course of hospitalization, patient was noted to have uncomplicated otitis externa and was managed by ID team with antibiotics and ointment. He did have any further fever. Cultures negative for any acute infection. Patient was feeling back to his baseline. Patient did not require any antihypertensives. He was cleared for outpatient follow-up by ID and oncology eval. Disposition: Patient will be discharged home with outpatient oncology follow- up. Patient was given prescription for antibiotics and he verbalized discharge instructions. Condition at time of discharge is stable. Approximately 60 minutes was spent in coordinating the discharge on this patient. Case discussed with [place] Meds Active Scripts Fluconazole* (Fluconazole*) 100 Mg Tablet, 100 MG PO DAILY for 7 Days, #7 TAB Prov:BASHIR,JEROME V. SET STAFF FITTER 01/23/17 Ciprofloxacin Hcl* (Ciprofloxacin Hcl*) 500 Mg Tablet, 500 MG PO BID for 7 Days , #14 TAB Prov:BASHIR,JEROME V. SET STAFF FITTER 01/23/17 Sulfamethoxazole/Trimethoprim* (Bactrim Ds* Tablet) 1 Each Tablet, 1 TAB PO BID for 7 Days, #14 TAB Prov:BASHIR,JEROME V. SET STAFF FITTER 01/23/17 Neomy Sulf/Polymyx B Sulf/Hc (Antibiotic Ear Suspension) 10 Ml Drops.susp, 4 DROP LEFT EAR TID for 7 Days, #1 Prov:BASHIR,JEROME V. SET STAFF FITTER 01/23/17 Amlodipine Besylate* (Amlodipine Besylate*) 10 Mg Tablet, 10 MG PO DAILY for 30 Days, TAB Prov:ARASH ARRIAGA 02/07/16 Reported Medications Glyburide* (Glyburide*) 5 Mg Tablet, 5 MG PO WITH BREAKFAST DINNE, #60 TAB 01/19/17 Trazodone Hcl* (Trazodone Hcl*) 50 Mg Tablet, 25 MG PO QHS for INSOMNIA, #30 TAB 11/12/16 Insulin Lispro (Humalog Kwikpen) 200 Unit/1 Ml Insuln.pen, 3 UNIT SQ TID, EA INJECT 3units BY SUBCUTANEOUS ROUTE 3 TIMES EVERYDAY NEEDED FOR BG>120 10/21/16 Mirtazapine* (Mirtazapine*) 30 Mg Tablet, 30 MG PO HS, TAB 09/09/16 Metformin* (Glucophage*) 1,000 Mg Tablet, 1000 MG PO BID, #60 TAB 02/02/16 Discontinued Reported Medications Ibuprofen* (Ibuprofen*) 600 Mg Tablet, 600 MG PO Q8, TAB TAKE 1 TABLET PO THREE TIMES EVERYDAY WITH FOOD 11/12/16 Ferrous Sulfate* (Ferrous Sulfate*) 325 Mg Tabec, 325 MG PO BID, TAB 11/12/16 Alprazolam* (Alprazolam*) 0.5 Mg Tablet, 0.5 MG PO DAILY Y for ANXIETY, TAB 11/12/16 Ergocalciferol (Vitamin D2) (VITAMIN D2) 50,000 Unit Capsule, 84425 UNIT PO QWEEK, CAP 11/12/16 Tramadol Hcl* (Ultram*) 50 Mg Tablet, 50 MG PO Q6H Y for PAIN, TAB 10/21/16 Gemfibrozil* (Lopid*) 600 Mg Tablet, 600 MG PO BID, TAB 02/02/16 Discontinued Scripts Cephalexin* (Cephalexin*) 500 Mg Capsule, 500 MG PO TID, #15 CAP Prov:JADEN TRACEY MD 11/21/16 Docusate Sodium (Dok) 100 Mg Capsule, 100 MG PO Q12H Y for CONSTIPATION, #30 CAP Prov:KEVIN BARNHART MD 10/28/16 Famotidine* (Famotidine*) 20 Mg Tablet, 20 MG PO DAILY, #30 TAB Prov:KEVIN BARNHART MD 10/28/16 Follow-up Plan HOME CARE INSTRUCTIONS: Your diet recommendation is: Carbohydrate controlled, 2 g sodium diet FOLLOW UP/APPOINTMENTS Follow-up Plan 1. Follow-up with oncology/chemotherapy tomorrow. 2.Follow up with primary care physician in 1 week If you don't have one please let someone know, we can give you resources that may help you pick one. You may also call your insurance company to assign one to you. Review your medication list with your nurse before leaving and if you need new prescriptions please let your nurse know. I may have made changes to your home medications or given you new prescriptions, please let your primary doctor know as well. Stay compliant with your medications and report any side effects to your PCP or pharmacist. Return to the ER if you have any concerns and cannot reach your doctors or call your insurance company, they usually have a nurse that can help you. 3. Call 911 or go to the nearest emergency room if experiencing loss of consciousness, dizziness, chest pain, shortness of breath, vomiting/abdominal pain, speech difficulties, motor weakness or any unusual symptoms. Primary Care Provider Justina Mendiola Pending Labs Laboratory Tests Test 01/22/17 17:48 01/22/17 20:25 01/23/17 04:25 8/4/17 04:26 Bedside Glucose 179mg/dL (70-220) 170mg/dL (70-220) White Blood Count 5.410^3/ul (4.8-10.8) Red Blood Count 2.8910^6/ul (4.70-6.10) Hemoglobin 8.8g/dl (14.0-18.0) Hematocrit 26.9% (42.0-52.0) Mean Corpuscular Volume 93.1fl (82.0-101.0) Mean Corpuscular Hemoglobin 30.4pg (29.0-33.0) Mean Corpuscular Hemoglobin Concent 32.7g/dl (32.0-37.0) Red Cell Distribution Width 21.8% (11.5-14.5) Platelet Count 7010^3/UL (140-415) Mean Platelet Volume 10.5fl (7.4-10.4) Neutrophils % 60.4% (39.0-77.0) Lymphocytes % 20.0% (15.0-51.0) Monocytes % 16.8% (0.0-11.0) Eosinophils % 1.1% (0.0-7.0) Basophils % 0.0% (0.0-2.0) Nucleated Red Blood Cells % 2.1/100WBC (0.0-0.0) Neutrophils # 3.210^3/ul (1.6-7.5) Lymphocytes # 1.110^3/ul (0.8-2.9) Monocytes # 0.910^3/ul (0.3-0.9) Eosinophils # 0.110^3/ul (0.0-0.5) Basophils # 0.010^3/ul (0.0-0.1) Nucleated Red Blood Cells # 0.110^3/ul (0.0-0.0) Sodium Level 143mmol/L (135-144) Potassium Level 4.1mmol/L (3.5-5.1) Chloride Level 103mmol/L (97-110) Carbon Dioxide Level 26mmol/L (21-31) Anion Gap 18 (8-16) Blood Urea Nitrogen 14mg/dl (7-20) Creatinine 0.84mg/dl (0.61-1.24) Glucose Level 183mg/dl (70-220) Calcium Level 8.9mg/dl (8.4-10.2) Test 01/23/17 08:00 01/23/17 08:46 01/23/17 12:22 Lab Scanned Report BLOOD [id number] Bedside Glucose 177mg/dL (70-220) 196mg/dL (70-220) JEROME BASHIR NP Jan 23, 2017 14:25
[2017-01-23 15:18] VITALS: BP 150/87; RESP 20
--- NOTE | 2017-01-23 15:26 | CONS ---
Date/Time of Note Date/Time of Note DATE: 01/23/17 TIME: 15:25 Assessment/Plan Assessment/Plan Chief Complaint/Hosp Course Myelodysplastic syndrome, currently on chemotherapy., ON VIDAZA D/W PT'S oncologist, Dr. Rosa MCCABE- ON HOLD NEUTROPENIC FEVER ID, ON ATB, MONITOR CULTURES POST NEUPOGEN RESTART NEUPOGEN NEEDED IS WBC DROPS Pancytopenia: chemotherapy induced WITH mds contribution monitor and transfuse PRBC and platelet as needed. Neupogen as needed POST 1 U PRBC HX GIB - PER DR Lee STOOL OB- P GI EVAL IF NEEDED Generalized weakness and pain from his leukemia as well as chemo-induced and from anemia. We will monitor for now. He will have a physical therapy evaluation. Pain medications as needed Reported Gross hematuria: Urinalysis actually shows no blood. Monitor for now. We will monitor closely and transfuse as needed Diabetes. Insulin while in-house Hypertensive urgency: Blood pressure better controlled Adjust antihypertensives as needed Dyslipidemia: Continue meds SOB M B PARTIALLY TO ANEMIA Chest x-ray showed persistent pleural parenchymal scarring at the left lung base resulting in blunting of the left costophrenic angle and persistent reticular scarring seen within the right upper lobe with no alveolar infiltrate. CTPA was negative for PE. breathing treatments and oxygen as needed. Note that the patient was never hypoxic and in fact when presented presented to ER oxygen saturation was 100% on room air chronic low back pain Recent lumbar x-ray and MRI without alarming findings Pain medications as needed Problems: Consultation Date/Type/Reason Admit Date/Time Jan 21, 2017 at 13:44 Initial Consult Date 01/21/17 Type of Consultation: [facility] Referring Provider: JEROME BASHIR NP 24 HR Interval Summary Free Text/Dictation felling better fever- down Exam/Review of Systems Vital Signs Vitals Vital Signs Date Time Temp Pulse Resp B/P Pulse Ox O2 Delivery O2 Flow Rate FiO2 01/23/17 15:18 98.5 108 20 150/87 98 01/23/17 09:21 21 01/20/17 02:03 Room Air Intake and Output 01/22/17 01/22/17 01/23/17 15:00 23:00 07:00 Intake Total 300 ml 2190 ml 950 ml Balance 300 ml 2190 ml 950 ml Exam GENERAL: No acute distress. Answering questions appropriately and is alert and oriented x4. HEENT: No obvious head deformity. Pupils are reactive. Extraocular muscles intact. CARDIOVASCULAR: Tachycardic with regular rhythm. LUNGS: Clear. ABDOMEN: Soft, nontender, nondistended. Positive bowel sounds. EXTREMITIES: No edema. NEUROLOGIC: No focal deficits. Results Result Diagram: 01/23/17 0425 01/23/17 0426 Results 24 hrs Laboratory Tests Test 01/22/17 17:48 01/22/17 20:25 01/23/17 04:25 01/23/17 04:26 Bedside Glucose 179 170 White Blood Count 5.4 # Red Blood Count 2.89 L Hemoglobin 8.8 L Hematocrit 26.9 L Mean Corpuscular Volume 93.1 Mean Corpuscular Hemoglobin 30.4 Mean Corpuscular Hemoglobin Concent 32.7 Red Cell Distribution Width 21.8 H Platelet Count 70 L Mean Platelet Volume 10.5 H Neutrophils % 60.4 Lymphocytes % 20.0 Monocytes % 16.8 H Eosinophils % 1.1 Basophils % 0.0 Nucleated Red Blood Cells % 2.1 H Neutrophils # 3.2 Lymphocytes # 1.1 Monocytes # 0.9 Eosinophils # 0.1 Basophils # 0.0 Nucleated Red Blood Cells # 0.1 H Sodium Level 143 Potassium Level 4.1 Chloride Level 103 Carbon Dioxide Level 26 Anion Gap 18 H Blood Urea Nitrogen 14 Creatinine 0.84 Glucose Level 183 Calcium Level 8.9 Test 01/23/17 08:00 01/23/17 08:46 01/23/17 12:22 Lab Scanned Report BLOOD TRANSFUSION Bedside Glucose 177 196 Medications Medications Current Medications Amlodipine Besylate (Norvasc) 10 mg DAILY PO Last administered on 01/23/17 08: 49; Admin Dose 10 MG; Start 01/20/17 at 09:00 Mirtazapine (Remeron) 30 mg HS PO Last administered on 01/22/17 20:27; Admin Dose 30 MG; Start 01/20/17 at 21:00 Trazodone HCl (Desyrel) 25 mg QHS PO Last administered on 01/22/17 20:27; Admin Dose 25 MG; Start 01/20/17 at 21:00 Insulin Glargine (Lantus) 10 unit DAILY@08 SC Last administered on 01/23/17 09: 31; Admin Dose 10 UNIT; Start 01/20/17 at 08:00 Diagnostic Test (Pha) (Accu-Chek) 1 ea 02 XX Last administered on 01/22/17 02: 08; Admin Dose 1 EA; Start 01/21/17 at 02:00 Ondansetron HCl (Zofran Inj) 4 mg Q6H PRN IV NAUSEA AND/OR VOMITING; Start 01/20 at 04:30 Acetaminophen (Tylenol Tab) 650 mg Q6H PRN PO PAIN AND OR ELEVATED TEMP Last administered on 01/21/17 22:14; Admin Dose 650 MG; Start 01/20/17 at 04:30 Miscellaneous Information 1 ea NOTE XX ; Start 01/20/17 at 04:30 Glucose (Glutose) 15 gm Q15M PRN PO DECREASED GLUCOSE; Start 01/20/17 at 04:30 Glucose (Glutose) 22.5 gm Q15M PRN PO DECREASED GLUCOSE; Start 01/20/17 at 04:30 Dextrose (D50w Syringe) 25 ml Q15M PRN IV DECREASED GLUCOSE; Start 01/20/17 at 04:30 Dextrose (D50w Syringe) 50 ml Q15M PRN IV DECREASED GLUCOSE; Start 01/20/17 at 04:30 Glucagon (Glucagen) 1 mg Q15M PRN IM DECREASED GLUCOSE; Start 01/20/17 at 04:30 Glucose (Glutose) 15 gm Q15M PRN BUCCAL DECREASED GLUCOSE; Start 01/20/17 at 04: 30 Hydralazine HCl 10 mg 10 mg Q4H PRN IV SBP > 160; Start 01/20/17 at 06:30 Cefepime HCl (Maxipime 1gm/50 ml (Pmx)) 50 ml @ 100 mls/hr Q12H IVPB Last administered on 01/23/17 06:28; Admin Dose 100 MLS/HR; Start 01/20/17 at 18:00 Vancomycin HCl (Vanco Iv Per Pharmacy) PER PHARMACY DOSING NOTE XX ; Start at 18:00 Polyethylene Glycol (Miralax) 17 gm DAILY PO Last administered on 01/21/17 09: 29; Admin Dose 17 GM; Start 01/21/17 at 09:00 Hydromorphone HCl (Dilaudid) 1 mg Q3 PRN IV PAIN Last administered on 01/23/17 12:59; Admin Dose 1 MG; Start 01/21/17 at 14:30 Filgrastim 300 mcg 300 mcg DAILY@17 SC Last administered on 01/21/17 17:34; Admin Dose 300 MCG; Start 01/21/17 at 17:00; Status Future Hold Vancomycin HCl (Vancocin) 250 ml @ 125 mls/hr Q12H IVPB Last administered on 11:37; Admin Dose 125 MLS/HR; Start 01/22/17 at 23:00 Neomycin/ Polymyxin/ Hydrocortisone 4 drop 4 drop TID LEFT EAR Last administered on 01/23/17 13:36; Admin Dose 4 DROP; Start 01/23/17 at 10:00 Fluconazole/ Sodium Chloride (Diflucan 100 Mg/ NS (Pmx)) 50 ml @ 50 mls/hr Q24H IVPB Last administered on 01/23/17 10:08; Admin Dose 50 MLS/HR; Start 01/23/17 at 10:00 Senna/Docusate Sodium (Senokot-S) 1 tab DAILY PO Last administered on 01/23/17 12:19; Admin Dose 1 TAB; Start 01/23/17 at 11:30 Miscellaneous Information (*Rx Drug Level Order Reminder*) VANCOMYCIN TROUGH AT 1,000 ON 01/24 ONCE ONCE XX ; Start 01/24/17 at 10:00; Stop 01/24/17 at 10:01 ILA CHEN MD Jan 23, 2017 15:26
== END 2017-01-23 16:00 | disposition home or self-care (01) | DRG 810 ==
LOC: E/R 15:13 → TEL 23:18 → OBSVTOIN 01-21 13:44 → MS1 01-21 19:21
PROVIDERS: ADMIT Internal Medicine; ATTEND Internal Medicine
PROC: 30233N1 Transfusion of Nonautologous Red Blood Cells into Peripheral Vein, Percutaneous Approach (ICD-10-PCS; principal; 2017-01-21)
PROC: 30233N1 Transfusion of Nonautologous Red Blood Cells into Peripheral Vein, Percutaneous Approach (ICD-10-PCS; 2017-01-21)
DX: D70.1 Agranulocytosis secondary to cancer chemotherapy (principal); D46.9 Myelodysplastic syndrome, unspecified; E11.9 Type 2 diabetes mellitus without complications; E78.5 Hyperlipidemia, unspecified; H60.92 Unspecified otitis externa, left ear; R50.81 Fever presenting with conditions classified elsewhere; I16.0 Hypertensive urgency; M51.9 Unspecified thoracic, thoracolumbar and lumbosacral intervertebral disc disorder; M54.5 Low back pain; F41.9 Anxiety disorder, unspecified; R31.0 Gross hematuria; Z79.4 Long term (current) use of insulin
CPT/HCPCS: 36430; 71010; 71275; 80048; 80053; 80202; 81003; 82150; 82270; 82565; 82962; 83036; 83605; 83690; 83735; 84100; 84484; 84520; 85025; 86850; 86870; 86900; 86901; 86920; 86945; 87040; 87081; 87086; 93005; 94640; 94664; 96374; 96375; 96376; G0378; J0692; J1170; J1450; J1815; J2270; J2405; J3370; J3475; J7030; J7040; J7050; P9016; Q9967

== ENCOUNTER 2019-02-19 02:14 | Inpatient (IN) | payer MEDICARE, OTHER ==
[~2019-02-19] VITALS: Ht 162.6 cm; Wt 74.5 kg
[2019-02-19] VITALS (36 sets, daily range): BP systolic 86–133; BP diastolic 51–82; PULSE 93–132; RESP 11–32; Ht 162.6 cm; Wt 74.5 kg
[~2019-02-19 02:14] MED LIST changes: -ALPR0.5T6 PO; -CEPH500C PO; +CIPR500T4 PO; -DOCU-216 PO; -ERGO500037 PO; -FAMO20TA18 PO; -FER325 PO; +FLUC100T39 PO; -GEMF600T PO; +GLYB5TAB3 PO; -IBUP-1542 PO; +NPH10OT LEFT EAR; +SULF1TAB31 PO; -TRAM-40 PO; +TRAM50TA PO; +TRAZ-111 PO; -TRAZ50TA18 PO
[2019-02-19] MEDS ORDERED: SOD CHLORIDE 0.9% 1,000 ML IV ONE (04:15)
[2019-02-19] MEDS ORDERED: IPRATROPIUM (NEB) 0.5 MG/2.5 ML AMP NEB PRN (06:00)
[2019-02-19] MEDS ORDERED: SOD CHLORIDE 0.9% 500 ML IV ONE (06:00)
[2019-02-19] MEDS ORDERED: DOCUSATE SODIUM 100 MG CAP PO PRN (06:00)
[2019-02-19] MEDS ORDERED: BISACODYL (EC) 5 MG TAB PO PRN (06:00)
[2019-02-19] MEDS ORDERED: ACETAMINOPHEN 650MG/20.3ML CUP PO PRN (06:00)
[2019-02-19] MEDS ORDERED: HYDROCODONE/APAP (5/325) TAB PO PRN (06:00)
[2019-02-19] MEDS: ONDANSETRON 4 MG INJ IV PRN (06:22)
[2019-02-19] MEDS: morphine 2 MG INJ IV PRN ×4 (06:22→22:16)
[2019-02-19] MEDS: PANTOPRAZOLE 40 MG INJ IV SCH ×2 (06:51→18:00)
[2019-02-19] MEDS ORDERED: traMADol 50 MG TAB PO PRN (07:30)
[2019-02-19] MEDS ORDERED: BUMETANIDE 1 MG INJ IV ONE (07:30)
[2019-02-19] MEDS: INSULIN ASPART [NOVOLOG] 3 ML PEN SC SCH ×7 (07:35→22:09)
[2019-02-19] MEDS ORDERED: NON-FORMULARY/PATIENT OWN MED (Insulin Lispro (Humalog Kwikpen) 3 UNIT) SQ SCH (09:00)
[2019-02-19] MEDS: AMLODIPINE 10 MG TAB PO SCH (09:00)
[2019-02-19] MEDS ORDERED: GLUCOSE GEL 15 GRAM TUBE PO PRN ×2 (15:00)
[2019-02-19] MEDS ORDERED: GLUCAGON 1 MG INJ IM PRN (15:00)
[2019-02-19] MEDS ORDERED: GLUCOSE GEL 15 GRAM TUBE BUCCAL PRN (15:00)
[2019-02-19] MEDS: HYDROmorphONE 1 MG/ML SYG IV PRN ×2 (16:36→20:03)
[2019-02-19] MEDS: traZODone 50 MG TAB PO SCH (22:05)
[2019-02-19] MEDS: MIRTAZAPINE 15 MG TAB PO SCH (22:05)
[2019-02-20] VITALS (38 sets, daily range): BP systolic 99–134; BP diastolic 64–100; PULSE 98–124; RESP 11–34
[2019-02-20] MEDS: HYDROmorphONE 1 MG/ML SYG IV PRN ×6 (01:00→22:42)
[2019-02-20] MEDS: ACCU-CHEK XX SCH (02:00)
[2019-02-20] MEDS: morphine 2 MG INJ IV PRN ×2 (03:19→08:36)
[2019-02-20] MEDS: PANTOPRAZOLE 40 MG INJ IV SCH ×2 (06:03→18:22)
[2019-02-20] MEDS: INSULIN ASPART [NOVOLOG] 3 ML PEN SC SCH ×7 (07:35→21:00)
[2019-02-20] MEDS: AMLODIPINE 10 MG TAB PO SCH (08:37)
[2019-02-20] MEDS ORDERED: LORAZEPAM 1 MG TAB PO ONE (11:30)
[2019-02-20] MEDS: morphine 4 MG/ML VIAL IV PRN ×2 (13:39→20:47)
[2019-02-20] MEDS: MIRTAZAPINE 15 MG TAB PO SCH (21:21)
[2019-02-20] MEDS: morphine (ER) 15 MG TAB PO SCH (21:21)
[2019-02-20] MEDS: traZODone 50 MG TAB PO SCH (21:22)
[2019-02-21] VITALS (39 sets, daily range): BP systolic 89–130; BP diastolic 40–88; PULSE 92–128; RESP 12–28
[2019-02-21] MEDS: morphine 4 MG/ML VIAL IV PRN ×3 (00:01→22:25)
[2019-02-21] MEDS: ACCU-CHEK XX SCH (02:00)
[2019-02-21] MEDS: HYDROmorphONE 1 MG/ML SYG IV PRN ×5 (03:28→19:39)
[2019-02-21] MEDS: PANTOPRAZOLE 40 MG INJ IV SCH ×2 (05:28→18:52)
[2019-02-21] MEDS: INSULIN ASPART [NOVOLOG] 3 ML PEN SC SCH ×7 (08:23→20:39)
[2019-02-21] MEDS: morphine (ER) 15 MG TAB PO SCH ×2 (08:44→20:16)
[2019-02-21] MEDS: AMLODIPINE 10 MG TAB PO SCH (08:46)
[2019-02-21] MEDS ORDERED: BISACODYL (EC) 5 MG TAB PO ONE (12:00)
[2019-02-21] MEDS ORDERED: MAGNESIUM CITRATE 300 ML BTL PO ONE (17:30)
[2019-02-21] MEDS ORDERED: POLYETHYLENE GLYCOL 3350 119 GM POWDER PO ONE (18:30)
[2019-02-21] MEDS: FUROSEMIDE 40 MG INJ IV SCH (19:36)
[2019-02-21] MEDS: traZODone 50 MG TAB PO SCH (20:15)
[2019-02-21] MEDS: MIRTAZAPINE 15 MG TAB PO SCH (20:15)
[2019-02-21] MEDS: ONDANSETRON 4 MG INJ IV PRN (20:20)
[2019-02-22] VITALS (14 sets, daily range): BP systolic 97–125; BP diastolic 56–75; PULSE 56–117; RESP 11–23
[2019-02-22] MEDS: ACCU-CHEK XX SCH (02:14)
[2019-02-22] MEDS ORDERED: POLYETHYLENE GLYCOL 3350 119 GM POWDER PO ONE (06:00)
[2019-02-22] MEDS: PANTOPRAZOLE 40 MG INJ IV SCH ×2 (06:29→19:09)
[2019-02-22] MEDS: FUROSEMIDE 40 MG INJ IV SCH ×2 (06:30→19:09)
[2019-02-22] MEDS ORDERED: BISACODYL (EC) 5 MG TAB PO ONE (08:00)
[2019-02-22] MEDS: INSULIN ASPART [NOVOLOG] 3 ML PEN SC SCH ×7 (08:00→21:00)
[2019-02-22] MEDS: morphine (ER) 15 MG TAB PO SCH ×2 (08:32→20:49)
[2019-02-22] MEDS: AMLODIPINE 10 MG TAB PO SCH (09:00)
[2019-02-22] MEDS: HYDROmorphONE 1 MG/ML SYG IV PRN ×4 (11:10→23:31)
[2019-02-22] MEDS ORDERED: PROPOFOL 60 ML ONE (17:11)
[2019-02-22] MEDS ORDERED: LIDOCAINE 2% (SDV) 5 ML INJ ONE (17:11)
[2019-02-22] MEDS ORDERED: DIPHENHYDRAMINE 50 MG INJ IV PRN (18:30)
[2019-02-22] MEDS ORDERED: EPHEDrine 25 MG/5 ML SYG IV PRN (18:30)
[2019-02-22] MEDS ORDERED: MEPERIDINE 25 MG INJ IV PRN (18:30)
[2019-02-22] MEDS ORDERED: ALBUTEROL 0.083% (NEB) 2.5 MG/3 ML AMP HHN PRN (18:30)
[2019-02-22] MEDS ORDERED: hydrALAzine 20 MG INJ IV PRN (18:30)
[2019-02-22] MEDS ORDERED: FENTAnyl 50 MCG/ML VIAL IV PRN (18:30)
[2019-02-22] MEDS ORDERED: ONDANSETRON 4 MG INJ IV PRN (18:30)
[2019-02-22] MEDS ORDERED: LABETALOL HCL 20MG INJ IV PRN (18:30)
[2019-02-22] MEDS: SUCRALFATE (100 MG/ML) 10ML CUP PO SCH (20:48)
[2019-02-22] MEDS: MIRTAZAPINE 15 MG TAB PO SCH (20:48)
[2019-02-23] MEDS: morphine 4 MG/ML VIAL IV PRN (01:24)
[2019-02-23] MEDS: ACCU-CHEK XX SCH (01:55)
[2019-02-23 04:00] VITALS: BP 117/68; RESP 20
[2019-02-23] MEDS: PANTOPRAZOLE 40 MG INJ IV SCH ×2 (05:14→17:48)
[2019-02-23] MEDS: FUROSEMIDE 40 MG INJ IV SCH ×2 (05:14→17:48)
[2019-02-23] MEDS: HYDROmorphONE 1 MG/ML SYG IV PRN ×5 (05:15→22:09)
[2019-02-23 07:22] VITALS: BP 115/71; PULSE 102; RESP 22
[2019-02-23] MEDS: INSULIN ASPART [NOVOLOG] 3 ML PEN SC SCH ×6 (08:00→20:36)
[2019-02-23] MEDS: SUCRALFATE (100 MG/ML) 10ML CUP PO SCH ×4 (08:18→20:34)
[2019-02-23] MEDS: AMLODIPINE 10 MG TAB PO SCH (08:18)
[2019-02-23] MEDS: morphine (ER) 15 MG TAB PO SCH ×2 (08:19→20:34)
[2019-02-23 11:15] VITALS: BP 117/70; PULSE 103; RESP 22
[2019-02-23 15:36] VITALS: BP 110/68; PULSE 98; RESP 22
[2019-02-23 20:00] VITALS: BP 117/70; PULSE 100; RESP 18
[2019-02-23] MEDS: MIRTAZAPINE 15 MG TAB PO SCH (22:09)
[2019-02-24] VITALS (8 sets, daily range): BP systolic 96–123; BP diastolic 59–73; PULSE 98–112; RESP 18–22
[2019-02-24] MEDS: HYDROmorphONE 1 MG/ML SYG IV PRN ×8 (01:21→22:48)
[2019-02-24] MEDS: ACCU-CHEK XX SCH (01:54)
[2019-02-24] MEDS: PANTOPRAZOLE 40 MG INJ IV SCH ×2 (05:45→17:39)
[2019-02-24] MEDS: FUROSEMIDE 40 MG INJ IV SCH ×2 (05:46→17:40)
[2019-02-24] MEDS ORDERED: ALTEPLASE (CATHFLO) 2 MG INJ CATHETER PRN (07:00)
[2019-02-24] MEDS: INSULIN ASPART [NOVOLOG] 3 ML PEN SC SCH ×7 (07:37→20:10)
[2019-02-24] MEDS: SUCRALFATE (100 MG/ML) 10ML CUP PO SCH ×5 (08:35→20:01)
[2019-02-24] MEDS: morphine (ER) 15 MG TAB PO SCH ×2 (08:35→20:01)
[2019-02-24] MEDS ORDERED: DOCUSATE SODIUM 100 MG CAP PO SCH (09:00)
[2019-02-24] MEDS: MIRTAZAPINE 15 MG TAB PO SCH (20:01)
[2019-02-24] MEDS: INSULIN GLARGINE [LANTus] (100 UNITS/ML) SYG SC SCH (20:19)
[2019-02-24] MEDS ORDERED: LOPERAMIDE 2 MG CAP PO ONE (22:30)
[2019-02-25] MEDS: HYDROCODONE/APAP (10/325) TAB PO PRN (00:56)
[2019-02-25] MEDS: ACCU-CHEK XX SCH (01:36)
[2019-02-25] MEDS: HYDROmorphONE 1 MG/ML SYG IV PRN ×7 (02:20→21:30)
[2019-02-25 03:37] VITALS: BP 107/69; PULSE 104; RESP 21
[2019-02-25] MEDS: PANTOPRAZOLE 40 MG INJ IV SCH ×2 (05:25→17:30)
[2019-02-25] MEDS: FUROSEMIDE 40 MG INJ IV SCH ×4 (05:27→17:30)
[2019-02-25 07:32] VITALS: BP 116/75; PULSE 99; RESP 17
[2019-02-25] MEDS: SUCRALFATE (100 MG/ML) 10ML CUP PO SCH ×4 (07:56→20:13)
[2019-02-25] MEDS: INSULIN ASPART [NOVOLOG] 3 ML PEN SC SCH ×5 (07:56→20:17)
[2019-02-25] MEDS: morphine (ER) 15 MG TAB PO SCH ×2 (07:56→20:14)
[2019-02-25] MEDS ORDERED: DOCUSATE SODIUM 100 MG CAP PO SCH (09:00)
[2019-02-25] MEDS: POTASSIUM CHLORIDE 20 MEQ POWDER FOR ORAL SOLN PO SCH ×2 (09:23→20:13)
[2019-02-25 11:07] VITALS: BP 102/73; PULSE 113; RESP 18
[2019-02-25] MEDS: DEXTROSE 50% 50 ML SYRINGE IV PRN (12:35)
[2019-02-25] MEDS: ONDANSETRON 4 MG INJ IV PRN ×2 (13:58→20:29)
[2019-02-25 15:23] VITALS: BP 129/73; PULSE 102; RESP 18
[2019-02-25] MEDS: LOPERAMIDE 2 MG CAP PO PRN ×2 (15:43→17:30)
[2019-02-25 19:33] VITALS: BP 101/61; PULSE 107; RESP 20
[2019-02-25] MEDS: INSULIN GLARGINE [LANTus] (100 UNITS/ML) SYG SC SCH (20:00)
[2019-02-25] MEDS: MIRTAZAPINE 15 MG TAB PO SCH (20:13)
[2019-02-25 23:22] VITALS: BP 117/63; PULSE 101; RESP 21
[2019-02-26] MEDS: HYDROmorphONE 1 MG/ML SYG IV PRN ×6 (00:46→22:12)
[2019-02-26] MEDS: ACCU-CHEK XX SCH ×2 (02:00→21:52)
[2019-02-26 04:26] VITALS: BP 106/55; PULSE 110; RESP 17
[2019-02-26] MEDS: PANTOPRAZOLE 40 MG INJ IV SCH ×2 (06:24→18:15)
[2019-02-26] MEDS: INSULIN ASPART [NOVOLOG] 3 ML PEN SC SCH ×4 (07:50→21:00)
[2019-02-26 08:38] VITALS: BP 94/51; PULSE 107; RESP 20
[2019-02-26] MEDS: SUCRALFATE (100 MG/ML) 10ML CUP PO SCH ×4 (08:52→20:13)
[2019-02-26] MEDS: POTASSIUM CHLORIDE 20 MEQ POWDER FOR ORAL SOLN PO SCH ×2 (08:52→20:12)
[2019-02-26] MEDS: morphine (ER) 15 MG TAB PO SCH ×2 (08:56→20:20)
[2019-02-26] MEDS ORDERED: HYDROXYUREA 500 MG CAP PO SCH (09:00)
[2019-02-26] MEDS: D5W-0.45 NACL + KCL 20 MEQ 1,000 ML IV SCH ×2 (10:48→20:31)
[2019-02-26] MEDS: FUROSEMIDE 40 MG INJ IV SCH ×3 (10:51→21:26)
[2019-02-26] MEDS: LOPERAMIDE HCL 1 MG/5 ML LIQUID (10 ML UD CUP) PO PRN ×2 (11:49→20:12)
[2019-02-26] MEDS: ALLOPURINOL 300 MG TAB PO SCH (13:48)
[2019-02-26 14:48] VITALS: BP 116/65; PULSE 107; RESP 20
[2019-02-26] MEDS: HYDROCODONE/APAP (10/325) TAB PO PRN ×3 (15:22→23:45)
[2019-02-26] MEDS ORDERED: SOD CHLORIDE 0.9% 500 ML IV ONE (15:30)
[2019-02-26 20:02] VITALS: BP 100/63; PULSE 105; RESP 20
[2019-02-26] MEDS: APIXABAN 5 MG TABLET PO SCH (20:13)
[2019-02-26] MEDS: MIRTAZAPINE 15 MG TAB PO SCH (20:13)
[2019-02-26] MEDS: INSULIN GLARGINE [LANTus] (100 UNITS/ML) SYG SC SCH (20:29)
[2019-02-26] MEDS: BUSPIRONE 5 MG TAB PO SCH (21:28)
[2019-02-27] MEDS: HYDROmorphONE 1 MG/ML SYG IV PRN ×7 (01:09→20:08)
[2019-02-27 02:48] VITALS: BP 119/70; PULSE 104; RESP 20
[2019-02-27] MEDS: D5W-0.45 NACL + KCL 20 MEQ 1,000 ML IV SCH ×2 (04:20→06:19)
[2019-02-27] MEDS: PANTOPRAZOLE 40 MG INJ IV SCH ×2 (06:06→18:25)
[2019-02-27] MEDS: FUROSEMIDE 40 MG INJ IV SCH ×2 (06:08→18:25)
[2019-02-27 07:13] VITALS: BP 102/63; PULSE 105; RESP 18
[2019-02-27] MEDS: INSULIN ASPART [NOVOLOG] 3 ML PEN SC SCH ×4 (08:50→20:54)
[2019-02-27] MEDS: APIXABAN 5 MG TABLET PO SCH ×2 (08:56→20:53)
[2019-02-27] MEDS: ALLOPURINOL 300 MG TAB PO SCH (08:56)
[2019-02-27] MEDS: BUSPIRONE 5 MG TAB PO SCH ×2 (08:56→20:54)
[2019-02-27] MEDS: POTASSIUM CHLORIDE 20 MEQ POWDER FOR ORAL SOLN PO SCH (08:56)
[2019-02-27] MEDS: morphine (ER) 15 MG TAB PO SCH ×2 (08:57→20:54)
[2019-02-27] MEDS: SUCRALFATE (100 MG/ML) 10ML CUP PO SCH ×4 (09:00→20:57)
[2019-02-27] MEDS ORDERED: ALLOPURINOL 300 MG TAB PO SCH (09:00)
[2019-02-27] MEDS: HYDROXYUREA 500 MG CAP PO SCH (11:32)
[2019-02-27] MEDS: ALBUTEROL 0.083% (NEB) 2.5 MG/3 ML AMP NEB PRN ×2 (11:54→16:15)
[2019-02-27] MEDS: ONDANSETRON 4 MG INJ IV PRN ×2 (12:38→20:07)
[2019-02-27 14:32] VITALS: BP 106/61; PULSE 125; RESP 18
[2019-02-27 15:00] VITALS: BP 106/66; RESP 18
[2019-02-27] MEDS: LOPERAMIDE HCL 1 MG/5 ML LIQUID (10 ML UD CUP) PO PRN (15:39)
[2019-02-27 20:30] VITALS: BP 133/67; PULSE 120; RESP 19
[2019-02-27] MEDS: INSULIN GLARGINE [LANTus] (100 UNITS/ML) SYG SC SCH (20:53)
[2019-02-27] MEDS: MIRTAZAPINE 15 MG TAB PO SCH (20:54)
[2019-02-27] MEDS: HYDROmorphONE 2 MG/ML SYG IV PRN (23:06)
[2019-02-28] VITALS (64 sets, daily range): BP systolic 69–174; BP diastolic 37–133; PULSE 117–151; RESP 14–35
[2019-02-28] MEDS: ACCU-CHEK XX SCH (02:00)
[2019-02-28] MEDS: ONDANSETRON 4 MG INJ IV PRN (02:41)
[2019-02-28] MEDS: HYDROmorphONE 2 MG/ML SYG IV PRN (02:41)
[2019-02-28] MEDS: FUROSEMIDE 40 MG INJ IV SCH ×2 (05:46→18:00)
[2019-02-28] MEDS: PANTOPRAZOLE 40 MG INJ IV SCH ×2 (05:46→18:52)
[2019-02-28] MEDS: DEXTROSE 50% 50 ML SYRINGE IV PRN ×6 (07:17→15:44)
[2019-02-28] MEDS ORDERED: CALCIUM GLUCONATE 10% 2 GM in DEXTROSE 5% 100 ML IVPB ONE (08:00)
[2019-02-28] MEDS ORDERED: FUROSEMIDE 40 MG INJ IM ONE (08:00)
[2019-02-28] MEDS: HYDROXYUREA 500 MG CAP PO SCH (09:00)
[2019-02-28] MEDS: morphine (ER) 15 MG TAB PO SCH ×2 (09:00→21:00)
[2019-02-28] MEDS: SUCRALFATE (100 MG/ML) 10ML CUP PO SCH ×4 (09:00→21:00)
[2019-02-28] MEDS: BUSPIRONE 5 MG TAB PO SCH ×2 (09:00→21:00)
[2019-02-28] MEDS: APIXABAN 5 MG TABLET PO SCH ×2 (09:00→21:00)
[2019-02-28] MEDS ORDERED: ALLOPURINOL 300 MG TAB PO SCH (09:00)
[2019-02-28] MEDS ORDERED: METHYLPREDNISOLONE 125 MG INJ ONE (09:02)
[2019-02-28] MEDS ORDERED: METHYLPREDNISOLONE 125 MG INJ IV ONE (09:30)
[2019-02-28] MEDS: ALBUMIN HUMAN 25% 100 ML IV SCH ×2 (09:34→10:35)
[2019-02-28] MEDS ORDERED: NA BICARBONATE 8.4% 50 ML SYG IV STA ×5 (09:42→15:44)
[2019-02-28] MEDS: INSULIN ASPART [NOVOLOG] 3 ML PEN SC SCH ×4 (10:24→21:00)
[2019-02-28] MEDS ORDERED: LACTATED RINGER'S 1,000 ML IV ONE (10:30)
[2019-02-28] MEDS ORDERED: CEFEPIME 2GM/50 ML IVPB SCH (10:30)
[2019-02-28] MEDS ORDERED: VANCOMYCIN IV PER PHARMACY XX SCH (10:30)
[2019-02-28] MEDS: NORepinephrine 8MG/250 ML (PMX 250 ML IV SCH ×3 (11:04→20:17)
[2019-02-28] MEDS ORDERED: VANCOMYCIN 1.5 GM/NS 250 ML 250 ML IVPB ONE (11:30)
[2019-02-28] MEDS: DEXTROSE 10% 1,000 ML IV SCH ×4 (12:23→22:12)
[2019-02-28] MEDS ORDERED: SOD CHLORIDE 0.9% 1,000 ML IV ONE ×2 (12:30→15:00)
[2019-02-28] MEDS ORDERED: MIDAZOLAM (DRIP) 50 mg/50 mL 50 ML IV SCH (14:00)
[2019-02-28] MEDS ORDERED: LORAZEPAM 2 MG INJ ONE (14:11)
[2019-02-28] MEDS: VASOPRESSIN 60 UNIT in DEXTROSE 5% 57 ML IV SCH (14:41)
[2019-02-28] MEDS: SODIUM BICARBONATE (IV ADD) 100 MEQ in DEXTROSE 5%-0.45% NACL 900 ML IV SCH (14:43)
[2019-02-28] MEDS ORDERED: LORAZEPAM 2 MG INJ IV ONE (15:00)
[2019-02-28] MEDS: MEROPENEM 500MG/50 ML (PMX) 50 ML IVPB SCH ×2 (15:59→22:11)
[2019-02-28] MEDS: HYDROCORTISONE 100 MG INJ IV SCH ×2 (18:14→22:11)
[2019-02-28] MEDS: PHENYLephrine 80 MG in DEXTROSE 5% 242 ML IV SCH (20:48)
[2019-02-28] MEDS: MIRTAZAPINE 15 MG TAB PO SCH (21:00)
[2019-02-28] MEDS ORDERED: COSYNTROPIN 0.25 MG INJ IV ONE (23:00)
[2019-03-01] VITALS (30 sets, daily range): BP systolic 34–104; BP diastolic 16–80; PULSE 61–139; RESP 17–71
[2019-03-01] MEDS ORDERED: SOD CHLORIDE 0.9% 500 ML IV ONE (00:30)
[2019-03-01] MEDS ORDERED: ALBUMIN HUMAN 25% 100 ML IV ONE (00:30)
[2019-03-01] MEDS: INSULIN ASPART [NOVOLOG] 3 ML PEN SC SCH ×2 (01:00→05:00)
[2019-03-01] MEDS ORDERED: DOPamine-D5W 1.6 MG/ML 250 ML IV SCH (01:00)
[2019-03-01] MEDS: SODIUM BICARBONATE (IV ADD) 100 MEQ in DEXTROSE 5%-0.45% NACL 900 ML IV SCH (01:20)
[2019-03-01] MEDS: PHENYLephrine 80 MG in DEXTROSE 5% 242 ML IV SCH ×2 (01:31→06:02)
[2019-03-01] MEDS: NORepinephrine 8MG/250 ML (PMX 250 ML IV SCH ×2 (01:41→06:02)
[2019-03-01] MEDS ORDERED: ACCU-CHEK XX SCH (02:00)
[2019-03-01] MEDS ORDERED: EPINEPHrine 4 MG in DEXTROSE 5% 246 ML IV SCH (03:30)
[2019-03-01] MEDS: DEXTROSE 10% 1,000 ML IV SCH (03:49)
[2019-03-01] MEDS: VASOPRESSIN 60 UNIT in DEXTROSE 5% 57 ML IV SCH (03:58)
[2019-03-01] MEDS ORDERED: NA POLYST SULFON 15 GM/60 ML BTL PO ONE (05:00)
[2019-03-01] MEDS ORDERED: DEXTROSE 50% 50 ML SYRINGE IV ONE ×2 (05:30)
[2019-03-01] MEDS ORDERED: CA CHLORIDE 10% 10 ML SYRINGE ONE (06:00)
[2019-03-01] MEDS: HYDROCORTISONE 100 MG INJ IV SCH (06:00)
[2019-03-01] MEDS: PANTOPRAZOLE 40 MG INJ IV SCH (06:00)
[2019-03-01] MEDS: MEROPENEM 500MG/50 ML (PMX) 50 ML IVPB SCH (06:00)
[2019-03-01] MEDS ORDERED: EPINEPHrine 0.1 MG/ML SYG ONE (06:00)
[2019-03-01] MEDS ORDERED: ATROPINE 1 MG/10 ML SYRINGE ONE (06:00)
[2019-03-01] MEDS ORDERED: PHYTONADIONE 10 MG/ML INJ SC ONE (06:00)
[2019-03-01] MEDS: FUROSEMIDE 40 MG INJ IV SCH (06:00)
[2019-03-01] MEDS ORDERED: MAGNESIUM SULFATE 1 GM/100 ML D5W IVPB ONE (06:00)
[2019-03-01] MEDS ORDERED: NA BICARBONATE 8.4% 50 ML SYG ONE (06:00)
[2019-03-01] MEDS ORDERED: DEXTROSE 50% 50 ML SYRINGE ONE (06:00)
[2019-03-01] MEDS ORDERED: VANCOMYCIN 1.25 GM/NS 250 ML 250 ML IVPB SCH (13:00)
== END 2019-03-01 06:20 | disposition expired | DRG 834 ==
LOC: E/R 02:14 → ICU 05:45 → 6WM 02-22 00:53 → MS1 02-26 06:14 → TEL 02-28 07:46 → ICU 02-28 08:50
PROVIDERS: ADMIT Family Medicine; ATTEND Internal Medicine
PROC: 30233N1 Transfusion of Nonautologous Red Blood Cells into Peripheral Vein, Percutaneous Approach (ICD-10-PCS; principal; 2019-02-19)
PROC: 30233R1 Transfusion of Nonautologous Platelets into Peripheral Vein, Percutaneous Approach (ICD-10-PCS; 2019-02-19)
PROC: 0DJ08ZZ Inspection of Upper Intestinal Tract, Via Natural or Artificial Opening Endoscopic (ICD-10-PCS; 2019-02-22)
PROC: 0DJD8ZZ Inspection of Lower Intestinal Tract, Via Natural or Artificial Opening Endoscopic (ICD-10-PCS; 2019-02-22)
PROC: 30233K1 Transfusion of Nonautologous Frozen Plasma into Peripheral Vein, Percutaneous Approach (ICD-10-PCS; 2019-02-28)
PROC: 0BH17EZ Insertion of Endotracheal Airway into Trachea, Via Natural or Artificial Opening (ICD-10-PCS; 2019-02-28)
PROC: 5A1935Z Respiratory Ventilation, Less than 24 Consecutive Hours (ICD-10-PCS; 2019-02-28)
PROC: 06HM33Z Insertion of Infusion Device into Right Femoral Vein, Percutaneous Approach (ICD-10-PCS; 2019-02-28)
DX: C92.00 Acute myeloblastic leukemia, not having achieved remission (principal); R65.21 Severe sepsis with septic shock; A41.9 Sepsis, unspecified organism; J96.01 Acute respiratory failure with hypoxia; J18.9 Pneumonia, unspecified organism; N17.0 Acute kidney failure with tubular necrosis; R57.8 Other shock; D61.818 Other pancytopenia; E87.2 Acidosis; R18.8 Other ascites; E87.1 Hypo-osmolality and hyponatremia; G93.40 Encephalopathy, unspecified; K63.3 Ulcer of intestine; N17.9 Acute kidney failure, unspecified; I46.9 Cardiac arrest, cause unspecified; D69.6 Thrombocytopenia, unspecified; E88.81 Metabolic syndrome and other insulin resistance; E11.649 Type 2 diabetes mellitus with hypoglycemia without coma; E87.8 Other disorders of electrolyte and fluid balance, not elsewhere classified; R13.10 Dysphagia, unspecified; E87.5 Hyperkalemia; I10 Essential (primary) hypertension; J45.909 Unspecified asthma, uncomplicated; E78.5 Hyperlipidemia, unspecified; F32.9 Major depressive disorder, single episode, unspecified; I25.10 Atherosclerotic heart disease of native coronary artery without angina pectoris; Z68.28 Body mass index [BMI] 28.0-28.9, adult; D73.5 Infarction of spleen; R60.1 Generalized edema; K26.9 Duodenal ulcer, unspecified as acute or chronic, without hemorrhage or perforation; N50.89 Other specified disorders of the male genital organs; R19.7 Diarrhea, unspecified
CPT/HCPCS: 31500; 36415; 36430; 36600; 71045; 74176; 76700; 76775; 76870; 80048; 80053; 81001; 81003; 82533; 82803; 82947; 82962; 83605; 83615; 83690; 83735; 83880; 84100; 84484; 85025; 85045; 85049; 85362; 85378; 85384; 85610; 85670; 85730; 86644; 86850; 86870; 86900; 86901; 86920; 86945; 87045; 87075; 87081; 87177; 87205; 88184; 88185; 88189; 88237; 88264; 88291; 88367; 88374; 88377; 92950; 93005; 93970; 94002; 94003; 94640; 94660; 94664; 94770; 96360; 97162; C1751; C9113; J0171; J0461; J0610; J0692; J0833; J1170; J1265; J1720; J1815; J1940; J2060; J2185; J2250; J2270; J2370; J2405; J2930; J3370; J3475; J3480; J7030; J7040; J7042; J7070; J7120; P9016; P9035; P9047; P9059